=== PATIENT | female | born 1960 | race Caucasian/White ===

== ENCOUNTER 2016-06-13 16:50 | Emergency (ER) | payer OTHER ==
[~2016-06-13] VITALS: Ht 157.5 cm; Wt 94.3 kg
[~2016-06-13 16:50] MED LIST: DULO60CA44 PO; GABA-113 PO; LEVO100T PO; LOSA50TA6 PO; POTA20TA13 PO; ZNTT/150 PO
[2016-06-13 17:04] VITALS: TEMP 37; Ht 157.5 cm; Wt 94.3 kg
[2016-06-13] MEDS ORDERED: MoRPHine SULFATE 10 MG/ML CARP/VIAL IM STA (17:40)
[2016-06-13] MEDS ORDERED: KETOROLAC TROMETHAMINE 60 MG/2 ML VIAL IM STA (17:40)
[2016-06-13] MEDS ORDERED: CYM60 PO (18:15)
[2016-06-13] MEDS ORDERED: LEVO100T7 PO (18:15)
[2016-06-13] MEDS ORDERED: NRN600 PO (18:15)
[2016-06-13] MEDS ORDERED: RANI150T2 PO (18:15)
[2016-06-13] MEDS ORDERED: CZR50 PO (18:15)
--- NOTE | 2016-06-13 18:15 | DIAGNOSTIC IMAGING REPORT ---
THORACIC SPINE 3 VIEWS HISTORY: Trauma. Pain. mid back pain COMPARISON: None. FINDINGS: There is no fracture. No subluxation. Moderate degenerative disc changes throughout. Laminectomy and fusion of the low lumbar and upper lumbar spine. IMPRESSION: Degenerative and postoperative change. No acute process. Electronically signed by: Junior Montoya M.D. 06/13/2016 6:13 PM Dictated Date/Time: 06/13/2016 6:13 PM
--- NOTE | 2016-06-13 18:16 | DIAGNOSTIC IMAGING REPORT ---
CHEST 2 VIEWS ROUTINE CLINICAL HISTORY: cp pain pain COMPARISON STUDY: 04/21/2016 FINDINGS: No acute process of the chest. Operative fusion of thoracolumbar spine pre-existing. No acute infiltrate. IMPRESSION: Negative chest. Electronically signed by: Junior Montoya M.D. 06/13/2016 6:14 PM Dictated Date/Time: 06/13/2016 6:14 PM
[2016-06-13 18:45] VITALS: PULSE 99; O2SAT 96
[2016-06-13] MEDS ORDERED: HYDROmorphone INJ 1 MG/ML SYR IM ONE (19:15)
[2016-06-13 20:23] VITALS: BP 142/89
[2016-06-13] MEDS ORDERED: PRT/40 PO (20:33)
[2016-06-13] MEDS ORDERED: LSX40 PO (20:33)
[2016-06-13] MEDS ORDERED: CYM30 PO (21:20)
[2016-06-13] MEDS ORDERED: NALO1TAB2 PO (21:20)
[2016-06-13] MEDS ORDERED: TRAZ1TAB5 PO (21:20)
[2016-06-13] MEDS ORDERED: DSY/150 PO (21:20)
--- NOTE | 2016-06-13 22:35 | EMERGENCY ROOM VISIT NOTE ---
History Report prepared by Elisha: Meghana Lee Under the Supervision of: Halley WoodO. First contact with patient: 17:32 Chief Complaint: FALL Stated Complaint: SEVERE BACK PAIN, RIB PAIN,FELL DOWN History of Present Illness The patient is a 56 year old female who presents to the Emergency Room with complaints of severe and persistent upper back pain secondary to fall starting 2 days ago. The pain intermittently becomes sharp. She has worsening pain with lifting her arms and sitting down. She also complains of bilateral lower extremity pain and some tingling at the base her feet bilaterally. The patient has a history of back surgery and scoliosis. Prior to the fall, she did not have any of her current symptoms since her last back surgery. 2 days ago, she slipped on mud and fell on her buttocks. She denies falling on her back or hitting her head. She currently denies any low back pain or upper neck pain. She denies chest pain, shortness of breath, urinary symptoms, or any other complaints. Source of History: patient Onset: 2 days ago Position: back (upper) Symptom Intensity: severe Quality: sharp (intermittently) Timing: other (persistent) Modifying Factors (Worsening): other (lifting her arms and sitting down) Associated Symptoms: + numbness, No SOB, No chest pain, No urinary symptoms Review of Systems See HPI for pertinent positives & negatives. A total of 10 systems reviewed and were otherwise negative. 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 (13) Dyslipidemia (14) GERD (gastroesophageal reflux disease) (15) Hypertension (16) Hypothyroidism (17) Left breast abscess (18) Lyme disease (19) Opioid dependence (20) Scoliosis (21) Sleep apnea (22) Tobacco abuse Surgical Problems: (1) Arthroscopy of knee joint (2) Recurrent subluxation of the patella (3) S/P cholecystectomy (4) Status post delivery (5) Status post lumbar surgery (6) Status post surgery for sleep apnea (7) Status post thyroidectomy Family History Cancer Diabetes mellitus FH: heart disease FHx: gallbladder disease Hypertension Kidney disease Social History Smoking Status: Current Every Day Smoker Alcohol Use: none Drug Use: none Marital Status: Housing Status: lives with family Occupation Status: employed Current/Historical Medications Scheduled Duloxetine HCl (Duloxetine HCl), 30 MG PO DAILY Duloxetine HCl (Duloxetine HCl), 60 MG PO DAILY Furosemide (Furosemide), 40 MG PO DAILY Gabapentin (Gabapentin), 600 MG PO BID Levothyroxine Sodium (Levothyroxine Sodium), 100 MCG PO DAILY Losartan Potassium (Losartan Potassium), 50 MG PO DAILY Naloxegol Oxalate (Movantik), 25 MG PO DAILY Pantoprazole (Pantoprazole Sodium), 40 MG PO DAILY Potassium Chloride Microencaps (Potassium Chloride Er), 20 MEQ PO DAILY Ranitidine HCl (Ranitidine HCl), 150 MG PO BID Trazodone HCl (Trazodone HCl), 300 MG PO HS Trazodone Hcl (Desyrel), 50 MG PO HS Allergies Coded Allergies: Ketorolac Tromethamine (Verified Allergy, Severe, SOB,TACHYCARDIA, 05/19/15 ) Carbamazepine (Verified Allergy, Unknown, Heart Arrhythmia, 05/19/15) Source-Reported by PT. Codeine (Verified Allergy, Unknown, 05/19/15) Erythromycin (Verified Allergy, Unknown, UNKNOWN, 05/19/15) Macrolides (Verified Allergy, Unknown, 05/19/15) Adhesives (Verified Adverse Reaction, Intermediate, SKIN TEARS, 05/19/15) Temazepam (Verified Adverse Reaction, Intermediate, GI SYMPTOMS, 05/19/15) STATES TEMAZAPAM DOES NOT GIVE HER ILL EFFECTS Physical Exam Vital Signs Date Time Temp Pulse Resp B/P Pulse Ox O2 Delivery O2 Flow Rate FiO2 06/13/16 20:23 142/89 06/13/16 18:45 99 20 128/96 96 06/13/16 17:04 37.0 108 18 151/91 97 Room Air Physical Exam GENERAL: Sitting up in bed, uncomfortable, mild distress, nontoxic. HEAD: normal cephalic, atraumatic EYE EXAM: normal conjunctiva, PERRL and EOM's grossly intact OROPHARYNX: no exudate, no erythema, lips, buccal mucosa, and tongue normal and mucous membranes are moist EARS: TMs clear b/l NECK: supple, no nuchal rigidity, no adenopathy, non-tender CHEST: stable to compression anteriorly and posteriorly LUNGS: clear to auscultation. Normal chest wall mechanics HEART: Tachycardic rate. No murmurs, S1 normal and S2 normal ABDOMEN: abdomen soft, non-tender, normo-active bowel sounds, no masses, no rebound or guarding. PELVIS: stable to compression anteriorly and posteriorly BACK: Acute reproducible tenderness from the mid lower thoracic spine up to T2 region, absolutely no cervical tenderness. UPPER EXTREMITIES: full active and passive range of motion of all joints without tenderness to palpation LOWER EXTREMITIES: full active and passive range of motion of all joints without tenderness to palpation. Old incision over right knee. NEURO EXAM: Normal sensorium, cranial nerves II-XII grossly intact, normal speech, no gross weakness of arms, no gross weakness of legs. GCS: 15. Able to walk on heels and toes. Flexion extension hip, knee, ankle are 5/5 bilaterally. Achilles reflexes are 1/4 bilaterally. Medical Decision & Procedures ER Provider Diagnostic Interpretation: Xray results per the radiologist and my interpretation. CHEST 2 VIEWS ROUTINE CLINICAL HISTORY: cp pain pain COMPARISON STUDY: 04/21/2016 FINDINGS: No acute process of the chest. Operative fusion of thoracolumbar spine pre-existing. No acute infiltrate. IMPRESSION: Negative chest. Electronically signed by: Junior Montoya M.D. 06/13/2016 6:14 PM Dictated Date/Time: 06/13/2016 6:14 PM THORACIC SPINE 3 VIEWS HISTORY: Trauma. Pain. mid back pain COMPARISON: None. FINDINGS: There is no fracture. No subluxation. Moderate degenerative disc changes throughout. Laminectomy and fusion of the low lumbar and upper lumbar spine. IMPRESSION: Degenerative and postoperative change. No acute process. Electronically signed by: Junior Montoya M.D. 06/13/2016 6:13 PM Dictated Date/Time: 06/13/2016 6:13 PM Medications Administered Medications (Trade) Dose Ordered Sig/[facility] Route Start Time Stop Time Status Last Admin Dose Admin Morphine Sulfate (MoRPHine SULFATE INJ) 8 mg NOW STAT IM 06/13/16 17:40 06/13/16 17:43 DC 06/13/16 18:09 8 MG Hydromorphone HCl (Dilaudid Inj) 1 mg NOW ONCE IM 06/13/16 19:15 06/13/16 19:16 DC 06/13/16 19:21 1 MG ED Course ED COURSE: Vital signs were reviewed and showed tachycardic. The patients medical record was reviewed The above diagnostic studies were performed and reviewed. ED treatments and interventions as stated above. 173: The patient was evaluated in room A09A. A complete history and physical examination was performed. 1740: Toradol Inj 8 mg IV 1901: The patient continues to complain of the pain. 191: Dilaudid Inj 1 mg IV 1924: Upon reevaluation, the patient is resting comfortably.I discussed my findings with the patient and she understands and agrees with the treatment plan. Based on the patients age, coexisting illnesses, exam and lab findings the decision to treat as an outpatient was made. The patient remained stable while under my care. The patient appeared well at the time of discharge. Medical Decision Differential diagnoses include major intracranial, cervical, spinal, thoracic, abdominal, pelvic and neurologic injury. Fracture, contusion, sprain, strain, laceration, abrasions included as well. Patient is a 56-year-old female with multiple back surgeries of presents the ER following falling 2 days ago onto her gluteus complaining of midthoracic pain. X-ray show no acute fractures. Patient is completely neurologically intact. Able to walk on heels and toes. IM morphine and Dilaudid was given with improvement of her symptoms. Patient had no pain in her hips or lower extremities. Patient was discharged follow-up with her spine surgeon from [place]. No signs or symptoms to suggest cauda equina. No fevers. She was not discharged with narcotics following review of her PDMP. Discussed with Pt concerning signs and symptoms to watch out for. Pt was instructed to follow up with their PCP and discussed with the patient their option to return to the ED at anytime for persistent or worsening symptoms. The appropriate anticipatory guidance and out-patient management, including indications for return to the emergency department, were explained at length to the patient and understood. [place] Drug Monitoring Program Search Results: patient reviewed within database Drug Monitoring Findings: There are multiple scribers. Impression Primary Impression: Back pain Scribe Attestation The scribe's documentation has been prepared under my direction and personally reviewed by me in its entirety. I confirm that the note above accurately reflects all work, treatment, procedures, and medical decision making performed by me. Departure Information Dispostion Home / Self-Care Referrals No Doctor, Assigned (PCP) Forms HOME CARE DOCUMENTATION FORM, IMPORTANT VISIT INFORMATION Patient Instructions Back Pain - [facility], My [facility] Additional Instructions Please follow up with your primary care doctor with in the next 24 hours. Any worsening of your symptoms, please return to the ED immediately. This includes any fevers greater than 100.4, weakness or numbness in her legs, numbness in her groin, unable to pull for PE, or any other concerning signs or symptoms from her standpoint. Please take Motrin or Tylenol as needed for pain. Problem Qualifiers Primary Impression: Back pain Back pain location: thoracic back pain Chronicity: acute Back pain laterality: midline Qualified Codes: M54.6 - Pain in thoracic spine
== END 2016-06-13 20:24 | disposition home or self-care (01) ==
LOC: C.EDB 16:51 → C.EDA 20:24
DX: M54.6 Pain in thoracic spine (principal); J45.909 Unspecified asthma, uncomplicated; E78.5 Hyperlipidemia, unspecified; I10 Essential (primary) hypertension; E03.9 Hypothyroidism, unspecified; Z83.3 Family history of diabetes mellitus; Z82.49 Family history of ischemic heart disease and other diseases of the circulatory system; F17.200 Nicotine dependence, unspecified, uncomplicated

== ENCOUNTER 2016-07-28 18:52 | Emergency (ER) | payer OTHER ==
[~2016-07-28] VITALS: Ht 160 cm; Wt 98.2 kg
[~2016-07-28 18:52] MED LIST changes: +CYM30 PO; +CYM60 PO; +CZR50 PO; +DSY/150 PO; -DULO60CA44 PO; -GABA-113 PO; -LEVO100T PO; +LEVO100T7 PO; -LOSA50TA6 PO; +LSX40 PO; +NALO1TAB2 PO; +NRN600 PO; +PANT40TA2 PO; +RANI150T2 PO; +TRAZ-120 PO; -ZNTT/150 PO
[2016-07-28 18:54] VITALS: TEMP 36.6; Ht 160 cm; Wt 98.2 kg
[2016-07-28] MEDS ORDERED: ALBUT/IPRATROP 3MG/0.5MG NEB 3 ML VIAL INH STA (19:07)
[2016-07-28] MEDS ORDERED: SODIUM CHLORIDE 0.9% 1000ML 1,000 ML IV STA (19:07)
[2016-07-28] MEDS ORDERED: BENZONATATE 100MG CAP PO ONE (19:15)
--- NOTE | 2016-07-28 19:25 | DIAGNOSTIC IMAGING REPORT ---
CHEST ONE VIEW PORTABLE CLINICAL HISTORY: cough COMPARISON STUDY: 06/13/2016 FINDINGS: The cardiac and mediastinal contours are normal. There is no evidence of focal pulmonary consolidation. There is no evidence of failure. No pleural effusions are visualized.[ There is mild basilar interstitial prominence, unchanged the prior study. There are postsurgical changes of a thoracoabdominal spinal fusion. IMPRESSION: No active disease in the chest. Electronically signed by: Fco Anguiano M.D. 07/28/2016 7:23 PM Dictated Date/Time: 07/28/2016 7:22 PM
[2016-07-28 19:37] LABS: BASO % 0.4 %; BASO ABS # 0.04 K/uL (0-0.2); COMPLETE YES; EOS % 1.6 %; HEMATOCRIT 38.4 % (37-47); IG% 0.5 %; LYMPH % 32.1 %; LYMPH ABS # 3.62 K/uL (1.2-3.4); MEAN CELL VOLUME 85.3 fL (80-100); MEAN CORPUSCULAR HGB CONC 35.2 g/dl (32-36); MEAN PLATELET VOLUME 9.4 fL (7.4-10.4); MONO % 9.6 %; NEUT % 55.8 %; PLATELET COUNT 301 K/uL (130-400); WHITE BLOOD COUNT 11.27 K/uL (4.8-10.8)
[2016-07-28] MEDS ORDERED: VNTHFA/IN PO (19:37)
[2016-07-28] MEDS ORDERED: ALBINS/ PO (19:37)
[2016-07-28] MEDS ORDERED: DFL150 PO (19:37)
[2016-07-28] MEDS ORDERED: PRED10TA PO (19:37)
[2016-07-28] MEDS ORDERED: AMOX500C3 PO (19:37)
[2016-07-28] MEDS ORDERED: METHYLPREDNISOLONE 125 MG VIAL IV STA (19:38)
[2016-07-28 19:56] LABS: BUN/CREATININE RATIO 14.1 (10-20); CALCIUM 8.6 mg/dl (8.5-10.1); CREATININE 0.96 mg/dl (0.60-1.20); POTASSIUM 3.9 mmol/L (3.5-5.1)
[2016-07-28] MEDS ORDERED: HYDROCODONE/HOMATROPINE SYRUP 5MG/1.5MG 5ML UDP PO STA (20:32)
[2016-07-28] MEDS ORDERED: ALBUTEROL 0.083% NEBU SOLN 3 ML VIAL INH STA (20:32)
[2016-07-28] MEDS ORDERED: OPTIRAY 320 IV PRN (21:00)
--- NOTE | 2016-07-28 21:46 | DIAGNOSTIC IMAGING REPORT ---
CT ANGIOGRAM OF THE CHEST CLINICAL HISTORY: Cough, shortness of breath, positive d-dimer. COMPARISON STUDY: April 2014 TECHNIQUE: Following the IV administration of 97 mL of Optiray-320, CT angiogram of the thorax was performed from the thoracic inlet to the lung bases utilizing the pulmonary embolus protocol. Images are reviewed in the axial, sagittal, and coronal planes. IV contrast was administered without complication. MIP imaging was performed. CT DOSE: 441.66 mGy.cm FINDINGS: There is a multinodular thyroid goiter with a right lobe nodule measuring approximately 3 cm. Hilar lymph nodes are the upper limits of normal in size. There is no pathologic mediastinal or axillary lymphadenopathy. There was no evidence of thoracic aortic dilatation. There is an age-indeterminate right lower lobe pulmonary artery filling defect, consistent with an embolus. Correlation with venous Doppler evaluation the lower extremities is recommended. No pleural effusions are visualized. Dependent airspace opacities are felt to be atelectatic. There is a calcified right lower lobe granuloma. There is no lobar consolidation IMPRESSION: 1. Right lower lobe pulmonary artery filling defect, indicative of pulmonary embolism. This is age-indeterminate as it appears nonocclusive and mural. Correlation with lower leg venous Doppler ultrasonography should be considered 2. Multinodular thyroid goiter 3. Mild dependent atelectasis Electronically signed by: Fco Anguiano M.D. 07/28/2016 9:44 PM Dictated Date/Time: 07/28/2016 9:38 PM
--- NOTE | 2016-07-28 22:33 | DIAGNOSTIC IMAGING REPORT ---
ULTRASOUND VENOUS DOPPLER LWR EXT BILA CLINICAL HISTORY: Age-indeterminate pulmonary embolism COMPARISON STUDY: No previous studies for comparison. FINDINGS: Real-time and color flow Doppler imaging were performed. Flow was seen within the femoral, popliteal and calf veins with no intraluminal thrombus demonstrated. The saphenous vein is patent. IMPRESSION: No evidence of lower extremity DVT. Electronically signed by: Fco Anguiano M.D. 07/28/2016 10:31 PM Dictated Date/Time: 07/28/2016 10:30 PM
[2016-07-28 22:45] VITALS: PULSE 101
[2016-07-28] MEDS ORDERED: RIVAROXABAN TAB 15 MG TAB PO STA (23:25)
[2016-07-28] MEDS ORDERED: RIVA1.5T PO (23:36)
[2016-07-28] MEDS ORDERED: PRED50TA PO (23:36)
[2016-07-29 00:04] VITALS: BP 132/78; O2SAT 96
--- NOTE | 2016-07-29 00:57 | EMERGENCY ROOM VISIT NOTE ---
History Report prepared by Elisha: Iram Ruiz Under the Supervision of: Dr. Shaw Gomez D.O. First contact with patient: 18:59 Chief Complaint: CONGESTION Stated Complaint: CHEST CONGESTION, HARD/HURTS TO BREATH History of Present Illness The patient is a 56 year old female who presents to the Emergency Room with complaints of constant congestion beginning 1 week ago. The patient complains of right and left ear pain, trouble hearing out of the left ear, dry cough, head congestion, shortness of breath, left sided pain with coughing, and tiredness. She reports that she saw her doctor 1 week ago and has been taking 500mg of Amoxicillin 3 times a day and has been on 5 days of steroids that end tonight. She notes that she has asthma. The patient denies any runny nose, sore throat, and fever. 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 She stopped her anticoagulation which was xlerto back in 2014. Chest pain is only present with coughing. Source of History: patient Onset: 1 week ago Position: other (global) Quality: other (congestion) Timing: constant Associated Symptoms: + SOB, + cough, No fevers, No sorethroat Note: The patient complains of right and left ear pain, trouble hearing out of the left ear, head congestion, left sided pain with coughing, and tiredness. Pt denies runny nose. Review of Systems See HPI for pertinent positives & negatives. A total of 10 systems reviewed and were otherwise negative. 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 (13) Dyslipidemia (14) GERD (gastroesophageal reflux disease) (15) Hypertension (16) Hypothyroidism (17) Left breast abscess (18) Lyme disease (19) Opioid dependence (20) Scoliosis (21) Sleep apnea (22) Tobacco abuse Surgical Problems: (1) Arthroscopy of knee joint (2) Recurrent subluxation of the patella (3) S/P cholecystectomy (4) Status post delivery (5) Status post lumbar surgery (6) Status post surgery for sleep apnea (7) Status post thyroidectomy Family History Cancer Diabetes mellitus FH: heart disease FHx: gallbladder disease Hypertension Kidney disease Social History Smoking Status: Current Every Day Smoker Alcohol Use: none Drug Use: none Marital Status: Housing Status: lives with family Occupation Status: employed Current/Historical Medications Scheduled Albuterol Hfa (Ventolin Hfa), 2 PUFFS PO Q4 Amoxicillin (Amoxil), 500 MG PO TID Duloxetine HCl (Duloxetine HCl), 30 MG PO DAILY Duloxetine HCl (Duloxetine HCl), 60 MG PO DAILY Fluconazole (Fluconazole), 150 MG PO DIRECTED Furosemide (Furosemide), 40 MG PO DAILY Gabapentin (Gabapentin), 600 MG PO BID Levothyroxine Sodium (Levothyroxine Sodium), 100 MCG PO DAILY Losartan Potassium (Losartan Potassium), 50 MG PO DAILY Naloxegol Oxalate (Movantik), 25 MG PO DAILY Pantoprazole (Pantoprazole Sodium), 40 MG PO DAILY Potassium Chloride Microencaps (Potassium Chloride Er), 20 MEQ PO DAILY Prednisone (Prednisone), 10 MG PO TAPER Prednisone (Prednisone), 50 MG PO DAILY Ranitidine HCl (Ranitidine HCl), 150 MG PO QAM Rivaroxaban (Xarelto), 15 MG PO BID Trazodone HCl (Trazodone HCl), 300 MG PO HS Trazodone Hcl (Desyrel), 50 MG PO HS Scheduled PRN Albuterol Sulf (Proventil 0.083% 2.5MG/3ML), 1 VIAL PO Q4H PRN for Shortness of Breath Allergies Coded Allergies: Ketorolac Tromethamine (Verified Allergy, Severe, SOB,TACHYCARDIA, 07/28/16) Carbamazepine (Verified Allergy, Unknown, Heart Arrhythmia, 07/28/16) Source-Reported by PT. Erythromycin (Verified Allergy, Unknown, UNKNOWN, 07/28/16) Macrolides (Verified Allergy, Unknown, 07/28/16) Adhesives (Verified Adverse Reaction, Intermediate, SKIN TEARS, 07/28/16) Temazepam (Verified Adverse Reaction, Intermediate, GI SYMPTOMS, 07/28/16) STATES TEMAZAPAM DOES NOT GIVE HER ILL EFFECTS Physical Exam Vital Signs Date Time Temp Pulse Resp B/P Pulse Ox O2 Delivery O2 Flow Rate FiO2 07/29/16 00:04 16 132/78 96 07/28/16 22:45 101 20 154/103 98 Room Air 07/28/16 20:44 91 20 136/101 96 Room Air 07/28/16 19:43 94 Room Air 07/28/16 18:54 36.6 103 20 177/94 96 Room Air Physical Exam GENERAL: chronically ill appearing, sitting up in bed, disheveled, no distress, nonproductive cough EYE EXAM: normal conjunctiva, PERRL and EOM's grossly intact EAR: Left TM with erythema OROPHARYNX: no exudate, no erythema, lips, buccal mucosa, and tongue normal and mucous membranes are moist NECK: supple, no nuchal rigidity, no adenopathy, non-tender LUNGS: Mild wheezing bilaterally. Normal chest wall mechanics HEART: no murmurs, S1 normal and S2 normal ABDOMEN: abdomen soft, non-tender, normo-active bowel sounds, no masses, no rebound or guarding. BACK: Back is symmetrical on inspection and there is no deformity, no midline tenderness, no CVA tenderness. SKIN: no rashes and no bruising UPPER EXTREMITIES: upper extremities are grossly normal. LOWER EXTREMITIES: No pitting edema. Calves are equal bilaterally. NEURO EXAM: Normal sensorium, cranial nerves II-XII grossly intact, normal speech, no gross weakness of arms, no gross weakness of legs. Medical Decision & Procedures ER Provider Diagnostic Interpretation: Radiology results as stated below per my review and the radiologist's interpretation: CHEST ONE VIEW PORTABLE FINDINGS: The cardiac and mediastinal contours are normal. There is no evidence of focal pulmonary consolidation. There is no evidence of failure. No pleural effusions are visualized.[ There is mild basilar interstitial prominence, unchanged the prior study. There are postsurgical changes of a thoracoabdominal spinal fusion. IMPRESSION: No active disease in the chest. Electronically signed by: Fco Anguiano M.D. 07/28/2016 7:23 PM Dictated Date/Time: 07/28/2016 7:[address] ANGIOGRAM OF THE CHEST TECHNIQUE: Following the IV administration of 97 mL of Optiray-320, CT angiogram of the thorax was performed from the thoracic inlet to the lung bases utilizing the pulmonary embolus protocol. Images are reviewed in the axial, sagittal, and coronal planes. IV contrast was administered without complication. MIP imaging was performed. CT DOSE: 441.66 mGy.cm FINDINGS: There is a multinodular thyroid goiter with a right lobe nodule measuring approximately 3 cm. Hilar lymph nodes are the upper limits of normal in size. There is no pathologic mediastinal or axillary lymphadenopathy. There was no evidence of thoracic aortic dilatation. There is an age-indeterminate right lower lobe pulmonary artery filling defect, consistent with an embolus. Correlation with venous Doppler evaluation the lower extremities is recommended. No pleural effusions are visualized. Dependent airspace opacities are felt to be atelectatic. There is a calcified right lower lobe granuloma. There is no lobar consolidation IMPRESSION: 1. Right lower lobe pulmonary artery filling defect, indicative of pulmonary embolism. This is age-indeterminate as it appears nonocclusive and mural. Correlation with lower leg venous Doppler ultrasonography should be considered 2. Multinodular thyroid goiter 3. Mild dependent atelectasis Electronically signed by: Fco Anguiano M.D. 07/28/2016 9:44 PM Dictated Date/Time: 07/28/2016 9:38 PM ULTRASOUND VENOUS DOPPLER LWR EXT BILA FINDINGS: Real-time and color flow Doppler imaging were performed. Flow was seen within the femoral, popliteal and calf veins with no intraluminal thrombus demonstrated. The saphenous vein is patent. IMPRESSION: No evidence of lower extremity DVT. Electronically signed by: Fco Anguiano M.D. 07/28/2016 10:31 PM Dictated Date/Time: 07/28/2016 10:30 PM Laboratory Results 07/28/16 19:25 Red Blood Count 4.50, Mean Corpuscular Volume 85.3, Mean Corpuscular Hemoglobin 30.0, Mean Corpuscular Hemoglobin Concent 35.2, Mean Platelet Volume 9.4, Neutrophils (%) (Auto) 55.8, Lymphocytes (%) (Auto) 32.1, Monocytes (%) (Auto) 9.6, Eosinophils (%) (Auto) 1.6, Basophils (%) (Auto) 0.4, Neutrophils # (Auto) 6.29, Lymphocytes # (Auto) 3.62, Monocytes # (Auto) 1.08, Eosinophils # (Auto) 0.18, Basophils # (Auto) 0.04 07/28/16 19:25 Test 07/28/16 19:25 07/28/16 19:30 07/28/16 20:18 White Blood Count 11.27 K/uL (4.8-10.8) Red Blood Count 4.50 M/uL (4.2-5.4) Hemoglobin 13.5 g/dL (12.0-16.0) Hematocrit 38.4 % (37-47) Mean Corpuscular Volume 85.3 fL (80-100) Mean Corpuscular Hemoglobin 30.0 pg (25-34) Mean Corpuscular Hemoglobin Concent 35.2 g/dl (32-36) Platelet Count 301 K/uL (130-400) Mean Platelet Volume 9.4 fL (7.4-10.4) Neutrophils (%) (Auto) 55.8 % Lymphocytes (%) (Auto) 32.1 % Monocytes (%) (Auto) 9.6 % Eosinophils (%) (Auto) 1.6 % Basophils (%) (Auto) 0.4 % Neutrophils # (Auto) 6.29 K/uL (1.4-6.5) Lymphocytes # (Auto) 3.62 K/uL (1.2-3.4) Monocytes # (Auto) 1.08 K/uL (0.11-0.59) Eosinophils # (Auto) 0.18 K/uL (0-0.5) Basophils # (Auto) 0.04 K/uL (0-0.2) RDW Standard Deviation 48.6 fL (36.4-46.3) RDW Coefficient of Variation 15.4 % (11.5-14.5) Immature Granulocyte % (Auto) 0.5 % Immature Granulocyte # (Auto) 0.06 K/uL (0.00-0.02) Anion Gap 8.0 mmol/L (3-11) Est Creatinine Clear Calc Drug Dose 73.9 ml/min Estimated GFR () 77.2 Estimated GFR (Non- 66.6 BUN/Creatinine Ratio 14.1 (10-20) Calcium Level 8.6 mg/dl (8.5-10.1) Influenza Type A Antigen Neg for Influ A (NEG) Influenza Type B Antigen Neg for Influ B (NEG) D-Dimer 800 ug/L FEU (0-500) Laboratory results per my review. Medications Administered Medications (Trade) Dose Ordered Sig/Juno Route Start Time Stop Time Status Last Admin Dose Admin Sodium Chloride (Nss 1000ml) 1,000 ml @ 999 mls/hr Q1H1M STAT IV 07/28/16 19:07 07/28/16 20:07 DC 07/28/16 19:35 999 MLS/HR Benzonatate (Tessalon Perles Cap) 100 mg NOW ONCE PO 07/28/16 19:15 07/28/16 19:16 DC 07/28/16 19:35 100 MG Albuterol/ Ipratropium (Duoneb) 3 ml NOW STAT INH 07/28/16 19:07 07/28/16 19:09 DC 07/28/16 19:35 3 ML Methylprednisolone Sodium Succinate (Solu-Medrol IV) 125 mg NOW STAT IV 07/28/16 19:38 07/28/16 19:39 DC 07/28/16 19:51 125 MG Albuterol Sulfate (Ventolin 0.083% 2.5MG/3ML Neb) 2.5 mg NOW STAT INH 07/28/16 20:32 07/28/16 20:33 DC 07/28/16 20:41 2.5 MG Hydrocodone Bit/ Homatropine Methylb (Hycodan Syrup) 5 ml NOW STAT PO 07/28/16 20:32 07/28/16 20:33 DC 07/28/16 20:41 5 ML Rivaroxaban (Xarelto Tab) 15 mg DAILY STAT PO 07/28/16 23:25 07/28/16 23:29 DC 07/28/16 23:25 15 MG ECG Indication: SOB/dyspnea Rate (beats per minute): 91 Rhythm: sinus rhythm Findings: no ectopy, other (normal axis) Comparison ECG Date: 04/21/16 Change: no significant change ED Course ED COURSE: Vital signs were reviewed and showed tachycardia The patients medical record was reviewed The above diagnostic studies were performed and reviewed. ED treatments and interventions as stated above. 1858: The patient was evaluated in room B11. A complete history and physical examination was performed. 7: Duoneb 3ml INH, Sodium Chloride 1000 ml @ 999 mls/hr IV. 1914: Benzonatate 100mg PO. 1937: Solu-Medrol IV 125mg IV. 2030: I reevaluated the patient. She still has a cough and congestion. 2031: Hycodan Syrup 5ml PO, Albuterol Sulfate 2.5mg INH. 2324: Xarelto Tab 15mg PO. 2340: I reevaluated the patient. She denies any recent trauma, surgery, previous head bleeds, trouble with rivaroxaban. 2349: Upon reevaluation, the patient is hemodynamically stable.I discussed my findings with the patient and she understands and agrees with the treatment plan. Based on the patients age, coexisting illnesses, exam and lab findings the decision to treat as an outpatient was made. The patient remained stable while under my care. The patient appeared well at the time of discharge. Medical Decision Differential diagnoses includes but is not limited to pneumonia, bronchitis, COPD/Asthma exacerbation, pneumothorax, pulmonary embolism, congestive heart failure, acute coronary syndrome Patient is a 56-year-old female who presents the ER for URI symptoms. They started on Monday with left ear pain cough and congestion. She notes low- grade fevers. She has seen her primary care doctor and was placed on steroids and amoxicillin for an otitis media and her asthma. She is just finishing of steroids today. She has been using her nebulizer treatments and inhalers for her asthma. Labs show no significant leukocytosis or anemia. BMP was unremarkable. D-dimer was elevated at 800. Influenza A and B were negative. Chest x-ray was unremarkable. CT PE shows a small right lower lobe PE which was difficult to ascertain if it is acute. Ultrasound/duplex of the lower extremities show no DVTs. I do believe her symptoms are mainly secondary to a viral bronchitis and accommodation or asthma. I do believe a PE is an incidental finding. With her history of previous DVTs and this PE I did fill it was reasonable to start her on Xa inhibitor which she has taken before in the past. She felt comfortable with xlerto. She has had no intracranial bleeds , coughing up blood, pain blood, blood in her stool, recent trauma or recent surgeries. Patient was discharged with normal vital signs to follow-up with her PCP which she is supposed to be seen outside [facility]. I gave her 7 days worth of xlerto and steroids for her bronchitis. She will continue her amoxicillin. If she is unable to get into see her primary care doctor she will call care management we will get her in with the [facility]. She can not go there initially and will need insurance approval as she has [facility] and needs approval prior to going to see a physician. Discussed with Pt concerning signs and symptoms to watch out for. Pt was instructed to follow up with their PCP and discussed with the patient their option to return to the ED at anytime for persistent or worsening symptoms. The appropriate anticipatory guidance and out-patient management, including indications for return to the emergency department, were explained at length to the patient and understood. Impression Primary Impression: Bronchitis Additional Impressions: PE (pulmonary thromboembolism) Asthma exacerbation Otitis media Scribe Attestation The scribe's documentation has been prepared under my direction and personally reviewed by me in its entirety. I confirm that the note above accurately reflects all work, treatment, procedures, and medical decision making performed by me. Departure Information Dispostion Home / Self-Care Prescriptions Rivaroxaban (XARELTO) 15 Mg Tab 15 MG PO BID for 7 Days Prov: Shaw Gomez, DO 07/28/16 Prednisone (PREDNISONE) 50 Mg Tab 50 MG PO DAILY for 4 Days, TAB Prov: Shaw Gomez, DO 07/28/16 Referrals No Doctor, Assigned (PCP) Forms HOME CARE DOCUMENTATION FORM, IMPORTANT VISIT INFORMATION Patient Instructions Asthma - [facility], Bronchitis Acute, Embolism Pulmonary Dc, My [facility] [address] , Rivaroxaban Oral tablet Rivaroxaban Oral tablet Additional Instructions Please follow up with your primary care doctor with in the next 24 hours. Any worsening of your symptoms, please return to the ED immediately. This includes chest pain, worsening shortness of breath, passing out, hitting your head, bleeding, having dark tarry stools, blood in your stools, falls or any other concerning signs or symptoms from your standpoint. Please take xlerto as prescribed. This needs to be taken for the next several months. You're given a short prescription for 7 days which will allow you to get in to see your primary care doctor. If you're unable to get in any to return immediately to an ER to get an additional prescription. If you're unable to get an appointment within 7 days please call back to the ER and discussed with our care managers and they will assist you their number is [phone]. Problem Qualifiers Additional Impressions: Otitis media Otitis media type: serous Laterality: left Chronicity: acute Recurrence: not specified as recurrent Qualified Codes: H65.02 - Acute serous otitis media, left ear
== END 2016-07-29 00:05 | disposition home or self-care (01) ==
LOC: C.EDB 18:53
DX: J45.901 Unspecified asthma with (acute) exacerbation (principal); I26.99 Other pulmonary embolism without acute cor pulmonale; H65.02 Acute serous otitis media, left ear; Z86.718 Personal history of other venous thrombosis and embolism; M45.9 Ankylosing spondylitis of unspecified sites in spine; F41.9 Anxiety disorder, unspecified; F31.9 Bipolar disorder, unspecified; K52.9 Noninfective gastroenteritis and colitis, unspecified; F32.9 Major depressive disorder, single episode, unspecified; K21.9 Gastro-esophageal reflux disease without esophagitis; E78.5 Hyperlipidemia, unspecified; I10 Essential (primary) hypertension; E03.9 Hypothyroidism, unspecified; Z86.19 Personal history of other infectious and parasitic diseases; F11.21 Opioid dependence, in remission; G47.30 Sleep apnea, unspecified; F17.210 Nicotine dependence, cigarettes, uncomplicated; Z80.9 Family history of malignant neoplasm, unspecified; Z83.3 Family history of diabetes mellitus; Z83.79 Family history of other diseases of the digestive system; Z82.49 Family history of ischemic heart disease and other diseases of the circulatory system; Z84.1 Family history of disorders of kidney and ureter; Z79.52 Long term (current) use of systemic steroids; Z79.899 Other long term (current) drug therapy

== ENCOUNTER 2017-07-08 16:25 | Emergency (ER) | payer OTHER ==
[~2017-07-08] VITALS: Ht 160 cm; Wt 100.0 kg
[~2017-07-08 16:25] MED LIST changes: +AMOX500C3 PO; -CYM60 PO; +DFL150 PO; -DSY/150 PO; -NRN600 PO; -PANT40TA2 PO; +PRED10TA PO; -RANI150T2 PO; +RIVA1.5T PO; -TRAZ-120 PO; +VNTHFA/IN PO
[2017-07-08 16:35] VITALS: TEMP 37; Ht 160 cm; Wt 100.0 kg
[2017-07-08] MEDS ORDERED: HYDROmorphone INJ 0.5 MG/0.5 ML SYR IV STA (17:05)
[2017-07-08] MEDS ORDERED: ONDANSETRON INJ 2 MG/ML 2 ML VIAL IV STA (17:05)
[2017-07-08] MEDS ORDERED: SODIUM CHLORIDE 0.9% 1000ML 1,000 ML IV STA (17:08)
[2017-07-08 17:14] LABS: BASO % 0.3 %; BASO ABS # 0.02 K/uL (0-0.2); EOS % 0.8 %; EOS ABS # 0.05 K/uL (0-0.5); HEMATOCRIT 42.7 % (37-47); HEMOGLOBIN 15.1 g/dL (12.0-16.0); IG# 0.02 K/uL (0.00-0.02); LYMPH % 24.8 %; MEAN CELL VOLUME 89.5 fL (80-100); MEAN CORPUSCULAR HEMOGLOBIN 31.7 pg (25-34); MEAN CORPUSCULAR HGB CONC 35.4 g/dl (32-36); MEAN PLATELET VOLUME 9.5 fL (7.4-10.4); MONO % 12.9 %; MONO ABS # 0.83 K/uL (0.11-0.59); NEUT % 60.9 %; NEUT ABS # 3.92 K/uL (1.4-6.5); PLATELET COUNT 263 K/uL (130-400); RED CELL DISTRIBUTION WIDTH CV 14.5 % (11.5-14.5); RED CELL DISTRIBUTION WIDTH SD 47.7 fL (36.4-46.3); WHITE BLOOD COUNT 6.44 K/uL (4.8-10.8)
[2017-07-08] MEDS ORDERED: XRL20 PO (17:24)
[2017-07-08] MEDS ORDERED: SYN137 PO (17:24)
[2017-07-08] MEDS ORDERED: SPR25 PO (17:24)
[2017-07-08] MEDS ORDERED: NALO1TAB2 PO (17:25)
[2017-07-08 17:36] LABS: ALBUMIN 3.5 gm/dl (3.4-5.0); CALCIUM 8.4 mg/dl (8.5-10.1); CREATININE 0.97 mg/dl (0.60-1.20); TOTAL PROTEIN 7.1 gm/dl (6.4-8.2)
[2017-07-08] MEDS ORDERED: NRN600 PO (18:15)
[2017-07-08] MEDS ORDERED: RANI150T2 PO (18:15)
[2017-07-08] MEDS ORDERED: CYM60 PO (18:15)
[2017-07-08] MEDS ORDERED: OPTIRAY 320 IV PRN (18:30)
[2017-07-08] MEDS ORDERED: HYDROmorphone INJ 1 MG/ML SYR IV STA (18:36)
[2017-07-08 18:39] LABS: AST/SGOT 24 U/L (15-37)
[2017-07-08] MEDS ORDERED: LSX20 PO (18:39)
--- NOTE | 2017-07-08 18:41 | DIAGNOSTIC IMAGING REPORT ---
ABD/PELVIS IV CONTRAST ONLY CT DOSE: 1279.00 mGy.cm HISTORY: Pain upper and left sided abdominal pain. TECHNIQUE: Multiaxial CT images of the abdomen and pelvis were performed following the use of intravenous contrast. A dose lowering technique was utilized adhering to the principles of ALARA. COMPARISON STUDY: 05/19/2015 FINDINGS: The lung bases are clear. The liver, spleen, pancreas, kidneys, and adrenal glands are within normal limits. Prior cholecystectomy. No bowel wall thickening or obstruction. Pelvis is unremarkable for a prior partial hysterectomy. Left ovary is enlarged compared to the prior study of the maximum dimension of 5.5 x 3.0 cm. Bladder is midline. No significant adenopathy within the abdomen or pelvic regions. IMPRESSION: 1. Enlarged left ovary at 5.5 x 3.0 cm. 2. Pelvic ultrasonography is suggested as follow-up. 3. Stable postoperative changes of the lumbar spine. Prior cholecystectomy. 4. Nonobstructive bowel pattern. The above report was generated using voice recognition software. It may contain grammatical, syntax or spelling errors. Electronically signed by: Junior Montoya M.D. 07/08/2017 6:40 PM Dictated Date/Time: 07/08/2017 6:36 PM
[2017-07-08] MEDS ORDERED: ALBINS/ PO (19:37)
[2017-07-08 20:19] VITALS: BP 101/59; PULSE 81; O2SAT 95
[2017-07-08] MEDS ORDERED: PANT40TA2 PO (20:33)
[2017-07-08] MEDS ORDERED: DSY/150 PO (21:20)
[2017-07-08] MEDS ORDERED: TRAZ-120 PO (21:20)
--- NOTE | 2017-07-08 22:38 | EMERGENCY ROOM VISIT NOTE ---
History Report prepared by Elisha: Carol Correa Under the Supervision of: Dr. Fredi John M.D. First contact with patient: 16:48 Chief Complaint: GI ASSESSMENT Stated Complaint: BLOATED STOMACH,NAUSEA,PAIN,MUCOUS DIARREAH Nursing Triage Summary: abdominal pain and bloating. diarrhea syptoms started yesterday History of Present Illness The patient is a 57 year old female who presents to the Emergency Room with complaints of constant abdominal pain since yesterday morning. She notes the pain is in the upper and left side of her abdomen. She currently rates her pain a 9/10 in severity. She notes eating worsens the pain. She has not taken any medication for the pain. She notes nausea with burping. She reports sweating. She reports a heavy feeling radiating towards her chest but denies chest pain. She denies any bloody stools, though reports diarrhea with foam and mucus. She notes seven episodes of diarrhea yesterday and one episode today. She states that she has not eaten anything at all today. She has a history of diverticulitis. She was taking Amoxicillin 875 mg BID three weeks ago, but has completed the treatment. She reports a fall that occurred one week ago and she was seen at [place]. She reports injuring her back at that time and a concussion. She was found to have mild bleeder in the brain, though was told it was mild. She states they also found an umbilical hernia and a mass on left ovary. She notes her diverticulitis looked suspicious at that time. She has a history of PE and two DVTs. She denies taking any aspirin for four days. She has a history of asthma. She has a history of a pressure fracture in her back due to a fall in the past that was resolved with back surgery. She has a history of CHF. She denies any new back pain. Pt denies LOC, headache, fevers, chills, visual changes, neck pain, chest pain, breathing difficulties, nausea, vomiting, melena, hematochezia, urinary symptoms, numbness, weakness, lymphadenopathy, rash, or other complaints. Source of History: patient Onset: since yesterday morning Position: abdomen Symptom Intensity: 9/10 Timing: constant Modifying Factors (Worsening): eating Associated Symptoms: + back pain, + diarrhea Note: She notes sweating. She denies any bloody stools. Review of Systems See HPI for pertinent positives and negatives. A total of ten systems were reviewed and were otherwise negative. Past Medical & Surgical Medical Problems: (1) Abdominal pain (2) Acute bronchitis (3) Ambulatory dysfunction (4) Ankylosing spondylitis (5) Anxiety (6) Asthma (7) Asthma exacerbation (8) Back pain (9) Bipolar disorder (10) Bronchitis (11) Chronic low back pain (12) Chronic low back pain (13) Chronic radicular low back pain (14) Colitis (15) Constipation (16) Contusion of hip, left (17) COPD exacerbation (18) Degenerative disc disease (19) Dehydration (20) Depression (21) Diarrhea (22) Diarrhea (23) Diverticular disease of colon (24) Dyslipidemia (25) Fall (26) GERD (gastroesophageal reflux disease) (27) Hypertension (28) Hypothyroidism (29) Intractable low back pain (30) Left breast abscess (31) Low back pain with sciatica (32) Low back pain with sciatica (33) Low back pain with sciatica (34) Lumbar compression fracture (35) Lumbar radiculopathy (36) Lyme disease (37) Opioid dependence (38) Otitis media (39) PE (pulmonary thromboembolism) (40) Pneumonia (41) Scoliosis (42) Severe back pain (43) Sleep apnea (44) SOB (shortness of breath) (45) Spasm of back muscles (46) Tobacco abuse (47) Upper abdominal pain Surgical Problems: (1) Arthroscopy of knee joint (2) Recurrent subluxation of the patella (3) S/P cholecystectomy (4) Status post delivery (5) Status post lumbar surgery (6) Status post surgery for sleep apnea (7) Status post thyroidectomy Family History Cancer Diabetes mellitus FH: heart disease FHx: gallbladder disease Hypertension Kidney disease Social History Smoking Status: Current Every Day Smoker Alcohol Use: none Drug Use: none Marital Status: Housing Status: lives with family Occupation Status: employed Current/Historical Medications Scheduled Duloxetine HCl (Duloxetine HCl), 120 MG PO QAM Furosemide (Furosemide), 10 MG PO DAILY Gabapentin (Gabapentin), 600 MG PO BID Levothyroxine Sodium (Levothyroxine Sodium), 137 MCG PO DAILY Losartan Potassium (Losartan Potassium), 50 MG PO DAILY Naloxegol Oxalate (Movantik), 25 MG PO DAILY Pantoprazole (Pantoprazole Sodium), 40 MG PO BID Ranitidine HCl (Ranitidine HCl), 150 MG PO BID Rivaroxaban (Xarelto), 20 MG PO DAILY Spironolactone (Spironolactone), 25 MG PO DAILY Trazodone HCl (Trazodone HCl), 300 MG PO HS Trazodone Hcl (Desyrel), 50 MG PO HS Scheduled PRN Albuterol Hfa (Ventolin Hfa), 2 PUFFS PO Q4 PRN for SOB/Wheezing Albuterol Sulf (Proventil 0.083% 2.5MG/3ML), 1 VIAL PO Q4H PRN for Shortness of Breath Allergies Coded Allergies: Ketorolac Tromethamine (Verified Allergy, Severe, SOB,TACHYCARDIA, 07/28/16) Carbamazepine (Verified Allergy, Unknown, Heart Arrhythmia, 07/28/16) Source-Reported by PT. Erythromycin (Verified Allergy, Unknown, UNKNOWN, 07/28/16) Macrolides (Verified Allergy, Unknown, 07/28/16) Adhesives (Verified Adverse Reaction, Intermediate, SKIN TEARS, 07/28/16) Temazepam (Verified Adverse Reaction, Intermediate, GI SYMPTOMS, 07/28/16) STATES TEMAZAPAM DOES NOT GIVE HER ILL EFFECTS Physical Exam Vital Signs Date Time Temp Pulse Resp B/P (MAP) Pulse Ox O2 Delivery O2 Flow Rate FiO2 07/08/17 20:19 81 20 101/59 95 07/08/17 19:14 82 20 114/62 97 Room Air 07/08/17 17:35 96 20 118/88 97 07/08/17 17:02 99 22 115/70 97 Room Air 07/08/17 16:35 37.0 101 18 125/84 97 Room Air Physical Exam GENERAL: Awake, alert, uncomfortable-appearing, in no distress HENT: Normocephalic, atraumatic. Oropharynx unremarkable. EYES: Normal conjunctiva. Sclera non-icteric. NECK: Supple. No nuchal rigidity. FROM. No masses. RESPIRATORY: Clear to auscultation. No wheezes. No rales. Normal respiratory effort. CARDIAC: Borderline tachycardic rate. Normal rhythm. No murmurs. No rubs. Extremities warm and well perfused. Pulses equal. No JVD. GI: Soft, non-distended. Tenderness to palpation in epigastric, left upper, and left lower abdomen.. No rebound or guarding. No masses. RECTAL: Deferred. MUSCULOSKELETAL: Atraumatic. Chest examination reveals no tenderness. The back is symmetrical on inspection without obvious abnormality. There is no CVA tenderness to palpation. No joint edema. LOWER EXTREMITIES: Calves are equal size bilaterally and non-tender. No edema. No discoloration. NEURO: Normal sensorium. No sensory or motor deficits noted. SKIN: No rash or jaundice noted. Medical Decision & Procedures ER Provider Diagnostic Interpretation: Radiology results as stated below per my review and radiologist interpretation: ABD/PELVIS IV CONTRAST ONLY CT DOSE: 1279.00 mGy.cm HISTORY: Pain upper and left sided abdominal pain. TECHNIQUE: Multiaxial CT images of the abdomen and pelvis were performed following the use of intravenous contrast. A dose lowering technique was utilized adhering to the principles of ALARA. COMPARISON STUDY: 05/19/2015 FINDINGS: The lung bases are clear. The liver, spleen, pancreas, kidneys, and adrenal glands are within normal limits. Prior cholecystectomy. No bowel wall thickening or obstruction. Pelvis is unremarkable for a prior partial hysterectomy. Left ovary is enlarged compared to the prior study of the maximum dimension of 5.5 x 3.0 cm. Bladder is midline. No significant adenopathy within the abdomen or pelvic regions. IMPRESSION: 1. Enlarged left ovary at 5.5 x 3.0 cm. 2. Pelvic ultrasonography is suggested as follow-up. 3. Stable postoperative changes of the lumbar spine. Prior cholecystectomy. 4. Nonobstructive bowel pattern. The above report was generated using voice recognition software. It may contain grammatical, syntax or spelling errors. Electronically signed by: Junior Montoya M.D. 07/08/2017 6:40 PM Dictated Date/Time: 07/08/2017 6:36 PM Laboratory Results 07/08/17 16:58 Red Blood Count 4.77, Mean Corpuscular Volume 89.5, Mean Corpuscular Hemoglobin 31.7, Mean Corpuscular Hemoglobin Concent 35.4, Mean Platelet Volume 9.5, Neutrophils (%) (Auto) 60.9, Lymphocytes (%) (Auto) 24.8, Monocytes (%) (Auto) 12.9, Eosinophils (%) (Auto) 0.8, Basophils (%) (Auto) 0.3, Neutrophils # (Auto ) 3.92, Lymphocytes # (Auto) 1.60, Monocytes # (Auto) 0.83, Eosinophils # (Auto ) 0.05, Basophils # (Auto) 0.02 07/08/17 16:58 07/08/17 18:01 Test 07/08/17 16:58 07/08/17 18:01 07/08/17 20:00 White Blood Count 6.44 K/uL (4.8-10.8) Red Blood Count 4.77 M/uL (4.2-5.4) Hemoglobin 15.1 g/dL (12.0-16.0) Hematocrit 42.7 % (37-47) Mean Corpuscular Volume 89.5 fL (80-100) Mean Corpuscular Hemoglobin 31.7 pg (25-34) Mean Corpuscular Hemoglobin Concent 35.4 g/dl (32-36) Platelet Count 263 K/uL (130-400) Mean Platelet Volume 9.5 fL (7.4-10.4) Neutrophils (%) (Auto) 60.9 % Lymphocytes (%) (Auto) 24.8 % Monocytes (%) (Auto) 12.9 % Eosinophils (%) (Auto) 0.8 % Basophils (%) (Auto) 0.3 % Neutrophils # (Auto) 3.92 K/uL (1.4-6.5) Lymphocytes # (Auto) 1.60 K/uL (1.2-3.4) Monocytes # (Auto) 0.83 K/uL (0.11-0.59) Eosinophils # (Auto) 0.05 K/uL (0-0.5) Basophils # (Auto) 0.02 K/uL (0-0.2) RDW Standard Deviation 47.7 fL (36.4-46.3) RDW Coefficient of Variation 14.5 % (11.5-14.5) Immature Granulocyte % (Auto) 0.3 % Immature Granulocyte # (Auto) 0.02 K/uL (0.00-0.02) Anion Gap 6.0 mmol/L (3-11) Est Creatinine Clear Calc Drug Dose 73.0 ml/min Estimated GFR () 75.7 Estimated GFR (Non- 65.3 BUN/Creatinine Ratio 13.0 (10-20) Calcium Level 8.4 mg/dl (8.5-10.1) Total Bilirubin 0.3 mg/dl (0.2-1) Alanine Aminotransferase (ALT/SGPT) 32 U/L (12-78) Alkaline Phosphatase 84 U/L (45-117) Total Protein 7.1 gm/dl (6.4-8.2) Albumin 3.5 gm/dl (3.4-5.0) Lipase 147 U/L (73-393) Direct Bilirubin < 0.1 mg/dl (0-0.2) Aspartate Amino Transf (AST/SGOT) 24 U/L (15-37) Urine Color DK YELLOW Urine Appearance CLEAR (CLEAR) Urine pH 5.0 (4.5-7.5) Urine Specific [place] > 1.045 (1.000-1.030) Urine Protein NEG (NEG) Urine Glucose (UA) NEG (NEG) Urine Ketones NEG (NEG) Urine Occult Blood 1+ (NEG) Urine Nitrite NEG (NEG) Urine Bilirubin NEG (NEG) Urine Urobilinogen NEG (NEG) Urine Leukocyte Esterase NEG (NEG) Urine WBC (Auto) 1-5 /hpf (0-5) Urine RBC (Auto) 10-30 /hpf (0-4) Urine Hyaline Casts (Auto) 0 /lpf (0-5) Urine Epithelial Cells (Auto) >30 /lpf (0-5) Urine Bacteria (Auto) 1+ (NEG) Urine Mucus PRESENT (NONE PRSENT) Laboratory results reviewed by me Medications Administered Medications (Trade) Dose Ordered Sig/Juno Route Start Time Stop Time Status Last Admin Dose Admin Ondansetron HCl (Zofran Inj) 4 mg NOW STAT IV 07/08/17 17:05 07/08/17 17:08 DC 07/08/17 17:20 4 MG Hydromorphone HCl (Dilaudid Inj) 0.5 mg NOW STAT IV 07/08/17 17:05 07/08/17 17:08 DC 07/08/17 17:21 0.5 MG Sodium Chloride 1,000 ml @ 200 mls/hr Q5H STAT IV 07/08/17 17:08 07/08/17 20:33 DC 07/08/17 17:20 200 MLS/HR Hydromorphone HCl (Dilaudid Inj) 1 mg NOW STAT IV 07/08/17 18:36 07/08/17 18:37 DC 07/08/17 19:14 1 MG ED Course 1705: The patient was evaluated in room C11B. A complete history and physical exam was performed. 1705: Ordered Dilaudid 0.5 mg IV and Zofran 4 mg IV 1708: Ordered Sodium Chloride 1,000 ml @ 200 mls/hr IV 1836: Ordered Dilaudid 1 mg IV 1950: I reassessed the patient at this time. I offered to US her pelvis, though she declined because she has an appointment with a orange peel operator this week. I informed her that the cyst is smaller than she was originally told. I discussed the results and treatment plan with the patient. I answered all pertaining questions that she had. She expressed understanding and verbalized agreement. The patient will be discharged home. Medical Decision Triage Nursing notes reviewed. The patient's presentation and history were concerning for diarrhea and abdominal pain Etiologies such as gastroenteritis, food borne illness, infections, obstruction , pancreatitis, appendicitis, diverticulitis, inflammatory bowel disease, GI bleed, biliary pathology, toxicologic as well as others were entertained. The patient was evaluated. She had some left-sided abdominal pain. She notes having diverticulitis in the past. She has had moderate diarrhea yesterday. She has had one episode today. Stool studies, diagnostic testing and medications were ordered. The patient was unable to provide a stool sample during her several hours in the emergency department. She was treated with IV Zofran and 2 doses of IV Dilaudid. She was feeling better with this. The patient had unremarkable laboratory findings. Her urinalysis showed mostly epithelial cells with some blood. Culture was sent. Patient is not having any urinary symptoms. Her CT imaging did not reveal any evidence of diverticulitis or other emergent intra-abdominal pathology. The patient does have a left ovarian cyst. She is aware of this and has a follow-up ultrasound and TRANSPORT ASSISTANT appointment scheduled. I did offer to do an ultrasound here but the patient declined. She is currently doing well and feels comfortable with conservative management. If she worsens in any way she will be back. She will need close outpatient follow-up and I did encourage her to return or seek care at her primary office if the diarrhea returns or persists. She did have an Augmentin prescription number weeks ago. She has no colitis on CT imaging and again was unable to provide a stool specimen here. She has only had one loose stool today. Jung. difficile would be unlikely in this situation but the patient was advised. I gave my usual and customary discussion regarding this issue. By the evaluation outlined above other emergent etiologies such as those listed in the differential, as well as others, were deemed relatively unlikely. The patient was educated about the findings as listed above. All questions were answered and the patient was pleased with the treatment. Return instructions were outlined and the patient was discharged in stable condition. The patient was referred to her PCP for follow-up for a recheck of the current condition. Medication Reconcilliation Current Medication List: was personally reviewed by me Blood Pressure Screening Patient's blood pressure: Normal blood pressure Impression Primary Impression: Left sided abdominal pain Additional Impressions: Diarrhea Left ovarian cyst Scribe Attestation The scribe's documentation has been prepared under my direction and personally reviewed by me in its entirety. I confirm that the note above accurately reflects all work, treatment, procedures, and medical decision making performed by me. Departure Information Dispostion Home / Self-Care Referrals Alex Gonzales D.O. (PCP) Forms HOME CARE DOCUMENTATION FORM, IMPORTANT VISIT INFORMATION Patient Instructions [facility] Additional Instructions ABDOMINAL PAIN INSTRUCTIONS: DO NOT drive, drink alcohol, operate machinery, or perform dangerous activities today. You were given medications in the ER that can affect your ability to safely function or operate a vehicle. Acetaminophen(Tylenol) may be used for fever or pain. Use 1000mg every six hours as needed. Avoid using more than 4000mg in a 24 hour period. Rest and drink plenty of fluids as tolerated. Slow sips of water or sports drinks are recommended instead of large amounts all at once. Continue current medications. Once your stomach is settled start with a clear liquid diet (jello, soup broth, etc.) and then advance as tolerated. You should avoid full, heavy meals for about 24 hrs from the time your symptoms resolved. Return to the ER immediately for worsening or persistent abdominal pain, vomiting, fevers, chest pains, difficulty breathing, black or bloody stools, worsening of your condition, or as needed. Follow up with your primary physician in 2-3 days for a recheck of your current condition. Stool studies will be necessary if the diarrhea persists. Follow up with your orange peel operator as scheduled for the ovarian cyst. Problem Qualifiers
== END 2017-07-08 20:21 | disposition home or self-care (01) ==
LOC: C.EDB 16:27 → C.EDC 20:21
DX: R10.30 Lower abdominal pain, unspecified (principal); R19.7 Diarrhea, unspecified; N83.202 Unspecified ovarian cyst, left side; F41.9 Anxiety disorder, unspecified; J45.909 Unspecified asthma, uncomplicated; F31.9 Bipolar disorder, unspecified; J44.9 Chronic obstructive pulmonary disease, unspecified; F32.9 Major depressive disorder, single episode, unspecified; E78.5 Hyperlipidemia, unspecified; K21.9 Gastro-esophageal reflux disease without esophagitis; E03.9 Hypothyroidism, unspecified; I10 Essential (primary) hypertension; M54.16 Radiculopathy, lumbar region; G47.30 Sleep apnea, unspecified; Z83.3 Family history of diabetes mellitus; Z82.49 Family history of ischemic heart disease and other diseases of the circulatory system; F17.200 Nicotine dependence, unspecified, uncomplicated; Z88.8 Allergy status to other drugs, medicaments and biological substances

== ENCOUNTER 2017-12-11 18:11 | Inpatient (IN) | payer OTHER ==
[~2017-12-11] VITALS: Ht 160 cm; Wt 101.4 kg
[~2017-12-11 18:11] MED LIST changes: +ALBINS/ PO; -AMOX500C3 PO; -CYM30 PO; +CYM60 PO; -DFL150 PO; +DSY/150 PO; -LEVO100T7 PO; +LSX20 PO; -LSX40 PO; +PANT40TA2 PO; -POTA20TA13 PO; -PRED10TA PO; +RANI150T2 PO; -RIVA1.5T PO; +SPIR25TA6 PO; +SYN137 PO; +TRAZ1TAB48 PO; +XRL20 PO
[2017-12-11] MEDS ORDERED: NRN600 PO (18:15)
--- NOTE | 2017-12-11 19:34 | EMERGENCY ROOM VISIT NOTE ---
History Report prepared by Elisha: Mercedes Edgar Under the Supervision of: Dr. Obed Ratliff M.D. First contact with patient: 18:32 Chief Complaint: MENTAL HEALTH EVALUATION Stated Complaint: WANTS TO BE CLEARED TO GO TO THE [facility] History of Present Illness The patient is a 57 year old female who presents to the Emergency Room for a mental health evaluation. The patient states that she has a history of Bipolar Disorder and is on medications for it. She states that she has been taking all her medications and hasn't had any changes to her medications. She reports that usually she is in a maniac state, but has been in a depressed state. She reports that she has no will to live anymore. She states that she just "wishes she went away.' She states that she has not been able to eat or sleep well for the past 3 days. She states that she has been crying a lot. She states that her family relies on her for everything and she has a lot of stress from that. The patient states that she feels like she needs help and would like to go inpatient at the [facility]. She notes that she has been inpatient there before. The patient complains of a headache. She notes that she has a history of a brain bleed from slipping on ice. She notes that she takes an Aspirin a day and is on Xarelto for a history of PE/DVT. The patient denies suicidal ideations, homicidal ideations, weight loss, weight gain, fevers, us of alcohol, use of drugs, leg swelling, chest pain, shortness of breath, back pain, taking extra medications, and recent falls. Source of History: patient Onset: 3 days Position: head Quality: other (mental health) Timing: worsening Associated Symptoms: + headache, No fevers, No chest pain, No SOB, No back pain Note: The patient complains of depression, loss of appetite, and not being able to sleep. The patient denies suicidal ideations, homicidal ideations, weight loss, weight gain, leg swelling, use of alcohol, use of drugs, taking extra medications, and recent falls. Review of Systems See HPI for pertinent positives & negatives. A total of 10 systems reviewed and were otherwise negative. Past Medical & Surgical Medical Problems: (1) Abdominal pain (2) Acute bronchitis (3) Ambulatory dysfunction (4) Ankylosing spondylitis (5) Anxiety (6) Asthma (7) Asthma exacerbation (8) Back pain (9) Bipolar disorder (10) Bronchitis (11) Chronic low back pain (12) Chronic low back pain (13) Chronic radicular low back pain (14) Colitis (15) Constipation (16) Contusion of hip, left (17) COPD exacerbation (18) Degenerative disc disease (19) Dehydration (20) Depression (21) Diarrhea (22) Diarrhea (23) Diverticular disease of colon (24) Dyslipidemia (25) Fall (26) GERD (gastroesophageal reflux disease) (27) Hx of congestive heart failure (28) Hx of deep venous thrombosis (29) Hypertension (30) Hypothyroidism (31) Intractable low back pain (32) Left breast abscess (33) Low back pain with sciatica (34) Low back pain with sciatica (35) Low back pain with sciatica (36) Lumbar compression fracture (37) Lumbar radiculopathy (38) Lyme disease (39) Opioid dependence (40) Otitis media (41) PE (pulmonary thromboembolism) (42) Pneumonia (43) Scoliosis (44) Severe back pain (45) Sleep apnea (46) SOB (shortness of breath) (47) Spasm of back muscles (48) Tobacco abuse (49) Upper abdominal pain Surgical Problems: (1) Arthroscopy of knee joint (2) Hx of total knee replacement (3) Recurrent subluxation of the patella (4) S/P cholecystectomy (5) Status post delivery (6) Status post lumbar surgery (7) Status post surgery for sleep apnea (8) Status post thyroidectomy Old medical records were reviewed. Nurse's notes were reviewed and I agree with. Family History Cancer Diabetes mellitus FH: heart disease FHx: gallbladder disease Hypertension Kidney disease Social History Smoking Status: Current Every Day Smoker Alcohol Use: none Drug Use: none Marital Status: Housing Status: lives with family Occupation Status: disabled Current/Historical Medications Scheduled Duloxetine HCl (Duloxetine HCl), 120 MG PO QAM Furosemide (Furosemide), 20 PO DAILY Gabapentin (Gabapentin), 600 MG PO TID Levothyroxine Sodium (Levothyroxine Sodium), 137 MCG PO DAILY Losartan Potassium (Losartan Potassium), 50 MG PO DAILY Oyster Shell (Oyster Shell), 500 MG PO DAILY Pantoprazole (Pantoprazole Sodium), 40 MG PO BID Ranitidine HCl (Ranitidine HCl), 150 MG PO BID Rivaroxaban (Xarelto), 20 MG PO DAILY Spironolactone (Spironolactone), 25 MG PO DAILY Trazodone HCl (Trazodone HCl), 300 MG PO HS Trazodone Hcl (Desyrel), 50 MG PO HS Scheduled PRN Albuterol Hfa (Ventolin Hfa), 2 PUFFS PO Q4 PRN for SOB/Wheezing Albuterol Sulf (Proventil 0.083% 2.5MG/3ML), 1 VIAL PO Q4H PRN for Shortness of Breath Allergies Coded Allergies: Ketorolac Tromethamine (Verified Allergy, Severe, SOB,TACHYCARDIA, 07/28/16) Carbamazepine (Verified Allergy, Unknown, Heart Arrhythmia, 07/28/16) Source-Reported by PT. Erythromycin (Verified Allergy, Unknown, UNKNOWN, 07/28/16) Macrolides (Verified Allergy, Unknown, 07/28/16) Adhesives (Verified Adverse Reaction, Intermediate, SKIN TEARS, 07/28/16) Temazepam (Verified Adverse Reaction, Intermediate, GI SYMPTOMS, 07/28/16) STATES TEMAZAPAM DOES NOT GIVE HER ILL EFFECTS Physical Exam Vital Signs Date Time Temp Pulse Resp B/P (MAP) Pulse Ox O2 Delivery O2 Flow Rate FiO2 12/11/17 23:08 80 20 110/62 97 Room Air 12/11/17 20:28 87 22 118/50 96 Room Air 12/11/17 18:17 36.9 103 18 165/82 100 Room Air Physical Exam General: Teary eyed middle aged female complaining of feeling depressed otherwise in no acute distress. HEENT: Normal cephalic atraumatic. Pupils are equal round and reactive to light. Extraocular movements are intact. Oropharynx is pink with moist mucous membranes. No swelling of the mouth lips or tongue. Neck: Supple with a midline trachea. No meningeal signs or stiffness, no JVD or bruits. No Stridor. Chest: Clear to auscultation bilaterally. No wheezes or rhonchi. No increased work of breathing. Heart: regular rate and rhythm. Abdomen: Soft nontender, nondistended without rebound guarding or rigidity. Extremities: No cyanosis clubbing or edema. No calf tenderness or assymetry Spine/Back. Non tender to palpation. No CVA tenderness Skin: Good turgor without rashes. Neurologic exam: Cranial nerves two through 12 are intact. Motor and sensation are intact and symmetrical throughout. Psych: Depressed. Denies overdose or active suicidal ideations. Medical Decision & Procedures ER Provider Diagnostic Interpretation: Radiology results as stated below per my review and radiologist interpretation: CT OF THE HEAD WITHOUT CONTRAST CLINICAL HISTORY: Headache. COMPARISON STUDY: Head CT February 25, 2014. CT DOSE: 614.27 mGy.cm TECHNIQUE: Helical axial images of the head were obtained without IV contrast. Automated exposure control was utilized for the study. A dose lowering technique was utilized adhering to the principles of ALARA. FINDINGS: No acute intracranial hemorrhage, midline shift or mass effect is present. Ventricular system is normal. Basilar cisterns are patent. There are no extra-axial collections. There is a probable prominent perivascular space within the right basal ganglia. There are no findings to suggest acute dural sinus thrombosis or acute territorial infarct. There are postoperative finding within the sinuses. Minimal secretions within the left maxillary sinus are noted. There are no significant calvarial abnormalities. IMPRESSION: 1. No acute intracranial findings. 2. Postoperative findings within the sinuses. Minimal secretions within the left maxillary sinus. Electronically signed by: Jerry Francis M.D. 12/11/2017 7:57 PM Dictated Date/Time: 12/11/2017 7:54 PM Laboratory Results 12/11/17 20:14 Red Blood Count 4.41, Mean Corpuscular Volume 79.8, Mean Corpuscular Hemoglobin 25.4, Mean Corpuscular Hemoglobin Concent 31.8, Mean Platelet Volume 9.3, Neutrophils (%) (Auto) 58.4, Lymphocytes (%) (Auto) 31.2, Monocytes (%) (Auto) 8.8, Eosinophils (%) (Auto) 0.9, Basophils (%) (Auto) 0.5, Neutrophils # (Auto) 6.21, Lymphocytes # (Auto) 3.31, Monocytes # (Auto) 0.93, Eosinophils # (Auto) 0.10, Basophils # (Auto) 0.05 12/11/17 20:14 Test 12/11/17 18:30 12/11/17 20:14 12/11/17 21:55 Urine Opiates Screen NEG (NEG) Urine Methadone, Qualitative NEG (NEG) Urine Barbiturates NEG (NEG) Urine Phencyclidine (PCP) Level NEG (NEG) Ur Amphetamine/Methamphetamine NEG (NEG) MDMA (Ecstasy) Screen POS (NEG) Urine Benzodiazepines Screen NEG (NEG) Urine Cocaine Metabolite NEG (NEG) Urine Marijuana (THC) NEG (NEG) White Blood Count 10.62 K/uL (4.8-10.8) Red Blood Count 4.41 M/uL (4.2-5.4) Hemoglobin 11.2 g/dL (12.0-16.0) Hematocrit 35.2 % (37-47) Mean Corpuscular Volume 79.8 fL (80-100) Mean Corpuscular Hemoglobin 25.4 pg (25-34) Mean Corpuscular Hemoglobin Concent 31.8 g/dl (32-36) Platelet Count 363 K/uL (130-400) Mean Platelet Volume 9.3 fL (7.4-10.4) Neutrophils (%) (Auto) 58.4 % Lymphocytes (%) (Auto) 31.2 % Monocytes (%) (Auto) 8.8 % Eosinophils (%) (Auto) 0.9 % Basophils (%) (Auto) 0.5 % Neutrophils # (Auto) 6.21 K/uL (1.4-6.5) Lymphocytes # (Auto) 3.31 K/uL (1.2-3.4) Monocytes # (Auto) 0.93 K/uL (0.11-0.59) Eosinophils # (Auto) 0.10 K/uL (0-0.5) Basophils # (Auto) 0.05 K/uL (0-0.2) RDW Standard Deviation 45.1 fL (36.4-46.3) RDW Coefficient of Variation 15.6 % (11.5-14.5) Immature Granulocyte % (Auto) 0.2 % Immature Granulocyte # (Auto) 0.02 K/uL (0.00-0.02) Prothrombin Time 11.9 SECONDS (9.0-12.0) Prothromb Time International Ratio 1.1 (0.9-1.1) Activated Partial Thromboplast Time 32.9 SECONDS (21.0-31.0) Partial Thromboplastin Ratio 1.3 Anion Gap 9.0 mmol/L (3-11) Est Creatinine Clear Calc Drug Dose 76.0 ml/min Estimated GFR () 77.6 Estimated GFR (Non- 67.0 BUN/Creatinine Ratio 12.3 (10-20) Calcium Level 8.8 mg/dl (8.5-10.1) Total Bilirubin 0.5 mg/dl (0.2-1) Direct Bilirubin < 0.1 mg/dl (0-0.2) Aspartate Amino Transf (AST/SGOT) 16 U/L (15-37) Alanine Aminotransferase (ALT/SGPT) 21 U/L (12-78) Alkaline Phosphatase 77 U/L (45-117) Total Protein 7.1 gm/dl (6.4-8.2) Albumin 3.5 gm/dl (3.4-5.0) Lipase 138 U/L (73-393) Thyroid Stimulating Hormone (TSH) 0.669 uIu/ml (0.300-4.500) Ethyl Alcohol mg/dL < 3.0 mg/dl (0-3) Urine Color YELLOW Urine Appearance CLEAR (CLEAR) Urine pH 6.5 (4.5-7.5) Urine Specific Line [place] 1.004 (1.000-1.030) Urine Protein NEG (NEG) Urine Glucose (UA) NEG (NEG) Urine Ketones NEG (NEG) Urine Occult Blood NEG (NEG) Urine Nitrite NEG (NEG) Urine Bilirubin NEG (NEG) Urine Urobilinogen NEG (NEG) Urine Leukocyte Esterase NEG (NEG) Laboratory studies as stated above per my review. Medications Administered Medications (Trade) Dose Ordered Sig/Juno Route Start Time Stop Time Status Last Admin Dose Admin Lorazepam (Ativan Tab) 0.5 mg NOW STAT SL 12/11/17 21:09 12/11/17 21:10 DC 12/11/17 21:21 0.5 MG Nicotine (Nicoderm Cq 14MG Patch) 1 patch QAM TD 12/12/17 09:00 01/11/18 08:59 12/11/17 23:07 1 PATCH Nicotine Polacrilex (Nicorette 2MG Gum) 1 piece PRN PRN MT 12/11/17 23:00 01/10/18 22:59 12/11/17 23:07 1 PIECE ED Course 1834: Past medical records reviewed. The patient was evaluated in room A6, and a complete history and physical examination were performed. 2104: I reevaluated the patient and she wants Ativan since she feels anxious. 2108: Ordered Ativan Tab 0.5 mg SL. 2215: I reevaluated the patient and she is resting comfortably. 2299: Ordered Nicotine Polacrilex 1 piece PRN MT Patient Admitted. 0017: The patient was accepted to [address] [place] [address] at this time. I signed the 201 at this time. 0900: Ordered Nicotine 1 patch TD. Medical Decision Differential diagnoses include depression, anxiety, intracranial process, electrolyte or metabolic abnormality, tox. This patient comes in as described above. She was placed in room A6. She is here for treatment and evaluation depression and anxiety. She feels she needs to come in the hospital. She has not tried to hurt her self. Multiple blood testing was obtained as well as urinalysis from clearance. She has nothing to suggest toxicologic, electrolyte, or metabolic abnormality explaining her symptoms. There is nothing to suggest endocrinologic or infectious process. She did receive Ativan p.o. here and is resting comfortably. She was evaluated by mental health team and will be admitted to [facility] for further inpatient treatment and evaluation. Medication Reconcilliation Current Medication List: was personally reviewed by me Blood Pressure Screening Patient's blood pressure: Elevated blood pressure Blood pressure disposition: Elevated BP felt to be situational Impression Primary Impression: Depression Scribe Attestation The scribe's documentation has been prepared under my direction and personally reviewed by me in its entirety. I confirm that the note above accurately reflects all work, treatment, procedures, and medical decision making performed by me. Departure Information Dispostion Mental Health Acute Care Referrals Alex Gonzales D.O. (PCP) Patient Instructions My [facility]
--- NOTE | 2017-12-11 19:58 | DIAGNOSTIC IMAGING REPORT ---
CT OF THE HEAD WITHOUT CONTRAST CLINICAL HISTORY: Headache. COMPARISON STUDY: Head CT February 25, 2014. CT DOSE: 614.27 mGy.cm TECHNIQUE: Helical axial images of the head were obtained without IV contrast. Automated exposure control was utilized for the study. A dose lowering technique was utilized adhering to the principles of ALARA. FINDINGS: No acute intracranial hemorrhage, midline shift or mass effect is present. Ventricular system is normal. Basilar cisterns are patent. There are no extra-axial collections. There is a probable prominent perivascular space within the right basal ganglia. There are no findings to suggest acute dural sinus thrombosis or acute territorial infarct. There are postoperative finding within the sinuses. Minimal secretions within the left maxillary sinus are noted. There are no significant calvarial abnormalities. IMPRESSION: 1. No acute intracranial findings. 2. Postoperative findings within the sinuses. Minimal secretions within the left maxillary sinus. Electronically signed by: Jerry Francis M.D. 12/11/2017 7:57 PM Dictated Date/Time: 12/11/2017 7:54 PM
[2017-12-11 20:37] LABS: BASO % 0.5 %; BASO ABS # 0.05 K/uL (0-0.2); EOS % 0.9 %; HEMATOCRIT 35.2 % (37-47); HEMOGLOBIN 11.2 g/dL (12.0-16.0); IG# 0.02 K/uL (0.00-0.02); LYMPH % 31.2 %; LYMPH ABS # 3.31 K/uL (1.2-3.4); MEAN CELL VOLUME 79.8 fL (80-100); MEAN CORPUSCULAR HEMOGLOBIN 25.4 pg (25-34); MEAN CORPUSCULAR HGB CONC 31.8 g/dl (32-36); MEAN PLATELET VOLUME 9.3 fL (7.4-10.4); MONO % 8.8 %; MONO ABS # 0.93 K/uL (0.11-0.59); NEUT % 58.4 %; NEUT ABS # 6.21 K/uL (1.4-6.5); PLATELET COUNT 363 K/uL (130-400); RED CELL DISTRIBUTION WIDTH CV 15.6 % (11.5-14.5); RED CELL DISTRIBUTION WIDTH SD 45.1 fL (36.4-46.3); WHITE BLOOD COUNT 10.62 K/uL (4.8-10.8)
[2017-12-11 20:57] LABS: INR 1.1 (0.9-1.1); PTT PATIENT 32.9 SECONDS (21.0-31.0)
[2017-12-11] MEDS ORDERED: LORAZEPAM 0.5 MG TAB SL STA (21:09)
[2017-12-11 21:16] LABS: ALBUMIN 3.5 gm/dl (3.4-5.0); ALKALINE PHOSPHATASE 77 U/L (45-117); ALT/SGPT 21 U/L (12-78); AST/SGOT 16 U/L (15-37); BLOOD UREA NITROGEN 12 mg/dl (7-18); CALCIUM 8.8 mg/dl (8.5-10.1); CARBON DIOXIDE 24 mmol/L (21-32); CREATININE 0.95 mg/dl (0.60-1.20); GLUCOSE 87 mg/dl (70-99); LIPASE 138 U/L (73-393); POTASSIUM 3.7 mmol/L (3.5-5.1); SODIUM 136 mmol/L (136-145); TOTAL PROTEIN 7.1 gm/dl (6.4-8.2)
[2017-12-11] MEDS ORDERED: OYST500T12 PO (21:46)
[2017-12-11] MEDS ORDERED: NICOTINE POLACRILEX 2 MG GUM MT PRN (23:00)
[2017-12-11] MEDS ORDERED: NICOTINE 14 MG/24 HR TDSY ONE (23:01)
[2017-12-12] MEDS ORDERED: NURSING VERBAL MED ORDER ONE ×2 (00:30→22:30)
[2017-12-12 01:04] VITALS: BP 109/63; PULSE 87; TEMP 37; Ht 160 cm; Wt 101.4 kg
[2017-12-12] MEDS ORDERED: TRAZODONE HCL 50 MG TAB PO ONE (01:15)
[2017-12-12] MEDS ORDERED: SODIUM CHLORIDE 0.65% NA SOLN 45 ML (OCEAN) PRN (03:30)
[2017-12-12] MEDS ORDERED: ALUMINUM/MAGNESIUM SUSP 30 ML UDC PO PRN (03:30)
[2017-12-12] MEDS ORDERED: MAGNESIUM HYDROXIDE SUSP 30 ML UDC PO PRN (03:30)
[2017-12-12 06:58] VITALS: BP_SYST 100; BP_SYST 106; BP_DIAS 67; BP_DIAS 74; PULSE 106; PULSE 94; TEMP 36.4
[2017-12-12] MEDS ORDERED: NICOTINE 14 MG/24 HR TDSY TD SCH (09:00)
[2017-12-12] MEDS ORDERED: ASPECOTC PO (11:45)
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
[2017-12-12] MEDS ORDERED: LOSARTAN POTASSIUM 50 MG TAB PO ONE (12:11)
[2017-12-12] MEDS ORDERED: ASPIRIN 325 MG ECTAB PO ONE (12:11)
[2017-12-12] MEDS ORDERED: RIVAROXABAN 20 MG TAB PO ONE (12:11)
[2017-12-12] MEDS ORDERED: SPIRONOLACTONE 25 MG TAB PO ONE (12:11)
[2017-12-12] MEDS ORDERED: CALCIUM CARBONATE 1250MG TAB PO ONE (12:11)
[2017-12-12] MEDS ORDERED: DULOXETINE HCL 60 MG CAP PO ONE (12:11)
[2017-12-12] MEDS ORDERED: ALBUTEROL HFA 8 GM INHALER INH PRN (12:15)
[2017-12-12] MEDS ORDERED: FUROSEMIDE 20 MG TAB PO PRN (12:15)
[2017-12-12] MEDS ORDERED: ALBUTEROL 0.083% NEBU SOLN 3 ML VIAL INH PRN (12:15)
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
[2017-12-12] MEDS: NICOTINE 14 MG/24 HR TDSY TD SCH (12:48)
[2017-12-12] MEDS: GABAPENTIN 600 MG TAB PO SCH ×2 (14:20→22:08)
[2017-12-12] MEDS: TRAZODONE HCL 100 MG TAB PO SCH (22:07)
[2017-12-12] MEDS: PANTOprazole SOD 40 MG TAB PO SCH (22:08)
[2017-12-12] MEDS: TRAZODONE HCL 50 MG TAB PO SCH (22:08)
[2017-12-12] MEDS: RANITIDINE HCL 150 MG TAB PO SCH (22:08)
[2017-12-12] MEDS ORDERED: BISMUTH SUBSALICYLATE PER ML OMNICELL CHARGE PO PRN (22:30)
[2017-12-13 06:52] VITALS: BP_SYST 111; BP_SYST 115; BP_DIAS 77; BP_DIAS 78; PULSE 89; PULSE 99; TEMP 36.5
[2017-12-13] MEDS: LEVOTHYROXINE 137 MCG TAB PO SCH (07:32)
[2017-12-13] MEDS: SPIRONOLACTONE 25 MG TAB PO SCH (08:27)
[2017-12-13] MEDS: LOSARTAN POTASSIUM 50 MG TAB PO SCH (08:27)
[2017-12-13] MEDS: DULOXETINE HCL 60 MG CAP PO SCH (08:27)
[2017-12-13] MEDS: GABAPENTIN 600 MG TAB PO SCH ×3 (08:28→22:13)
[2017-12-13] MEDS: PANTOprazole SOD 40 MG TAB PO SCH ×2 (08:28→22:13)
[2017-12-13] MEDS: CALCIUM CARBONATE 1250MG TAB PO SCH (08:28)
[2017-12-13] MEDS: RANITIDINE HCL 150 MG TAB PO SCH ×2 (08:28→22:13)
[2017-12-13] MEDS: ASPIRIN 325 MG ECTAB PO SCH (08:28)
[2017-12-13] MEDS: RIVAROXABAN 20 MG TAB PO SCH (08:29)
[2017-12-13] MEDS: NICOTINE 14 MG/24 HR TDSY TD SCH (08:30)
--- NOTE | 2017-12-13 12:08 | Psychiatric Progress Notes ---
Progress Note Date of Service Dec 13, 2017. Interval History 57 yo woman admitted voluntarily with severe depression and suicidality in the setting of multiple stressors including chronic pain, caring for aging mother and hx of trauma. Chief Complaint "I'm maybe up to a 3 from a 2, but I don't want to get my hopes up.". Subjective Patient was seen & assessed interval progress reviewed with Treatment Team. The patient is adjusting to the unit, although had some anxiety yesterday as she learned the routines. She describes herself as fidgety and nervous. Her sleep remains disturbed, waking frequently to reposition due to pain. She says that she believes that her depression is "75%" about her pain, as she can no longer do the things she once enjoyed, describing days where she doesn't feel able to drive or even go fishing (a favorite pastime). She is hopeful that the pain management clinic will be able to provide some relief but is aware that there are limits to what they can do ie can't inject around the hardware in her back. She has been in PT 2X per week for her knee and says that she knows the exercises that she needs to do. She describes a diurnal variation to her mood , feeling slightly better in the AM and deteriorating throughout the day, with nights being the worst. She denies SI, but says she still sometimes thinks that "I don't want to live with all this pain". Review of Systems Constitutional: + fatigue ENT: No hearing loss, No unusual epistaxis, No nasal symptoms, No sore throat, No tinnitus, No dental problems, No trouble swallowing, No problem reported Respiratory: + problem reported (chest tightness) Cardiovascular: No chest pain, No orthopnea, No PND, No edema, No claudication , No palpitations, No problem reported Abdomen: No pain, No nausea, No vomiting, No diarrhea, No constipation, No GI bleeding, No problem reported Musculoskeletal: + problem reported (lt knee and back pain rated 7/10 today) Neurologic: + numbness/tingling (in hands and feet) Psychiatric: + depression symptoms, + insomnia Sleep Information Total Hours of Sleep: 6.00 Meal Information Percent of Breakfast Consumed: 90 Percent of Lunch Consumed: 10 Percent of Dinner Consumed: 40 Mental Status Exam During interview pt is: alert and oriented, cooperative Appearance: appropriately dressed, appropriately groomed, other (obese) Eye contact is: good Motor behavior is: other (walks with a cane) Speech: normal in rate, rhythm & volume Affect: mood congruent, depressed, flat Mood is: depressed Thought process: goal directed Thought content: reality based without delusions Suicidal thought are: denied (but has thoughts that she doesn't want to live with the pain) Homicidal thoughts are: denied Hallucinations: denies auditory, denies visual Cognition: memory grossly intact, attention grossly intact, language grossly intact Intelligence estimated to be: average Insight: impaired Judgement: impaired Impression Adjusting to the structure and support of the milieu, tolerating initial doses of Lamictal without rash or other side effect. Will arrange a family meeting with her and discuss possible in home assistance in caring for her mother. Also discussed her interest in seeing a weight loss physician, as weight loss would help her back and knee pains as well as her chronic medical conditions. She says she will think about it. Mood remains depressed, but SI more conditional today, related to pain. Will try to have PT see her to reinforce exercises and movement. Continue current meds and plan. Plan (1) Bipolar disorder with depression 12/12/17 - Continue Cymbalta for now due to chronic pain - Start Lamictal 25 mg. daily for mood stabilization - Obtain OP records from Dr. Gee - Family meeting with . Explore ideas to get additional help in caring for mother - Recommend therapist post discharge. - Q 15 min checks for safety - Encourage participation in group and individual counseling - Explore healthy coping strategies and mindfulness 12/13 - Continue current meds - Schedule family meeting with (2) Hypertension 12/12 - Continue home meds - Monitor BP (3) Hypothyroidism 12/12 - TSH 0.669 WNL - Continue home dose of levothyroxine (4) Chronic low back pain 12/12 - Patient is enrolled with [facility] for pain management. Will need to reschedule appts - Encourage walking rather than sitting for back pain - May use cane for ambulation - Can't take nonsteroidals due to Xeralto and ASA. Will focus on non med interventions and defer pain management to OP providers - 12/13 - Consult PT to reinforce exercises and movement (5) Hx of deep venous thrombosis 12/12 - Continue home dose of xeralto - Encourage activity, walking (6) Asthma 12/12 - Encourage walking - Continue home meds Discharge / Aftercare Planning Primary Care Physician: Name: [facility] Date of Appointment: Jan 01, 2018 Time of Appointment: 10:15am Appointment Notes: [place] [address] Psychiatrist: Name: Sonia Gee through telepsych Date of Appointment: Jan 01, 2018 Time of Appointment: 11:40am Appointment Notes: [address] [facility] [place] [address] Therapist: Name: None currently Pain Clinic: Name: [facility] Date of Appointment: Dec 26, 2017 Time of Appointment: 11:00am Appointment Notes: [address] [facility] [place] [address] Specialist: Name: [facility] Appointment Notes: [address] [place] [address] Visit Code E&M Code: 64399 Inventory Assets Strengths: Love of family, willingness to engage in treatment Needs: to be on a mood stabilizer Risk Factors Assessment : Yes /single/: No Higher / Fall in social status: No Health problems: Yes Mental Health Diagnoses: Yes Substance use disorders: No Previous attempt: No Previous psychiatric stay: Yes Hopelessness: No Smoker: Yes Protective Factors Assessment : Yes Responsible for young children: No Employed: No Stable relationships: Yes Supportive family: Yes Good rapport with provider: Yes Data Vital Signs Last 24 Hrs: Date Time Temp Pulse Resp B/P (MAP) Pulse Ox O2 Delivery O2 Flow Rate FiO2 12/13/17 06:52 36.5 89 16 115/78 99 111/77 Meds Administered Last 24 Hrs: Meds Administered (Past 24Hrs) Medications (Trade) Dose Ordered Sig/Juno Route Start Time Stop Time Status Last Admin Dose Admin Lorazepam (Ativan Tab) 0.5 mg NOW STAT SL 12/11/17 21:09 12/11/17 21:10 DC 12/11/17 21:21 0.5 MG Nicotine (Nicoderm Cq 14MG Patch) 1 patch QAM TD 12/12/17 09:00 12/12/17 09:00 DC 12/11/17 23:07 1 PATCH Nicotine Polacrilex (Nicorette 2MG Gum) 1 piece PRN PRN MT 12/11/17 23:00 12/12/17 03:22 DC 12/11/17 23:07 1 PIECE Trazodone HCl (Desyrel Tab) 350 mg NOW ONCE PO 12/12/17 01:15 12/12/17 01:16 DC 12/12/17 02:32 350 MG Nicotine (Nicoderm Cq 14MG Patch) 1 patch QAM TD 12/12/17 09:00 01/11/18 08:59 12/13/17 08:30 1 PATCH Miscellaneous (Remove Nicoderm Patch) 1 ea QPM N/A 12/12/17 08:59 01/11/18 08:58 12/12/17 08:59 1 EA Aspirin (Ecotrin Tab) 325 mg DAILY PO 12/13/17 09:00 01/12/18 08:59 12/13/17 08:28 325 MG Duloxetine HCl (Cymbalta Cap) 120 mg QAM PO 12/13/17 09:00 01/12/18 08:59 12/13/17 08:27 120 MG Gabapentin (Neurontin Tab) 600 mg TID PO 12/12/17 14:00 01/11/18 13:59 12/13/17 08:28 600 MG Levothyroxine Sodium (Synthroid Tab) 137 mcg DAILYBB PO 12/13/17 08:00 01/12/18 07:59 12/13/17 07:32 137 MCG Losartan Potassium (coZAAR TAB) 50 mg DAILY PO 12/13/17 09:00 01/12/18 08:59 12/13/17 08:27 50 MG Calcium Carbonate (oS-Aniceto 500 TAB) 1,250 mg DAILY PO 12/13/17 09:00 01/12/18 08:59 12/13/17 08:28 1,250 MG Pantoprazole Sodium (Protonix Tab) 40 mg BID PO 12/12/17 22:00 01/11/18 21:59 12/13/17 08:28 40 MG Ranitidine HCl (zANTac TAB) 150 mg BID PO 12/12/17 22:00 01/11/18 21:59 12/13/17 08:28 150 MG Rivaroxaban (Xarelto Tab) 20 mg DAILY PO 12/13/17 09:00 01/12/18 08:59 12/13/17 08:29 20 MG Spironolactone (Aldactone Tab) 25 mg DAILY PO 12/13/17 09:00 01/12/18 08:59 12/13/17 08:27 25 MG Trazodone HCl (Desyrel Tab) 50 mg HS PO 12/12/17 22:00 01/11/18 21:59 12/12/17 22:08 50 MG Trazodone HCl (Desyrel Tab) 300 mg HS PO 12/12/17 22:00 01/11/18 21:59 12/12/17 22:07 300 MG Aspirin (Ecotrin Tab) 325 mg 1211 ONCE PO 12/12/17 12:11 12/12/17 12:44 DC 12/12/17 13:16 325 MG Duloxetine HCl (Cymbalta Cap) 120 mg 1211 ONCE PO 12/12/17 12:11 12/12/17 12:44 DC 12/12/17 13:16 120 MG Losartan Potassium (coZAAR TAB) 50 mg 1211 ONCE PO 12/12/17 12:11 12/12/17 12:44 DC 12/12/17 13:16 50 MG Calcium Carbonate (oS-Aniceto 500 TAB) 1,250 mg 1211 ONCE PO 12/12/17 12:11 12/12/17 12:46 DC 12/12/17 13:17 1,250 MG Rivaroxaban (Xarelto Tab) 20 mg 1211 ONCE PO 12/12/17 12:11 12/12/17 12:44 DC 12/12/17 13:17 20 MG Spironolactone (Aldactone Tab) 25 mg 1211 ONCE PO 12/12/17 12:11 12/12/17 12:44 DC 12/12/17 13:15 25 MG Lamotrigine (Lamictal Tab) 25 mg QAM PO 12/13/17 09:00 01/12/18 08:59 12/13/17 08:28 25 MG Lamotrigine (Lamictal Tab) 25 mg 1211 ONCE PO 12/12/17 12:11 12/12/17 12:44 DC 12/12/17 13:16 25 MG Lab Results Last 24 Hrs: 12/11/17 20:14 Red Blood Count 4.41, Mean Corpuscular Volume 79.8, Mean Corpuscular Hemoglobin 25.4, Mean Corpuscular Hemoglobin Concent 31.8, Mean Platelet Volume 9.3, Neutrophils (%) (Auto) 58.4, Lymphocytes (%) (Auto) 31.2, Monocytes (%) (Auto) 8.8, Eosinophils (%) (Auto) 0.9, Basophils (%) (Auto) 0.5, Neutrophils # (Auto) 6.21, Lymphocytes # (Auto) 3.31, Monocytes # (Auto) 0.93, Eosinophils # (Auto) 0.10, Basophils # (Auto) 0.05 12/11/17 20:14 Test 12/11/17 18:30 12/11/17 20:14 12/11/17 21:55 Urine Opiates Screen NEG (NEG) Urine Methadone, Qualitative NEG (NEG) Urine Barbiturates NEG (NEG) Urine Phencyclidine (PCP) Level NEG (NEG) Ur Amphetamine/Methamphetamine NEG (NEG) MDMA (Ecstasy) Screen POS (NEG) Urine Benzodiazepines Screen NEG (NEG) Urine Cocaine Metabolite NEG (NEG) Urine Marijuana (THC) NEG (NEG) White Blood Count 10.62 K/uL (4.8-10.8) Red Blood Count 4.41 M/uL (4.2-5.4) Hemoglobin 11.2 g/dL (12.0-16.0) Hematocrit 35.2 % (37-47) Mean Corpuscular Volume 79.8 fL (80-100) Mean Corpuscular Hemoglobin 25.4 pg (25-34) Mean Corpuscular Hemoglobin Concent 31.8 g/dl (32-36) Platelet Count 363 K/uL (130-400) Mean Platelet Volume 9.3 fL (7.4-10.4) Neutrophils (%) (Auto) 58.4 % Lymphocytes (%) (Auto) 31.2 % Monocytes (%) (Auto) 8.8 % Eosinophils (%) (Auto) 0.9 % Basophils (%) (Auto) 0.5 % Neutrophils # (Auto) 6.21 K/uL (1.4-6.5) Lymphocytes # (Auto) 3.31 K/uL (1.2-3.4) Monocytes # (Auto) 0.93 K/uL (0.11-0.59) Eosinophils # (Auto) 0.10 K/uL (0-0.5) Basophils # (Auto) 0.05 K/uL (0-0.2) RDW Standard Deviation 45.1 fL (36.4-46.3) RDW Coefficient of Variation 15.6 % (11.5-14.5) Immature Granulocyte % (Auto) 0.2 % Immature Granulocyte # (Auto) 0.02 K/uL (0.00-0.02) Prothrombin Time 11.9 SECONDS (9.0-12.0) Prothromb Time International Ratio 1.1 (0.9-1.1) Activated Partial Thromboplast Time 32.9 SECONDS (21.0-31.0) Partial Thromboplastin Ratio 1.3 Anion Gap 9.0 mmol/L (3-11) Est Creatinine Clear Calc Drug Dose 76.0 ml/min Estimated GFR () 77.6 Estimated GFR (Non- 67.0 BUN/Creatinine Ratio 12.3 (10-20) Calcium Level 8.8 mg/dl (8.5-10.1) Total Bilirubin 0.5 mg/dl (0.2-1) Direct Bilirubin < 0.1 mg/dl (0-0.2) Aspartate Amino Transf (AST/SGOT) 16 U/L (15-37) Alanine Aminotransferase (ALT/SGPT) 21 U/L (12-78) Alkaline Phosphatase 77 U/L (45-117) Total Protein 7.1 gm/dl (6.4-8.2) Albumin 3.5 gm/dl (3.4-5.0) Lipase 138 U/L (73-393) Thyroid Stimulating Hormone (TSH) 0.669 uIu/ml (0.300-4.500) Ethyl Alcohol mg/dL < 3.0 mg/dl (0-3) Urine Color YELLOW Urine Appearance CLEAR (CLEAR) Urine pH 6.5 (4.5-7.5) Urine Specific [place] 1.004 (1.000-1.030) Urine Protein NEG (NEG) Urine Glucose (UA) NEG (NEG) Urine Ketones NEG (NEG) Urine Occult Blood NEG (NEG) Urine Nitrite NEG (NEG) Urine Bilirubin NEG (NEG) Urine Urobilinogen NEG (NEG) Urine Leukocyte Esterase NEG (NEG)
[2017-12-13] MEDS: ACETAMINOPHEN 325 MG TAB PO PRN ×2 (16:08→22:14)
[2017-12-13] MEDS: TRAZODONE HCL 100 MG TAB PO SCH (22:13)
[2017-12-13] MEDS: TRAZODONE HCL 50 MG TAB PO SCH (22:13)
[2017-12-14 06:53] VITALS: BP_SYST 112; BP_SYST 121; BP_DIAS 75; BP_DIAS 83; PULSE 85; PULSE 87; TEMP 36.4
[2017-12-14] MEDS: LEVOTHYROXINE 137 MCG TAB PO SCH (07:50)
[2017-12-14] MEDS: SPIRONOLACTONE 25 MG TAB PO SCH (08:40)
[2017-12-14] MEDS: RIVAROXABAN 20 MG TAB PO SCH (08:41)
[2017-12-14] MEDS: PANTOprazole SOD 40 MG TAB PO SCH ×2 (08:41→22:27)
[2017-12-14] MEDS: LOSARTAN POTASSIUM 50 MG TAB PO SCH (08:41)
[2017-12-14] MEDS: DULOXETINE HCL 60 MG CAP PO SCH (08:41)
[2017-12-14] MEDS: ASPIRIN 325 MG ECTAB PO SCH (08:41)
[2017-12-14] MEDS: GABAPENTIN 600 MG TAB PO SCH ×3 (08:41→22:27)
[2017-12-14] MEDS: CALCIUM CARBONATE 1250MG TAB PO SCH (08:41)
[2017-12-14] MEDS: RANITIDINE HCL 150 MG TAB PO SCH ×2 (08:41→22:27)
[2017-12-14] MEDS: NICOTINE 14 MG/24 HR TDSY TD SCH (08:42)
[2017-12-14] MEDS: ACETAMINOPHEN 325 MG TAB PO PRN (09:31)
--- NOTE | 2017-12-14 11:19 | Psychiatric Progress Notes ---
Progress Note Date of Service Dec 14, 2017. Interval History 57 yo woman admitted voluntarily with severe depression and suicidality in the setting of multiple stressors including chronic pain, caring for aging mother and hx of trauma. Chief Complaint "nuclear war is going on out in the world ". Subjective Patient was seen & assessed interval progress reviewed with nursing. Pt seen while laying in her hospital bed. She endorsed having a microchip implanted in her causing her to feel that she is stumbling and dropping down at times. 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 She endorsed Ah and that have command AH to go to the dayroom. She appeared to be hesitant and thought blocking some when deporting this and when law writer inquired about any further command , she indicated that canot talk about it She shared about nuclear war occurring in the world but that the hospital was still safe. She reported that she enjoyed cream of wheat for breakfast without occurs. She went to groups yesterday. She reported feeling fearful to staff. She is taking her po meds regularly. staff attempted to have her change rooms but she refused this yesterday. Review of Systems Constitutional: + problem reported (as per subejctive, staff did not note any stumbiling in her presentation ) Abdomen: No pain, No nausea, No vomiting, No diarrhea, No constipation, No GI bleeding, No problem reported Psychiatric: + problem reported (as per hpi ) Sleep Information Total Hours of Sleep: 6.50 Meal Information Percent of Breakfast Consumed: 90 Percent of Lunch Consumed: 100 Percent of Dinner Consumed: 100 Mental Status Exam During interview pt is: alert and oriented, cooperative Appearance: appropriately dressed, appropriately groomed, other (obese) Eye contact is: good Motor behavior is: other (walks with a cane) Speech: normal in rate, rhythm & volume Affect: mood congruent, depressed, flat Mood is: depressed Thought process: goal directed Thought content: delusions Suicidal thought are: denied Homicidal thoughts are: denied Hallucinations: denies auditory, denies visual Cognition: memory grossly intact, attention grossly intact, language grossly intact Intelligence estimated to be: average Insight: impaired Judgement: impaired Impression Adjusting to the structure and support of the milieu, tolerating initial doses of Lamictal without rash or other side effect. Will arrange a family meeting with her and discuss possible in home assistance in caring for her mother. Also discussed her interest in seeing a weight loss physician, as weight loss would help her back and knee pains as well as her chronic medical conditions. She says she will think about it. Mood remains depressed, but SI more conditional today, related to pain. Will try to have PT see her to reinforce exercises and movement. Continue current meds and plan. Plan (1) Bipolar disorder with depression 12/12/17 - Continue Cymbalta for now due to chronic pain - Start Lamictal 25 mg. daily for mood stabilization - Obtain OP records from Dr. Gee - Family meeting with . Explore ideas to get additional help in caring for mother - Recommend therapist post discharge. - Q 15 min checks for safety - Encourage participation in group and individual counseling - Explore healthy coping strategies and mindfulness 12/13 - Continue current meds - Schedule family meeting with 12/14 -continue current meds (2) Hypertension 12/12 - Continue home meds - Monitor BP (3) Hypothyroidism 12/12 - TSH 0.669 WNL - Continue home dose of levothyroxine (4) Chronic low back pain 12/12 - Patient is enrolled with [facility] for pain management. Will need to reschedule appts - Encourage walking rather than sitting for back pain - May use cane for ambulation - Can't take nonsteroidals due to Xeralto and ASA. Will focus on non med interventions and defer pain management to OP providers - 12/13 - Consult PT to reinforce exercises and movement (5) Hx of deep venous thrombosis 12/12 - Continue home dose of xeralto - Encourage activity, walking (6) Asthma 12/12 - Encourage walking - Continue home meds Discharge / Aftercare Planning Primary Care Physician: Name: [facility] Date of Appointment: Jan 01, 2018 Time of Appointment: 10:15am Appointment Notes: [place] [address] Psychiatrist: Name: Sonia Gee through telepsych Date of Appointment: Jan 01, 2018 Time of Appointment: 11:40am Appointment Notes: [address] [place] [address] Therapist: Name: Sonia Elmore: Intake appointment with Carley Shahluisa Date of Appointment: Dec 22, 2017 Time of Appointment: 12:30pm Appointment Notes: [address] [facility] [place] [address] Pain Clinic: Name: [facility] Date of Appointment: Dec 26, 2017 Time of Appointment: 11:00am [facility]ointment Notes: [address] [facility] [place] [address] Specialist: Name: [facility] [address] [facility] [place] [address] Visit Code E&M Code: 42119 Inventory Assets Strengths: Love of family, willingness to engage in treatment Needs: to be on a mood stabilizer Risk Factors Assessment : Yes /single/: No Higher / Fall in social status: No Health problems: Yes Mental Health Diagnoses: Yes Substance use disorders: No Previous attempt: No Previous psychiatric stay: Yes Hopelessness: No Smoker: Yes Protective Factors Assessment : Yes Responsible for young children: No Employed: No Stable relationships: Yes Supportive family: Yes Good rapport with provider: Yes Data Vital Signs Last 24 Hrs: Date Time Temp Pulse Resp B/P (MAP) Pulse Ox O2 Delivery O2 Flow Rate FiO2 12/14/17 06:53 36.4 85 16 112/75 87 121/83 Meds Administered Last 24 Hrs: Meds Administered (Past 24Hrs) Medications (Trade) Dose Ordered Sig/Juno Route Start Time Stop Time Status Last Admin Dose Admin Albuterol (Ventolin Hfa Inhaler) 2 puffs Q4 PRN INH 12/12/17 12:15 01/11/18 12:14 12/13/17 12:16 2 PUFFS Aspirin (Ecotrin Tab) 325 mg DAILY PO 12/13/17 09:00 01/12/18 08:59 12/14/17 08:41 325 MG Duloxetine HCl (Cymbalta Cap) 120 mg QAM PO 12/13/17 09:00 01/12/18 08:59 12/14/17 08:41 120 MG Gabapentin (Neurontin Tab) 600 mg TID PO 12/12/17 14:00 01/11/18 13:59 12/14/17 08:41 600 MG Levothyroxine Sodium (Synthroid Tab) 137 mcg DAILYBB PO 12/13/17 08:00 01/12/18 07:59 12/14/17 07:50 137 MCG Losartan Potassium (coZAAR TAB) 50 mg DAILY PO 12/13/17 09:00 01/12/18 08:59 12/14/17 08:41 50 MG Calcium Carbonate (oS-Aniceto 500 TAB) 1,250 mg DAILY PO 12/13/17 09:00 01/12/18 08:59 12/14/17 08:41 1,250 MG Pantoprazole Sodium (Protonix Tab) 40 mg BID PO 12/12/17 22:00 01/11/18 21:59 12/14/17 08:41 40 MG Ranitidine HCl (zANTac TAB) 150 mg BID PO 12/12/17 22:00 01/11/18 21:59 12/14/17 08:41 150 MG Rivaroxaban (Xarelto Tab) 20 mg DAILY PO 12/13/17 09:00 01/12/18 08:59 12/14/17 08:41 20 MG Spironolactone (Aldactone Tab) 25 mg DAILY PO 12/13/17 09:00 01/12/18 08:59 12/14/17 08:40 25 MG Trazodone HCl (Desyrel Tab) 50 mg HS PO 12/12/17 22:00 01/11/18 21:59 12/13/17 22:13 50 MG Trazodone HCl (Desyrel Tab) 300 mg HS PO 12/12/17 22:00 01/11/18 21:59 12/13/17 22:13 300 MG Aspirin (Ecotrin Tab) 325 mg 1211 ONCE PO 12/12/17 12:11 12/12/17 12:44 DC 12/12/17 13:16 325 MG Duloxetine HCl (Cymbalta Cap) 120 mg 1211 ONCE PO 12/12/17 12:11 12/12/17 12:44 DC 12/12/17 13:16 120 MG Losartan Potassium (coZAAR TAB) 50 mg 1211 ONCE PO 12/12/17 12:11 12/12/17 12:44 DC 12/12/17 13:16 50 MG Calcium Carbonate (oS-Aniceto 500 TAB) 1,250 mg 1211 ONCE PO 12/12/17 12:11 12/12/17 12:46 DC 12/12/17 13:17 1,250 MG Rivaroxaban (Xarelto Tab) 20 mg 1211 ONCE PO 12/12/17 12:11 12/12/17 12:44 DC 12/12/17 13:17 20 MG Spironolactone (Aldactone Tab) 25 mg 1211 ONCE PO 12/12/17 12:11 12/12/17 12:44 DC 12/12/17 13:15 25 MG Lamotrigine (Lamictal Tab) 25 mg QAM PO 12/13/17 09:00 01/12/18 08:59 12/14/17 08:41 25 MG Lamotrigine (Lamictal Tab) 25 mg 1211 ONCE PO 12/12/17 12:11 12/12/17 12:44 DC 12/12/17 13:16 25 MG
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
[2017-12-14] MEDS: hydrOXYzine HCL 25 MG TAB PO PRN (16:55)
[2017-12-14] MEDS: TRAZODONE HCL 50 MG TAB PO SCH (22:27)
[2017-12-14] MEDS: TRAZODONE HCL 100 MG TAB PO SCH (22:27)
[2017-12-15 06:33] VITALS: BP_SYST 116; BP_SYST 155; BP_DIAS 105; BP_DIAS 74; PULSE 88; PULSE 89; TEMP 36.4
[2017-12-15 06:34] VITALS: O2SAT 98
[2017-12-15] MEDS: LEVOTHYROXINE 137 MCG TAB PO SCH (07:23)
[2017-12-15] MEDS: DULOXETINE HCL 60 MG CAP PO SCH (08:57)
[2017-12-15] MEDS: SPIRONOLACTONE 25 MG TAB PO SCH (08:57)
[2017-12-15] MEDS: LOSARTAN POTASSIUM 50 MG TAB PO SCH (08:57)
[2017-12-15] MEDS: ASPIRIN 325 MG ECTAB PO SCH (08:57)
[2017-12-15] MEDS: GABAPENTIN 600 MG TAB PO SCH ×3 (08:58→21:26)
[2017-12-15] MEDS: PANTOprazole SOD 40 MG TAB PO SCH ×2 (08:58→21:26)
[2017-12-15] MEDS: RIVAROXABAN 20 MG TAB PO SCH (08:58)
[2017-12-15] MEDS: CALCIUM CARBONATE 1250MG TAB PO SCH (08:58)
[2017-12-15] MEDS: RANITIDINE HCL 150 MG TAB PO SCH ×2 (08:58→21:27)
[2017-12-15] MEDS: NICOTINE 14 MG/24 HR TDSY TD SCH (09:03)
[2017-12-15] MEDS: hydrOXYzine HCL 25 MG TAB PO PRN ×3 (09:05→21:37)
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
[2017-12-15] MEDS: ACETAMINOPHEN 325 MG TAB PO PRN ×2 (12:26→21:36)
[2017-12-15] MEDS: TRAZODONE HCL 100 MG TAB PO SCH (21:26)
[2017-12-15] MEDS: TRAZODONE HCL 50 MG TAB PO SCH (21:26)
[2017-12-16 07:06] VITALS: BP_SYST 137; BP_SYST 149; BP_DIAS 104; BP_DIAS 93; PULSE 88; TEMP 36.5
[2017-12-16] MEDS: LEVOTHYROXINE 137 MCG TAB PO SCH (07:51)
[2017-12-16] MEDS: RIVAROXABAN 20 MG TAB PO SCH (09:03)
[2017-12-16] MEDS: ASPIRIN 325 MG ECTAB PO SCH (09:03)
[2017-12-16] MEDS: GABAPENTIN 600 MG TAB PO SCH ×3 (09:03→23:03)
[2017-12-16] MEDS: CALCIUM CARBONATE 1250MG TAB PO SCH (09:03)
[2017-12-16] MEDS: PANTOprazole SOD 40 MG TAB PO SCH ×2 (09:03→23:03)
[2017-12-16] MEDS: SPIRONOLACTONE 25 MG TAB PO SCH (09:03)
[2017-12-16] MEDS: RANITIDINE HCL 150 MG TAB PO SCH ×2 (09:03→23:03)
[2017-12-16] MEDS: DULOXETINE HCL 60 MG CAP PO SCH (09:03)
[2017-12-16] MEDS: LOSARTAN POTASSIUM 50 MG TAB PO SCH (09:03)
[2017-12-16] MEDS: NICOTINE 14 MG/24 HR TDSY TD SCH (09:24)
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
[2017-12-16] MEDS ORDERED: COUGH DROP (SUGAR FREE) LOZ 24 LOZ/1 BOX LOZ PRN (11:30)
[2017-12-16] MEDS: hydrOXYzine HCL 25 MG TAB PO PRN ×2 (13:21→23:06)
[2017-12-16] MEDS: TRAZODONE HCL 50 MG TAB PO SCH (23:02)
[2017-12-16] MEDS: TRAZODONE HCL 100 MG TAB PO SCH (23:02)
[2017-12-17] MEDS: LEVOTHYROXINE 137 MCG TAB PO SCH (06:24)
[2017-12-17 06:29] VITALS: BP_SYST 118; BP_SYST 132; BP_DIAS 81; BP_DIAS 84; PULSE 108; PULSE 94; TEMP 36.6
[2017-12-17] MEDS: LOSARTAN POTASSIUM 50 MG TAB PO SCH (09:04)
[2017-12-17] MEDS: DULOXETINE HCL 60 MG CAP PO SCH (09:04)
[2017-12-17] MEDS: SPIRONOLACTONE 25 MG TAB PO SCH (09:04)
[2017-12-17] MEDS: CALCIUM CARBONATE 1250MG TAB PO SCH (09:05)
[2017-12-17] MEDS: PANTOprazole SOD 40 MG TAB PO SCH ×2 (09:05→21:50)
[2017-12-17] MEDS: RIVAROXABAN 20 MG TAB PO SCH (09:05)
[2017-12-17] MEDS: ASPIRIN 325 MG ECTAB PO SCH (09:05)
[2017-12-17] MEDS: RANITIDINE HCL 150 MG TAB PO SCH ×2 (09:05→21:50)
[2017-12-17] MEDS: GABAPENTIN 600 MG TAB PO SCH ×3 (09:05→21:50)
[2017-12-17] MEDS: NICOTINE 14 MG/24 HR TDSY TD SCH (09:15)
--- NOTE | 2017-12-17 10:45 | Psychiatric Progress Notes ---
Progress Note Date of Service Dec 17, 2017. Interval History 57 yo woman admitted voluntarily with severe depression and suicidality in the setting of multiple stressors including chronic pain, caring for aging mother and hx of trauma. Chief Complaint "I'm sleeping better". Subjective Patient was seen & assessed interval progress reviewed with Nursing. Worked on safety plan. Paperwork for psych rehab referral completed. Vistaril prn remains helpful. Brighter and working on puzzles and playing wii. Review of Systems Psych: denies symptoms other than stated above Constitutional: denied Cardiovascular: denied GI: denied Neurologic: denied Remainder of 10 body systems also reviewed and denied other than noted above. Sleep Information Total Hours of Sleep: 6.50 Meal Information Percent of Breakfast Consumed: 100 Percent of Lunch Consumed: 80 Percent of Dinner Consumed: 100 Mental Status Exam During interview pt is: alert and oriented, cooperative Appearance: appropriately dressed, appropriately groomed, other (obese) Eye contact is: good Motor behavior is: no abnormal motor movements, other (walks with a cane) Speech: normal in rate, rhythm & volume Affect: euthymic Mood is: anxious Thought process: goal directed Thought content: reality based without delusions Suicidal thought are: denied Homicidal thoughts are: denied Hallucinations: denies auditory, denies visual Cognition: memory grossly intact, attention grossly intact, language grossly intact Intelligence estimated to be: average Insight: fair Judgement: fair Impression 57 yo female with slow improvement in depression, tolerating lamictal without rash, requiring prn Vistaril. Plan (1) Bipolar disorder with depression 12/12/17 - Continue Cymbalta for now due to chronic pain - Start Lamictal 25 mg. daily for mood stabilization - Obtain OP records from Dr. Gee - Family meeting with . Explore ideas to get additional help in caring for mother - Recommend therapist post discharge. - Q 15 min checks for safety - Encourage participation in group and individual counseling - Explore healthy coping strategies and mindfulness 12/13 - Continue current meds - Schedule family meeting with 12/14 - Continue current meds - Focus less on processing her trauma's and more on grounding exercises 12/15 - Continue current medication regimen - Encouraged to explore distraction and grounding techniques with staff 12/16 --risks/benefits/alternatives re-reviewed re: lamictal, discussion included but was not limited to need for slow titration due to risk of Turner's Jules rash. 8/26 -patient confirms that she disposed of any extra medications prior to admission, she was unsure about 1 bottle of neurontin and had check her drawers. He did not find any extra medications. Feeling more hopeful. (2) Hypertension 12/12 - Continue home meds - Monitor BP (3) Hypothyroidism 12/12 - TSH 0.669 WNL - Continue home dose of levothyroxine (4) Chronic low back pain 12/12 - Patient is enrolled with [facility] for pain management. Will need to reschedule appts - Encourage walking rather than sitting for back pain - May use cane for ambulation - Can't take nonsteroidals due to Xeralto and ASA. Will focus on non med interventions and defer pain management to OP providers - 12/13 - Consult PT to reinforce exercises and movement (5) Hx of deep venous thrombosis 12/12 - Continue home dose of xeralto - Encourage activity, walking (6) Asthma 12/12 - Encourage walking - Continue home meds Discharge / Aftercare Planning Primary Care Physician: Name: Dr. Gonzales, [facility] Date of Appointment: Jan 02, 2018 Time of Appointment: 1:30 p.m. Appointment Notes: [place] [address] Psychiatrist: Name: Sonia Gee through telepsych Date of Appointment: Jan 01, 2018 Time of Appointment: 11:40 am Appointment Notes: [address] [place] [address] Therapist: Name: Sonia Elmore: Intake appointment with Carley Calle MS Date of Appointment: Dec 22, 2017 Time of Appointment: 12:30 pm Appointment Notes: [address] [place] [address] Pain Clinic: Name: [facility] Date of Appointment: Dec 26, 2017 Time of Appointment: 11:00am Appointment Notes: [address] [place] [address] Specialist: Name: [facility] Date of Appointment: Dec 20, 2017 Time of Appointment: 1:00 p.m. Appointment Notes: [address] [place] [address] Visit Code E&M Code: 74964 Inventory Assets Strengths: Love of family, willingness to engage in treatment Needs: to be on a mood stabilizer Risk Factors Assessment : Yes /single/: No Higher / Fall in social status: No Health problems: Yes Mental Health Diagnoses: Yes Substance use disorders: No Previous attempt: No Previous psychiatric stay: Yes Hopelessness: No Smoker: Yes Protective Factors Assessment : Yes Responsible for young children: No Employed: No Stable relationships: Yes Supportive family: Yes Good rapport with provider: Yes Data Vital Signs Last 24 Hrs: Date Time Temp Pulse Resp B/P (MAP) Pulse Ox O2 Delivery O2 Flow Rate FiO2 12/17/17 06:29 36.6 94 20 118/81 108 132/84
[2017-12-17] MEDS: hydrOXYzine HCL 25 MG TAB PO PRN ×2 (11:34→21:51)
[2017-12-17] MEDS: TRAZODONE HCL 100 MG TAB PO SCH (21:51)
[2017-12-17] MEDS: TRAZODONE HCL 50 MG TAB PO SCH (21:51)
[2017-12-18 06:47] VITALS: BP_SYST 124; BP_SYST 132; BP_DIAS 83; PULSE 106; PULSE 85; TEMP 36.4
[2017-12-18] MEDS: LEVOTHYROXINE 137 MCG TAB PO SCH (07:18)
[2017-12-18] MEDS: LOSARTAN POTASSIUM 50 MG TAB PO SCH (08:59)
[2017-12-18] MEDS: SPIRONOLACTONE 25 MG TAB PO SCH (08:59)
[2017-12-18] MEDS: ASPIRIN 325 MG ECTAB PO SCH (09:00)
[2017-12-18] MEDS: DULOXETINE HCL 60 MG CAP PO SCH (09:00)
[2017-12-18] MEDS: GABAPENTIN 600 MG TAB PO SCH ×2 (09:01→13:08)
[2017-12-18] MEDS: RANITIDINE HCL 150 MG TAB PO SCH (09:01)
[2017-12-18] MEDS: CALCIUM CARBONATE 1250MG TAB PO SCH (09:01)
[2017-12-18] MEDS: PANTOprazole SOD 40 MG TAB PO SCH (09:01)
[2017-12-18] MEDS: RIVAROXABAN 20 MG TAB PO SCH (09:01)
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
[2017-12-18] MEDS: NICOTINE 14 MG/24 HR TDSY TD SCH (09:08)
[2017-12-18] MEDS: hydrOXYzine HCL 25 MG TAB PO PRN ×2 (09:11→13:08)
[2017-12-18] MEDS ORDERED: ATR25 PO (10:07)
[2017-12-18] MEDS ORDERED: LMC25 PO (10:07)
== END 2017-12-18 13:52 | disposition home or self-care (01) | DRG 885 ==
LOC: C.EDB 18:12 → C.MHU 12-12 00:29
PROVIDERS: ADMIT Psychiatry & Neurology Psychiatry; ATTEND Psychiatry & Neurology Psychiatry
DX: F31.9 Bipolar disorder, unspecified (principal); R45.851 Suicidal ideations; F41.9 Anxiety disorder, unspecified; I11.0 Hypertensive heart disease with heart failure; I50.9 Heart failure, unspecified; J44.9 Chronic obstructive pulmonary disease, unspecified; K21.9 Gastro-esophageal reflux disease without esophagitis; E03.9 Hypothyroidism, unspecified; G89.29 Other chronic pain; M54.5 Low back pain; E66.9 Obesity, unspecified; F17.200 Nicotine dependence, unspecified, uncomplicated; Z79.899 Other long term (current) drug therapy; Z79.01 Long term (current) use of anticoagulants; Z79.82 Long term (current) use of aspirin; Z91.410 Personal history of adult physical and sexual abuse; Z86.718 Personal history of other venous thrombosis and embolism; Z68.39 Body mass index [BMI] 39.0-39.9, adult; Z88.8 Allergy status to other drugs, medicaments and biological substances; Z88.1 Allergy status to other antibiotic agents; Z91.048 Other nonmedicinal substance allergy status; Z82.49 Family history of ischemic heart disease and other diseases of the circulatory system; Z83.3 Family history of diabetes mellitus; Z81.8 Family history of other mental and behavioral disorders

== ENCOUNTER 2019-04-08 14:09 | Observation (INO) ==
[2019-04-08] MEDS: NITROGLYCERIN SL 0.4 MG/TAB TAB SL PRN ×2 (14:34→15:09)
--- NOTE | 2019-04-08 14:40 | XRay Report ---
XR chest 1V portable CLINICAL HISTORY: Chest Pain COMPARISON STUDY: Chest CT July 28, 2016. Chest radiograph April 28, 2018. FINDINGS: Lung volumes are normal. Lungs are clear. There is no pneumothorax or pleural effusion. Car diac size is normal. Mediastinal contours are normal. There is no evidence for pulmonary edema. Thora columbar spine fusion hardware is partially imaged. IMPRESSION: No acute cardiopulmonary findings. Electronically signed by: Jerry Francis M.D. 04/08/2019 2:39 PM
[2019-04-08 14:42] LABS: Basophils # (auto) 0.02 K/uL (0-0.2); Basophils % (auto) 0.2 %; Eosinophils # (auto) 0.19 K/uL (0-0.5); Eosinophils % (auto) 1.5 %; Hematocrit (blood only) 44.9 % (37-47); Hemoglobin 15.1 g/dL (12.0-16.0); Immature Granulocytes # (auto) 0.03 K/uL (0.00-0.02); Immature Granulocytes % (auto) 0.2 %; Lymphocytes # (auto) 3.14 K/uL (1.2-3.4); Lymphocytes % (auto) 25.5 %; Mean Corpuscular Hemoglobin 29.4 pg (25-34); Mean Corpuscular Hgb Conc 33.6 g/dL (32-36); Mean Corpuscular Volume 87.5 fL (80-100); Monocytes # (auto) 1.29 K/uL (0.11-0.59); Monocytes % (auto) 10.5 %; Neutrophils # (auto) 7.63 K/uL (1.4-6.5); Neutrophils % (auto) 62.1 %; Platelet Count 346 K/uL (130-400); RDW Coefficient of Variation 16.3 % (11.5-14.5); RDW Standard Deviation 52.9 fL (36.4-46.3); Red Blood Count 5.13 M/uL (4.2-5.4)
[2019-04-08 14:58] LABS: Alanine Aminotransferase 24 U/L (12-78); Albumin Level 4.4 gm/dl (3.4-5.0); Aspartate Aminotransferase 19 U/L (15-37); BUN Creatinine Ratio 12.5 (10-20); Blood Urea Nitrogen 14 mg/dl (7-18); Calcium 10.2 mg/dl (8.5-10.1); Carbon Dioxide 28 mmol/L (21-32); Chloride 103 mmol/L (98-107); Creatinine Clr Calc Pharmacy 68.8 ml/min; Est GFR (African American) 65.5; Est GFR (Non-African American) 56.5; Glucose 86 mg/dl (70-99); Potassium 4.1 mmol/L (3.5-5.1); Sodium 138 mmol/L (136-145)
[2019-04-08 15:00] LABS: Albumin Globulin Ratio 1.1 (0.9-2); Alkaline Phosphatase 89 U/L (45-117); Bilirubin,Total 0.3 mg/dl (0.2-1); Globulin 3.9 gm/dl (2.5-4.0); Total Protein 8.3 gm/dl (6.4-8.2)
[2019-04-08] MEDS ORDERED: ONDANSETRON INJ 2 MG/ML 2 ML VIAL IV STA (15:13)
[2019-04-08] MEDS ORDERED: fentaNYL citrate 100 MCG/2 ML VIAL IV ONE ×2 (15:13→16:04)
[2019-04-08 16:12] LABS: Troponin I < 0.015 ng/ml (0-0.045)
[2019-04-08] MEDS ORDERED: DiphenhydrAMINE HCL 50 MG/ML VIAL IV STA (17:23)
[2019-04-08] MEDS ORDERED: methylPREDNISolone 125 MG/2 ML VIAL IV STA (17:23)
--- NOTE | 2019-04-08 18:10 | CT Scan Report ---
CT head/brain wo con CLINICAL HISTORY: 59 years-old Female presenting with Severe headache on Xarelto. TECHNIQUE: Multidetector CT imaging of the head was performed without the use of intravenous contrast . IV contrast: None. One or more dose lowering techniques were used consistent with the principles of ALARA (as low as reasonably achievable), including automatic exposure control, mA or kV adjustment t o individual patient size, and/or use of iterative reconstruction. COMPARISON: 12/11/2017. CT DOSE (mGy.cm): The estimated cumulative dose is 537.48 mGy.cm. FINDINGS: Stator Connector topogram: Unremarkable. Ventricles and sulci normal in size. No hemorrhage. Brain parenchyma normal in appearance with preser galina desai-white differentiation. No acute territorial infarct. No mass effect or midline shift. No ext ra-axial fluid collection. Paranasal sinuses and mastoid air cells clear. Calvarium intact. IMPRESSION: 1. No acute intracranial abnormality. Electronically signed by: Noe Charlton M.D. 04/08/2019 6:08 PM
[2019-04-08] MEDS ORDERED: GLUCOSE 10 TABS/TUBE PO PRN (18:17)
[2019-04-08] MEDS ORDERED: CARBOHYDRATES FOR HYPOGLYCEMIA PO PRN (18:17)
[2019-04-08] MEDS ORDERED: DEXTROSE 50% 50 ML SYRINGE IV PRN (18:17)
[2019-04-08] MEDS ORDERED: GLUCAGON FOR INJ 1 MG VIAL SQ PRN (18:17)
[2019-04-08] MEDS ORDERED: GLUCOSE 40% GEL 15 GM TUBE PO PRN (18:17)
[2019-04-08] MEDS: TRAMADOL HCL 50 MG TABLET PO PRN (18:30)
[2019-04-08] MEDS ORDERED: ALBUTEROL 0.083% NEBU SOLN 3 ML VIAL NEB PRN (19:00)
[2019-04-08] MEDS: ONDANSETRON INJ 2 MG/ML 2 ML VIAL IV PRN (21:10)
[2019-04-08] MEDS: HYDROmorphone INJ 0.5 MG/0.5 ML SYR IV PRN (21:11)
--- NOTE | 2019-04-08 21:12 | Emergency Department Note ---
Entered by Priyank Summers acting as a scribe for History of Present Illness General Chief complaint: Chest Pain Time Seen by Provider: 04/08/19 14:10 Source: patient History of Present Illness Provider complaint: Chest pain Onset (ago): week(s) 1 Location: chest and left Pain Consistency: + intermittent Current Pain Intensity: 6 Relieved By: + none Exacerbated By: + none Associated symptoms: + headaches, + nausea/vomiting (No vomiting), + shortness of breath and + other (Lightheadedness) The patient is a 59 year old female who presents to the Emergency Room with complaints of intermittent left sided chest pain that started last week. The patient reports she had 2 episodes last week and another today about an hour ago while she was at her PCP's office, which prompted her visit to the ED. The patient rates the pain as a 6/10 and notes nothing makes it better or worse. The patient describes the pain as feeling as though someone is stepping on her chest. The patient adds that when today's episode started she became lightheaded and short of breath. She adds that she became nauseous too but denies any vomiting. The patient also endorses a constant headache that developed shortly after today's episode of chest pain started. Per the nurse, the patient received Aspirin and Zofran en route. The patient has a cardiac history of tachycardia and palpitations and has a family cardiac history on her fathers side. She states her father's issues started when he was 30 years old. The patient admits to smoking 1/2 pack of cigarettes per day. Home Medications Home Medications Medication Instructions Recorded Confirmed Type furosemide 20 mg tablet 20 mg PO DIRECTED PRN #30 tab 11/23/18 04/08/19 Rx diclofenac sodium 1 % topical gel See Rx Instructions TOPICAL 01/16/19 04/08/19 Rx .COMPLEX #100 gm levothyroxine 125 mcg tablet 125 mcg PO QAM 01/16/19 04/08/19 History calcium carbonate 500 mg (1,250 1 tab PO QAM #30 tab 03/05/19 04/08/19 Rx mg)-vitamin D3 200 unit tablet gabapentin 600 mg tablet 600 mg PO BID #60 tab 03/05/19 04/08/19 Rx ranitidine HCl 150 mg tablet 150 mg PO BID #60 tab 03/05/19 04/08/19 Rx pantoprazole 40 mg tablet,delayed 40 mg PO BID #56 tab 04/01/19 04/08/19 Rx release albuterol sulfate 2.5 mg/3 mL 2.5 mg INHALATION QID PRN #3 ml 04/08/19 04/08/19 Rx (0.083 %) solution for nebulization albuterol sulfate 90 mcg/actuation 2 puff INHALATION Q4H PRN #18 gm 04/08/19 04/08/19 Rx aerosol inhaler canagliflozin 100 mg tablet 100 mg PO QAM #30 tab 04/08/19 04/08/19 Rx losartan 50 mg PO QAM 04/08/19 04/08/19 History nystatin 100,000 unit/gram topical 1 appln TOP TID PRN #30 gm 04/08/19 04/08/19 Rx powder rivaroxaban [Xarelto] 20 mg PO QAM 04/08/19 04/08/19 History spironolactone 25 mg PO QAM 04/08/19 04/08/19 History trazodone 50 mg PO HS 04/08/19 04/08/19 History trazodone 300 mg PO HS 04/08/19 04/08/19 History Allergies Allergy/AdvReac Type Severity Reaction Status Date / Time carbamazepine Allergy Unknown Heart Verified 04/08/19 15:03 Arrhythmia erythromycin base Allergy Unknown "ALL PINK Verified 04/08/19 15:03 AND SWELLED UP" ketorolac Allergy Unknown SOB,TACHYCA Verified 04/08/19 15:03 RDIA Macrolide Antibiotics Allergy Unknown VOMITTING Verified 04/08/19 15:03 acetaminophen [From Vicodin] AdvReac Unknown Nausea Verified 04/08/19 15:03 adhesive AdvReac Unknown SKIN TEARS Verified 04/08/19 15:03 butorphanol [From Stadol] AdvReac Unknown Agitated Verified 04/08/19 15:03 hydrocodone [From Vicodin] AdvReac Unknown Nausea Verified 04/08/19 15:03 oxycodone [From Percocet] AdvReac Unknown Nausea Verified 04/08/19 15:03 temazepam AdvReac Unknown GI SYMPTOMS Verified 04/08/19 15:03 Past Med/Surg History Medical History Ambulatory dysfunction Ankylosing spondylitis Asthma Atypical chest pain Bipolar disorder with depression Chronic radicular low back pain COPD (chronic obstructive pulmonary disease) Diverticular disease of colon Dyslipidemia Gastritis GERD (gastroesophageal reflux disease) Granulosa cell tumor of left ovary History of anemia (Resolved) 04/2018 S/P BLOOD TRANSFUSION (POLYPS IN STOMACH) History of pulmonary embolism Hx of deep venous thrombosis X2 R LEG Hypertension Hypothyroidism THYROID REMOVED PER PT Left ovarian cyst Morbid obesity Scoliosis Sleep apnea NO DEVICE Umbilical hernia Urinary incontinence Surgical History History of 2 sections History of appendectomy History of cardiac catheterization SEVERAL YEARS AGO= NO STENTS History of cholecystectomy History of colonoscopy History of endoscopy History of hysterectomy History of lumbar surgery WITH "SCREWS" History of thyroidectomy History of total left knee replacement History of total right knee replacement Family History Father Heart disease Diabetes Hypertension Myocardial infarction, Onset Age: 35 Sister Depression Hypertension Mother Diabetes Hypertension Kidney disease Social History Preferred Language: Czech Communication Ability: Effective Visual Impairment: No Limitations 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: Normal 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 Beliefs That Will Affect Care: None marital status: Current Living Situation: Spouse Current Living Situation Comment: LIVES WITH MOM Other Information That Helps Us Care for You: No Feels Safe at Home: Yes Safety Concerns: Feels Safe At This Time Smoking Status: Current every day smoker Tobacco Type: cigarettes ; Cigarettes Per Day: 10-15 ; Do You Dip or Chew Tobacco: No ; Second Hand Exposure: Yes ; Tobacco Cessation Education Requested by Patient: No Hx Alcohol Use: No Hx Substance Use: No Childhood Exposure to Second-Hand Smoke: Yes Other Diet Comment: regular during the past year weight has: increased > 10 lbs Dental Care, Regularly: No Physical Activity Frequency: Does not Exercise Seatbelt Use: always Sunscreen Use: Yes Review of Systems See HPI for pertinent positives & negatives. and A total of 10 systems reviewed and were otherwise negative Physical Exam Vital Signs Vital Signs - 24 hr 04/08/19 13:58 04/08/19 14:17 04/08/19 14:18 Temperature 36.7 C Temperature Source Oral Pulse Rate 85 Respiratory Rate 22 Respiratory Effort / Characteristics Non-Labored Respiratory Depth Normal Respiratory Pattern Regular Blood Pressure 171/106 H 171/106 H Blood Pressure Mean 127 115 Blood Pressure Position Lying Pulse Oximetry 97 Oxygen Delivery Method Room Air Room Air Sepsis Recent Fever Within 48 Hours No Sepsis Action Taken by Nursing No Action Required 04/08/19 14:33 04/08/19 14:47 04/08/19 15:00 Temperature Temperature Source Pulse Rate 87 89 90 Respiratory Rate 12 13 12 Respiratory Effort / Characteristics Respiratory Depth Respiratory Pattern Blood Pressure 130/81 107/86 Blood Pressure Mean 87 95 Blood Pressure Position Pulse Oximetry Oxygen Delivery Method Sepsis Recent Fever Within 48 Hours Sepsis Action Taken by Nursing 04/08/19 15:01 04/08/19 15:08 04/08/19 15:30 Temperature Temperature Source Pulse Rate 90 87 85 Respiratory Rate 19 14 14 Respiratory Effort / Characteristics Respiratory Depth Respiratory Pattern Blood Pressure 111/70 125/77 Blood Pressure Mean 83 91 Blood Pressure Position Pulse Oximetry Oxygen Delivery Method Sepsis Recent Fever Within 48 Hours Sepsis Action Taken by Nursing 04/08/19 15:31 04/08/19 16:00 04/08/19 16:01 Temperature Temperature Source Pulse Rate 86 84 85 Respiratory Rate 17 13 15 Respiratory Effort / Characteristics Respiratory Depth Respiratory Pattern Blood Pressure 114/78 Blood Pressure Mean 93 Blood Pressure Position Pulse Oximetry Oxygen Delivery Method Sepsis Recent Fever Within 48 Hours Sepsis Action Taken by Nursing 04/08/19 16:30 04/08/19 16:31 04/08/19 16:40 Temperature Temperature Source Pulse Rate 80 81 82 Respiratory Rate 15 20 21 Respiratory Effort / Characteristics Respiratory Depth Respiratory Pattern Blood Pressure 112/70 Blood Pressure Mean 80 Blood Pressure Position Pulse Oximetry Oxygen Delivery Method Sepsis Recent Fever Within 48 Hours Sepsis Action Taken by Nursing 04/08/19 16:50 04/08/19 17:00 04/08/19 17:01 Temperature Temperature Source Pulse Rate 80 80 80 Respiratory Rate 16 15 12 Respiratory Effort / Characteristics Respiratory Depth Respiratory Pattern Blood Pressure 103/75 Blood Pressure Mean 93 Blood Pressure Position Pulse Oximetry Oxygen Delivery Method Sepsis Recent Fever Within 48 Hours Sepsis Action Taken by Nursing 04/08/19 17:10 04/08/19 17:20 Temperature Temperature Source Pulse Rate 80 79 Respiratory Rate 18 12 Respiratory Effort / Characteristics Respiratory Depth Respiratory Pattern Blood Pressure Blood Pressure Mean Blood Pressure Position Pulse Oximetry Oxygen Delivery Method Sepsis Recent Fever Within 48 Hours Sepsis Action Taken by Nursing Constitutional: Vital signs reviewed. Eyes: Pupils are equal round reactive to light. Conjunctiva are noninjected. ENT: Pharynx is clear without erythema or exudate. Mucous membranes are moist. Neck supple without meningeal signs. Respiratory: Clear to auscultation bilaterally. Breath sounds are equal bilaterally. Cardiovascular: Regular rate and rhythm. No rubs or gallops. GI: Soft, nondistended and nontender. Bowel sounds are present. Musculoskeletal: No peripheral edema. No lower extremity tenderness. Integumentary: No cyanosis. Neurological: The patient is awake and alert. No focal deficits. Psychiatric: Anxious affect. Course Course 1413: Past medical records reviewed. The patient was evaluated in room C07, and a complete history and physical examination were performed. 1457: I reevaluated the patient and her pain is down to a 4/10 but she still has some tightness after one Nitro. 1510: I checked on the patient and she is still experiencing 4/10 discomfort but she had just received the second Nitro. She is also complaining of nausea at this time. We also discussed the test results. 1604: I reassessed the patient and she is feeling better but still has slight p ain. Her troponin is still pending due to the lab having problems with the analyzer. 1628: I spoke to Dr. Kourtney Patel [facility] Hospitalist about the patient's case. He agreed to accept the patient for further evaluations. Consultations Consultation #1: I spoke to Dr. Kourtney Patel [facility] Hospitalist about the patient's case. He agreed to accept the patient for further evaluations. Time: 16:28 Administered Medications Tramadol HCl (Ultram) 50 mg PO Q6H PRN PRN Reason: Mild Pain Stop: 05/08/19 17:22 Last Admin: 04/08/19 18:30 Dose: 50 mg Documented by: [id number] Discontinued Medications Diphenhydramine HCl (Benadryl) 50 mg IV NOW STA Stop: 04/08/19 17:24 Last Admin: 04/08/19 17:38 Dose: 50 mg Documented by: [id number] Fentanyl Citrate (Fentanyl Citrate) 50 mcg IV NOW ONE Stop: 04/08/19 15:14 Last Admin: 04/08/19 15:26 Dose: 50 mcg Documented by: [id number] Fentanyl Citrate (Fentanyl Citrate) 50 mcg IV NOW ONE Stop: 04/08/19 16:05 Last Admin: 04/08/19 16:16 Dose: 50 mcg Documented by: [id number] Methylprednisolone (Solumedrol) 125 mg IV NOW STA Stop: 04/08/19 17:24 Last Admin: 04/08/19 17:38 Dose: 125 mg Documented by: [id number] Nitroglycerin (Nitrostat) 0.4 mg SL UD PRN PRN Reason: Chest Pain Stop: 05/08/19 14:17 Last Admin: 04/08/19 15:09 Dose: 0.4 mg Documented by: [id number] Admin: 04/08/19 14:34 Dose: 0.4 mg Documented by: [id number] Ondansetron HCl (Zofran) 4 mg IV NOW STA Stop: 04/08/19 15:14 Last Admin: 04/08/19 15:26 Dose: 4 mg Documented by: [id number] Medical Decision Making Differential Diagnosis Differential Diagnosis includes: Unstable stable, SC, Anxiety, Pneumonia, and Pleurisy, amongst others. Medical Records Attestation: I reviewed the patient's medical records. I did perform a limited focused review of portions of the patient's old chart on the electronic medical record. The patient was seen by her PCP today for multiple issues including fatigue, anxiety, poorly controlled diabetes, urinary symptoms, and chest pain radiating into her neck. The patient requested to be sent to the ED. Home Medications Current Medication List: was personally reviewed by me Laboratory Data Attestation: I reviewed the patient's lab results. Result diagrams: 04/08/19 13:40 04/08/19 13:40 Lab Results 04/08/19 04/08/19 Range/Units 13:40 13:40 WBC 12.30 H (4.8-10.8) K/uL RBC 5.13 (4.2-5.4) M/uL Hgb 15.1 (12.0-16.0) g/dL Hct 44.9 (37-47) % MCV 87.5 (80-100) fL MCH 29.4 (25-34) pg MCHC 33.6 (32-36) g/dL RDW Std Deviation 52.9 H (36.4-46.3) fL RDW Coeff of Wilber 16.3 H (11.5-14.5) % Plt Count 346 (130-400) K/uL MPV 10.0 (7.4-10.4) fL Immature Gran % (Auto) 0.2 % Neut % (Auto) 62.1 % Lymph % (Auto) 25.5 % [place] % (Auto) 10.5 % Eos % (Auto) 1.5 % Baso % (Auto) 0.2 % Immature Gran # (Auto) 0.03 H (0.00-0.02) K/uL Neut # (Auto) 7.63 H (1.4-6.5) K/uL Lymph # (Auto) 3.14 (1.2-3.4) K/uL [place] # (Auto) 1.29 H (0.11-0.59) K/uL Eos # (Auto) 0.19 (0-0.5) K/uL Baso # (Auto) 0.02 (0-0.2) K/uL Sodium 138 (136-145) mmol/L Potassium 4.1 (3.5-5.1) mmol/L Chloride 103 (98-107) mmol/L Carbon Dioxide 28 (21-32) mmol/L Anion Gap 7.0 (3-11) BUN 14 (7-18) mg/dl Creatinine 1.08 (0.6-1.2) mg/dl Est Cr Clr Drug Dosing 68.8 ml/min Est GFR ( Amer) 65.5 Est GFR (Non-Af Amer) 56.5 BUN/Creatinine Ratio 12.5 (10-20) Glucose 86 (70-99) mg/dl Calcium 10.2 H (8.5-10.1) mg/dl Total Bilirubin 0.3 (0.2-1) mg/dl AST 19 (15-37) U/L ALT 24 (12-78) U/L Alkaline Phosphatase 89 (45-117) U/L Troponin I < 0.015 (0-0.045) ng/ml Total Protein 8.3 H (6.4-8.2) gm/dl Albumin 4.4 (3.4-5.0) gm/dl Globulin 3.9 (2.5-4.0) gm/dl Albumin/Globulin Ratio 1.1 (0.9-2) Imaging Data Radiologist's Impression: Radiology results as stated below per my review and the radiologist's interpretation: XR chest 1V portable CLINICAL HISTORY: Chest Pain COMPARISON STUDY: Chest CT July 28, 2016. Chest radiograph April 28, 2018. FINDINGS: Lung volumes are normal. Lungs are clear. There is no pneumothorax or pleural effusion. Cardiac size is normal. Mediastinal contours are normal. There is no evidence for pulmonary edema. Thoracolumbar spine fusion hardware is partially imaged. IMPRESSION: No acute cardiopulmonary findings. Electronically signed by: Jerry Francis M.D. 04/08/2019 2:39 PM ECG Data Attestation: I personally reviewed and interpreted this ECG as follows: Indication: + chest pain Rate (beats per minute): 86 Rhythm: + normal sinus ECG Intervals/blocks: + Normal QRS ECG ST segments: no ST elevation ECG Findings: no Q waves and no PVCs Blood Pressure Blood Pressure Findings: Elevated blood pressure Blood Pressure Disposition: Referred to patients primary care provider [facility] Narrative I did evaluate the patient as noted above. The patient is presenting with chest pain. He she has had it intermittently but it got worse today and radiates to her arm and neck. She does have multiple risk factors including hypertension, high cholesterol, cigarette smoking, diabetes and family history. Did receive aspirin in the ambulance. I did treat her with nitroglycerin sublingually. The patient was placed on a continuous surveillance monitor. Cardiac monitoring: Indication: Chest pain. Rate and rhythm: Normal sinus rhythm rate of 86. No dysrhythmia. I did order and personally review the patient's 12-lead EKG as described above. There are no acute ischemic changes. I did order and personally reviewed the images of the patient's chest x-ray as described above. Chest x-ray is unremarkable without infiltrates. I did order and review the patient's blood work as noted in the electronic medical record. She has a slight white blood cell count. She denies any fevers. She has a negative troponin. Electrolytes are unremarkable. She is not anemic. I did reassess the patient multiple times. Her chest pain is resolving with the nitroglycerin but still complains of 4-10 pain. I did treat her with fentanyl IV and Zofran IV. She did feel much better. I did discuss test results and recommended hospitalization. I did discuss case with the hospitalist and case management social worker. Impression & Plan Acute chest pain, Headache Discharge Plan Visit Data *Final* Discharge Date/Time: 04/08/19 17:47 Chief Complaint: Chest Pain ED Provider: Gabino Lopez Discharge Problem: Acute chest pain, Headache Patient Disposition: Admitted As Inpatient Discharge Instructions Interventions: ED Discharge Assessment Last Done: 04/08/19 17:47 Discharge Problem: Headache Qualifiers: Headache type: unspecified Headache chronicity pattern: unspecified pattern Intractability: not intractable Qualified Code(s): R51 - Headache The scribe's documentation has been prepared under my direction and personally reviewed by me in its entirety. I confirm that the note above accurately reflects all work, treatment, procedures, and medical decision making performed by me.
--- NOTE | 2019-04-08 21:40 | History & Physical Report ---
Date of Service April 08, 2019 Assessment & Plan (1) Atypical chest pain: Obs tele Trend trops Echo (2) Headache: With patient being on Xarelto and having severe headache, I ordered CT head. Results showed no bleed. I gave following for headache (note she has many allergies) Soulmedrol 125mg Benadryl 50mg Prn Dilaudid (3) History of pulmonary embolism: Continue Xarelto which covers DVT prophylaxis. (4) Hypothyroidism: Continue levothyroxine (5) Hypertension: Continue losartan (6) GERD (gastroesophageal reflux disease): Pepcid BID (7) Asthma: Albuterol nebs prn. (8) Diabetes type 2, uncontrolled: Patient reports being recently placed on Invokana I ordered sliding scale insulin coverage as the steroid dose is expected to increase sugars. History of Present Illness 59 y/o female presented to the ED with 1 week history of left chest pressure non-radiating. The pain worsens intermittently but not associated with exertion. In addition, she has had severe headache on the right frontal area. 10/01. She has had headaches in the past, but feels this is the strongest she can remember. Today as she was to have blood work, She became lightheaded, nauseated and SOB. No vomiting, No F/C, No Cough. She is a 1/2 PPD smoker. Father had DC in his 30s. Primary Care Provider: LUCY Francois Allergies Allergy/AdvReac Type Severity Reaction Status Date / Time carbamazepine Allergy Unknown Heart Verified 04/08/19 15:03 Arrhythmia erythromycin base Allergy Unknown "ALL PINK Verified 04/08/19 15:03 AND SWELLED UP" ketorolac Allergy Unknown SOB,TACHYCA Verified 04/08/19 15:03 RDIA Macrolide Antibiotics Allergy Unknown VOMITTING Verified 04/08/19 15:03 acetaminophen [From Vicodin] AdvReac Unknown Nausea Verified 04/08/19 15:03 adhesive AdvReac Unknown SKIN TEARS Verified 04/08/19 15:03 butorphanol [From Stadol] AdvReac Unknown Agitated Verified 04/08/19 15:03 hydrocodone [From Vicodin] AdvReac Unknown Nausea Verified 04/08/19 15:03 oxycodone [From Percocet] AdvReac Unknown Nausea Verified 04/08/19 15:03 temazepam AdvReac Unknown GI SYMPTOMS Verified 04/08/19 15:03 Home Medications Home Medications Medication Instructions Recorded Confirmed Type furosemide 20 mg tablet 20 mg PO DIRECTED PRN #30 tab 11/23/18 04/08/19 Rx diclofenac sodium 1 % topical gel See Rx Instructions TOPICAL 01/16/19 04/08/19 Rx .COMPLEX #100 gm levothyroxine 125 mcg tablet 125 mcg PO QAM 01/16/19 04/08/19 History calcium carbonate 500 mg (1,250 1 tab PO QAM #30 tab 03/05/19 04/08/19 Rx mg)-vitamin D3 200 unit tablet gabapentin 600 mg tablet 600 mg PO BID #60 tab 03/05/19 04/08/19 Rx ranitidine HCl 150 mg tablet 150 mg PO BID #60 tab 03/05/19 04/08/19 Rx pantoprazole 40 mg tablet,delayed 40 mg PO BID #56 tab 04/01/19 04/08/19 Rx release albuterol sulfate 2.5 mg/3 mL 2.5 mg INHALATION QID PRN #3 ml 04/08/19 04/08/19 Rx (0.083 %) solution for nebulization albuterol sulfate 90 mcg/actuation 2 puff INHALATION Q4H PRN #18 gm 04/08/19 04/08/19 Rx aerosol inhaler canagliflozin 100 mg tablet 100 mg PO QAM #30 tab 04/08/19 04/08/19 Rx losartan 50 mg PO QAM 04/08/19 04/08/19 History nystatin 100,000 unit/gram topical 1 appln TOP TID PRN #30 gm 04/08/19 04/08/19 Rx powder rivaroxaban [Xarelto] 20 mg PO QAM 04/08/19 04/08/19 History spironolactone 25 mg PO QAM 04/08/19 04/08/19 History trazodone 50 mg PO HS 04/08/19 04/08/19 History trazodone 300 mg PO HS 04/08/19 04/08/19 History Past Med/Surg History Medical History Ambulatory dysfunction Ankylosing spondylitis Asthma Atypical chest pain Bipolar disorder with depression Chronic radicular low back pain COPD (chronic obstructive pulmonary disease) Diverticular disease of colon Dyslipidemia Gastritis GERD (gastroesophageal reflux disease) Granulosa cell tumor of left ovary History of anemia (Resolved) 04/2018 S/P BLOOD TRANSFUSION (POLYPS IN STOMACH) History of pulmonary embolism Hx of deep venous thrombosis X2 R LEG Hypertension Hypothyroidism THYROID REMOVED PER PT Left ovarian cyst Morbid obesity Scoliosis Sleep apnea NO DEVICE Umbilical hernia Urinary incontinence Surgical History History of 2 sections History of appendectomy History of cardiac catheterization SEVERAL YEARS AGO= NO STENTS History of cholecystectomy History of colonoscopy History of endoscopy History of hysterectomy History of lumbar surgery WITH "SCREWS" History of thyroidectomy History of total left knee replacement History of total right knee replacement Family History Father Heart disease Diabetes Hypertension Myocardial infarction, Onset Age: 35 Sister Depression Hypertension Mother Diabetes Hypertension Kidney disease Social History Preferred Language: [place] Communication Ability: Effective Visual Impairment: No Limitations 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: Normal Intake Manager Required: No Beliefs That Will Affect Care: None marital status: Current Living Situation: Spouse Current Living Situation Comment: LIVES WITH MOM Other Information That Helps Us Care for You: No Feels Safe at Home: Yes Safety Concerns: Feels Safe At This Time Smoking Status: Current every day smoker Tobacco Type: cigarettes ; Cigarettes Per Day: 10-15 ; Do You Dip or Chew Tobacco: No ; Second Hand Exposure: Yes ; Tobacco Cessation Education Requested by Patient: No Hx Alcohol Use: No Hx Substance Use: No Childhood Exposure to Second-Hand Smoke: Yes Other Diet Comment: regular during the past year weight has: increased > 10 lbs Dental Care, Regularly: No Physical Activity Frequency: Does not Exercise Seatbelt Use: always Sunscreen Use: Yes Review of Systems Review of Systems: All systems reviewed & are unremarkable except as noted in HPI & below Physical Exam Physical Exam: General- adult female, NAD Head- atraumatic Eyes- PERRL, EOMI, anicteric ENT- oropharynx clear Neck- supple, no JVD, no adenopathy. Lungs- CTA b/l no R/R/W. Heart- regular rhythm; no murmur, no gallop, no rub appreciated Abdomen- normal bowel sounds, soft, nontender. Extremities- no pretibial edema, no calf tenderness; peripheral pulses intact Neuro- alert, oriented x 3; PERRL, EOMI; no facial palsy; no dysarthria; motor 5/5 bilaterally; pickle maker II-XII grossly intact. Skin- warm & dry Results & Data Vital Signs (Past 12 Hours) Vital Signs Temp Pulse Pulse Resp BP BP Pulse Ox 04/08/19 20:43 36.9 C 81 16 106/79 93 04/08/19 18:17 36.7 C 93 H 20 97/80 L 96 04/08/19 17:31 81 14 04/08/19 17:30 83 14 113/66 04/08/19 17:20 79 12 04/08/19 17:10 80 18 04/08/19 17:01 80 12 04/08/19 17:00 80 15 103/75 04/08/19 16:50 80 16 04/08/19 16:40 82 21 04/08/19 16:31 81 20 04/08/19 16:30 80 15 112/70 04/08/19 16:01 85 15 04/08/19 16:00 84 13 114/78 04/08/19 15:31 86 17 04/08/19 15:30 85 14 125/77 04/08/19 15:08 87 14 111/70 04/08/19 15:01 90 19 04/08/19 15:00 90 12 107/86 04/08/19 14:47 89 13 130/81 04/08/19 14:33 87 12 04/08/19 14:17 171/106 H 04/08/19 13:58 36.7 C 85 22 171/106 H 97 Pulse Ox 04/08/19 20:43 04/08/19 18:17 96 04/08/19 17:31 04/08/19 17:30 04/08/19 17:20 04/08/19 17:10 04/08/19 17:01 04/08/19 17:00 04/08/19 16:50 04/08/19 16:40 04/08/19 16:31 04/08/19 16:30 04/08/19 16:01 04/08/19 16:00 04/08/19 15:31 04/08/19 15:30 04/08/19 15:08 04/08/19 15:01 04/08/19 15:00 04/08/19 14:47 04/08/19 14:33 04/08/19 14:17 04/08/19 13:58 Code Status & VTE Plan VTE Prophylaxis Plan VTE Prophylaxis will be ordered: Yes PG Care Time/CCT Total # of Minutes Spent Total Time Spent: 55 Total Time Spent with Patient: Total time spent is greater than 50% in coordination of care (as documented) at patient's floor/unit and/or counseling patient: (1) Headache Headache chronicity pattern: unspecified pattern Headache type: unspecified Intractability: not intractable Qualified Code(s): R51 - Headache
[2019-04-08] MEDS: PANTOprazole 40 MG TAB PO SCH (21:51)
[2019-04-08] MEDS: TRAZODONE HCL 100 MG TAB PO SCH (21:51)
[2019-04-08] MEDS: GABAPENTIN 600 MG TAB PO SCH (21:51)
[2019-04-08] MEDS: FAMOTIDINE 20 MG TAB PO SCH (21:51)
[2019-04-08] MEDS: TRAZODONE HCL 50 MG TAB PO SCH (21:51)
[2019-04-08] MEDS: INSULIN ASPART 100 UNITS/ML 3 ML PEN SC SCH (21:52)
[2019-04-09] MEDS: HYDROmorphone INJ 0.5 MG/0.5 ML SYR IV PRN ×5 (00:30→19:47)
[2019-04-09] MEDS: TRAMADOL HCL 50 MG TABLET PO PRN (04:53)
[2019-04-09] MEDS: LEVOTHYROXINE SODIUM 125 MCG TABLET PO SCH (04:53)
[2019-04-09 06:25] LABS: Hemoglobin 13.3 g/dL (12.0-16.0); Mean Corpuscular Hemoglobin 28.9 pg (25-34); Mean Corpuscular Hgb Conc 33.3 g/dL (32-36); Mean Corpuscular Volume 86.8 fL (80-100); Mean Platelet Volume 9.9 fL (7.4-10.4); Platelet Count 297 K/uL (130-400); RDW Coefficient of Variation 16.5 % (11.5-14.5); RDW Standard Deviation 52.4 fL (36.4-46.3); Red Blood Count 4.61 M/uL (4.2-5.4); White Blood Count 10.38 K/uL (4.8-10.8)
[2019-04-09] MEDS ORDERED: PERFLUTREN LIPID MICROSPHERE (DEFINITY) IV ONE (06:50)
[2019-04-09 06:59] LABS: BUN Creatinine Ratio 14.5 (10-20); Calcium 9.1 mg/dl (8.5-10.1); Creatinine Clr Calc Pharmacy 64.8 ml/min; Est GFR (African American) 61.4; Potassium 4.4 mmol/L (3.5-5.1)
[2019-04-09] MEDS: INSULIN ASPART 100 UNITS/ML 3 ML PEN SC SCH ×4 (07:51→22:13)
[2019-04-09] MEDS: FAMOTIDINE 20 MG TAB PO SCH ×2 (07:54→19:49)
[2019-04-09] MEDS: RIVAROXABAN 20 MG TAB PO SCH (07:54)
[2019-04-09] MEDS: SPIRONOLACTONE 25 MG TAB PO SCH (07:54)
[2019-04-09] MEDS: PANTOprazole 40 MG TAB PO SCH ×2 (07:54→19:48)
[2019-04-09] MEDS: CALCIUM 600MG + VIT D 400 IU TAB PO SCH (07:54)
[2019-04-09] MEDS: GABAPENTIN 600 MG TAB PO SCH ×2 (07:55→19:49)
[2019-04-09] MEDS: ONDANSETRON INJ 2 MG/ML 2 ML VIAL IV PRN ×2 (07:59→15:27)
[2019-04-09] MEDS ORDERED: LOSARTAN POTASSIUM 50 MG TAB PO SCH (09:00)
[2019-04-09] MEDS ORDERED: DOBUTamine HCL 12.5 MG/ML 20 ML VIAL IV ONE (10:03)
[2019-04-09] MEDS ORDERED: METOPROLOL TARTRATE 1 MG/ML VIAL IV ONE (10:03)
[2019-04-09] MEDS ORDERED: ATROPINE SULFATE 0.1 MG/ML 10ML SYR IV ONE (10:03)
[2019-04-09 10:28] LABS: D Dimer 220 ug/L FEU (0-500)
[2019-04-09] MEDS ORDERED: ESMOLOL HCL INJ 10 MG/ML 10ML VIAL IV ONE (10:34)
--- NOTE | 2019-04-09 18:23 | Hospitalist Progress Note ---
Date of Service April 09, 2019 Assessment & Plan (1) Acute chest pain: Oralia is a 59-year-old female with a past medical history of asthma, GERD, sleep apnea, hypertension, hypothyroidism, diabetes, bipolar disorder not on pharmacotherapy, COPD, and a strong family history of early cardiac disease who presented to the hospital with chest pain and who continues to have left- sided chest tightness and mild shortness of breath. She has been admitted for cardiac evaluation. 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 every morning Hypothyroidism Continue levothyroxine 125 mcg p.o. daily History of pulmonary embolism Continue rivaroxaban 20 mg p.o. every morning Type 2 diabetes mellitus Hold ATOMIZER ASSEMBLER canagliflozin Glucose checks AC/at bedtime Insulin aspart SSI DVT prophylaxis: Rivaroxaban as above Ulcer prophylaxis: Continue pantoprazole 40 mg p.o. twice daily FEN GI: Heart healthy diet Disposition: Ongoing, pending results of dobutamine stress echo (2) Headache: (3) Atypical chest pain: (4) Diabetes type 2, uncontrolled: (5) Insomnia: (6) Granulosa cell tumor of left ovary: (7) Asthma: (8) GERD (gastroesophageal reflux disease): (9) Sleep apnea: (10) Morbid obesity: (11) History of pulmonary embolism: (12) COPD (chronic obstructive pulmonary disease): (13) Bipolar disorder with depression: Supervising Physician Co-Signing Physician Notes Resident Physician Supervision Note: I independently interviewed and examined the patient and verified the rivera history and physical, reviewed labs and image studies, discussed the case with the resident Dr. Medina and agree with the findings and care plan. Subjective Oralia is seen at the bedside this morning. She reports she continues to have a mild left-sided chest ache and tightness which does not radiate into her jaw or shoulder, and some shortness of breath which is improved from prior. She continues to have a right sided jabbing/throbbing headache which is new for her, mildly improved from yesterday. She has had mild nausea this morning, but was able to tolerate breakfast okay and was able to eat a cream cheese bagel, muffin, and coffee without vomiting. She endorses intermittent palpitations. She reports that she is a year older than her parents when they of heart attack, which makes her feel very anxious. Review of Systems Review of Systems: Constitutional: Denies fever, chills, malaise, weight change Eyes: Denies double vision, vision change, eye pain ENT: Denies ear pain, sore throat, sinus pain Cardiovascular: Endorses chest tightness as noted in HPI, palpitations as noted in HPI. Denies extremity swelling. Respiratory: Endorses shortness of breath as noted in HPI, denies cough, sputum production, difficulty breathing Gastrointestinal: Denies abdominal pain, vomiting, constipation, diarrhea. Endorses nausea. Genitourinary: Denies dysuria Musculoskeletal: Denies weakness, muscle aches/pain, joint aches/pain Integumentary:Denies rash, lesions, bruising Neurological: Versus headache, denies numbness, tingling, focal weakness Physical Exam Physical Exam: General: A&Ox3. NAD. Cooperative. HEENT: Atraumatic, normocephalic. Pulm: CTAB A&P. -wheezes, -rales, -rhonchi. Symmetrical chest rise. No increased work of breathing. No respiratory distress. Cardiac: RRR, -mrg. Radial pulses intact and symmetrical. Abdominal: Nontender, nondistended, soft. BS present. MSK: Moves all extremities equally. PT pulses intact bilaterally. Chest wall nontender to palpation, chest pain is not reproducible with palpation. Results & Data Vital Signs (Past 12 Hours) Vital Signs Temp Pulse Pulse Resp BP Pulse Ox 04/09/19 15:41 73 04/09/19 15:32 36.6 C 71 20 97/85 L 96 04/09/19 11:23 36.6 C 90 19 108/68 94 04/09/19 07:25 73 04/09/19 07:12 36.4 C L 76 18 96/63 L 93 Resident Activity Tracking Resident Involvement: Resident Care Provided Care Provided: Adult Hospital Medicine (1) Headache Headache chronicity pattern: unspecified pattern Headache type: unspecified Intractability: not intractable Qualified Code(s): R51 - Headache (2) COPD (chronic obstructive pulmonary disease) COPD type: unspecified COPD Qualified Code(s): J44.9 - Chronic obstructive pulmonary disease, unspecified
[2019-04-09 19:33] LABS: Basophils # (auto) 0.01 K/uL (0-0.2); Basophils % (auto) 0.1 %; Eosinophils # (auto) 0.06 K/uL (0-0.5); Eosinophils % (auto) 0.3 %; Hematocrit (blood only) 38.4 % (37-47); Hemoglobin 12.7 g/dL (12.0-16.0); Immature Granulocytes # (auto) 0.07 K/uL (0.00-0.02); Immature Granulocytes % (auto) 0.4 %; Lymphocytes # (auto) 3.08 K/uL (1.2-3.4); Lymphocytes % (auto) 16.1 %; Mean Corpuscular Hemoglobin 28.5 pg (25-34); Mean Corpuscular Hgb Conc 33.1 g/dL (32-36); Mean Corpuscular Volume 86.1 fL (80-100); Mean Platelet Volume 9.8 fL (7.4-10.4); Monocytes # (auto) 1.71 K/uL (0.11-0.59); Monocytes % (auto) 8.9 %; Neutrophils # (auto) 14.23 K/uL (1.4-6.5); Neutrophils % (auto) 74.2 %; Platelet Count 305 K/uL (130-400); RDW Coefficient of Variation 16.4 % (11.5-14.5); RDW Standard Deviation 51.9 fL (36.4-46.3); Red Blood Count 4.46 M/uL (4.2-5.4); White Blood Count 19.16 K/uL (4.8-10.8)
[2019-04-09] MEDS: TRAZODONE HCL 50 MG TAB PO SCH (19:48)
[2019-04-09] MEDS: TRAZODONE HCL 100 MG TAB PO SCH (19:48)
[2019-04-10 06:23] LABS: BUN Creatinine Ratio 17.4 (10-20); Calcium 8.5 mg/dl (8.5-10.1); Creatinine Clr Calc Pharmacy 55.6 ml/min; Est GFR (African American) 50.9
[2019-04-10] MEDS: LEVOTHYROXINE SODIUM 125 MCG TABLET PO SCH (06:26)
[2019-04-10] MEDS: HYDROmorphone INJ 0.5 MG/0.5 ML SYR IV PRN (06:29)
[2019-04-10] MEDS ORDERED: ACETAMINOPHEN 325 MG TAB PO PRN (06:56)
[2019-04-10] MEDS: RIVAROXABAN 20 MG TAB PO SCH (08:10)
[2019-04-10] MEDS: GABAPENTIN 600 MG TAB PO SCH (08:10)
[2019-04-10] MEDS: PANTOprazole 40 MG TAB PO SCH (08:10)
[2019-04-10] MEDS: FAMOTIDINE 20 MG TAB PO SCH (08:11)
[2019-04-10] MEDS: SPIRONOLACTONE 25 MG TAB PO SCH (08:11)
[2019-04-10] MEDS: CALCIUM 600MG + VIT D 400 IU TAB PO SCH (08:11)
[2019-04-10] MEDS: INSULIN ASPART 100 UNITS/ML 3 ML PEN SC SCH ×2 (08:36→12:14)
--- NOTE | 2019-04-10 11:44 | Discharge Summary ---
Date of Service April 10, 2019 Admission HPI Per Admitting Provider 59 y/o female presented to the ED with 1 week history of left chest pressure non-radiating. The pain worsens intermittently but not associated with exertion. In addition, she has had severe headache on the right frontal area. 10/01. She has had headaches in the past, but feels this is the strongest she can remember. Today as she was to have blood work, She became lightheaded, nauseated and SOB. No vomiting, No F/C, No Cough. She is a 1/2 PPD smoker. Father had AK in his 30s. Primary Care Provider: LUCY Francois Admission Exam Per Admitting Provider General- adult female, NAD Head- atraumatic Eyes- PERRL, EOMI, anicteric ENT- oropharynx clear Neck- supple, no JVD, no adenopathy. Lungs- CTA b/l no R/R/W. Heart- regular rhythm; no murmur, no gallop, no rub appreciated Abdomen- normal bowel sounds, soft, nontender. Extremities- no pretibial edema, no calf tenderness; peripheral pulses intact Neuro- alert, oriented x 3; PERRL, EOMI; no facial palsy; no dysarthria; motor 5/5 bilaterally; leather stitcher II-XII grossly intact. Skin- warm & dry Principal Diagnosis Noncardiac Chest Pain Discharge Exam General: A&Ox3. NAD. Cooperative. HEENT: Atraumatic, normocephalic. Pulm: CTAB A&P. mild wheeze on forced expiration, no wheeze at normal inspiration, -rales, -rhonchi. Symmetrical chest rise. No increase work of breathing. No respiratory distress. Cardiac: RRR, -mrg. Radial pulses intact and symmetrical. Abdominal: Nontender, nondistended, soft. BS present. Discharge Data Allergies Allergy/AdvReac Type Severity Reaction Status Date / Time carbamazepine Allergy Unknown Heart Verified 04/08/19 15:03 Arrhythmia erythromycin base Allergy Unknown "ALL PINK Verified 04/08/19 15:03 AND SWELLED UP" ketorolac Allergy Unknown SOB,TACHYCA Verified 04/08/19 15:03 RDIA Macrolide Antibiotics Allergy Unknown VOMITTING Verified 04/08/19 15:03 acetaminophen [From Vicodin] AdvReac Unknown Nausea Verified 04/08/19 15:03 adhesive AdvReac Unknown SKIN TEARS Verified 04/08/19 15:03 butorphanol [From Stadol] AdvReac Unknown Agitated Verified 04/08/19 15:03 hydrocodone [From Vicodin] AdvReac Unknown Nausea Verified 04/08/19 15:03 oxycodone [From Percocet] AdvReac Unknown Nausea Verified 04/08/19 15:03 temazepam AdvReac Unknown GI SYMPTOMS Verified 04/08/19 15:03 Consultations 04/08/19 16:30 ED Decision to Admit Stat Ordered Studies 04/08/19 17:23 CT head/brain wo con Stat Hospital Course (1) Acute chest pain: Oralia is a 59-year-old female with a past medical history of asthma, GERD, sleep apnea, hypertension, hypothyroidism, diabetes, bipolar disorder not on pharmacotherapy, COPD, and a strong family history of early cardiac disease who presented to the hospital with chest pain and who continues to have left- sided chest tightness and mild shortness of breath. Chest pain, strong family history of early ACS Admitted for coronary syndrome evaluation. She is admitted with chest tightness and shortness of breath. She had no acute ST or T wave changes on her admitting EKG. Her troponins were negative x3. Echo showed mild concentric LVH but no valvular disease and normal systolic function with normal wall movement. Given her strong family history of early AK, smoking history, and diabetes a dobutamine stress test was performed which was normal and did not show any wall motion abnormalities, ST changes, or other concerning findings. Her pain was improved by time of discharge, and was felt to be noncardiac in origin. She was discharged to further follow-up with her primary care physician. Headache On admission Oralia had a new right-sided, tight occasionally pulsing headache. She does not normally get headaches. Given her anticoagulation, a CT head was obtained. CT head showed no acute intracranial pathology, and no signs of intracranial bleeding. She did not display any focal neurologic deficits or change in mental status. Her headache was improving at time of discharge. Had adequate blood pressure control during admission. Hypertension controlled with losartan and Spironolactone. These medications were continued during admission with adequate blood pressure control. Hypothyroidism CREDIT DIRECTOR levothyroxine 125 mcg daily was continued during admission, she was clinically euthyroid. History of pulmonary embolism She is on rivaroxaban 20 mg daily for anticoagulation, she reports good compliance and has not missed any doses of this medication. She is not tachycardic during admission, did not have an increased oxygen requirement, and did not show any signs of PE or DVT during admission. Type 2 diabetes mellitus intolerant of short acting metformin, and recently prescribed canagliflozin which she had not yet started. Her CREDIT DIRECTOR anti-glycemic's were held and she was put on sliding scale insulin with glucose checks AC/at bedtime. She was instructed to resume her CREDIT DIRECTOR anti-glycemic's on discharge, and encouraged to pursue long-acting formulation of metformin with her primary care provider if she had not trialed in the past. HARLAN Barton has a history of chronic GERD on chronic PPI therapy. She did not experience an exacerbation of the symptoms during her hospitalization, but given long-term ongoing need for acid blocking medication it was suggested that she may want to follow-up as an outpatient for an EGD to evaluate for ulcerative disease. (2) Headache: (3) Atypical chest pain: (4) Diabetes type 2, uncontrolled: (5) Insomnia: (6) Granulosa cell tumor of left ovary: (7) Asthma: (8) GERD (gastroesophageal reflux disease): (9) Sleep apnea: (10) Morbid obesity: (11) History of pulmonary embolism: (12) COPD (chronic obstructive pulmonary disease): (13) Bipolar disorder with depression: Total Time Total Time Spent Total Time Spent (In Minutes): See Attending Documentation Discharge Plan Discharge Items Patient Disposition: Home - Self-Care Reason For Visit: CHEST PAIN Discharge Diagnosis: Noncardiac chest pain Activity: Resume your previous activity Non-emergency contact: Primary Care Provider Call non-emergency contact if: you have any medication questions, your symptoms worsen, your pain is not controlled, your pain is worsening, your pain is unusual for you and your pain is concerning for you Follow-up/Referrals: Raleigh Chi CRNP [Primary Care Provider] - Diet: Regular Addtl Attending Provider Instructions: You were seen in the hospital for chest pain/tightness concerning for cardiac disease. Your EKG did not show any signs of heart attack or heart disease. You had a cardiac stress test and echo which did not show any signs of heart attack or heart disease. Your blood markers for heart damage were negative. Your chest pain was most likely noncardiac, you are being discharged to follow-up with your primary care physician. You have not been prescribed any new medic ations at this time. You have had intermittent, persistent epigastric pain with a persistent requirement for antiacid medications. Please discuss potential referral for a EGD evaluation as an outpatient with your primary care physician. A follow-up appointment is being made for you with your primary care practitioner. You should be seen within 1 week. You should receive a call within 48 hours to confirm your appointment, if you do not receive a call please call their office at [phone]. If you develop any new, recurrent, or concerning symptoms including fever, chills, chest pain, chest pressure, difficulty breathing, shortness of breath, passing out or nearly passing out, jaw pain, sudden weakness, vision change, or other new or concerning symptoms please contact your primary care provider, or call 911 to return to the emergency department for reevaluation. Pending Studies at Discharge: No Stand-Alone Forms: Call Back Authorization, [facility] [place], Smoking Cessation Medications and DC Order Prescriptions: Continued calcium carbonate-vitamin D3 500 mg(1,250mg) -200 unit tablet 1 tab PO QAM Qty: 30 RF: 5 gabapentin 600 mg tablet 600 mg PO BID Qty: 60 RF: 5 ranitidine HCl 150 mg tablet 150 mg PO BID Qty: 60 RF: 5 pantoprazole 40 mg tablet,delayed release (DR/EC) 40 mg PO BID Qty: 56 RF: 2 levothyroxine 125 mcg tablet 125 mcg PO QAM RF: 0 diclofenac sodium 1 % gel See Patient Comments topical .COMPLEX Qty: 100 RF: 3 albuterol sulfate 2.5 mg /3 mL (0.083 %) solution for nebulization 2.5 mg Inhalation QID PRN (Reason: Shortness Of Breath Or Wheezing) Qty: 3 RF: 0 albuterol sulfate 90 mcg/actuation HFA aerosol inhaler 2 puff Inhalation Q4H PRN (Reason: Shortness Of Breath Or Wheezing) Qty: 18 RF: 3 nystatin 100,000 unit/gram powder 1 appln TOP TID PRN (Reason: skin irritation) Qty: 30 RF: 1 canagliflozin 100 mg tablet 100 mg PO QAM Qty: 30 RF: 2 furosemide 20 mg tablet 20 mg PO DIRECTED PRN (Reason: Edema) Qty: 30 RF: 0 trazodone 50 mg tablet 50 mg PO HS RF: 0 spironolactone 25 mg tablet 25 mg PO QAM RF: 0 trazodone 150 mg tablet 300 mg PO HS RF: 0 losartan 100 mg tablet 50 mg PO QAM RF: 0 Xarelto 20 mg tablet 20 mg PO QAM RF: 0 Discharge Orders: Discharge Order (Routine); Ordered 04/10/19 Ordered By: Noe Medina Admission Data Admit Date/Time: 04/08/19 17:23 Attending Provider: Yesenia Dewitt Admit Provider: Gustavo Oconnell Primary Care Provider: Raleigh Chi Other Providers: Gustavo Oconnell Other Interventions: Discharge Summary Assessment (RN) Last Done: 04/10/19 12:25 DC Date/Time DO NOT enter until pt leaves facility: 04/10/19 13:05 Supervising Physician Co-Signing Physician Notes Resident Physician Supervision Note: I independently interviewed and examined the patient and verified the rivera history and physical, reviewed labs and image studies, discussed the case with the resident Dr. Medina and agree with the findings and care plan. Resident Activity Tracking Resident Involvement: Resident Care Provided Care Provided: Adult Hospital Medicine
[2019-04-10] MEDS: TRAMADOL HCL 50 MG TABLET PO PRN (12:18)
== END 2019-04-10 13:05 | disposition home or self-care (01) ==
LOC: ED 14:09 → 2E 14:09 → SUATTDRO 17:23 → 2E 17:47

== ENCOUNTER 2019-04-27 18:25 | Observation (INO) ==
[2019-04-27] MEDS ORDERED: ACETAMINOPHEN 1,000 MG/100 ML VIAL IV STA (18:53)
[2019-04-27] MEDS ORDERED: SODIUM CHLORIDE 0.9% 1000ML 1,000 ML IV ONE (18:53)
[2019-04-27] MEDS ORDERED: ONDANSETRON INJ 2 MG/ML 2 ML VIAL IV STA (18:53)
[2019-04-27 19:27] LABS: Basophils # (auto) 0.02 K/uL (0-0.2); Basophils % (auto) 0.2 %; Eosinophils # (auto) 0.04 K/uL (0-0.5); Eosinophils % (auto) 0.3 %; Hematocrit (blood only) 42.8 % (37-47); Hemoglobin 14.2 g/dL (12.0-16.0); Immature Granulocytes # (auto) 0.02 K/uL (0.00-0.02); Immature Granulocytes % (auto) 0.2 %; Lymphocytes # (auto) 1.81 K/uL (1.2-3.4); Lymphocytes % (auto) 14.4 %; Mean Corpuscular Hgb Conc 33.2 g/dL (32-36); Mean Corpuscular Volume 87.5 fL (80-100); Mean Platelet Volume 9.7 fL (7.4-10.4); Monocytes # (auto) 0.82 K/uL (0.11-0.59); Monocytes % (auto) 6.5 %; Neutrophils # (auto) 9.87 K/uL (1.4-6.5); Neutrophils % (auto) 78.4 %; Platelet Count 336 K/uL (130-400); RDW Coefficient of Variation 15.8 % (11.5-14.5); RDW Standard Deviation 50.9 fL (36.4-46.3); Red Blood Count 4.89 M/uL (4.2-5.4); White Blood Count 12.58 K/uL (4.8-10.8)
[2019-04-27 19:48] LABS: Alanine Aminotransferase 26 U/L (12-78); Albumin Level 4.1 gm/dl (3.4-5.0); Aspartate Aminotransferase 20 U/L (15-37); BUN Creatinine Ratio 12.6 (10-20); Blood Urea Nitrogen 14 mg/dl (7-18); Calcium 9.4 mg/dl (8.5-10.1); Carbon Dioxide 26 mmol/L (21-32); Chloride 103 mmol/L (98-107); Creatinine Clr Calc Pharmacy 66.8 ml/min; Est GFR (African American) 64.1; Est GFR (Non-African American) 55.3; Glucose 106 mg/dl (70-99); Lipase 109 U/L (73-393); Magnesium 1.8 mg/dl (1.8-2.4); Potassium 3.7 mmol/L (3.5-5.1); Sodium 135 mmol/L (136-145)
[2019-04-27] MEDS ORDERED: OPTIRAY 320 125ml IV PRN (19:51)
[2019-04-27 19:59] LABS: Albumin Globulin Ratio 1.1 (0.9-2); Alkaline Phosphatase 72 U/L (45-117); Bilirubin,Total 0.4 mg/dl (0.2-1); Globulin 3.7 gm/dl (2.5-4.0); NT Pro B Type Natriuretic Pept 42 pg/ml (0-900); Thyroid Stimulating Hormone 0.383 uIu/ml (0.300-4.500); Total Protein 7.8 gm/dl (6.4-8.2); Troponin I < 0.015 ng/ml (0-0.045)
--- NOTE | 2019-04-27 21:02 | CT Scan Report ---
HEAD CT NONCONTRAST CT DOSE: HISTORY: sudden thomas, dizziness TECHNIQUE: Multiaxial CT images of the head were performed without the use of intravenous contrast. A utomated exposure control was utilized for this study. A dose lowering technique was utilized adheri ng to the principles of ALARA. Comparison: Head CT 04/08/2019. Findings: The paranasal sinuses and mastoid air cells are clear. The calvarium and skull base are int act. The ventricles and sulci are within normal limits. There is no mass, hematoma, midline shift, or acute infarct. Impression: No acute intracranial abnormality. ACT 112: Negative or not required by law. Electronically signed by: Viktor Fink M.D. 04/27/2019 9:00 PM
--- NOTE | 2019-04-27 21:08 | CT Scan Report ---
HEAD & NECK CTA HISTORY: Headache. thomas, dizzy TECHNIQUE: Multiaxial CT images of the head were performed following the intravenous administration o f contrast to evaluate the major cerebral vessels. Multiaxial CT images of the neck were also perform ed following the intravenous administration of contrast to evaluate the major cervical vessels. Maxim um intensity projection images were also obtained. A dose lowering technique was utilized adhering to the principles of ALARA. COMPARISON: None. FINDINGS: There is no mass, hematoma, midline shift, or acute infarct. Visualized intracranial internal carotid arteries, distal vertebral arteries, and basilar artery are widely patent. There is no significant s tenosis, occlusion, or aneurysm seen within the bilateral ACAs, MCAs, or boss dyer. 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 Anterior nasal septal defect is noted. The aortic arch and proximal great vessels are widely patent. Moderate calcified plaque within the mid left common carotid artery and right carotid bifurcation. This results in mild stenosis of approx imately 50% within the proximal right internal carotid artery. There is approximately 40% focal steno sis within the mid left common carotid artery. The right common carotid artery and left internal tenorio tid artery are widely patent. No significant stenosis, occlusion, or dissection within the vertebral arteries. The bilateral internal jugular veins are patent. Multiple left thyroid nodules with the lar gest measuring 1 cm. Small amount of midline ectopic thyroid tissue inferior to the hyoid bone. IMPRESSION: 1. No significant stenosis, occlusion, or aneurysm within the [place]. 2. Approximately 50% stenosis within the proximal right internal carotid artery and 40% focal stenosi s within the mid left common carotid artery due to the atherosclerotic plaque. 3. No significant stenosis within the remaining carotid arteries or vertebral arteries. ACT 112: Negative or not required by law. Electronically signed by: Viktor Fink M.D. 04/27/2019 9:06 PM
--- NOTE | 2019-04-27 21:08 | CT Scan Report ---
HEAD & NECK CTA HISTORY: Headache. thomas, dizzy TECHNIQUE: Multiaxial CT images of the head were performed following the intravenous administration o f contrast to evaluate the major cerebral vessels. Multiaxial CT images of the neck were also perform ed following the intravenous administration of contrast to evaluate the major cervical vessels. Maxim um intensity projection images were also obtained. A dose lowering technique was utilized adhering to the principles of ALARA. COMPARISON: None. FINDINGS: There is no mass, hematoma, midline shift, or acute infarct. Visualized intracranial internal carotid arteries, distal vertebral arteries, and basilar artery are widely patent. There is no significant s tenosis, occlusion, or aneurysm seen within the bilateral ACAs, MCAs, or national van owner operator. 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 Anterior nasal septal defect is noted. The aortic arch and proximal great vessels are widely patent. Moderate calcified plaque within the mid left common carotid artery and right carotid bifurcation. This results in mild stenosis of approx imately 50% within the proximal right internal carotid artery. There is approximately 40% focal steno sis within the mid left common carotid artery. The right common carotid artery and left internal tenorio tid artery are widely patent. No significant stenosis, occlusion, or dissection within the vertebral arteries. The bilateral internal jugular veins are patent. Multiple left thyroid nodules with the lar gest measuring 1 cm. Small amount of midline ectopic thyroid tissue inferior to the hyoid bone. IMPRESSION: 1. No significant stenosis, occlusion, or aneurysm within the [place]. 2. Approximately 50% stenosis within the proximal right internal carotid artery and 40% focal stenosi s within the mid left common carotid artery due to the atherosclerotic plaque. 3. No significant stenosis within the remaining carotid arteries or vertebral arteries. ACT 112: Negative or not required by law. Electronically signed by: Viktor Fink M.D. 04/27/2019 9:06 PM
--- NOTE | 2019-04-27 21:16 | CT Scan Report ---
CHEST CTA for AORTIC DISSECTION CT DOSE: HISTORY: Atypical chest pain, paresthesias, dizzy TECHNIQUE: Multiaxial CT images of the chest were performed both before and after the intravenous adm inistration of contrast to evaluate the aorta. Maximal intensity projection images were also obtained . A dose lowering technique was utilized adhering to the principles of ALARA. COMPARISON STUDY: Chest CTA 07/28/2016. FINDINGS: Posterior fusion hardware seen within the lower thoracic spine with a prior T10 vertebropla sty. Postoperative changes within the right thyroid lobe. Noncontrast imaging through the chest shows no evidence for an intramural hematoma within the thoracic aorta. No evidence for an aortic dissecti on. The ascending thoracic aorta is borderline dilated measuring up to 3.9 cm in diameter. The centra l pulmonary arteries are patent. The heart is normal in size. No pleural or pericardial effusions. A few left thyroid nodules with the largest measuring 1 cm. No mediastinal or hilar lymphadenopathy. Li mited views of the upper abdomen demonstrate normal liver and spleen. Normal esophagus. No suspicious lytic are blastic osseous lesions. The central airways are patent. No pneumothorax. Stable 4 mm nodu le within the left upper lobe on image 170. Calcified granuloma within the right lower lobe, unchange d. No new focal lung consolidations to suggest pneumonia. IMPRESSION: 1. No evidence for an aortic dissection. 2. The central pulmonary arteries are patent. 3. Stable 4 mm nodule within the left upper lobe. This is likely benign given the long-term stability . 4. Borderline aneurysmal dilatation of the ascending thoracic aorta measuring up to 3.9 cm in diamete r. ACT 112: Negative or not required by law. Electronically signed by: Viktor Fink M.D. 04/27/2019 9:14 PM
[2019-04-27] MEDS ORDERED: MECLIZINE HCL 25 MG TAB PO STA (21:17)
[2019-04-27] MEDS ORDERED: FAMOTIDINE 20MG/5ML IV PUSH IV STA (21:17)
[2019-04-27] MEDS ORDERED: fentaNYL citrate 100 MCG/2 ML VIAL IV STA (21:17)
[2019-04-27] MEDS ORDERED: SODIUM CHLORIDE 0.9% 500 ML IV ONE (23:22)
[2019-04-27] MEDS ORDERED: DIAZEPAM 5 MG/ML INJ 10ML VIAL IV STA (23:22)
[2019-04-28] MEDS ORDERED: fentaNYL citrate 100 MCG/2 ML VIAL IV STA (00:37)
[2019-04-28] MEDS ORDERED: ALBUT/IPRATROP 3MG/0.5MG NEB 3 ML VIAL NEB STA (00:37)
[2019-04-28] MEDS ORDERED: TRAZODONE HCL 50 MG TAB PO SCH ×2 (01:40)
--- NOTE | 2019-04-28 01:43 | History & Physical Report ---
Date of Service April 28, 2019 Assessment & Plan (1) Chest pain: obs tele serial trops patient had dobutamine stress test in `04/11 that was negative for ischemia (2) Dizziness: Appears to be true vertigo as she noted the room spinning. Antivert and Valium given in the ED with some improvement I ordered prn lorazepam I told patient that with symptom constellation she may have viral labyrinthitis or atypical migraine as source of symptoms. For completeness I will order MRI brain. To which patient is agreeable. (3) Headache: Improving after Fentanyl in ED I ordered prn Dilaudid for inpatient She has multiple pain medication allergies. (4) Asthma: No exacerbation Continue prn albuterol nebs. (5) GERD (gastroesophageal reflux disease): Continue pantoprazole Pepcid ordered in lieu of Zantac which is on back order. (6) Hypothyroidism: Continue levothyroxine. (7) History of pulmonary embolism: No PE on CT chest Continue Xarelto. History of Present Illness 59 y/o female presented to the ED with sudden onset of vertigo, diaphoresis, N/V which was followed by right sided severe headache. She was cooking in kitchen when this occurred. Following this episode she developed non-radiating chest pain in center to left of chest. As I am seeing the patient, the vertigo is improved but not resolved. She is not having chest pain or SOB. Headache has improved to a 2/10. Primary Care Provider: LUCY Francois Allergies Allergy/AdvReac Type Severity Reaction Status Date / Time carbamazepine Allergy Unknown Heart Verified 04/27/19 19:46 Arrhythmia erythromycin base Allergy Unknown "ALL PINK Verified 04/27/19 19:46 AND SWELLED UP" ketorolac Allergy Unknown SOB,TACHYCA Verified 04/27/19 19:46 RDIA Macrolide Antibiotics Allergy Unknown VOMITTING Verified 04/27/19 19:46 acetaminophen [From Vicodin] AdvReac Unknown Nausea Verified 04/27/19 19:46 adhesive AdvReac Unknown SKIN TEARS Verified 04/27/19 19:46 butorphanol [From Stadol] AdvReac Unknown Agitated Verified 04/27/19 19:46 hydrocodone [From Vicodin] AdvReac Unknown Nausea Verified 04/27/19 19:46 oxycodone [From Percocet] AdvReac Unknown Nausea Verified 04/27/19 19:46 temazepam AdvReac Unknown GI SYMPTOMS Verified 04/27/19 19:46 Home Medications Home Medications Medication Instructions Recorded Confirmed Type furosemide 20 mg tablet 20 mg PO DIRECTED PRN #30 tab 11/23/18 04/27/19 Rx diclofenac sodium 1 % topical gel See Rx Instructions TOPICAL 01/16/19 04/27/19 Rx .COMPLEX #100 gm levothyroxine 125 mcg tablet 125 mcg PO QAM 01/16/19 04/27/19 History calcium carbonate 500 mg (1,250 1 tab PO QAM #30 tab 03/05/19 04/27/19 Rx mg)-vitamin D3 200 unit tablet gabapentin 600 mg tablet 600 mg PO BID #60 tab 03/05/19 04/27/19 Rx ranitidine HCl 150 mg tablet 150 mg PO BID #60 tab 03/05/19 04/27/19 Rx pantoprazole 40 mg tablet,delayed 40 mg PO BID #56 tab 04/01/19 04/27/19 Rx release Xarelto 20 mg PO QAM 04/08/19 04/27/19 History albuterol sulfate 2.5 mg/3 mL 2.5 mg INHALATION QID PRN #3 ml 04/08/19 04/27/19 Rx (0.083 %) solution for nebulization albuterol sulfate 90 mcg/actuation 2 puff INHALATION Q4H PRN #18 gm 04/08/19 04/27/19 Rx aerosol inhaler losartan 50 mg PO QAM 04/08/19 04/27/19 History nystatin 100,000 unit/gram topical 1 appln TOP TID PRN #30 gm 04/08/19 04/27/19 Rx powder trazodone 150 mg tablet 300 mg PO HS #30 tab 04/15/19 04/27/19 Rx trazodone 50 mg tablet 50 mg PO HS #30 tab 04/15/19 04/27/19 Rx spironolactone 25 mg tablet 25 mg PO QAM #90 tab 04/26/19 04/27/19 Rx Past Med/Surg History Medical History Acute intra-cranial hemorrhage Ambulatory dysfunction Ankylosing spondylitis Asthma Atypical chest pain Bipolar disorder with depression Chest pain Chronic radicular low back pain COPD (chronic obstructive pulmonary disease) Diverticular disease of colon Dyslipidemia Gastritis GERD (gastroesophageal reflux disease) Granulosa cell tumor of left ovary History of anemia (Resolved) 04/2018 S/P BLOOD TRANSFUSION (POLYPS IN STOMACH) History of pulmonary embolism Hx of deep venous thrombosis X2 R LEG Hyperglycemia Hypertension Hypothyroidism THYROID REMOVED PER PT Left ovarian cyst Morbid obesity Scoliosis Sleep apnea NO DEVICE Umbilical hernia Urinary incontinence Surgical History H/O thyroidectomy History of 2 sections History of appendectomy History of cardiac catheterization SEVERAL YEARS AGO= NO STENTS History of cholecystectomy History of colonoscopy History of endoscopy History of hysterectomy History of lumbar surgery WITH "SCREWS" History of thyroidectomy History of total left knee replacement History of total right knee replacement Family History Father Heart disease Diabetes Hypertension Myocardial infarction, Onset Age: 35 Sister Depression Hypertension Mother Diabetes Hypertension Kidney disease Social History Preferred Language: Vietnamese Communication Ability: Effective Visual Impairment: No Limitations 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: Normal Spacer Type Bar And Segment Required: No Beliefs That Will Affect Care: None marital status: Current Living Situation: Spouse Current Living Situation Comment: LIVES WITH MOM Feels Safe at Home: Yes Smoking Status: Current every day smoker Tobacco Type: cigarettes ; Cigarettes Per Day: 10-15 ; Second Hand Exposure: Yes ; Hx Alcohol Use: No Hx Substance Use: No Childhood Exposure to Second-Hand Smoke: Yes Other Diet Comment: regular during the past year weight has: increased > 10 lbs Dental Care, Regularly: No Physical Activity Frequency: Does not Exercise Seatbelt Use: always Sunscreen Use: Yes Review of Systems Review of Systems: Constitutional- no fever; no weight loss Eyes- no acute visual changes ENT- no sinus drainage; no pharyngitis Pulmonary- no cough, no wheezing, no shortness of breath Cardiac- As in HPI, no palpitations, no orthopnea, no dependent edema GI- As in HPI. Patient did not vomit just dry heaves. - no dysuria, no hematuria Musculoskeletal- no arthralgias, no myalgias Derm- no rashes, no new skin lesions, no changing skin lesions Hematologic- no unusual bruising, no unusual bleeding Lymphatics- no adenopathy Endocrine- no polyuria or polydipsia; no heat or cold intolerance Neuro- no focal neurologic symptoms Psych- no anxiety, no depression Physical Exam Physical Exam: General- adult female, NAD Head- atraumatic Eyes- PERRL, EOMI, anicteric, no nystagmus with lateral eye movements. ENT- oropharynx clear Neck- supple, no JVD, no adenopathy, no thyromegaly. Lungs- CTA b/l no R/R/W. Heart- regular rhythm; no murmur, no gallop, no rub appreciated Abdomen- normal bowel sounds, soft, nontender. Extremities- no pretibial edema, no calf tenderness; peripheral pulses intact Neuro- alert, oriented x 3; PERRL, EOMI; Non-focal, dining car hop II-XII grossly intact. Skin- warm & dry Results & Data Vital Signs (Past 12 Hours) Vital Signs Temp Pulse Pulse Resp BP BP Pulse Ox 04/28/19 01:16 73 18 116/86 98 04/28/19 00:57 69 21 97 04/28/19 00:29 68 18 133/81 97 04/27/19 23:38 66 16 124/65 98 04/27/19 21:29 69 13 131/96 96 04/27/19 20:21 80 17 139/80 97 04/27/19 19:30 74 17 98 04/27/19 19:14 76 16 97 04/27/19 19:13 77 19 133/101 H 97 04/27/19 18:30 36.8 C 89 20 111/68 98 Laboratory Results Laboratory Results WBC 12.58 K/uL (4.8-10.8) H 04/27/19 19:11 RBC 4.89 M/uL (4.2-5.4) 04/27/19 19:11 Hgb 14.2 g/dL (12.0-16.0) 04/27/19 19:11 Hct 42.8 % (37-47) 04/27/19 19:11 MCV 87.5 fL (80-100) 04/27/19 19:11 MCH 29.0 pg (25-34) 04/27/19 19:11 MCHC 33.2 g/dL (32-36) 04/27/19 19:11 RDW Std Deviation 50.9 fL (36.4-46.3) H 04/27/19 19:11 RDW Coeff of Wilber 15.8 % (11.5-14.5) H 04/27/19 19:11 Plt Count 336 K/uL (130-400) 04/27/19 19:11 MPV 9.7 fL (7.4-10.4) 04/27/19 19:11 Immature Gran % (Auto) 0.2 % 04/27/19 19:11 Neut % (Auto) 78.4 % 04/27/19 19:11 Lymph % (Auto) 14.4 % 04/27/19 19:11 Hanson % (Auto) 6.5 % 04/27/19 19:11 Eos % (Auto) 0.3 % 04/27/19 19:11 Baso % (Auto) 0.2 % 04/27/19 19:11 Immature Gran # (Auto) 0.02 K/uL (0.00-0.02) 04/27/19 19:11 Neut # (Auto) 9.87 K/uL (1.4-6.5) H 04/27/19 19:11 Lymph # (Auto) 1.81 K/uL (1.2-3.4) 04/27/19 19:11 Hanson # (Auto) 0.82 K/uL (0.11-0.59) H 04/27/19 19:11 Eos # (Auto) 0.04 K/uL (0-0.5) 04/27/19 19:11 Baso # (Auto) 0.02 K/uL (0-0.2) 04/27/19 19:11 Sodium 135 mmol/L (136-145) L 04/27/19 19:11 Potassium 3.7 mmol/L (3.5-5.1) 04/27/19 19:11 Chloride 103 mmol/L (98-107) 04/27/19 19:11 Carbon Dioxide 26 mmol/L (21-32) 04/27/19 19:11 Anion Gap 7.0 (3-11) 04/27/19 19:11 BUN 14 mg/dl (7-18) 04/27/19 19:11 Creatinine 1.10 mg/dl (0.6-1.2) 04/27/19 19:11 Est Cr Clr Drug Dosing 66.8 ml/min 04/27/19 19:11 Est GFR ( Amer) 64.1 04/27/19 19:11 Est GFR (Non-Af Amer) 55.3 04/27/19 19:11 BUN/Creatinine Ratio 12.6 (10-20) 04/27/19 19:11 Glucose 106 mg/dl (70-99) H 04/27/19 19:11 Calcium 9.4 mg/dl (8.5-10.1) 04/27/19 19:11 Magnesium 1.8 mg/dl (1.8-2.4) 04/27/19 19:11 Total Bilirubin 0.4 mg/dl (0.2-1) 04/27/19 19:11 AST 20 U/L (15-37) 04/27/19 19:11 ALT 26 U/L (12-78) 04/27/19 19:11 Alkaline Phosphatase 72 U/L (45-117) 04/27/19 19:11 Troponin I < 0.015 ng/ml (0-0.045) 04/27/19 19:11 NT-Pro-B Natriuret Pep 42 pg/ml (0-900) 04/27/19 19:11 Total Protein 7.8 gm/dl (6.4-8.2) 04/27/19 19:11 Albumin 4.1 gm/dl (3.4-5.0) 04/27/19 19:11 Globulin 3.7 gm/dl (2.5-4.0) 04/27/19 19:11 Albumin/Globulin Ratio 1.1 (0.9-2) 04/27/19 19:11 Lipase 109 U/L (73-393) 04/27/19 19:11 TSH 0.383 uIu/ml (0.300-4.500) 04/27/19 19:11 Diagnostic Findings [facility], [place] [phone] CT Scan Report Patient: MARIZA SWAIN Date: 04/27/19 MR#: [id number]: 102 1/ ANISH Acct ID:[id number]: Date: [address] [place] [address] Zip: [place] [address] Age: 59Location: ED Sex: F Room/Bed: Att Phy:Diagnosis: DIZZY, CHEST PAIN, DRY HEAVING, HEADACHE Erin Phy: [place] Chi CRNPService Date: 04/27/19 [facility] Phy:Interpreting Phy: Viktor Fink MD Admit Phy: Ordering Phy: Gina Henderson DO cc: ~ HEAD CT NONCONTRAST CT DOSE: HISTORY: sudden thomas, dizziness TECHNIQUE: Multiaxial CT images of the head were performed without the use of intravenous contrast. Automated exposure control was utilized for this study. A dose lowering technique was utilized adhering to the principles of ALARA. Comparison: Head CT 04/08/2019. Findings: The paranasal sinuses and mastoid air cells are clear. The calvarium and skull base are intact. The ventricles and sulci are within normal limits. There is no mass, hematoma, midline shift, or acute infarct. Impression: No acute intracranial abnormality. ACT 112: Negative or not required by law. Electronically signed by: Viktor Fink M.D. 04/27/2019 9:00 PM Dictated: 04/27/192057 Transcribed: 04/27/192057 [facility], [place] [phone] CT Scan Report Patient: MARIZA SWAIN Date: 04/27/19 MR#: [id number]: [birth year] 04/25 ANISH DON Acct ID:[id number]: Date: [address] [place] [address] Zip: [place] [address] Age: 59Location: ED Sex: F Room/Bed: Att Phy:Diagnosis: DIZZY, CHEST PAIN, DRY HEAVING, HEADACHE Erin Phy: [place] Chi CRNPService Date: 04/27/19 [place] Phy:Interpreting Phy: Viktor Fink MD Admit Phy: Ordering Phy: Gina Henderson DO cc: ~ CHEST CTA for AORTIC DISSECTION CT DOSE: HISTORY: Atypical chest pain, paresthesias, dizzy TECHNIQUE: Multiaxial CT images of the chest were performed both before and after the intravenous administration of contrast to evaluate the aorta. Maximal intensity projection images were also obtained. A dose lowering technique was utilized adhering to the principles of ALARA. COMPARISON STUDY: Chest CTA 07/28/2016. FINDINGS: Posterior fusion hardware seen within the lower thoracic spine with a prior T10 vertebroplasty. Postoperative changes within the right thyroid lobe. Noncontrast imaging through the chest shows no evidence for an intramural hematoma within the thoracic aorta. No evidence for an aortic dissection. The ascending thoracic aorta is borderline dilated measuring up to 3.9 cm in diameter. The central pulmonary arteries are patent. The heart is normal in size. No pleural or pericardial effusions. A few left thyroid nodules with the largest measuring 1 cm. No mediastinal or hilar lymphadenopathy. Limited views of the upper abdomen demonstrate normal liver and spleen. Normal esophagus. No suspicious lytic are blastic osseous lesions. The central airways are patent. No pneumothorax. Stable 4 mm nodule within the left upper lobe on image 170. Calcified granuloma within the right lower lobe, unchanged. No new focal lung consolidations to suggest pneumonia. IMPRESSION: 1. No evidence for an aortic dissection. 2. The central pulmonary arteries are patent. 3. Stable 4 mm nodule within the left upper lobe. This is likely benign given the long-term stability. 4. Borderline aneurysmal dilatation of the ascending thoracic aorta measuring up to 3.9 cm in diameter. ACT 112: Negative or not required by law. Electronically signed by: Viktor Fink M.D. 04/27/2019 9:14 PM Dictated: 04/27/192106 Transcribed: 04/27/192106 Code Status & VTE Plan VTE Prophylaxis Plan VTE Prophylaxis will be ordered: Yes PG Care Time/CCT Total # of Minutes Spent Total Time Spent: 45 Total Time Spent with Patient: Total time spent is greater than 50% in coordination of care (as documented) at patient's floor/unit and/or counseling patient: (1) Chest pain Chest pain type: unspecified Qualified Code(s): R07.9 - Chest pain, unspecified (2) Headache Headache chronicity pattern: unspecified pattern Headache type: unspecified Intractability: not intractable Qualified Code(s): R51 - Headache
[2019-04-28] MEDS ORDERED: LORazepam 0.5 MG/1 ML VIAL IV PRN (02:10)
[2019-04-28] MEDS ORDERED: HYDROmorphone INJ 1 MG/ML SYRINGE IV PRN (02:10)
[2019-04-28] MEDS ORDERED: ALBUTEROL 0.083% NEBU SOLN 3 ML VIAL NEB PRN (02:10)
[2019-04-28] MEDS ORDERED: HYDROmorphone INJ 0.5 MG/0.5 ML SYR IV PRN (02:10)
[2019-04-28] MEDS: ONDANSETRON INJ 2 MG/ML 2 ML VIAL IV PRN ×2 (03:15→09:16)
[2019-04-28 06:07] LABS: Hematocrit (blood only) 37.6 % (37-47); Hemoglobin 12.1 g/dL (12.0-16.0); Mean Corpuscular Hemoglobin 28.8 pg (25-34); Mean Corpuscular Hgb Conc 32.2 g/dL (32-36); Mean Corpuscular Volume 89.5 fL (80-100); Mean Platelet Volume 9.6 fL (7.4-10.4); Platelet Count 283 K/uL (130-400); RDW Coefficient of Variation 16.3 % (11.5-14.5); RDW Standard Deviation 53.1 fL (36.4-46.3); White Blood Count 8.06 K/uL (4.8-10.8)
[2019-04-28] MEDS ORDERED: LEVOTHYROXINE SODIUM 125 MCG TABLET PO SCH (06:30)
[2019-04-28 06:32] LABS: BUN Creatinine Ratio 11.4 (10-20); Blood Urea Nitrogen 12 mg/dl (7-18); Calcium 8.4 mg/dl (8.5-10.1); Carbon Dioxide 29 mmol/L (21-32); Chloride 107 mmol/L (98-107); Creatinine Clr Calc Pharmacy 72.7 ml/min; Est GFR (African American) 71.1; Est GFR (Non-African American) 61.3; Glucose 118 mg/dl (70-99); Potassium 3.4 mmol/L (3.5-5.1); Sodium 139 mmol/L (136-145)
[2019-04-28 06:37] LABS: Troponin I < 0.015 ng/ml (0-0.045)
[2019-04-28] MEDS ORDERED: POTASSIUM CHLORIDE 20 MEQ TABCR PO STA (08:24)
[2019-04-28] MEDS ORDERED: LOSARTAN POTASSIUM 50 MG TAB PO SCH (09:00)
[2019-04-28] MEDS ORDERED: GABAPENTIN 600 MG TAB PO SCH (09:00)
[2019-04-28] MEDS ORDERED: FAMOTIDINE 20 MG TAB PO SCH (09:00)
[2019-04-28] MEDS ORDERED: CALCIUM 600MG + VIT D 400 IU TAB PO SCH (09:00)
[2019-04-28] MEDS ORDERED: SPIRONOLACTONE 25 MG TAB PO SCH (09:00)
[2019-04-28] MEDS ORDERED: PANTOprazole 40 MG TAB PO SCH (09:00)
--- NOTE | 2019-04-28 09:58 | Magnetic Resonance Report ---
MRI OF THE BRAIN WITHOUT CONTRAST CLINICAL HISTORY: headache and vertigo. COMPARISON STUDY: Head CT and CTA of the head April 27, 2019. TECHNIQUE: Utilizing a 1.5 Rupali magnet and dedicated coil, multiplanar, multiecho imaging of the bra in was performed without IV contrast. FINDINGS: There are no foci of restricted diffusion to suggest acute infarct. No acute intracranial h emorrhage, midline shift or mass effect is present. Brain volume is normal. Ventricular system is nor mal. The basilar cisterns are patent. There are no extra-axial collections. Flow-voids for the major intracranial vessels are present. No intracranial masses are identified on this unenhanced exam. No c erebellopontine angle mass is noted. There is no mastoid effusion. Orbits are unremarkable. There are postoperative findings within the sinuses. IMPRESSION: No acute intracranial findings. Unremarkable unenhanced MRI of the brain. ACT 112: Negative or not required by law. Electronically signed by: Jerry Francis M.D. 04/28/2019 9:57 AM
[2019-04-28] MEDS ORDERED: ALUMINUM/MAGNESIUM/SIMETH (MAALOX MAX) 30 ML UDC PO PRN (10:30)
[2019-04-28 12:55] LABS: C Reactive Protein 0.55 mg/dl (0-0.29); Troponin I < 0.015 ng/ml (0-0.045)
--- NOTE | 2019-04-28 13:04 | Electrocardiogram Report ---
Test Reason : Blood Pressure : / mmHG Vent. Rate : 082 BPM Atrial Rate : 082 BPM P-R Int : 152 ms QRS Dur : 080 ms QT Int : 374 ms P-R-T Axes : 018 -22 027 degrees QTc Int : 436 ms Normal sinus rhythm Possible Anterior infarct , age undetermined Abnormal ECG When compared with ECG of 08-APR-2019 14:14, Borderline criteria for Anterior infarct are now Present Confirmed by Gerry Mendoza ([id number]) on 04/28/2019 1:04:19 PM Referred By: REFERRED SELF Confirmed By:Gerry Mendoza
--- NOTE | 2019-04-28 14:36 | Discharge Summary ---
Date of Service April 28, 2019 Admission HPI Per Admitting Provider 59 y/o female presented to the ED with sudden onset of vertigo, diaphoresis, N/V which was followed by right sided severe headache. She was cooking in kitchen when this occurred. Following this episode she developed non-radiating chest pain in center to left of chest. As I am seeing the patient, the vertigo is improved but not resolved. She is not having chest pain or SOB. Headache has improved to a 2/10. Principal Diagnosis dizziness/vertigo - improved; likely peripheral in origin Discharge Exam Constitutional well developed, well nourished and + morbidly obese; no acute distress Eyes no nystagmus ENMT external ear and nose normal, oropharynx normal Respiratory normal respiratory effort, lungs clear to auscultation Cardiovascular Rate/Rhythm: regular rate and regular rhythm Heart Sounds: normal S1 and normal S2; no murmur Vessels: posterior tibial pulses present and dorsalis pedis pulses present; no JVD Extremities: no edema Gastrointestinal (Abdomen) normal bowel sounds, soft, nontender, no hepatosplenomegaly Neurologic deep tendon reflexes 2+ bilaterally and moves all extremities; no focal motor deficits (strength 5/5 x 4 extremities) Psychiatric A+Ox3, euthymic affect Discharge Data Allergies Allergy/AdvReac Type Severity Reaction Status Date / Time carbamazepine Allergy Unknown Heart Verified 05/03/19 10:47 Arrhythmia erythromycin base Allergy Unknown "ALL PINK Verified 05/03/19 10:47 AND SWELLED UP" ketorolac Allergy Unknown SOB,TACHYCA Verified 05/03/19 10:47 RDIA Macrolide Antibiotics Allergy Unknown VOMITTING Verified 05/03/19 10:47 acetaminophen [From Vicodin] AdvReac Unknown Nausea Verified 05/03/19 10:47 adhesive AdvReac Unknown SKIN TEARS Verified 05/03/19 10:47 butorphanol [From Stadol] AdvReac Unknown Agitated Verified 05/03/19 10:47 hydrocodone [From Vicodin] AdvReac Unknown Nausea Verified 05/03/19 10:47 oxycodone [From Percocet] AdvReac Unknown Nausea Verified 05/03/19 10:47 temazepam AdvReac Unknown GI SYMPTOMS Verified 05/03/19 10:47 Ordered Studies * CT angio chest dissec wo/w con - 1. No evidence for an aortic dissection. 2. The central pulmonary arteries are patent. 3. Stable 4 mm nodule within the left upper lobe. This is likely benign given the long-term stability. 4. Borderline aneurysmal dilatation of the ascending thoracic aorta measuring up to 3.9 cm in diameter. * CT angio head/neck w con - IMPRESSION: 1. No significant stenosis, occlusion, or aneurysm within the [place]. 2. Approximately 50% stenosis within the proximal right internal carotid artery and 40% focal stenosis within the mid left common carotid artery due to the atherosclerotic plaque. 3. No significant stenosis within the remaining carotid arteries or vertebral arteries. * MR brain wo con - no acute findings Hospital Course (1) Dizziness: Appears to have been true vertigo as she noted the room spinning at time of admission. Antivert and Valium given in the ED led to improvement in symptoms. This may have been a viral labyrinthitis; atypical migraine also possible but much less likely. MRI brain negative for acute stroke. Orthostatic BPs were wnl. She was able to ambulate prior to discharge without any significant dizziness/vertigo. At discharge meclizine for PRN use was given. (2) Chest pain: The patient had fleeting chest discomfort in the midst of her dizziness/vertigo. Troponins were negative x 3 while hospitalized. Telemetry was normal. She had no chest pain after admission to the telemetry unit. Patient had dobutamine stress test in 04/11 that was negative for ischemia. Given the above additional work-up was not pursued. (3) Headache: Improved with various medications. MRI brain negative for acute findings. Headache was right sided in the trigeminal nerve distribution. ESR/crp were normal making temporal arteritis highly unlikely. I recommended that she monitor for any development of blistering rash as a sign of shingles (none seen, of course, while hospitalized). Also, if symptoms persisted over the right face I recommended she f/u with her PCP to diagnose possible trigeminal neuralgia. If the headache resolves without any recurrence then the headache may have been due to a viral process (same virus that potentially caused the acute vertigo). (4) Asthma: No exacerbation while here. Continue prn albuterol. (5) GERD (gastroesophageal reflux disease): Continue usual meds. (6) Hypothyroidism: Continue levothyroxine. No changes in dose while here. TSH 0.3. (7) History of pulmonary embolism: No PE on CT chest Continue Xarelto as previous. (8) Morbid obesity with BMI of 40.0-44.9, adult: BMI 43 Total Time Total Time Spent Total Time Spent (In Minutes): 45 Total Time Includes: Examination of the Patient, Discharge Planning and Medication Reconciliation Discharge Plan Discharge Items Patient Disposition: Home - Self-Care Reason For Visit: VERTIGO Discharge Diagnosis: 1. dizziness/vertigo - improved; possibly due to inner ear issues on right; NO EVIDENCE of stroke, tumor or aneurysm of the brain on all of your scans 2. chest pain - resolved; exact cause not certain; no evidence of heart attack however 3. headache - improving; exact cause also not certain but possibly due to #1; c annot rule out other causes such as trigeminal neuralgia, TMJ syndrome (pain from the jaw joint), the prodrome to shingles infection, etc. Activity: As commented below Activity Comment: no driving until dizziness is fully resolved Sexual Activity: Wait until after follow-up appointment Exercise/Sports: Wait until after follow-up appointment Driving/Machine Use: no driving until dizziness is fully resolved OFF of the medications to treat the dizziness Non-emergency contact: Primary Care Provider Call non-emergency contact if: you have any medication questions, your symptoms worsen, your pain is not controlled, your pain is worsening and you have a fever Follow-up/Referrals: Raleigh Chi CRNP [Primary Care Provider] - 04/29/19 Diet: Heart Healthy Add Attending Provider Instructions: See "discharge diagnoses" for information regarding the problems that brought you to the hospital. Recommendations - 1. meclizine 12.5mg to 25mg (1-2 tabs) every 6 hours as needed for dizziness/vertigo/spinning. 2. norco pain pill 5/325 - 1 tab every 8 hours as needed for headache or pain. Do not take extra [id number] tylenol if you elect to take the pain medication. The pain meds will cause constipation. Do not drive or drink alcohol while taking pain meds. 3. No driving until your dizziness is fully resolved OFF of any dizzy medicati on (meclizine). 4. Watch for any rash on the right side of the face (blistering, painful rash). If you get a rash that is concerning for shingles call your family doctor right away. 5. plenty of fluids today/tomorrow. 6. follow-up with your family doctor tomorrow as scheduled. Return to [facility] if - * you develop fevers over 100.5 degrees * you have headache that is worsening or not responding to your medications * you have dizziness/vertigo that is worsening or not responding to your medications * any other concerns Pending Studies at Discharge: No Stand-Alone Forms: My [facility], Smoking Cessation Medications and DC Order Prescriptions: New meclizine 12.5 mg tablet 12.5 - 25 mg PO QID PRN (Reason: dizziness) Qty: 20 RF: 0 hydrocodone-acetaminophen [Thayer] 5-325 mg tablet 1 tab PO Q8H PRN (Reason: pain or headache) Qty: 7 RF: 0 Continued calcium carbonate-vitamin D3 500 mg(1,250mg) -200 unit tablet 1 tab PO QAM Qty: 30 RF: 5 gabapentin 600 mg tablet 600 mg PO BID Qty: 60 RF: 5 ranitidine HCl 150 mg tablet 150 mg PO BID Qty: 60 RF: 5 pantoprazole 40 mg tablet,delayed release (DR/EC) 40 mg PO BID Qty: 56 RF: 2 trazodone 50 mg tablet 50 mg PO HS Qty: 30 RF: 0 diclofenac sodium 1 % gel See Patient Comments topical .COMPLEX Qty: 100 RF: 3 albuterol sulfate 2.5 mg /3 mL (0.083 %) solution for nebulization 2.5 mg Inhalation QID PRN (Reason: Shortness Of Breath Or Wheezing) Qty: 3 RF: 0 nystatin 100,000 unit/gram powder 1 appln TOP TID PRN (Reason: skin irritation) Qty: 30 RF: 1 furosemide 20 mg tablet 20 mg PO DIRECTED PRN (Reason: Edema) Qty: 30 RF: 0 losartan 100 mg tablet 50 mg PO QAM RF: 0 Xarelto 20 mg tablet 20 mg PO QAM RF: 0 No Action spironolactone 25 mg tablet 25 mg PO QAM Qty: 90 RF: 1 levothyroxine 125 mcg tablet 125 mcg PO QAM Qty: 30 RF: 5 albuterol sulfate 90 mcg/actuation HFA aerosol inhaler 2 puff Inhalation Q4H PRN (Reason: Shortness Of Breath Or Wheezing) Qty: 18 RF: 3 trazodone 150 mg tablet 300 mg PO HS Qty: 30 RF: 0 nystatin 100,000 unit/mL suspension 2 ml BUCCAL QID PRN (Reason: mouth irritation) Qty: 60 RF: 3 Discharge Orders: Discharge Order (Routine); Ordered 04/28/19 Ordered By: Mika Velasco Admission Data Admit Date/Time: 04/28/19 01:09 Attending Provider: Mika Velasco Admit Provider: Gustavo Oconnell Primary Care Provider: Raleigh Chi Other Providers: Gustavo Oconnell Other Interventions: Discharge Summary Assessment (RN) Last Done: 04/28/19 14:35 DC Date/Time DO NOT enter until pt leaves facility: 04/28/19 16:04
[2019-04-28] MEDS ORDERED: RIVAROXABAN 20 MG TAB PO SCH (16:30)
--- NOTE | 2019-04-28 20:38 | Emergency Department Note ---
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) Location: head (dizziness) Severity: similar to prior episodes Pain Consistency: + constant Maximum Pain Intensity: 6 Quality: + other ("room spinning" ) Associated symptoms: + denies other symptoms (vomiting, ear pain, changes in BM, urinary sx), + chest pain (right sided, "tightness"), + diaphoresis, + headaches ("pounding"), + shortness of breath ("elephant sitting on chest") and + other (shakiness, nausea, dry heaves, right sided jaw pain, near syncope, right eye blurred vision, right hand tingling) The patient is a 59 year old female on Xarelto with a history of chest pain, hyperglycemia, acute intracranial hemorrhage, DVT, PE, COPD, asthma, DM2, HTN, GERD, thyroidectomy, dyslipidemia, and morbid obesity who presents to the Emergency Room with complaints of dizziness. The patient states that she was standing in the kitchen cooking dinner today when she began to feel "shakiness" followed by diaphoresis, nausea/dry heaves, and right sided chest pain that radiated to the right side of her jaw. The patient explains that she felt near syncope at this time and became very dizzy "room spinning". She also reports that her right eye became blurred and that her right hand was tingling during the episode. She currently complains of a "pounding" headache and her chest pain "tightness", jaw pain, and nausea still persist. Additionally her dizziness still remains when standing up. The patient also reports feeling short of breath today and states that she felt as if "an elephant is sitting on her chest". Of note she had a recent hospital admission a few weeks ago for chest pain. She states that she was experiencing similar symptoms and was hyperglycemic at this time. She reports that her blood glucose was 96 today and that her BP was 90/60. Of note, the patient admits that she has been taking all her prescribed home medications regularly without any missed doses. She has not had any recent change in medications nor any recent sickness exposure. The patient also states that she does not have a prior history of vertigo. She denies ear pain, vomiting, changes in BM, and urinary symptoms. The patient offers no further concerns at this time. Home Medications Home Medications Medication Instructions Recorded Confirmed Type furosemide 20 mg tablet 20 mg PO DIRECTED PRN #30 tab 11/23/18 04/27/19 Rx diclofenac sodium 1 % topical gel See Rx Instructions TOPICAL 01/16/19 04/27/19 Rx .COMPLEX #100 gm levothyroxine 125 mcg tablet 125 mcg PO QAM 01/16/19 04/27/19 History calcium carbonate 500 mg (1,250 1 tab PO QAM #30 tab 03/05/19 04/27/19 Rx mg)-vitamin D3 200 unit tablet gabapentin 600 mg tablet 600 mg PO BID #60 tab 03/05/19 04/27/19 Rx ranitidine HCl 150 mg tablet 150 mg PO BID #60 tab 03/05/19 04/27/19 Rx pantoprazole 40 mg tablet,delayed 40 mg PO BID #56 tab 04/01/19 04/27/19 Rx release Xarelto 20 mg PO QAM 04/08/19 04/27/19 History albuterol sulfate 2.5 mg/3 mL 2.5 mg INHALATION QID PRN #3 ml 04/08/19 04/27/19 Rx (0.083 %) solution for nebulization albuterol sulfate 90 mcg/actuation 2 puff INHALATION Q4H PRN #18 gm 04/08/19 04/27/19 Rx aerosol inhaler losartan 50 mg PO QAM 04/08/19 04/27/19 History nystatin 100,000 unit/gram topical 1 appln TOP TID PRN #30 gm 04/08/19 04/27/19 Rx powder trazodone 150 mg tablet 300 mg PO HS #30 tab 04/15/19 04/27/19 Rx trazodone 50 mg tablet 50 mg PO HS #30 tab 04/15/19 04/27/19 Rx spironolactone 25 mg tablet 25 mg PO QAM #90 tab 04/26/19 04/27/19 Rx hydrocodone-acetaminophen [[place]] 1 tab PO Q8H PRN #7 tab 04/28/19 Rx meclizine 12.5 - 25 mg PO QID PRN #20 tab 04/28/19 Rx Allergies Allergy/AdvReac Type Severity Reaction Status Date / Time carbamazepine Allergy Unknown Heart Verified 04/27/19 19:46 Arrhythmia erythromycin base Allergy Unknown "ALL PINK Verified 04/27/19 19:46 AND SWELLED UP" ketorolac Allergy Unknown SOB,TACHYCA Verified 04/27/19 19:46 RDIA Macrolide Antibiotics Allergy Unknown VOMITTING Verified 04/27/19 19:46 acetaminophen [From Vicodin] AdvReac Unknown Nausea Verified 04/27/19 19:46 adhesive AdvReac Unknown SKIN TEARS Verified 04/27/19 19:46 butorphanol [From Stadol] AdvReac Unknown Agitated Verified 04/27/19 19:46 hydrocodone [From Vicodin] AdvReac Unknown Nausea Verified 04/27/19 19:46 oxycodone [From Percocet] AdvReac Unknown Nausea Verified 04/27/19 19:46 temazepam AdvReac Unknown GI SYMPTOMS Verified 04/27/19 19:46 Past Med/Surg History Medical History Acute intra-cranial hemorrhage Ambulatory dysfunction Ankylosing spondylitis Asthma Atypical chest pain Bipolar disorder with depression Chest pain Chronic radicular low back pain COPD (chronic obstructive pulmonary disease) Diverticular disease of colon Dyslipidemia Gastritis GERD (gastroesophageal reflux disease) Granulosa cell tumor of left ovary History of anemia (Resolved) 04/2018 S/P BLOOD TRANSFUSION (POLYPS IN STOMACH) History of pulmonary embolism Hx of deep venous thrombosis X2 R LEG Hyperglycemia Hypertension Hypothyroidism THYROID REMOVED PER PT Left ovarian cyst Morbid obesity Scoliosis Sleep apnea NO DEVICE Umbilical hernia Urinary incontinence Surgical History H/O thyroidectomy History of 2 sections History of appendectomy History of cardiac catheterization SEVERAL YEARS AGO= NO STENTS History of cholecystectomy History of colonoscopy History of endoscopy History of hysterectomy History of lumbar surgery WITH "SCREWS" History of thyroidectomy History of total left knee replacement History of total right knee replacement Family History Father Heart disease Diabetes Hypertension Myocardial infarction, Onset Age: 35 Sister Depression Hypertension Mother Diabetes Hypertension Kidney disease Social History (Reviewed 04/28/19 @ 01:32 by SEBASTIÁN Anna Preferred Language: Hungarian Communication Ability: Effective Visual Impairment: No Limitations 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: Normal 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 Required: No Beliefs That Will Affect Care: None marital status: Current Living Situation: Family Current Living Situation Comment: and mother Feels Safe at Home: Yes Smoking Status: Current every day smoker Tobacco Type: cigarettes ; Cigarettes Per Day: 10-15 ; Second Hand Exposure: Yes ; Hx Alcohol Use: No Hx Substance Use: No Childhood Exposure to Second-Hand Smoke: Yes Other Diet Comment: regular during the past year weight has: increased > 10 lbs Dental Care, Regularly: No Physical Activity Frequency: Does not Exercise Seatbelt Use: always Sunscreen Use: Yes Review of Systems See HPI for pertinent positives & negatives. and A total of 10 systems reviewed and were otherwise negative Physical Exam Vital Signs Vital Signs - 24 hr 04/27/19 21:29 04/27/19 23:38 04/28/19 00:29 Pulse Rate [Apical] 69 66 68 Respiratory Rate 13 16 18 Respiratory Effort / Characteristics Non-Labored Spontaneous Respiratory Depth Normal Blood Pressure [Right Arm] 131/96 124/65 133/81 Blood Pressure Mean [Right Arm] 107 84 98 Pulse Oximetry 96 98 97 Oxygen Delivery Method Room Air Room Air Room Air 04/28/19 00:57 Pulse Rate [Apical] 69 Respiratory Rate 21 Respiratory Effort / Characteristics Respiratory Depth Blood Pressure [Right Arm] Blood Pressure Mean [Right Arm] Pulse Oximetry 97 Oxygen Delivery Method Room Air GENERAL: alert, uncomfortable appearing, well nourished, mild distress, non- toxic EYE EXAM: normal conjunctiva, PERRL and EOM's grossly intact, no nystagmus OROPHARYNX: no exudate, no erythema, lips, buccal mucosa, and tongue normal and mucous membranes are dry NECK: supple, no nuchal rigidity, no adenopathy, non-tender LUNGS: Clear to auscultation. Normal chest wall mechanics, no w/r/r HEART: no murmurs, S1 normal and S2 normal ABDOMEN: abdomen soft, non-tender, normo-active bowel sounds, no masses, no rebound or guarding. BACK: Back is symmetrical on inspection and there is no deformity, no midline tenderness, no CVA tenderness. SKIN: no rashes and no bruising UPPER EXTREMITIES: upper extremities are grossly normal. FROM, nml pulses b/l. LOWER EXTREMITIES: No pitting edema. FROM, nml pulses b/l. NEURO EXAM: Normal sensorium, cranial nerves II-XII grossly intact, normal speech, no gross weakness of arms, no gross weakness of legs. No ataxia. No facial droop. Course Course 1838: Past medical records reviewed. The patient was evaluated in room B08. A complete history and physical exam was performed. 2115: I checked on the patient. She states that she is still experiencing a headache and chest pain. She also includes that her dizziness is improved but not gone. 4: I re-checked the patient. She states that her headache and dizziness are slightly improved but still present. Additionally, she is still having mild chest tightness. 0: [facility]. Administered Medications Discontinued Medications Al Hydrox/Mg Hydrox/Simethicone (Maalox Max) 30 ml PO Q6H PRN PRN Reason: Heartburn Stop: 05/28/19 10:29 Last Admin: 04/28/19 10:57 Dose: 30 ml Documented by: [id number] Albuterol (Duoneb) 3 ml NEB NOW STA Stop: 04/28/19 00:38 Last Admin: 04/28/19 00:56 Dose: 3 ml Documented by: [id number] Diazepam (Valium) 2 mg IV NOW STA Stop: 04/27/19 23:23 Last Admin: 04/27/19 23:36 Dose: 2 mg Documented by: [id number] Famotidine (Pepcid 20mg Iv Push) 20 mg IV ONE STA Stop: 04/27/19 21:18 Last Admin: 04/27/19 21:31 Dose: 20 mg Documented by: [id number] Famotidine (Pepcid) 20 mg PO BID MIGUEL Stop: 05/28/19 08:59 Last Admin: 04/28/19 08:08 Dose: 20 mg Documented by: [id number] Fentanyl Citrate (Fentanyl Citrate) 50 mcg IV NOW STA Stop: 04/27/19 21:18 Last Admin: 04/27/19 21:31 Dose: 50 mcg Documented by: [id number] Fentanyl Citrate (Fentanyl Citrate) 50 mcg IV NOW STA Stop: 04/28/19 00:38 Last Admin: 04/28/19 00:45 Dose: 50 mcg Documented by: [id number] Gabapentin (Neurontin) 600 mg PO BID MIGUEL Stop: 05/28/19 08:59 Last Admin: 04/28/19 08:08 Dose: 600 mg Documented by: [id number] Hydromorphone HCl (Dilaudid) 0.5 mg IV Q3H PRN PRN Reason: Moderate Pain Stop: 05/12/19 02:09 Last Admin: 04/28/19 08:15 Dose: 0.5 mg Documented by: [id number] Hydromorphone HCl (Dilaudid) 1 mg IV Q4H PRN PRN Reason: Severe Pain Stop: 05/12/19 02:09 Last Admin: 04/28/19 02:34 Dose: 1 mg Documented by: [id number] Sodium Chloride (Nss 1000ml) 1,000 mls @ 999 mls/hr IV .Q1H1M ONE Stop: 04/27/19 19:53 Last Infusion: 04/27/19 20:15 Dose: 0 mls/hr Documented by: [id number] Admin: 04/27/19 19:14 Dose: 999 mls/hr Documented by: [id number] Acetaminophen (Ofirmev) 1,000 mg in 100 mls @ 400 mls/hr IV NOW STA Stop: 04/27/19 19:07 Last Infusion: 04/27/19 19:29 Dose: 0 mls/hr Documented by: [id number] Admin: 04/27/19 19:14 Dose: 400 mls/hr Documented by: [id number] Sodium Chloride (Nss) 500 mls @ 999 mls/hr IV .Q31M ONE Stop: 04/27/19 23:52 Last Infusion: 04/28/19 00:07 Dose: 0 mls/hr Documented by: [id number] Admin: 04/27/19 23:36 Dose: 999 mls/hr Documented by: [id number] Ioversol (Optiray 320 125ml) 119 ml IV ONCE PRN PRN Reason: Interaction Checking Stop: 05/01/19 19:50 Last Admin: 04/27/19 19:55 Dose: 119 ml Documented by: [id number] Levothyroxine Sodium (Synthroid) 125 mcg PO DAILYBB MIGUEL Stop: 05/28/19 06:29 Last Admin: 04/28/19 06:14 Dose: 125 mcg Documented by: [id number] Losartan Potassium (Cozaar) [facility] [place] Stop: 05/28/19 08:59 Last Admin: 04/28/19 08:08 Dose: 50 mg Documented by: [id number] Meclizine HCl (Antivert) 25 mg PO NOW STA Stop: 04/27/19 21:18 Last Admin: 04/27/19 21:30 Dose: 25 mg Documented by: [id number] Multivitamins/Minerals (Caltrate Plus) 1 tab [facility] [place] Stop: 05/28/19 08:59 Last Admin: 04/28/19 08:08 Dose: 1 tab Documented by: [id number] Ondansetron HCl (Zofran) 4 mg IV NOW STA Stop: 04/27/19 18:54 Last Admin: 04/27/19 19:14 Dose: 4 mg Documented by: [id number] Ondansetron HCl (Zofran) 4 mg IV Q6H PRN PRN Reason: nausea or vomiting Stop: 05/28/19 02:09 Last Admin: 04/28/19 09:16 Dose: 4 mg Documented by: [id number] Admin: 04/28/19 03:15 Dose: 4 mg Documented by: [id number] Pantoprazole Sodium (Protonix) 40 mg PO BID [facility] Stop: 05/28/19 08:59 Last Admin: 04/28/19 08:08 Dose: 40 mg Documented by: [id number] Potassium Chloride (Klor-Con M20) 40 meq PO NOW STA Stop: 04/28/19 08:25 Last Admin: 04/28/19 09:15 Dose: 40 meq Documented by: [id number] Spironolactone (Aldactone) 25 mg PO [facility] Stop: 05/28/19 08:59 Last Admin: 04/28/19 08:08 Dose: 25 mg Documented by: [id number] Trazodone HCl (Desyrel) 50 mg PO [facility] Stop: 05/28/19 01:39 Last Admin: 04/28/19 01:36 Dose: 50 mg Documented by: [id number] Trazodone HCl (Desyrel) 300 mg PO [facility] Stop: 05/28/19 01:39 Last Admin: 04/28/19 01:37 Dose: 300 mg Documented by: [id number] Medical Decision Making Differential Diagnosis Differential diagnosis includes but is not limited to Differential diagnoses include Benign positional vertigo,Dehydration, Hypovolemia, Anemia, Tumor, Infection, Hypoglycemia, Electrolyte abnormalities, Cardiac sources, Intracerebral event, Toxicologic, Neurologic, as well as others were entertained. Medical Records Attestation: I reviewed the patient's medical records. Home Medications Current Medication List: was personally reviewed by me Laboratory Data Attestation: I reviewed the patient's lab results. Result diagrams: 04/28/19 05:37 04/28/19 05:37 Lab Results 04/27/19 04/27/19 Range/Units 19:11 19:11 WBC 12.58 H (4.8-10.8) K/uL RBC 4.89 (4.2-5.4) M/uL Hgb 14.2 (12.0-16.0) g/dL Hct 42.8 (37-47) % MCV 87.5 (80-100) fL MCH 29.0 (25-34) pg MCHC 33.2 (32-36) g/dL RDW Std Deviation 50.9 H (36.4-46.3) fL RDW Coeff of Wilber 15.8 H (11.5-14.5) % Plt Count 336 (130-400) K/uL MPV 9.7 (7.4-10.4) fL Immature Gran % (Auto) 0.2 % Neut % (Auto) 78.4 % Lymph % (Auto) 14.4 % Morton % (Auto) 6.5 % Eos % (Auto) 0.3 % Baso % (Auto) 0.2 % Immature Gran # (Auto) 0.02 (0.00-0.02) K/uL Neut # (Auto) 9.87 H (1.4-6.5) K/uL Lymph # (Auto) 1.81 (1.2-3.4) K/uL Morton # (Auto) 0.82 H (0.11-0.59) K/uL Eos # (Auto) 0.04 (0-0.5) K/uL Baso # (Auto) 0.02 (0-0.2) K/uL Sodium 135 L (136-145) mmol/L Potassium 3.7 (3.5-5.1) mmol/L Chloride 103 (98-107) mmol/L Carbon Dioxide 26 (21-32) mmol/L Anion Gap 7.0 (3-11) BUN 14 (7-18) mg/dl Creatinine 1.10 (0.6-1.2) mg/dl Est Cr Clr Drug Dosing 66.8 ml/min Est GFR ( Amer) 64.1 Est GFR (Non-Af Amer) 55.3 BUN/Creatinine Ratio 12.6 (10-20) Glucose 106 H (70-99) mg/dl Calcium 9.4 (8.5-10.1) mg/dl Magnesium 1.8 (1.8-2.4) mg/dl Total Bilirubin 0.4 (0.2-1) mg/dl AST 20 (15-37) U/L ALT 26 (12-78) U/L Alkaline Phosphatase 72 (45-117) U/L Troponin I < 0.015 (0-0.045) ng/ml NT-Pro-B Natriuret Pep 42 (0-900) pg/ml Total Protein 7.8 (6.4-8.2) gm/dl Albumin 4.1 (3.4-5.0) gm/dl Globulin 3.7 (2.5-4.0) gm/dl Albumin/Globulin Ratio 1.1 (0.9-2) Lipase 109 (73-393) U/L TSH 0.383 (0.300-4.500) uIu/ml Imaging Data Radiologist's Impression: Radiology results as stated below per my review and the radiologist's interpretation: CHEST CTA for AORTIC DISSECTION CT DOSE: HISTORY: Atypical chest pain, paresthesias, dizzy TECHNIQUE: Multiaxial CT images of the chest were performed both before and after the intravenous administration of contrast to evaluate the aorta. Maximal intensity projection images were also obtained. A dose lowering technique was utilized adhering to the principles of ALARA. COMPARISON STUDY: Chest CTA 07/28/2016. FINDINGS: Posterior fusion hardware seen within the lower thoracic spine with a prior T10 vertebroplasty. Postoperative changes within the right thyroid lobe. Noncontrast imaging through the chest shows no evidence for an intramural hematoma within the thoracic aorta. No evidence for an aortic dissection. The ascending thoracic aorta is borderline dilated measuring up to 3.9 cm in diameter. The central pulmonary arteries are patent. The heart is normal in size. No pleural or pericardial effusions. A few left thyroid nodules with the largest measuring 1 cm. No mediastinal or hilar lymphadenopathy. Limited views of the upper abdomen demonstrate normal liver and spleen. Normal esophagus. No suspicious lytic are blastic osseous lesions. The central airways are patent. No pneumothorax. Stable 4 mm nodule within the left upper lobe on image 170. Calcified granuloma within the right lower lobe, unchanged. No new focal lung consolidations to suggest pneumonia. IMPRESSION: 1. No evidence for an aortic dissection. 2. The central pulmonary arteries are patent. 3. Stable 4 mm nodule within the left upper lobe. This is likely benign given the long-term stability. 4. Borderline aneurysmal dilatation of the ascending thoracic aorta measuring up to 3.9 cm in diameter. ACT 112: Negative or not required by law. Electronically signed by: Viktor Fink M.D. 04/27/2019 9:[address] DOSE: HISTORY: sudden thomas, dizziness TECHNIQUE: Multiaxial CT images of the head were performed without the use of intravenous contrast. Automated exposure control was utilized for this study. A dose lowering technique was utilized adhering to the principles of ALARA. Comparison: Head CT 04/08/2019. Findings: The paranasal sinuses and mastoid air cells are clear. The calvarium and skull base are intact. The ventricles and sulci are within normal limits. There is no mass, hematoma, midline shift, or acute infarct. Impression: No acute intracranial abnormality. ACT 112: Negative or not required by law. Electronically signed by: Viktor Fink M.D. 04/27/2019 9:00 PM HEAD & NECK CTA HISTORY: Headache. thomas, dizzy TECHNIQUE: Multiaxial CT images of the head were performed following the intravenous administration of contrast to evaluate the major cerebral vessels. Multiaxial CT images of the neck were also performed following the intravenous administration of contrast to evaluate the major cervical vessels. Maximum intensity projection images were also obtained. A dose lowering technique was u tilized adhering to the principles of ALARA. COMPARISON: None. FINDINGS: There is no mass, hematoma, midline shift, or acute infarct. Visualized intracranial internal carotid arteries, distal vertebral arteries, and basilar artery are widely patent. 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 Anterior nasal septal defect is noted. The aortic arch and proximal great vessels are widely patent. Moderate calcified plaque within the mid left common carotid artery and right carotid bifurcation. This results in mild stenosis of approximately 50% within the proximal right internal carotid artery. There is approximately 40% focal stenosis within the mid left common carotid artery. The right common carotid artery and left internal carotid artery are widely patent. No significant stenosis, occlusion, or dissection within the vertebral arteries. The bilateral internal jugular veins are patent. Multiple left thyroid nodules with the largest measuring 1 cm. Small amount of midline ectopic thyroid tissue inferior to the hyoid bone. IMPRESSION: 1. No significant stenosis, occlusion, or aneurysm within the [place]. 2. Approximately 50% stenosis within the proximal right internal carotid artery and 40% focal stenosis within the mid left common carotid artery due to the atherosclerotic plaque. 3. No significant stenosis within the remaining carotid arteries or vertebral arteries. ACT 112: Negative or not required by law. Electronically signed by: Viktor Fink M.D. 04/27/2019 9:06 PM HEAD & NECK CTA HISTORY: Headache. thomas, dizzy TECHNIQUE: Multiaxial CT images of the head were performed following the intravenous administration of contrast to evaluate the major cerebral vessels. Multiaxial CT images of the neck were also performed following the intravenous administration of contrast to evaluate the major cervical vessels. Maximum intensity projection images were also obtained. A dose lowering technique was utilized adhering to the principles of ALARA. COMPARISON: None. FINDINGS: There is no mass, hematoma, midline shift, or acute infarct. Visualized intracranial internal carotid arteries, distal vertebral arteries, and basilar artery are widely patent. 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 Anterior nasal septal defect is noted. The aortic arch and proximal great vessels are widely patent. Moderate calcified plaque within the mid left common carotid artery and right carotid bifurcation. This results in mild stenosis of approximately 50% within the p roximal right internal carotid artery. There is approximately 40% focal stenosis within the mid left common carotid artery. The right common carotid artery and left internal carotid artery are widely patent. No significant stenosis, occlusion, or dissection within the vertebral arteries. The bilateral internal jugular veins are patent. Multiple left thyroid nodules with the largest measuring 1 cm. Small amount of midline ectopic thyroid tissue inferior to the hyoid bone. IMPRESSION: 1. No significant stenosis, occlusion, or aneurysm within the [place]. 2. Approximately 50% stenosis within the proximal right internal carotid artery and 40% focal stenosis within the mid left common carotid artery due to the atherosclerotic plaque. 3. No significant stenosis within the remaining carotid arteries or vertebral arteries. ACT 112: Negative or not required by law. Electronically signed by: Viktor Fink M.D. 04/27/2019 9:06 PM ECG Data Attestation: I personally reviewed and interpreted this ECG as follows: Indication: + chest pain Rate (beats per minute): 82 Rhythm: + sinus rhythm ECG [place]: + Normal ECG Findings: + Other (normal intervals, no acute ischemic changes ); no PACs and no PVCs Blood Pressure Blood Pressure Findings: Elevated blood pressure Blood Pressure Disposition: further management by hospitalist YOLIS Anton Patient presenting with sudden onset of dizziness, vomiting, chest pain, and headache. Unclear etiology at this time. Patient has had prior cardiac evaluation including a negative dobutamine stress test within the last month. Patient unfortunately does have risk factors for ACS and stroke. Neuroimaging was unremarkable. Patient with no focal neuro deficits at bedside and I do not suspect occult CVA or cerebellar infarct at this time. No evidence of infectious etiology. No evidence of acute metabolic or electrolyte abnormality. Patient given several rounds of medications and did feel improved although symptoms not completely resolved. Due to persistent symptoms, I discussed with the patient additional inpatient evaluation. Case discussed with hospitalist. I have lower suspicion for ACS at this time given negative troponin and reassuring EKG. I do not suspect dissection. No evidence of PE and patient states she has been compliant taking her blood thinner. Patient with a known history of thyroid dysfunction, and TSH was noted to be abnormal again. Patient hypertensive here as well, although I suspect this is secondary to her other symptoms and her chronic essential hypertension. I do not suspect hypertensive emergency or urgency at this time. Impression & Plan Dizziness, Headache, Chest pain, Nausea & vomiting Discharge Plan Visit Data *Final* Discharge Date/Time: 04/28/19 01:57 Chief Complaint: Dizziness Stated Complaint: DIZZY, CHEST PAIN, DRY HEAVING, HEADACHE ED Provider: Gina Henderson Discharge Problem: Dizziness, Headache, Chest pain, Nausea & vomiting Patient Disposition: Admitted As Inpatient Discharge Instructions Interventions: ED Discharge Assessment Last Done: 04/28/19 01:57 Discharge Problem: Headache Qualifiers: Headache type: unspecified Headache chronicity pattern: unspecified pattern Intractability: not intractable Qualified Code(s): R51 - Headache Chest pain Qualifiers: Chest pain type: unspecified Qualified Code(s): R07.9 - Chest pain, unspecified Nausea & vomiting Qualifiers: Vomiting type: unspecified Vomiting Intractability: non-intractable Qualified Code(s): R11.2 - Nausea with vomiting, unspecified The scribe's documentation has been prepared under my direction and personally reviewed by me in its entirety. I confirm that the note above accurately reflects all work, treatment, procedures, and medical decision making performed by me.
== END 2019-04-28 16:04 | disposition home or self-care (01) ==
LOC: ED 18:25 → 2N 18:25 → SUATTDRO 04-28 01:09 → 2N 04-28 01:57

== ENCOUNTER 2019-11-11 15:13 | Observation (INO) ==
[2019-11-11] MEDS ORDERED: HYDROmorphone INJ 0.5 MG/0.5 ML SYR IV STA ×3 (16:52→21:25)
[2019-11-11 17:39] LABS: Basophils # (auto) 0.04 K/uL (0-0.2); Basophils % (auto) 0.3 %; Eosinophils # (auto) 0.17 K/uL (0-0.5); Eosinophils % (auto) 1.4 %; Hematocrit (blood only) 45.3 % (37-47); Hemoglobin 15.2 g/dL (12.0-16.0); Immature Granulocytes # (auto) 0.05 K/uL (0.00-0.02); Immature Granulocytes % (auto) 0.4 %; Lymphocytes # (auto) 3.64 K/uL (1.2-3.4); Lymphocytes % (auto) 30.8 %; Mean Corpuscular Hemoglobin 29.8 pg (25-34); Mean Corpuscular Hgb Conc 33.6 g/dL (32-36); Mean Corpuscular Volume 88.8 fL (80-100); Mean Platelet Volume 9.8 fL (7.4-10.4); Monocytes # (auto) 0.96 K/uL (0.11-0.59); Monocytes % (auto) 8.1 %; Neutrophils # (auto) 6.94 K/uL (1.4-6.5); Platelet Count 310 K/uL (130-400); RDW Coefficient of Variation 15.8 % (11.5-14.5); RDW Standard Deviation 51.9 fL (36.4-46.3)
--- NOTE | 2019-11-11 17:44 | Emergency Department Note ---
Impression & Plan Back pain, thoracic ED Provider Note Provider: Dusty Barton MD DATE OF SERVICE: 11/11/2019 CHIEF COMPLAINT: Back pain HISTORY OF PRESENT ILLNESS: Patient is a 59-year-old female with multiple medical issues including diabetes, prior VTE on Xarelto, bipolar, COPD, multiple prior back surgeries done in [place] presenting today complaining of worsening thoracic back pain over the last several weeks. Patient states that last several months she is had intermittent sharp pain in her mid thoracic back. Denies any new trauma but at this time states she has had a significant increase in the amount of sharp pain in her mid thoracic back is wraparound a little bit around her chest. Sometimes last fleeting seconds other times can last an hour and sort of cause her to stiffen up not be able to move. States the pain sometimes makes her nauseous but denies abdominal pain. Patient states she has baseline intermittent numbness and neuropathy in the lower extremities. Denies lower back pain. Patient states she is tried some Tylenol home as well as various topical treatments without significant improvement. Patient states that lying flat makes her symptoms worse. Patient states he is having difficulty getting in and out of her car with different turning events causing this pain to reproduce. Denies fever. Patient describes as almost feels like things are somewhat shifting in her back when this happens. Prior L ovarian mass removal. REVIEW OF SYSTEMS: A total of 10 review of systems was obtained and negative except as stated above in the HPI. PAST MEDICAL HISTORY: As noted above MEDICATIONS: Reviewed home medication list SOCIAL HISTORY: and lives at home with , denies use of marijuana/CBD PHYSICAL EXAM: GENERAL: alert and oriented sitting in a wheelchair in the room appears mild to moderately uncomfortable. Head: normocephalic and atraumatic EYES: No injection, discharge or icterus. NECK: Trachea midline. Supple. ENT: Mucous membranes pink and moist. LUNGS: Airway patent. No retractions. Breath sounds clear HEART: Regular rate and rhythm. No chest wall tenderness ABDOMEN: Soft and non-tender, without guarding or rebound. BACK: Slight mid thoracic midline tenderness, no significant paraspinal tenderness. SKIN: Acyanotic, warm, dry, without rashes EXTREMITIES: Without swelling, tenderness or deformity of the lower extremities NEUROLOGICAL: No focal deficits. No aphasia. No facial droop or slurred speech. Normal strength and tone in the extremities. Sensation to gross touch normal. EK bpm normal sinus rhythm. No PVCs or PACs. No acute ST segment elevation or depression. QTC 441. Patient's hypertension was referred to the hospitalist PDMP was checked without noted issue. HOSPITAL COURSE: 1654 Patient was first seen and H&P performed. 2011 Patient reassessed and updated. Patient was self transferring from whee lchair to bed and having severe pain difficulty. Discussed with her MRI findings and lab findings. Discussed with her options at this time versus outpatient discharge versus further observation here in the hospital. 2019 [place] [facility] [place]. Patient's laboratory studies and imaging reviewed. Differential includes Musculoskeletal, disc herniation, fracture, metastatic disease, cord compression, discitis, sciatica, cauda equina, infection, aortic disease, renal colic, gastrointestinal, as well as other pathologies. IMPRESSION/MEDICAL DECISION MAKING: Patient presents with intermittent episodes of significant midthoracic back pain. Denies new trauma but history of prior surgery several years ago. I would lower suspicion is acutely infectious. He is anticoagulated. Doubt PE. Lower suspicion this represents dissection. I doubt this is acutely pneumonia pneumothorax. Symptoms are intermittent. Reproducible with certain movements. EKG and basic labs were obtained however. MRI of the thoracic spine will be obtained to look for possible spinal pathology. Patient does have some baseline neuropathic issues in the lower extremities she states. Patient states she is in significant discomfort but is tolerated Dilaudid before and was given this. Has multiple allergies to different pain medications. States has not tolerated steroids in the past. Laboratory studies show slight nonspecific leukocytosis similar to previous as well as a slight CRP elevation noted of previous values. No evidence of troponin elevation or other significant electrolyte abnormality. No evidence of pancreatitis or hepatic dysfunction. Renal function at baseline. No evidence of UTI. Treat her with several dose of hydromorphone for pain. MRI was completed thoracic spine with and without contrast. Again I doubt an infection based on the stat read report. There is no evidence of abnormal enhancement seen here. There is no evidence of significant spinal canal steno sis or narrowing. Multiple level degenerative disc disease is noted. There is limitation of study specific to metallic artifact from prior hardware. Discussed findings with patient. Discussed with her options of going home with pain medicine and following up with her prior spine surgeon vs observation. Patient stated pain was severe. Evening meds ordered gabapentin and ppi; lidoderm patch ordered. Patient elected for further observation here. DIAGNOSIS: Thoracic back pain DISPOSITION: Hospitalist will evaluate Preliminary Findings Only See Final Report For Complete Findings MRI T SPINE : Impression: Postsurgical change of the lower thoracic spine with extensive susceptibility artifact related to metallic hardware which severely degraded examination. Evaluation of these levels is essentially nondiagnostic. No evidence of lumbar spine fracture, epidural collection, or spinal cord abnormality in the nonoperative thoracic spine. Multilevel degenerative disc disease throughout the nonoperative thoracic spine without high-grade spinal canal stenosis or foraminal narrowing. No abnormal enhancement seen on postcontrast sequences. 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; underwent bilateral salpingo-oophorectomy History of anemia (Resolved) 04/2018 S/P BLOOD TRANSFUSION (POLYPS IN STOMACH) History of pulmonary embolism (~2016) Hx of deep venous thrombosis (~2014) X2 R LEG Hypertension Hypothyroidism Morbid obesity Osteoarthritis Restless leg syndrome Scoliosis Sleep apnea NO DEVICE Umbilical hernia Urinary incontinence Vitamin D deficiency Surgical History (Updated 08/21/19 @ 10:27 by LUCY Francois) H/O thyroidectomy History of 2 sections History of appendectomy History of cardiac catheterization SEVERAL YEARS AGO= NO STENTS History of cholecystectomy History of colonoscopy History of endoscopy History of hysterectomy (~1981) History of lumbar surgery WITH "SCREWS" History of salpingo-oophorectomy (~07/2018) History of thyroidectomy History of total left knee replacement History of total right knee replacement Presence of IVC filter (~07/2018) Social History Smoking Status: Current every day smoker Tobacco Type: Cigarettes Cigarettes Per Day: 10-15; Second Hand Exposure: Yes; Hx Alcohol Use: No Hx Substance Use: No Preferred Language: Bahamian Communication Ability: Effective Visual Impairment: No Limitations 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: Normal Gaming Commissioner Required: No Beliefs That Will Affect Care: None marital status: Current Living Situation: Family Current Living Situation Comment: and mother Feels Safe at Home: Yes Childhood Exposure to Second-Hand Smoke: Yes Diet Comment: regular during the past year weight has: increased > 10 lbs Dental Care, Regularly: No Physical Activity Frequency: Does not Exercise Seatbelt Use: always Sunscreen Use: Yes Allergies Allergies Allergy/AdvReac Type Severity Reaction Status Date / Time erythromycin base Allergy Severe "ALL PINK Verified 11/11/19 18:17 AND SWELLED UP" ketorolac Allergy Severe SOB,TACHYCA Verified 11/11/19 18:17 RDIA carbamazepine Allergy Intermediate Heart Verified 11/11/19 18:17 Arrhythmia acetaminophen [From Vicodin] AdvReac Intermediate Nausea Verified 11/11/19 18:17 adhesive AdvReac Intermediate SKIN TEARS Verified 11/11/19 18:17 butorphanol [From Stadol] AdvReac Intermediate Agitated Verified 11/11/19 18:17 hydrocodone [From Vicodin] AdvReac Intermediate Nausea Verified 11/11/19 18:17 Macrolide Antibiotics AdvReac Intermediate VOMITTING Verified 11/11/19 18:17 oxycodone [From Percocet] AdvReac Intermediate Nausea Verified 11/11/19 18:17 temazepam AdvReac Intermediate GI SYMPTOMS Verified 11/11/19 18:17 Home Meds Home Medications Medication Instructions Recorded Confirmed lactulose 10 gm PO BID PRN 11/11/19 11/11/19 sucralfate [Carafate] 10 ml PO TID PRN 11/11/19 11/11/19 Previous Rx's Medication Instructions Recorded furosemide 20 mg tablet 20 mg PO DIRECTED PRN #30 tab 11/23/18 diclofenac sodium 1 % topical gel See Rx Instructions TOPICAL 01/16/19 .COMPLEX #100 gm nystatin 100,000 unit/gram topical 1 appln TOP TID PRN #30 gm 04/08/19 powder levothyroxine 125 mcg tablet 125 mcg PO QAM #30 tab 04/29/19 nystatin 100,000 unit/mL oral 2 ml BUCCAL QID PRN #60 ml 04/29/19 suspension ondansetron 4 mg PO Q6H PRN #15 tab 07/11/19 albuterol sulfate 2.5 mg INHALATION QID PRN #180 ml 07/17/19 trazodone 150 mg tablet 300 mg PO HS #60 tab 08/06/19 trazodone 50 mg tablet 50 mg PO HS #30 tab 08/06/19 gabapentin 600 mg tablet 600 mg PO BID #180 tab 08/16/19 losartan 100 mg tablet 50 mg PO QAM #90 tab 08/16/19 calcium carbonate 500 mg (1,250 1 tab PO QAM #90 tab 08/20/19 mg)-vitamin D3 200 unit tablet pantoprazole 40 mg tablet,delayed 40 mg PO BID #60 tab 09/11/19 release rivaroxaban 20 mg tablet 20 mg PO QAM #30 tab 10/10/19 spironolactone 25 mg tablet 25 mg PO QAM #90 tab 10/10/19 albuterol sulfate 90 mcg/actuation 2 puff INHALATION Q4H PRN #18 gm 10/18/19 aerosol inhaler Results & Data (ED) Vital Signs Vital Signs - 24 hr 11/11/19 15:19 11/11/19 18:00 11/11/19 18:25 Temperature 36.9 C Temperature Source Oral Pulse Rate 83 Pulse Rate [Finger] 80 Respiratory Rate 20 17 Respiratory Effort / Characteristics Non-Labored Spontaneous Respiratory Depth Normal Respiratory Pattern Regular Blood Pressure 183/105 H Blood Pressure [Left Arm] 137/78 Blood Pressure Mean 131 Blood Pressure Mean [Left Arm] 97 Blood Pressure Position Sitting Pulse Oximetry 98 97 97 Oxygen Delivery Method Room Air Room Air Room Air Sepsis Recent Fever Within 48 Hours No Sepsis New/Unexplained Change in Mental Status N/A Sepsis Action Taken by Nursing No Action Required 11/11/19 20:09 11/11/19 21:31 Temperature Temperature Source Pulse Rate Pulse Rate [Finger] 85 76 Respiratory Rate 20 18 Respiratory Effort / Characteristics Respiratory Depth Respiratory Pattern Blood Pressure Blood Pressure [Left Arm] 145/80 H 132/89 Blood Pressure Mean Blood Pressure Mean [Left Arm] 101 103 Blood Pressure Position Pulse Oximetry 96 98 Oxygen Delivery Method Room Air Room Air Sepsis Recent Fever Within 48 Hours Sepsis New/Unexplained Change in Mental Status Sepsis Action Taken by Nursing Laboratory Data Result diagrams: 11/11/19 17:30 11/11/19 17:30 Lab Results 11/11/19 11/11/19 11/11/19 Range/Units 17:30 17:30 17:54 WBC 11.80 H (4.8-10.8) K/uL RBC 5.10 (4.2-5.4) M/uL Hgb 15.2 (12.0-16.0) g/dL Hct 45.3 (37-47) % MCV 88.8 (80-100) fL MCH 29.8 (25-34) pg MCHC 33.6 (32-36) g/dL RDW Std Deviation 51.9 H (36.4-46.3) fL RDW Coeff of Wilber 15.8 H (11.5-14.5) % Plt Count 310 (130-400) K/uL MPV 9.8 (7.4-10.4) fL Immature Gran % (Auto) 0.4 % Neut % (Auto) 59.0 % Lymph % (Auto) 30.8 % [place] % (Auto) 8.1 % Eos % (Auto) 1.4 % Baso % (Auto) 0.3 % Neut # (Auto) 6.94 H (1.4-6.5) K/uL Lymph # (Auto) 3.64 H (1.2-3.4) K/uL [place] # (Auto) 0.96 H (0.11-0.59) K/uL Eos # (Auto) 0.17 (0-0.5) K/uL Baso # (Auto) 0.04 (0-0.2) K/uL Immature Gran # (Auto) 0.05 H (0.00-0.02) K/uL Sodium 138 (136-145) mmol/L Potassium 3.9 (3.5-5.1) mmol/L Chloride 103 (98-107) mmol/L Carbon Dioxide 29 (21-32) mmol/L Anion Gap 6.0 (3-11) BUN 12 (7-18) mg/dl Creatinine 0.93 (0.6-1.2) mg/dl Est Cr Clr Drug Dosing 78.5 ml/min Est GFR ( Amer) 78.5 Est GFR (Non-Af Amer) 67.7 BUN/Creatinine Ratio 13.3 (10-20) Glucose 80 (70-99) mg/dl Calcium 9.5 (8.5-10.1) mg/dl Total Bilirubin 0.5 (0.2-1) mg/dl AST 21 (15-37) U/L ALT 30 (12-78) U/L Alkaline Phosphatase 92 (45-117) U/L Troponin I < 0.015 (0-0.045) ng/ml C-Reactive Protein 0.85 H (0-0.29) mg/dl Total Protein 8.0 (6.4-8.2) gm/dl Albumin 4.0 (3.4-5.0) gm/dl Globulin 4.0 (2.5-4.0) gm/dl Albumin/Globulin Ratio 1.0 (0.9-2) Lipase 123 (73-393) U/L Urine Color Yellow Urine Appearance Clear (Clear) Urine pH 5.0 (4.5-7.5) Ur Specific [place] 1.006 (1.000-1.030) Urine Protein Negative (Negative) Urine Glucose (UA) Negative (Negative) Urine Ketones Negative (Negative) Urine Blood Trace H (Negative) Urine Nitrite Negative (Negative) Urine Bilirubin Negative (Negative) Urine Urobilinogen Negative (Negative) Ur Leukocyte Esterase Negative (Negative) Urine WBC (Auto) 0 (0-5) /hpf Urine RBC (Auto) 0-4 (0-4) /hpf U Hyaline Cast (Auto) 1-5 (0-5) /lpf U Epithel Cells (Auto) 10-20 H (0-5) /lpf Urine Bacteria (Auto) Negative (Negative) Administered Medications Gadobutrol (Gadavist 65ml) 11 ml IV ONCE PRN PRN Reason: Interaction Checking Stop: 11/15/19 20:48 Last Admin: 11/11/19 20:50 Dose: 11 ml Documented by: [id number] Discontinued Medications Gabapentin (Neurontin) 600 mg PO NOW STA Stop: 11/11/19 22:33 Last Admin: 11/11/19 22:38 Dose: 600 mg Documented by: [id number] Hydromorphone HCl (Dilaudid) 1 mg IV NOW STA Stop: 11/11/19 16:53 Last Admin: 11/11/19 17:39 Dose: 1 mg Documented by: [id number] Hydromorphone HCl (Dilaudid) 0.5 mg IV NOW STA Stop: 11/11/19 19:12 Last Admin: 11/11/19 20:08 Dose: 0.5 mg Documented by: [id number] Hydromorphone HCl (Dilaudid) 0.5 mg IV NOW STA Stop: 11/11/19 21:26 Last Admin: 11/11/19 21:34 Dose: 0.5 mg Documented by: [id number] Lidocaine (Lidoderm 5%) 1 patch TD ONCE STA Stop: 11/11/19 22:09 Last Admin: 11/11/19 22:38 Dose: 1 patch Documented by: [id number] Pantoprazole Sodium (Protonix) 40 mg PO NOW STA Stop: 11/11/19 22:33 Last Admin: 11/11/19 22:38 Dose: 40 mg Documented by: [id number] Discharge Plan Visit Data Chief Complaint: Back Injury/Pain Stated Complaint: BACK PAIN ED Provider: Dusty Barton Discharge Problem: Back pain, thoracic Patient Disposition: Being Evaluated by Hospitalist Forms Stand Alone Forms: [facility] Prescriptions Prescriptions: No Action levothyroxine 125 mcg tablet 125 mcg PO QAM Qty: 30 RF: 5 albuterol sulfate 2.5 mg /3 mL (0.083 %) solution for nebulization 2.5 mg Inhalation QID PRN (Reason: Shortness Of Breath Or Wheezing) Qty: 180 RF: 3 trazodone 150 mg tablet 300 mg PO HS Qty: 60 RF: 5 trazodone 50 mg tablet 50 mg PO HS Qty: 30 RF: 5 gabapentin 600 mg tablet 600 mg PO BID Qty: 180 RF: 1 losartan 100 mg tablet 50 mg PO QAM Qty: 90 RF: 1 calcium carbonate-vitamin D3 500 mg(1,250mg) -200 unit tablet 1 tab PO QAM Qty: 90 RF: 3 pantoprazole 40 mg tablet,delayed release (DR/EC) 40 mg PO BID Qty: 60 RF: 2 Xarelto 20 mg tablet 20 mg PO QAM Qty: 30 RF: 3 spironolactone 25 mg tablet 25 mg PO QAM Qty: 90 RF: 1 albuterol sulfate 90 mcg/actuation HFA aerosol inhaler 2 puff Inhalation Q4H PRN (Reason: Shortness Of Breath Or Wheezing) Qty: 18 RF: 3 diclofenac sodium 1 % gel See Patient Comments topical .COMPLEX Qty: 100 RF: 3 nystatin 100,000 unit/gram powder 1 appln TOP TID PRN (Reason: skin irritation) Qty: 30 RF: 1 furosemide 20 mg tablet 20 mg PO DIRECTED PRN (Reason: Edema) Qty: 30 RF: 0 nystatin 100,000 unit/mL suspension 2 ml BUCCAL QID PRN (Reason: mouth irritation) Qty: 60 RF: 3 ondansetron 4 mg tablet,disintegrating 4 mg PO Q6H PRN (Reason: nausea and vomiting) Qty: 15 RF: 0 sucralfate [Carafate] 100 mg/mL suspension 10 ml PO TID PRN (Reason: NEEDED) RF: 0 lactulose 10 gram/15 mL solution 10 gm PO BID PRN (Reason: NEEDED) RF: 0 Referrals Referrals: Raleigh Chi CRNP [Primary Care Provider] - Discharge Problem: Back pain, thoracic Qualifiers: Chronicity: acute Back pain laterality: bilateral Qualified Code(s): M54.6 - Pain in thoracic spine
[2019-11-11 17:57] LABS: Alanine Aminotransferase 30 U/L (12-78); Aspartate Aminotransferase 21 U/L (15-37); BUN Creatinine Ratio 13.3 (10-20); Blood Urea Nitrogen 12 mg/dl (7-18); C Reactive Protein 0.85 mg/dl (0-0.29); Calcium 9.5 mg/dl (8.5-10.1); Carbon Dioxide 29 mmol/L (21-32); Chloride 103 mmol/L (98-107); Creatinine Clr Calc Pharmacy 78.5 ml/min; Est GFR (African American) 78.5; Est GFR (Non-African American) 67.7; Glucose 80 mg/dl (70-99); Lipase 123 U/L (73-393); Potassium 3.9 mmol/L (3.5-5.1); Sodium 138 mmol/L (136-145)
[2019-11-11 18:02] LABS: Alkaline Phosphatase 92 U/L (45-117); Bilirubin,Total 0.5 mg/dl (0.2-1); Troponin I < 0.015 ng/ml (0-0.045)
[2019-11-11 18:16] LABS: Appearance Urine Clear (Clear); Bacteria Urine Automated Negative (Negative); Bilirubin Urine Negative (Negative); Blood Urine Trace (Negative); Color Urine Yellow; Glucose Urine UA Negative (Negative); Ketones Urine Negative (Negative); Leukocyte Esterase Urine Negative (Negative); Nitrite Urine Negative (Negative); Protein Urine Negative (Negative); RBC Urine Automated 0-4 /hpf (0-4); Specific Gravity Urine 1.006 (1.000-1.030); Urobilinogen Urine Negative (Negative); WBC Urine Automated 0 /hpf (0-5)
[2019-11-11] MEDS ORDERED: GADOBUTROL 65ML VIAL IV PRN (20:49)
[2019-11-11] MEDS ORDERED: LIDOCAINE 5% 1 PATCH TD STA (22:08)
[2019-11-11] MEDS ORDERED: PANTOprazole 40 MG TAB PO STA (22:32)
[2019-11-11] MEDS ORDERED: GABAPENTIN 600 MG TAB PO STA (22:32)
[2019-11-11] MEDS ORDERED: ONDANSETRON INJ 2 MG/ML 2 ML VIAL IV STA (23:11)
--- NOTE | 2019-11-11 23:23 | History & Physical Report ---
Date of Service November 11, 2019 Assessment & Plan (1) Chronic radicular low back pain: Chronic radicular thoracic and lumbar pain/ankylosing spondylitis- MRI with artifact, but does not show any acute abnormality. Do a trial of Decadron 10 mg IV now then 6 mg IV every 6 hours. Benadryl 25 mg IV every 3 hours as needed is premed to Dilaudid 0.5 mg IV every 3 hours as needed severe pain. Patient has reported sensitivities to hydrocodone and oxycodone. Consult orthopedic spine specialty Dr. Crespo. May benefit from pain management consult with Drs. Healy/Peter. Present on Admission?: Yes (2) Back pain, thoracic: See above Present on Admission?: Yes (3) Ankylosing spondylitis: See above Present on Admission?: Yes (4) Hypertension: Losartan 50 mg p.o. daily and spironolactone 25 mg p.o. daily. Present on Admission?: Yes (5) COPD (chronic obstructive pulmonary disease): Continue usual outpatient inhalers Present on Admission?: Yes (6) GERD (gastroesophageal reflux disease): Continue pantoprazole 40 mg p.o. twice daily Present on Admission?: Yes (7) History of pulmonary embolism: History of pulmonary embolism/presence of IVC filter- Patient presently is on Xarelto 20 mg p.o. every morning and will be continued Present on Admission?: Yes (8) Presence of IVC filter: See above Present on Admission?: Yes (9) Hypothyroidism: Continue levothyroxine 125 mcg p.o. daily Present on Admission?: Yes (10) Bipolar disorder with depression: Continue trazodone Present on Admission?: Yes History of Present Illness Chief Complaint: The patient presents to the emergency department with complaint of worsening thoracic and lumbar back pain over the last several weeks. Primary Care Provider: LUCY Francois The patient is a 59-year-old female with a past 3 including diabetes mellitus type 2, presence of IVC filter, vitamin D deficiency, restless leg syndrome, degenerative disc disease, anxiety with depression, GERD, history of PE, hypothyroidism, asthma, insomnia, left ovarian granulosa cell tumor, colonic diverticulosis, sleep apnea, hypertension, ankylosing spondylitis, dyslipidemia, chronic radicular low back pain, scoliosis, bipolar disorder depression, COPD and urinary incontinence. Patient has a history of multiple lumbar surgeries x4, and has had the slowly worsening of her chronic low back pain to the point that she cannot tolerate it at this time. Allergies Allergy/AdvReac Type Severity Reaction Status Date / Time erythromycin base Allergy Severe "ALL PINK Verified 11/11/19 18:17 AND SWELLED UP" ketorolac Allergy Severe SOB,TACHYCA Verified 11/11/19 18:17 RDIA carbamazepine Allergy Intermediate Heart Verified 11/11/19 18:17 Arrhythmia acetaminophen [From Vicodin] AdvReac Intermediate Nausea Verified 11/11/19 18:17 adhesive AdvReac Intermediate SKIN TEARS Verified 11/11/19 18:17 butorphanol [From Stadol] AdvReac Intermediate Agitated Verified 11/11/19 18:17 hydrocodone [From Vicodin] AdvReac Intermediate Nausea Verified 11/11/19 18:17 Macrolide Antibiotics AdvReac Intermediate VOMITTING Verified 11/11/19 18:17 oxycodone [From Percocet] AdvReac Intermediate Nausea Verified 11/11/19 18:17 temazepam AdvReac Intermediate GI SYMPTOMS Verified 11/11/19 18:17 Home Medications Home Medications Medication Instructions Recorded Confirmed Type furosemide 20 mg tablet 20 mg PO DIRECTED PRN #30 tab 11/23/18 11/11/19 Rx diclofenac sodium 1 % topical gel See Rx Instructions TOPICAL 01/16/19 11/11/19 Rx .COMPLEX #100 gm nystatin 100,000 unit/gram topical 1 appln TOP TID PRN #30 gm 04/08/19 11/11/19 Rx powder levothyroxine 125 mcg tablet 125 mcg PO QAM #30 tab 04/29/19 11/11/19 Rx nystatin 100,000 unit/mL oral 2 ml BUCCAL QID PRN #60 ml 04/29/19 11/11/19 Rx suspension ondansetron 4 mg PO Q6H PRN #15 tab 07/11/19 11/11/19 Rx albuterol sulfate 2.5 mg INHALATION QID PRN #180 ml 07/17/19 11/11/19 Rx trazodone 150 mg tablet 300 mg PO HS #60 tab 08/06/19 11/11/19 Rx trazodone 50 mg tablet 50 mg PO HS #30 tab 08/06/19 11/11/19 Rx gabapentin 600 mg tablet 600 mg PO BID #180 tab 08/16/19 11/11/19 Rx losartan 100 mg tablet 50 mg PO QAM #90 tab 08/16/19 11/11/19 Rx calcium carbonate 500 mg (1,250 1 tab PO QAM #90 tab 08/20/19 11/11/19 Rx mg)-vitamin D3 200 unit tablet pantoprazole 40 mg tablet,delayed 40 mg PO BID #60 tab 09/11/19 11/11/19 Rx release rivaroxaban 20 mg tablet 20 mg PO QAM #30 tab 10/10/19 11/11/19 Rx spironolactone 25 mg tablet 25 mg PO QAM #90 tab 10/10/19 11/11/19 Rx albuterol sulfate 90 mcg/actuation 2 puff INHALATION Q4H PRN #18 gm 10/18/19 11/11/19 Rx aerosol inhaler lactulose 10 gm PO BID PRN 11/11/19 11/11/19 History sucralfate [Carafate] 10 ml PO TID PRN 11/11/19 11/11/19 History Past Med/Surg History Medical History (Updated 11/11/19 @ 22:38 by Dusty Barton M.D.) Acute intra-cranial hemorrhage Ankylosing spondylitis Anxiety and depression (08/19/12) Asthma Bipolar disorder with depression Chronic radicular low back pain Constipation, chronic COPD (chronic obstructive pulmonary disease) Degenerative disc disease Diabetes type 2, uncontrolled (Chronic) Diverticular disease of colon Dyslipidemia (Chronic) GERD (gastroesophageal reflux disease) 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; underwent bilateral salpingo-oophorectomy History of anemia (Resolved) 04/2018 S/P BLOOD TRANSFUSION (POLYPS IN STOMACH) History of pulmonary embolism (~2016) Hx of deep venous thrombosis (~2014) X2 R LEG Hypertension Hypothyroidism Morbid obesity Osteoarthritis Restless leg syndrome Scoliosis Sleep apnea NO DEVICE Umbilical hernia Urinary incontinence Vitamin D deficiency Surgical History (Updated 08/21/19 @ 10:27 by LUCY Francois) H/O thyroidectomy History of 2 sections History of appendectomy History of cardiac catheterization SEVERAL YEARS AGO= NO STENTS History of cholecystectomy History of colonoscopy History of endoscopy History of hysterectomy (~1981) History of lumbar surgery WITH "SCREWS" History of salpingo-oophorectomy (~07/2018) History of thyroidectomy History of total left knee replacement History of total right knee replacement Presence of IVC filter (~07/2018) Social History Smoking Status: Current every day smoker Tobacco Type: Cigarettes Cigarettes Per Day: 6; Second Hand Exposure: Yes; Hx Alcohol Use: No Hx Substance Use: No Preferred Language: Ugandan Communication Ability: Effective Visual Impairment: No Limitations 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: Normal Exchange Teller Required: No Beliefs That Will Affect Care: None marital status: Current Living Situation: Spouse and Parent Current Living Situation Comment: and mother Other Information That Helps Us Care for You: No Feels Safe at Home: Yes Safety Concerns: Feels Safe At This Time Childhood Exposure to Second-Hand Smoke: Yes Diet Comment: regular during the past year weight has: increased > 10 lbs Dental Care, Regularly: No Physical Activity Frequency: Does not Exercise Seatbelt Use: always Sunscreen Use: Yes Review of Systems Review of Systems: The patient denies chest pain, palpitations, shortness of breath, dyspnea on exertion, cough, lower extremity swelling, sore throat, fevers, chills, sweats, vomiting, diarrhea , constipation, abdominal pain, pelvic pain, blood in urine or stool, dysuria, urinary frequency or urgency, lightheadedness, dizziness, headache, memory loss, loss of consciousness, rash, abnormal bruising or bleeding, imbalance, focal weakness, numbness or tingling in arms or legs, neck pain, or night sweats. The review of systems is otherwise negative other than for that already noted above, and at least 10 systems have been reviewed. Physical Exam Physical Exam: The patient is awake, alert and oriented 3, well developed and well nourished, normocephalic and atraumatic, lying in bed and in no acute distress. HEENT--PERRL, EOMI, mucous membranes and oropharynx normal. Neck--supple. No JVD. No bruits. Thyroid normal, trachea midline, no adenopathy. Heart--normal S1 and S2. No murmurs, rubs or gallops. Lungs--clear bilaterally, no respiratory distress, no accessory muscle use. Abdomen--normal bowel sounds and soft. Nontender. Nondistended. Extremities--no cyanosis or clubbing. No edema. Dermatologic--normal skin turgor, normal color, no abnormal lymph nodes, no rash. Neurologic--cranial nerves II through XII grossly intact. Rheumatologic--normal range of motion. Psychiatric--normal affect. Results & Data Results & Data ([facility]) Vital Signs (Past 12 Hours) Vital Signs Temp Pulse Pulse Resp BP BP Pulse Ox 11/11/19 21:31 76 18 132/89 98 11/11/19 20:09 85 20 145/80 H 96 11/11/19 18:25 80 17 137/78 97 11/11/19 18:00 97 11/11/19 15:19 98.4 F 83 20 183/105 H 98 Laboratory Results Laboratory Results WBC 11.80 K/uL (4.8-10.8) H 11/11/19 17:30 RBC 5.10 M/uL (4.2-5.4) 11/11/19 17:30 Hgb 15.2 g/dL (12.0-16.0) 11/11/19 17:30 Hct 45.3 % (37-47) 11/11/19 17:30 MCV 88.8 fL (80-100) 11/11/19 17:30 MCH 29.8 pg (25-34) 11/11/19 17:30 MCHC 33.6 g/dL (32-36) 11/11/19 17:30 RDW Std Deviation 51.9 fL (36.4-46.3) H 11/11/19 17:30 RDW Coeff of Wilber 15.8 % (11.5-14.5) H 11/11/19 17:30 Plt Count 310 K/uL (130-400) 11/11/19 17:30 MPV 9.8 fL (7.4-10.4) 11/11/19 17:30 Immature Gran % (Auto) 0.4 % 11/11/19 17:30 Neut % (Auto) 59.0 % 11/11/19 17:30 Lymph % (Auto) 30.8 % 11/11/19 17:30 [place] % (Auto) 8.1 % 11/11/19 17:30 Eos % (Auto) 1.4 % 11/11/19 17:30 Baso % (Auto) 0.3 % 11/11/19 17:30 Neut # (Auto) 6.94 K/uL (1.4-6.5) H 11/11/19 17:30 Lymph # (Auto) 3.64 K/uL (1.2-3.4) H 11/11/19 17:30 [place] # (Auto) 0.96 K/uL (0.11-0.59) H 11/11/19 17:30 Eos # (Auto) 0.17 K/uL (0-0.5) 11/11/19 17:30 Baso # (Auto) 0.04 K/uL (0-0.2) 11/11/19 17:30 Immature Gran # (Auto) 0.05 K/uL (0.00-0.02) H 11/11/19 17:30 Sodium 138 mmol/L (136-145) 11/11/19 17:30 Potassium 3.9 mmol/L (3.5-5.1) 11/11/19 17:30 Chloride 103 mmol/L (98-107) 11/11/19 17:30 Carbon Dioxide 29 mmol/L (21-32) 11/11/19 17:30 Anion Gap 6.0 (3-11) 11/11/19 17:30 BUN 12 mg/dl (7-18) 11/11/19 17:30 Creatinine 0.93 mg/dl (0.6-1.2) 11/11/19 17:30 Est Cr Clr Drug Dosing 78.5 ml/min 11/11/19 17:30 Est GFR ( Amer) 78.5 11/11/19 17:30 Est GFR (Non-Af Amer) 67.7 11/11/19 17:30 BUN/Creatinine Ratio 13.3 (10-20) 11/11/19 17:30 Glucose 80 mg/dl (70-99) 11/11/19 17:30 Calcium 9.5 mg/dl (8.5-10.1) 11/11/19 17:30 Total Bilirubin 0.5 mg/dl (0.2-1) 11/11/19 17:30 AST 21 U/L (15-37) 11/11/19 17:30 ALT 30 U/L (12-78) 11/11/19 17:30 Alkaline Phosphatase 92 U/L (45-117) 11/11/19 17:30 Troponin I < 0.015 ng/ml (0-0.045) 11/11/19 17:30 C-Reactive Protein 0.85 mg/dl (0-0.29) H 11/11/19 17:30 Total Protein 8.0 gm/dl (6.4-8.2) 11/11/19 17:30 Albumin 4.0 gm/dl (3.4-5.0) 11/11/19 17:30 Globulin 4.0 gm/dl (2.5-4.0) 11/11/19 17:30 Albumin/Globulin Ratio 1.0 (0.9-2) 11/11/19 17:30 Lipase 123 U/L (73-393) 11/11/19 17:30 Urine Color Yellow 11/11/19 17:54 Urine Appearance Clear (Clear) 11/11/19 17:54 Urine pH 5.0 (4.5-7.5) 11/11/19 17:54 Ur Specific Ten Sleep 1.006 (1.000-1.030) 11/11/19 17:54 Urine Protein Negative (Negative) 11/11/19 17:54 Urine Glucose (UA) Negative (Negative) 11/11/19 17:54 Urine Ketones Negative (Negative) 11/11/19 17:54 Urine Blood Trace (Negative) H 11/11/19 17:54 Urine Nitrite Negative (Negative) 11/11/19 17:54 Urine Bilirubin Negative (Negative) 11/11/19 17:54 Urine Urobilinogen Negative (Negative) 11/11/19 17:54 Ur Leukocyte Esterase Negative (Negative) 11/11/19 17:54 Urine WBC (Auto) 0 /hpf (0-5) 11/11/19 17:54 Urine RBC (Auto) 0-4 /hpf (0-4) 11/11/19 17:54 U Hyaline Cast (Auto) 1-5 /lpf (0-5) 11/11/19 17:54 U Epithel Cells (Auto) 10-20 /lpf (0-5) H 11/11/19 17:54 Urine Bacteria (Auto) Negative (Negative) 11/11/19 17:54 Diagnostic Findings GFR 67.7 11CC GADAAVIST INJ. LEFT IV AT 2045 HRS. BY TSD HX OF OVARIAN MASS PREV. LUMBAR SURG X 4 DIFFICULTY AMBULATING AND SEVERE BACK PAIN X FEW MONTHS NO RECENT TRAMA SCANNED BY TSD Slices: 203 Priors: Tech: Alfie Purdy @ Exams: MRI T SPINE Contrast: IV Amt: 11cc gadavist Accession Numbers: [id number] Preliminary Findings Only See Final Report For Complete Findings MRI T SPINE : Impression: Postsurgical change of the lower thoracic spine with extensive susceptibility artifact related to metallic hardware which severely degraded examination. Evaluation of these levels is essentially nondiagnostic. No evidence of lumbar spine fracture, epidural collection, or spinal cord abnormality in the nonoperative thoracic spine. Multilevel degenerative disc disease throughout the nonoperative thoracic spine without high-grade spinal canal stenosis or foraminal narrowing. No abnormal enhancement seen on postcontrast sequences. Radiologist: Tank Faith MD Study ready at 21:15 and initial results transmitted at 21:40 *This report constitutes a preliminary interpretation only. Non-acute findings felt to be unrelated to the clinical presentation may not be discussed in this report. The study will be interpreted and a final report will be generated by the local Radiologist the following shift. To reach the hospital radiology department call [phone]. If a discrepancy is found between the preliminary and final interpretations of this study, please notify us via our Client Portal at [email or web address] QA Exams.You can also fax this report with a description of the discrepancy, or include the final report, to our daytime fax number [phone].If faxing, please indicate the severity of discrepancy using one of the following categories: [ ] 1 - Agree/Informational [ ] 2 - Unlikely to Affect Management [ ] 3 - Possible Eventual Change of Management [ ] 4 - Probable Immediate Change of Management For all other patient related information, please fax us at [phone]. [id number] Code Status & VTE Plan Code Status Full code VTE Prophylaxis Plan VTE Prophylaxis will be ordered: Yes PG Care Time/CCT Total # of Minutes Spent Total Time Spent with Patient: Total time spent is greater than 50% in coordination of care (as documented) at patient's floor/unit and/or counseling patient: Coding Level of Care Code 44572 Initial Inpt Care Lvl 3 Diagnoses Chronic radicular low back pain M54.16; G89.29 Back pain, thoracic M54.6 Back pain laterality: bilateral Chronicity: acute Ankylosing spondylitis M45.9 Hypertension I10 COPD (chronic obstructive pulmonary disease) J44.9 COPD type: unspecified COPD GERD (gastroesophageal reflux disease) K21.9 History of pulmonary embolism Z86.711 Presence of IVC filter Z95.828 Hypothyroidism E03.9 Bipolar disorder with depression F31.30 (1) Back pain, thoracic Back pain laterality: bilateral Chronicity: acute Qualified Code(s): M54.6 - Pain in thoracic spine (2) COPD (chronic obstructive pulmonary disease) COPD type: unspecified COPD Qualified Code(s): J44.9 - Chronic obstructive pulmonary disease, unspecified
[2019-11-12] MEDS ORDERED: MAGNESIUM HYDROXIDE SUSP 30 ML UDC PO PRN (00:15)
[2019-11-12] MEDS ORDERED: ALBUTEROL 0.083% NEBU SOLN 3 ML VIAL INH PRN (00:15)
[2019-11-12] MEDS ORDERED: ALBUTEROL HFA 8 GM INHALER INH PRN (00:15)
[2019-11-12] MEDS ORDERED: ALUMINUM/MAGNESIUM SUSP 30 ML UDC PO PRN (00:15)
[2019-11-12] MEDS ORDERED: DiphenhydrAMINE HCL 50 MG/ML VIAL IV PRN (00:15)
[2019-11-12] MEDS ORDERED: NYSTATIN POWDER 15GM BTL EXT PRN (00:15)
[2019-11-12] MEDS ORDERED: SUCRALFATE 1 GM/10 ML UDC PO PRN (00:40)
[2019-11-12] MEDS ORDERED: LACTULOSE SYRUP 20 GM/30 ML UDC PO PRN (00:47)
[2019-11-12] MEDS: GABAPENTIN 600 MG TAB PO SCH ×3 (00:51→21:19)
[2019-11-12] MEDS: PANTOprazole 40 MG TAB PO SCH ×3 (00:51→21:21)
[2019-11-12] MEDS: HYDROmorphone INJ 0.5 MG/0.5 ML SYR IV PRN ×6 (00:52→21:18)
[2019-11-12] MEDS ORDERED: DEXAMETHASONE SOD PHOSPHATE 10 MG in SYRINGE 0 ML IV ONE (02:15)
[2019-11-12] MEDS: ONDANSETRON INJ 2 MG/ML 2 ML VIAL IV PRN ×2 (02:28→14:23)
[2019-11-12] MEDS: LEVOTHYROXINE SODIUM 125 MCG TABLET PO SCH (05:52)
[2019-11-12] MEDS: DEXAMETHASONE SOD PHOSPHATE 6 MG in SYRINGE 0 ML IV SCH ×3 (07:39→21:17)
[2019-11-12] MEDS: SPIRONOLACTONE 25 MG TAB PO SCH (09:07)
[2019-11-12] MEDS: CALCIUM 600MG + VIT D 400 IU TAB PO SCH (09:07)
[2019-11-12] MEDS: RIVAROXABAN 20 MG TAB PO SCH (09:07)
[2019-11-12] MEDS: LOSARTAN POTASSIUM 50 MG TAB PO SCH (09:07)
--- NOTE | 2019-11-12 09:46 | XRay Report ---
XR thoracic spine 3V routine CLINICAL HISTORY: Pain. COMPARISON STUDY: Thoracic spine radiographs June 13, 2016. MRI of the thoracic spine November 10. FINDINGS: Incidental note is made of right neck surgical clips. Thoracolumbar spine fusion is partial ly imaged. Visualized portions of the hardware are intact. The left T10 pedicle screw slightly extend s through the superior endplate. This is unchanged. Evidence for kyphoplasty at the T9 level is noted . No acute thoracic spine fracture is identified. No suspicious osseous lesions are noted. There is m ild multilevel disc space narrowing and moderate osteophytosis of the thoracic spine. IMPRESSION: 1. Partially imaged thoracolumbar spine fusion. Left T10 pedicle screw slightly extends through the s uperior endplate. 2. Status post T9 vertebroplasty. 3. No acute thoracic spine fracture or subluxation. 4. Mild multilevel degenerative changes within the thoracic spine. ACT 112: Negative or not required by law. Electronically signed by: Jerry Francis M.D. 11/12/2019 9:44 AM
--- NOTE | 2019-11-12 09:55 | Hospitalist Progress Note ---
Date of Service November 12, 2019 Assessment & Plan (1) Back pain, thoracic: (2) Presence of IVC filter: (3) Diabetes type 2, uncontrolled: (4) Vitamin D deficiency: (5) Restless leg syndrome: (6) Osteoarthritis: (7) Degenerative disc disease: (8) Constipation, chronic: (9) Anxiety and depression: (10) History of pulmonary embolism: (11) GERD (gastroesophageal reflux disease): Admission and Anticipated Discharge Date Admission Date: November 11, 2019 Supervising Physician Co-Signing Physician Notes I personally examined the patient and verified all rivera points of history and exa m, discussed case, and agree with decision making with Dr Acuna. back pain intense the last 2-3 weeks - had had bad runs of pain in the past but either they were times that she needed a surgery and then things improved, or it was when she was doing things that she clearly could point to as exacerbaters. this time - nothing. pain intense, in back. does occassionally radiate around side to chest - but can be either or both - and seems to happen in brief jolts - will feel it then it will improve - positional or movement dependant. hears crunching and popping sounds in chest and back bety when she walks. vitals noted appearing in pain breathing unlabored. msk/ost - R>L Tspine paraspinals high tone/tender/decreased ROM - direct myofascial w some minor improvements in tissue texture - was quite tender and reproduced pain well - pt did tolerate OMT OK. pushing posteriorly on ribs did reproduce some of her back pain and was somewhat like the pain that radiates. back pain - acute seems heavily muscle spasm related. radiation around to chest was initially concerning for radiculopathy but seems more c/w rib pain from articulation in Tspine region after further hx and PE. acute - so hopefully can reign in - aggressive management -tylenol 650 TID -valium 5mg bid as muscle relaxant -diclofenac gel to paraspinals QID -oxycodone or IV dilauded prn breakthrough -OMT -PT/OT eval and treat -ortho spine input appreciated somatic dysfunction Tspine region -OMT as above Subjective Patient was seen at bedside this morning. Her back pain worsened without any inciting event and she is unsure why. She came to the hospital because her pain became intolerable. Her activity is very limited and this is greatly impacting her quality of life. Denies CP, SOB, bowel/bladder incontinence, urinary symptoms, GI symptoms, falls, trauma, nausea, or vomiting. Review of Systems Constitutional: no fever, no chills, no sweats and no body aches Respiratory: no cough, no chest congestion, no sputum production and no wheezing Cardiovascular: no chest pain, no palpitations, no edema and no calf pain Gastrointestinal: no nausea, no vomiting, no hematemesis and no cramping Physical Exam Constitutional: well developed and well nourished; no acute distress and not ill appearing Respiratory: normal respiratory effort, lungs clear to auscultation Cardiovascular: RRR, no murmur, no edema Musculoskeletal: Moderate tenderness of the thoracic spine and ribs Results & Data Results & Data ([facility]) Vital Signs (Past 12 Hours) Vital Signs Temp Pulse Resp BP BP Pulse Ox 11/12/19 09:10 36.6 C 84 20 109/74 96 11/12/19 00:17 36.5 C 70 18 161/93 H 96 11/11/19 23:33 61 18 150/88 H 98 (1) Back pain, thoracic Back pain laterality: bilateral Chronicity: acute Qualified Code(s): M54.6 - Pain in thoracic spine
--- NOTE | 2019-11-12 10:30 | Magnetic Resonance Report ---
MR thoracic spine wo/w con HISTORY: 59 years-old Female pain, distant hx surgery subacute severe mid back pain without reported trauma. COMPARISON: CT abdomen and pelvis 07/11/2019, CTA chest 05/07/2019. TECHNIQUE: Multiplanar multisequence MRI of the thoracic spine obtained both with and without the use of 11.0 mL Gadavist. FINDINGS: Study is mildly motion degraded. The cloth picker localizer images demonstrate cardiomegaly. Trace pleural e ffusions. Study is motion degraded. Extensive artifact from posterior interbody veronica and screw fusion which extends from T10-S1. Remote kyphoplasty changes at T9. No acute fracture, subluxation, bone mar row edema or marrow replacing process. There is mild to moderate multilevel neural foraminal narrowin g with associated spondylitic spurring. Multilevel posterior annular disc bulging with at least moder ate facet arthrosis. There is mild multilevel foraminal narrowing. At T3-T4 there is a probable disc protrusion versus disc osteophyte complex measuring 8 mm within the right lateral recess/right neural foraminal distribution which causes moderate right lateral recess and at least mild right foraminal narrowing with mild central canal stenosis. Mild central canal stenosis at T6-T7 secondary to posteri or annular disc bulge with spondylitic spurring. Evaluation of the lower thoracic spine is limited se condary to aforementioned artifact. There is a suggested postoperative fluid collection within the op erative bed of the lumbar spine measuring up to 3.1 cm transversely. No abnormal enhancement. IMPRESSION: 1. Limited exam as above. 2. Posterior interbody veronica and screw fusion at T10-S1 with kyphoplasty changes at T9. Probable seroma within the operative bed of the lumbar spine, partially imaged. 3. Multilevel discogenic degeneration and facet arthrosis. 4. Probable disc protrusion versus disc osteophyte complex within the right lateral recess/right neur al foramen at T3-T4 causes moderate right lateral recess and at least mild right foraminal narrowing. 5. Mild central canal stenosis at T3-T4 and T6-T7. 6. No abnormal enhancement. ACT 112: Negative or not required by law. The above report was generated using voice recognition software. It may contain grammatical, syntax o r spelling errors. Dictated: 11/12/2019 7:57 AM Transcribed: 11/12/2019 8:30 AM Amy [id number] Quyen Electronically signed by: Bi Beard M.D. 11/12/2019 10:29 AM
[2019-11-12] MEDS: ACETAMINOPHEN 325 MG TAB PO PRN (13:25)
--- NOTE | 2019-11-12 13:29 | Electrocardiogram Report ---
Test Reason : Blood Pressure : / mmHG Vent. Rate : 076 BPM Atrial Rate : 076 BPM P-R Int : 136 ms QRS Dur : 082 ms QT Int : 392 ms P-R-T Axes : 051 -26 036 degrees QTc Int : 441 ms Normal sinus rhythm Low voltage QRS Possible Anterolateral infarct (cited on or before 27-APR-2019) Abnormal ECG When compared with ECG of 11-JUL-2019 16:38, No significant change was found Confirmed by Gerry Mendoza ([id number]) on 11/12/2019 1:29:15 PM Referred By: REFERRED SELF Confirmed By:Gerry Mendoza
--- NOTE | 2019-11-12 14:05 | Orthopedic Consultation ---
Date of Consultation November 12, 2019 Assessment & Plan (1) Back pain, thoracic: At this time the patient presents with a clear thoracic radiculopathy. Her MRI does not demonstrate any neural foraminal disease. There is some adjacent level stenosis at the T9-T10 level. I would like to obtain a CAT scan lumbar spine for further anatomic detail. He may consider thoracic nerve root blocks as both a diagnostic and therapeutic alternative. Present on Admission?: Yes History of Present Illness Reason for Consultation: Thoracic back pain Attending Physician: Shaw Lee, History of Present Illness This is a 59-year-old female who presents with worsening thoracic back pain over the past 2 weeks. She denies any precipitating trauma fall or event. She states she is had these symptoms for several months but not as debilitating. She describes shocklike pain radiating from the lower thoracic spine around her rib cage. Typically activity exacerbated the symptoms. Recently has become incapacitating in nature. She has a history of multiple lumbar surgeries includ ing lumbar decompression and fusion stay collagen followed by surgery and [facility] and lastly surgery and [facility] which was instrumented fusion T10 to the sacrum. She later had a kyphoplasty at T9. She had been doing nicely after all these procedures. At this time she denies any lower extremity numbness tingling or weakness. She denies any radicular complaints. She denies any upper extremity issues. Allergies Allergy/AdvReac Type Severity Reaction Status Date / Time erythromycin base Allergy Severe "ALL PINK Verified 11/11/19 18:17 AND SWELLED UP" ketorolac Allergy Severe SOB,TACHYCA Verified 11/11/19 18:17 RDIA carbamazepine Allergy Intermediate Heart Verified 11/11/19 18:17 Arrhythmia acetaminophen [From Vicodin] AdvReac Intermediate Nausea Verified 11/11/19 18:17 adhesive AdvReac Intermediate SKIN TEARS Verified 11/11/19 18:17 butorphanol [From Stadol] AdvReac Intermediate Agitated Verified 11/11/19 18:17 hydrocodone [From Vicodin] AdvReac Intermediate Nausea Verified 11/11/19 18:17 Macrolide Antibiotics AdvReac Intermediate VOMITTING Verified 11/11/19 18:17 oxycodone [From Percocet] AdvReac Intermediate Nausea Verified 11/11/19 18:17 temazepam AdvReac Intermediate GI SYMPTOMS Verified 11/11/19 18:17 Home Medications Home Medications Medication Instructions Recorded Confirmed Type furosemide 20 mg tablet 20 mg PO DIRECTED PRN #30 tab 11/23/18 11/11/19 Rx diclofenac sodium 1 % topical gel See Rx Instructions TOPICAL 01/16/19 11/11/19 Rx .COMPLEX #100 gm nystatin 100,000 unit/gram topical 1 appln TOP TID PRN #30 gm 04/08/19 11/11/19 Rx powder levothyroxine 125 mcg tablet 125 mcg PO QAM #30 tab 04/29/19 11/11/19 Rx nystatin 100,000 unit/mL oral 2 ml BUCCAL QID PRN #60 ml 04/29/19 11/11/19 Rx suspension ondansetron 4 mg PO Q6H PRN #15 tab 07/11/19 11/11/19 Rx albuterol sulfate 2.5 mg INHALATION QID PRN #180 ml 07/17/19 11/11/19 Rx trazodone 150 mg tablet 300 mg PO HS #60 tab 08/06/19 11/11/19 Rx trazodone 50 mg tablet 50 mg PO HS #30 tab 08/06/19 11/11/19 Rx gabapentin 600 mg tablet 600 mg PO BID #180 tab 08/16/19 11/11/19 Rx losartan 100 mg tablet 50 mg PO QAM #90 tab 08/16/19 11/11/19 Rx calcium carbonate 500 mg (1,250 1 tab PO QAM #90 tab 08/20/19 11/11/19 Rx mg)-vitamin D3 200 unit tablet pantoprazole 40 mg tablet,delayed 40 mg PO BID #60 tab 09/11/19 11/11/19 Rx release rivaroxaban 20 mg tablet 20 mg PO QAM #30 tab 10/10/19 11/11/19 Rx spironolactone 25 mg tablet 25 mg PO QAM #90 tab 10/10/19 11/11/19 Rx albuterol sulfate 90 mcg/actuation 2 puff INHALATION Q4H PRN #18 gm 10/18/19 11/11/19 Rx aerosol inhaler lactulose 10 gm PO BID PRN 11/11/19 11/11/19 History sucralfate [Carafate] 10 ml PO TID PRN 11/11/19 11/11/19 History Patient History Medical History (Updated 11/11/19 @ 22:38 by Dusty Barton M.D.) Acute intra-cranial hemorrhage Ankylosing spondylitis Anxiety and depression (08/19/12) Asthma Bipolar disorder with depression Chronic radicular low back pain Constipation, chronic COPD (chronic obstructive pulmonary disease) Degenerative disc disease Diabetes type 2, uncontrolled (Chronic) Diverticular disease of colon Dyslipidemia (Chronic) GERD (gastroesophageal reflux disease) 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; underwent bilateral salpingo-oophorectomy History of anemia (Resolved) 04/2018 S/P BLOOD TRANSFUSION (POLYPS IN STOMACH) History of pulmonary embolism (~2016) Hx of deep venous thrombosis (~2014) X2 R LEG Hypertension Hypothyroidism Morbid obesity Osteoarthritis Restless leg syndrome Scoliosis Sleep apnea NO DEVICE Umbilical hernia Urinary incontinence Vitamin D deficiency Surgical History (Updated 08/21/19 @ 10:27 by LUCY Francois) H/O thyroidectomy History of 2 sections History of appendectomy History of cardiac catheterization SEVERAL YEARS AGO= NO STENTS History of cholecystectomy History of colonoscopy History of endoscopy History of hysterectomy (~1981) History of lumbar surgery WITH "SCREWS" History of salpingo-oophorectomy (~07/2018) History of thyroidectomy History of total left knee replacement History of total right knee replacement Presence of IVC filter (~07/2018) Social History Smoking Status: Current every day smoker Tobacco Type: Cigarettes Cigarettes Per Day: 6; Second Hand Exposure: Yes; Hx Alcohol Use: No Hx Substance Use: No Preferred Language: Croatian Communication Ability: Effective Visual Impairment: No Limitations 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: Normal Overweaver Required: No Beliefs That Will Affect Care: None marital status: Current Living Situation: Spouse and Parent Current Living Situation Comment: and mother Other Information That Helps Us Care for You: No Feels Safe at Home: Yes Safety Concerns: Feels Safe At This Time Childhood Exposure to Second-Hand Smoke: Yes Diet Comment: regular during the past year weight has: increased > 10 lbs Dental Care, Regularly: No Physical Activity Frequency: Does not Exercise Seatbelt Use: always Sunscreen Use: Yes Physical Exam Physical Exam: On exam she is neurologically intact upper and lower extremity testing. She is able to sit up at the side of the bed with with assistance. This is been very uncomfortable for her she says that these rotation and twisting reproduces symptoms radiating around her ribs from her lower thoracic spine. There is no abdominal skin markings to her back. Is well-healed incision. Results & Data ([facility]) Vital Signs (Past 12 Hours) Vital Signs Temp Pulse Resp BP Pulse Ox 11/12/19 09:10 36.6 C 84 20 109/74 96 (1) Back pain, thoracic Back pain laterality: bilateral Chronicity: acute Qualified Code(s): M54.6 - Pain in thoracic spine
[2019-11-12] MEDS: NICOTINE 14 MG/24 HR PATCH TD SCH (15:02)
--- NOTE | 2019-11-12 15:06 | CT Scan Report ---
THORACIC SPINE CT CT DOSE: 1058.10 mGy.cm HISTORY: Severe thoracic pain TECHNIQUE: Multiaxial CT images of the thoracic spine were performed and reformatted in the sagittal and coronal plane without the use of contrast. A dose lowering technique was utilized adhering to th e principles of ALARA. COMPARISON: Thoracic spine radiograph 11/12/2019. Thoracic spine MRI 11/11/2019. FINDINGS: There is again noted posterior fusion from T10 through the visualized lumbar spine with ped icle screws and rods. The hardware appears intact. The left T10 pedicle screws abuts and may extend t hrough the superior endplate. Mild anterior wedging at T10 is again noted. Vertebroplasty at T9. Trac e amount of cement seen within the anterior epidural space. This is of doubtful clinical significance . No acute fractures identified within the thoracic spine. Mild disc space narrowing throughout the t horacic spine with endplate osteophytes. No pneumothorax. Bibasilar densities favor atelectasis. Eval uation the central canal is suboptimal due to the CT technique. However, there is no significant cent ral canal narrowing within the upper to mid thoracic spine. The lower thoracic spine central canal is nondiagnostic due to the metallic artifact from the posterior fusion hardware. This is better apprec iated on the recent thoracic spine MRI. No significant paravertebral edema. Eybr-lb-mileghsc bilatera l neural foraminal narrowing at T2-T3 due to the facet hypertrophy. IMPRESSION: 1. No acute fractures identified within the thoracic spine. 2. Posterior interbody veronica and screw fusion from T10 through the imaged lumbar spine with kyphoplasty changes at T9. The hardware appears intact. The left T10 pedicle screw abuts and may extend to the s uperior endplate. No erosive changes identified. 3. Mild degenerative disc disease throughout the upper to mid thoracic spine. ACT 112: Negative or not required by law. Electronically signed by: Viktor Fink M.D. 11/12/2019 3:05 PM
--- NOTE | 2019-11-12 20:05 | Billing Data ---
Date of Service November 12, 2019 Coding Level of Care Code 46972 Subseq Obs Care Lvl 3
--- NOTE | 2019-11-12 20:05 | Hospitalist Progress Note ---
Date of Service November 12, 2019 Assessment & Plan Admission and Anticipated Discharge Date Admission Date: November 11, 2019 Results & Data Results & Data ([facility]) Vital Signs (Past 12 Hours) Vital Signs Temp Pulse Resp BP Pulse Ox 11/12/19 16:21 98.2 F 78 18 136/84 94 11/12/19 09:10 97.9 F 84 20 109/74 96 PG Care Time/CCT Total # of Minutes Spent Total Time Spent with Patient: Total time spent is greater than 50% in coordination of care (as documented) at patient's floor/unit and/or counseling patient: Coding Level of Care Code None CPT Codes Musculoskeletal - Musculoskeletal: 67588 Osteo Jah Tr 1-2 Body regions ([id number])
[2019-11-12] MEDS: diazePAM 5 MG TABLET PO SCH (21:18)
[2019-11-12] MEDS: TRAZODONE HCL 50 MG TAB PO SCH (21:18)
[2019-11-12] MEDS: ACETAMINOPHEN 325 MG TAB PO SCH (21:18)
[2019-11-12] MEDS: TRAZODONE HCL 100 MG TAB PO SCH (21:20)
[2019-11-12] MEDS: DICLOFENAC SOD 1% GEL 100 GM TUBE EXT SCH (22:03)
[2019-11-13] MEDS: DEXAMETHASONE SOD PHOSPHATE 6 MG in SYRINGE 0 ML IV SCH ×4 (02:35→20:32)
[2019-11-13] MEDS: HYDROmorphone INJ 0.5 MG/0.5 ML SYR IV PRN ×4 (02:37→15:59)
[2019-11-13] MEDS: LEVOTHYROXINE SODIUM 125 MCG TABLET PO SCH (05:58)
[2019-11-13 08:29] LABS: BUN Creatinine Ratio 17.1 (10-20); Calcium 8.9 mg/dl (8.5-10.1); Creatinine Clr Calc Pharmacy 75.8 ml/min; Est GFR (African American) 75.6; Est GFR (Non-African American) 65.2; Potassium 4.5 mmol/L (3.5-5.1)
[2019-11-13] MEDS: NICOTINE 14 MG/24 HR PATCH TD SCH (09:34)
[2019-11-13] MEDS: RIVAROXABAN 20 MG TAB PO SCH (09:48)
[2019-11-13] MEDS: GABAPENTIN 600 MG TAB PO SCH ×2 (09:48→20:30)
[2019-11-13] MEDS: PANTOprazole 40 MG TAB PO SCH ×2 (09:48→20:31)
[2019-11-13] MEDS: CALCIUM 600MG + VIT D 400 IU TAB PO SCH (09:49)
[2019-11-13] MEDS: LOSARTAN POTASSIUM 50 MG TAB PO SCH (09:49)
[2019-11-13] MEDS: SPIRONOLACTONE 25 MG TAB PO SCH (09:49)
[2019-11-13] MEDS: ACETAMINOPHEN 325 MG TAB PO SCH ×3 (09:50→20:31)
[2019-11-13] MEDS: DICLOFENAC SOD 1% GEL 100 GM TUBE EXT SCH ×4 (09:50→20:32)
[2019-11-13] MEDS: diazePAM 5 MG TABLET PO SCH ×3 (10:07→20:33)
--- NOTE | 2019-11-13 11:25 | Discharge Summary ---
Date of Service November 13, 2019 Admission HPI Per Admitting Provider The patient is a 59-year-old female with a past 3 including diabetes mellitus type 2, presence of IVC filter, vitamin D deficiency, restless leg syndrome, degenerative disc disease, anxiety with depression, GERD, history of PE, hypothyroidism, asthma, insomnia, left ovarian granulosa cell tumor, colonic diverticulosis, sleep apnea, hypertension, ankylosing spondylitis, dyslipidemia, chronic radicular low back pain, scoliosis, bipolar disorder depression, COPD and urinary incontinence. Patient has a history of multiple lumbar surgeries x4, and has had the slowly worsening of her chronic low back pain to the point that she cannot tolerate it at this time. Admission Exam Per Admitting Provider The patient is awake, alert and oriented 3, well developed and well nourished, normocephalic and atraumatic, lying in bed and in no acute distress. HEENT--PERRL, EOMI, mucous membranes and oropharynx normal. Neck--supple. No JVD. No bruits. Thyroid normal, trachea midline, no adenopathy. Heart--normal S1 and S2. No murmurs, rubs or gallops. Lungs--clear bilaterally, no respiratory distress, no accessory muscle use. Abdomen--normal bowel sounds and soft. Nontender. Nondistended. Extremities--no cyanosis or clubbing. No edema. Dermatologic--normal skin turgor, normal color, no abnormal lymph nodes, no rash. Neurologic--cranial nerves II through XII grossly intact. Rheumatologic--normal range of motion. Psychiatric--normal affect. Discharge Exam General: A&Ox3. NAD. Cooperative. HEENT: Atraumatic, normocephalic. PERLAA. Pulm: CTAB A&P. -wheezes, -rales, -rhonchi. Symmetrical chest rise. No increase work of breathing. No respiratory distress. Cardiac: RRR, -mrg. Radial pulses intact and symmetrical. Abdominal: Nontender, nondistended, soft. BS present. MSK: Industrial Training Specialist strength and ankle plantarflexion/dorsiflexion 5/5 and soft touch intact in fingers and toes without asymmetry. Elbow flexion 5/5 bilaterally, shoulder internal rotation reproduces pain at thoracic back bilaterally. Increased thoracic paraspinal tone bilaterally, thoracic paraspinals mildly TTP without radicular findings. Discharge Data Allergies Allergy/AdvReac Type Severity Reaction Status Date / Time erythromycin base Allergy Severe "ALL PINK Verified 11/11/19 18:17 AND SWELLED UP" ketorolac Allergy Severe SOB,TACHYCA Verified 11/11/19 18:17 RDIA carbamazepine Allergy Intermediate Heart Verified 11/11/19 18:17 Arrhythmia acetaminophen [From Vicodin] AdvReac Intermediate Nausea Verified 11/11/19 18:17 adhesive AdvReac Intermediate SKIN TEARS Verified 11/11/19 18:17 butorphanol [From Stadol] AdvReac Intermediate Agitated Verified 11/11/19 18:17 hydrocodone [From Vicodin] AdvReac Intermediate Nausea Verified 11/11/19 18:17 Macrolide Antibiotics AdvReac Intermediate VOMITTING Verified 11/11/19 18:17 oxycodone [From Percocet] AdvReac Intermediate Nausea Verified 11/11/19 18:17 temazepam AdvReac Intermediate GI SYMPTOMS Verified 11/11/19 18:17 Consultations 11/11/19 22:33 ED Decision to Admit Stat 11/12/19 00:15 Consult Case Management - Discharge Planning Routine Consult Orthopedic Surgery Routine Ordered Studies 11/11/19 17:09 MR thoracic spine wo/w con Stat 11/12/19 14:45 CT thoracic spine wo con Routine Hospital Course (1) Back pain, thoracic: Oralia Oneil is a 59yo F with a pMHx of chronic back pain s/p 4x lumbar back surgical intervention with hardware, anklyosing spondylitis, asthma, insomnia, HLD, scoliosis, bipolar disorder, COPD, T2DM, hx of PE with IVC filter, and afib who presented with intractable back pain. To do as outpatient: 1. Follow-up with PCP and orthopedics 2. Schedule and follow-up OMT sessions Back Pain 2/2 thoracic degenerative disease with superimposed biomechanical dysfunction Oralia present with chronic back pain gradually worsening over many weeks/months to a point that had finally become intractable and unbearable causing her to present to the emergency department. She was admitted and placed on decadron, tylenol, and as needed hydromorphone with diphenhydramine premedication. MRI showed posterior interbody veronica and screw fusion at T10-S1 with kyphoplasty changes at T9, Probable seroma within the operative bed of the lumbar spine, partially imaged, Multilevel discogenic degeneration and facet arthrosis, Probable disc protrusion versus disc osteophyte complex within the right lateral recess/right neural foramen at T3-T4 causes moderate right lateral recess and at least mild right foraminal narrowing, and Mild central canal stenosis at T3-T4 and T6-T7. Thoracic spine CT showed no acute fractures identified within the thoracic spine, Posterior interbody veronica and screw fusion from T10 through the imaged lumbar spine with kyphoplasty changes at T9, intact hardware, T10 pedicle screw abuts and may extend to the superior endplate, No erosive changes identified, and mild degenerative disc disease throughout the upper to mid thoracic spine. Clinically her pain was intense injolts, occassiona lly radiated around side to chest, and was positional/movement dependent. Ortho was consulted and considered a nerve block, but based on above with minimal foraminal changes was deferred. Based on a physical exam with prominent paraspinal increased tone and biomechanical dysfunction patient was treatment with valium overnight and two courses of OMT which improved her pain. Per patient she had "20% improvement" in her pain the next day. She was discharged to followup with her PCP and Dr. Archer for additional OMT therapy. History of PE Oralia has a history of DVT with a past PE. She has a prior IVC placed with subsequent thrombosis for which she is on rivaroxaban 20 mg daily. She is continued on her prior to admission rivaroxaban did not show any signs of DVT or PE during admission. Type 2 diabetes mellitus Oralia has a history of impaired fasting glucose/diabetes no longer on anti- glycemic therapy. She had adequate glycemic control in the 80s on admission, and continued to have good glycemic control with one episode of hypoglycemia following dexamethasone. She was discharged to follow-up with her PCP for routine diabetic management and repeat A1c. She was continued on her CORAL inhibitor during admission. Gerd Oralia was continued on Protonix 40 mg during admission and did not show any signs of a acute GERD exacerbation Anxiety/Depression/Biplar Oralia has a history of anxiety/depression/report of bipolar treated only with trazodone nightly. She did not show any signs of chica during admission, did not have any auditory or visual hallucinations, and had a normal affect and appropriate speech during admission. She is continued on trazodone during admission and did not have any psychotropic medication changes. HTN Oralia has a history of hypertension, she was continued on her prior to admission spironolactone and losartan with adequate blood pressure control. COPD Oralia has a history of COPD, she was continued on albuterol every 4 hours as needed but did not experience any symptom exacerbation or wheezing during admission. She was discharged to continue her prior to admission albuterol as needed. She is not on any laba/lama/ICS, she was discharged to follow-up with her PCP for review of spirometry and evaluation for inhalers based on her symptoms and clinical presentation. Hypothyroid Oralia was admitted and continued on her prior to admission dose of levothyroxine and was clinically euthyroid throughout admission. (2) Presence of IVC filter: (3) Diabetes type 2, uncontrolled: (4) Vitamin D deficiency: (5) Restless leg syndrome: (6) Osteoarthritis: (7) Degenerative disc disease: (8) Constipation, chronic: (9) Anxiety and depression: (10) History of pulmonary embolism: (11) GERD (gastroesophageal reflux disease): Discharge Plan Discharge Items Patient Disposition: Home - Self-Care Reason For Visit: INTRACTABLE BACK PAIN Discharge Diagnosis: Muskuloskeletal Back pain Activity: Resume your previous activity Non-emergency contact: Primary Care Provider and Hospitalist Call non-emergency contact if: you have any medication questions, your symptoms worsen, your pain is not controlled, your pain is worsening, your pain is unusual for you and your pain is concerning for you Follow-up/Referrals: Raleigh Chi CRNP [Primary Care Provider] - Diet: Regular Addtl Attending Provider Instructions: You are admitted to the hospital for severe back pain. Imaging of your back showed chronic changes, but no acute spinal fracture or sudden changes. Chronic degenerative changes and postsurgical changes were appreciated. Orthopedic surgery was consulted, and did not feel that there was nerve root impingement that would benefit from an injection or nerve block. Your pain was multifactorial, but a substantial amount of mechanical dysfunction and muscle tension/spasm was appreciated. You improved with OMT therapy and Valium. You have been discharged on medications as below, and with follow-up appointments for further OMT therapy. You have been prescribed a new medication, You are being referred for follow-up appointment for OMT therapy to help improve your back pain. A referral has been placed for you to follow-up with Dr. Julian Archer. You should receive confirmation of this appointment within 48 hours. If you do not receive confirmation of this appointment, or need to change your appointment, please call his office at You are being scheduled for a follow-up appointment with your primary care physician. You should be seen for a follow-up appointment in 1 to 2 weeks. You should receive a call to confirm your appointment, if you do not receive a call within 48 hours to confirm your appointment please call your primary care provider's office at If you develop any new or worsening symptoms including fever, chills, sweats, chest pain, chest pressure, difficulty breathing, uncontrolled nausea/vomiting, rash, wheezing, passing out or nearly passing out, bleeding, black/bloody bowel movements, or other new or concerning symptoms please call your primary care physician at [], or call 911 for re-evaluation in the emergency department if you are very concerned. Pending Studies at Discharge: No Stand-Alone Forms: My Vocab, Smoking Cessation Medications and DC Order Prescriptions: No Action levothyroxine 125 mcg tablet 125 mcg PO QAM Qty: 30 RF: 5 albuterol sulfate 2.5 mg /3 mL (0.083 %) solution for nebulization 2.5 mg Inhalation QID PRN (Reason: Shortness Of Breath Or Wheezing) Qty: 180 RF: 3 trazodone 150 mg tablet 300 mg PO HS Qty: 60 RF: 5 trazodone 50 mg tablet 50 mg PO HS Qty: 30 RF: 5 gabapentin 600 mg tablet 600 mg PO BID Qty: 180 RF: 1 losartan 100 mg tablet 50 mg PO QAM Qty: 90 RF: 1 calcium carbonate-vitamin D3 500 mg(1,250mg) -200 unit tablet 1 tab PO QAM Qty: 90 RF: 3 pantoprazole 40 mg tablet,delayed release (DR/EC) 40 mg PO BID Qty: 60 RF: 2 Xarelto 20 mg tablet 20 mg PO QAM Qty: 30 RF: 3 spironolactone 25 mg tablet 25 mg PO QAM Qty: 90 RF: 1 albuterol sulfate 90 mcg/actuation HFA aerosol inhaler 2 puff Inhalation Q4H PRN (Reason: Shortness Of Breath Or Wheezing) Qty: 18 RF: 3 diclofenac sodium 1 % gel See Patient Comments topical .COMPLEX Qty: 100 RF: 3 nystatin 100,000 unit/gram powder 1 appln TOP TID PRN (Reason: skin irritation) Qty: 30 RF: 1 furosemide 20 mg tablet 20 mg PO DIRECTED PRN (Reason: Edema) Qty: 30 RF: 0 nystatin 100,000 unit/mL suspension 2 ml BUCCAL QID PRN (Reason: mouth irritation) Qty: 60 RF: 3 ondansetron 4 mg tablet,disintegrating 4 mg PO Q6H PRN (Reason: nausea and vomiting) Qty: 15 RF: 0 sucralfate [Carafate] 100 mg/mL suspension 10 ml PO TID PRN (Reason: NEEDED) RF: 0 lactulose 10 gram/15 mL solution 10 gm PO BID PRN (Reason: NEEDED) RF: 0 Admission Data Admit Date/Time: 11/11/19 23:22 Attending Provider: Shaw Lee Admit Provider: Ander Wilde Primary Care Provider: Raleigh Chi Other Providers: Ander Wilde ; Jesse Crespo
[2019-11-13] MEDS ORDERED: diazePAM 5 MG TABLET PO SCH (13:15)
--- NOTE | 2019-11-13 13:34 | Hospitalist Progress Note ---
Date of Service November 13, 2019 Assessment & Plan (1) Back pain, thoracic: Oralia Oneil is a 59yo F with a pMHx of chronic back pain s/p 4x lumbar back surgical intervention with hardware, anklyosing spondylitis, asthma, insomnia, HLD, scoliosis, bipolar disorder, COPD, T2DM, hx of PE with IVC filter, and afib who presented with intractable back pain. Chronic low back pain, history of radicular symptoms with superimposed biomechanical dysfunction Patient with history of chronic radicular thoracic back pain and lumbar ankylosing spondylitis On exam patient has substantial paraspinal muscle increased tone with pain on shoulder internal rotation and thoracic rotation. Spasm appreciated. MRI showed posterior interbody veronica and screw fusion at T10-S1 with kyphoplasty changes at T9, Probable seroma within the operative bed of the lumbar spine, partially imaged, Multilevel discogenic degeneration and facet arthrosis, Probable disc protrusion versus disc osteophyte complex within the right lateral recess/right neural foramen at T3-T4 causes moderate right lateral recess and at least mild right foraminal narrowing, and Mild central canal stenosis at T3-T4 and T6-T7. Thoracic spine CT showed no acute fractures identified within the thoracic spine, Posterior interbody veronica and screw fusion from T10 through the imaged lumbar spine with kyphoplasty changes at T9, intact hardware, T10 pedicle screw abuts and may extend to the superior endplate, No erosive changes identified, a nd mild degenerative disc disease throughout the upper to mid thoracic spine. Patient at high risk for radicular pain, however based on physical exam and suspect that she has a large component of spasm/biomechanical dysfunction. Improved with OMT Continues to have spasm today. Continue OMT, Valium 5 mg p.o. twice daily and observe overnight Continue Tylenol p.o. 3 times daily [place], Voltaren 4 times daily, oxycodone as needed for breakthrough Ortho consulted, patient being evaluated for potential spinal root block. appreciate recommendations Hypertension Continue losartan 50 mg daily, spironolactone 25 mg daily COPD Stable, no acute exacerbations Continue albuterol every 4 hours as needed as needed. No wheezing on exam GERD Continue Protonix 40 mg daily History of pulmonary embolism with IVC filter and anticoagulation Continue Xarelto 20 mg daily No signs of acute DVT or PE Hypothyroidism Patient clinically euthyroid Continue Synthroid 125 mcg p.o. 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 No signs of chica. History of impaired fasting glucose, type 2 diabetes mellitus not on anti- glycemic's Glucose initially well controlled on admit in the 80s, increased to the 200s w ith steroids A1c pending SSI insulin Glucose checks AC/at bedtimeBMP daily DVT prophylaxis: Rivaroxaban as above Diet: Consistent carb Disposition: MedSurg, continue to follow for pain control (2) Diabetes type 2, uncontrolled: (3) Presence of IVC filter: (4) Vitamin D deficiency: (5) Restless leg syndrome: (6) Osteoarthritis: (7) Degenerative disc disease: Admission and Anticipated Discharge Date Admission Date: November 11, 2019 Supervising Physician Co-Signing Physician Notes I personally examined the patient and verified all rivera points of history and exam, discussed case, and agree with decision making with Dr Medina. was doing better earlier but then somehow moved a little and then spasms really started back up again. notes that valium does help - doesn't make her too groggy. ongoing pain in thoracic region. vitals noted appearing in pain breathing unlabored. msk/ost - R>L Tspine paraspinals high tone/tender/decreased ROM - LAS and direct myofascial - improved tissue texture fairly well - reproduced pain but pt tolerated well. back pain - acute seems heavily muscle spasm related. radiation around to chest was initially concerning for radiculopathy but seems more c/w rib pain from articulation in Tspine region after further hx and PE. acute - so hopefully can reign in - aggressive management; that said, ortho harbors concerns on radiculopathy and certainly pain management eval quite reasonable -tylenol 650 TID -valium 5mg increase to QID as muscle relaxant -continue diclofenac gel to paraspinals QID -continue oxycodone or IV dilauded prn breakthrough -OMT again - anticipate need for ongoing OMT as outpt -PT/OT eval and treat -ortho spine input appreciated - await pain consult somatic dysfunction Tspine region -OMT as above done today Subjective Seen at bedside this morning. She reports she got a little bit of sleep last night, and overall feels well but still occasionally has muscle spasms and pain. Bewd-fy-lalw motion (shoulder flexion with internal rotation) strongly exacerbates her back pain in her paraspinal muscles, but does not produce radicular pain wrapping around the sides. No fevers, chills, sweats. Continues to have intermittent shooting pain in her upper back which occasionally travels down to her low back, but which is currently not traveling into her thigh or buttock. Denies numbness/tingling. Denies focal weakness, although notes that her movement is pain limited and positional. No shortness of breath or difficulty breathing. No wheezing. No cough. Peeing normally, no dysuria. Denies other symptoms. Review of Systems Review of Systems: All systems reviewed & are unremarkable except as noted in HPI & below Physical Exam Physical Exam: General: A&Ox3. NAD. Cooperative. HEENT: Atraumatic, normocephalic. PERLAA. Pulm: CTAB A&P. -wheezes, -rales, -rhonchi. Symmetrical chest rise. No increase work of breathing. No respiratory distress. Cardiac: RRR, -mrg. Radial pulses intact and symmetrical. Abdominal: Nontender, nondistended, soft. BS present. 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 Elbow flexion 5/5 bilaterally, shoulder internal rotation reproduces pain at thoracic back bilaterally. Shoulder and upper thorax movement limited by pain. Increased thoracic paraspinal tone bilaterally, thoracic paraspinals mildly TTP without radiating/electric pain at radicular root palpation. Results & Data Results & Data ([facility]) Vital Signs (Past 12 Hours) Vital Signs Temp Pulse Resp BP Pulse Ox 11/13/19 07:10 36.6 C 79 18 115/72 97 Resident Activity Tracking Resident Involvement: Resident Care Provided Care Provided: Adult Hospital Medicine (1) Back pain, thoracic Back pain laterality: bilateral Chronicity: acute Qualified Code(s): M54.6 - Pain in thoracic spine
--- NOTE | 2019-11-13 17:17 | Orthopedic Progress Note ---
Date of Service November 13, 2019 Assessment & Plan (1) Back pain, thoracic: At this time we had the opportunity review her CAT scan MRI and x-ray images. I strongly suspect she has a thoracic radiculopathy however imaging is not entirely supportive. Does not demonstrate any evidence of severe neural compression consistent with her presentation. Would ask her to consider a diagnostic therapeutic thoracic nerve root block. Hopefully this provide both relief and assist us in her diagnosis. She may also want to follow-up with Dr. Ravi in [place] who performed her recent procedure. I will consult pain management. Present on Admission?: Yes Admission and Anticipated Discharge Date Admission Date: November 11, 2019 Subjective Patient is continues to complain of significant lower thoracic radiculopathy. Is still quite debilitating in nature. Any activity seems to exacerbate her pain. Physical Exam Physical Exam: Exam she is neurologically intact she is able to sit up for me. She is in obvious distress. Results & Data ([facility]) Vital Signs (Past 12 Hours) Vital Signs Temp Pulse Resp BP Pulse Ox 11/13/19 07:10 36.6 C 79 18 115/72 97 (1) Back pain, thoracic Back pain laterality: bilateral Chronicity: acute Qualified Code(s): M54.6 - Pain in thoracic spine
[2019-11-13] MEDS: ONDANSETRON INJ 2 MG/ML 2 ML VIAL IV PRN (18:02)
--- NOTE | 2019-11-13 20:08 | Hospitalist Progress Note ---
Date of Service November 13, 2019 Assessment & Plan Admission and Anticipated Discharge Date Admission Date: November 11, 2019 Results & Data Results & Data ([facility]) Vital Signs (Past 12 Hours) Vital Signs Temp Pulse Resp BP Pulse Ox 11/13/19 15:00 98.2 F 75 18 114/71 97 PG Care Time/CCT Total # of Minutes Spent Total Time Spent with Patient: Total time spent is greater than 50% in coordination of care (as documented) at patient's floor/unit and/or counseling patient: Coding Level of Care Code None CPT Codes Musculoskeletal - Musculoskeletal: 70550 Oste[address] Jah Tr 1-2 Body regions ([id number])
--- NOTE | 2019-11-13 20:08 | Billing Data ---
Date of Service November 13, 2019 Coding Level of Care Code 38186 Subseq Hosp Care Lvl 3
[2019-11-13] MEDS: TRAZODONE HCL 100 MG TAB PO SCH (20:30)
[2019-11-13] MEDS: TRAZODONE HCL 50 MG TAB PO SCH (20:30)
[2019-11-13] MEDS: OXYCODONE HCL IR 5 MG TAB (IMMEDIATE RELEASE) PO PRN (20:40)
[2019-11-14] MEDS: HYDROmorphone INJ 0.5 MG/0.5 ML SYR IV PRN ×7 (00:19→23:32)
[2019-11-14] MEDS: DEXAMETHASONE SOD PHOSPHATE 6 MG in SYRINGE 0 ML IV SCH (03:11)
[2019-11-14] MEDS: ONDANSETRON INJ 2 MG/ML 2 ML VIAL IV PRN ×2 (03:18→21:25)
[2019-11-14] MEDS: LEVOTHYROXINE SODIUM 125 MCG TABLET PO SCH (06:14)
[2019-11-14] MEDS ORDERED: KETOROLAC 30 MG/ML VIAL ONE (08:37)
[2019-11-14] MEDS ORDERED: TRIAMCINOLONE ACET 40 MG/ML VIAL ONE (08:37)
[2019-11-14] MEDS: SPIRONOLACTONE 25 MG TAB PO SCH (08:57)
[2019-11-14] MEDS: GABAPENTIN 600 MG TAB PO SCH ×3 (08:57→20:38)
[2019-11-14] MEDS: PANTOprazole 40 MG TAB PO SCH ×2 (08:58→20:39)
[2019-11-14] MEDS: LOSARTAN POTASSIUM 50 MG TAB PO SCH (08:58)
[2019-11-14] MEDS: ACETAMINOPHEN 325 MG TAB PO SCH ×3 (08:58→20:39)
[2019-11-14] MEDS: RIVAROXABAN 20 MG TAB PO SCH (08:59)
[2019-11-14] MEDS: NICOTINE 14 MG/24 HR PATCH TD SCH (08:59)
[2019-11-14] MEDS: CALCIUM 600MG + VIT D 400 IU TAB PO SCH (08:59)
[2019-11-14] MEDS: DICLOFENAC SOD 1% GEL 100 GM TUBE EXT SCH ×4 (09:00→20:59)
[2019-11-14] MEDS: diazePAM 5 MG TABLET PO SCH ×4 (09:03→20:43)
--- NOTE | 2019-11-14 09:14 | Hospitalist Progress Note ---
Date of Service November 14, 2019 Assessment & Plan (1) Back pain, thoracic: Oralia Oneil is a 59yo F with a pMHx of chronic back pain s/p 4x lumbar back surgical intervention with hardware, anklyosing spondylitis, asthma, insomnia, HLD, scoliosis, bipolar disorder, COPD, T2DM, hx of PE with IVC filter, and afib who presented with intractable back pain. Thoracic back pain: improved with OMT and valium; roxinol worsened pain -c/w daily OMT -c/w valium 5mg PO QID -c/w tylenol PO tid -c/w voltaren gel QID -ortho consult to evaluate for potential spinal root block Hypertension -c/w losartan 50 mg daily -c/w spironolactone 25 mg daily COPD: stable, no acute exacerbations -c/w albuterol q4h prn GERD -c/w protonix 40 mg qd History of PE with IVC filter and anticoagulation -c/w xarelto 20mg qd Hypothyroidism -c/w synthroid 25mcg po qd Anxiety/depression with history of bipolar -c/w trazodone 300mg qhs DVT prophylaxis: xarelto as above Diet: consistent carb Disposition: inpatient, continue to follow for pain control (2) Diabetes type 2, uncontrolled: (3) Presence of IVC filter: (4) Vitamin D deficiency: (5) Restless leg syndrome: (6) Osteoarthritis: (7) Degenerative disc disease: Admission and Anticipated Discharge Date Admission Date: November 13, 2019 Subjective Patient reports her pain is the same as yesterday, and says the roxinal yesterday made her pain much worse. Report she "cried herself to sleep". Reassured patient we will do what we can to help alleviate the pain. Patient denies any new symptoms. Patient believes the valium helps her pain "a bit". Review of Systems Constitutional: no fever, no chills, no sweats and no fatigue Respiratory: no cough, no dyspnea, no pain on inspiration and no wheezing Cardiovascular: no chest pain, no palpitations, no lightheadedness and no syncope Gastrointestinal: no abdominal pain, no nausea, no vomiting and no dysphagia Physical Exam Constitutional: well developed and well nourished; no acute distress and not ill appearing Respiratory: normal respiratory effort, lungs clear to auscultation Cardiovascular: RRR, no murmur, no edema Results & Data Results & Data ([facility]) Vital Signs (Past 12 Hours) Vital Signs Temp Pulse Resp BP Pulse Ox 11/14/19 07:42 36.5 C 73 16 143/78 H 97 11/13/19 23:58 36.6 C 83 16 126/73 97 (1) Back pain, thoracic Back pain laterality: bilateral Chronicity: acute Qualified Code(s): M54.6 - Pain in thoracic spine
--- NOTE | 2019-11-14 10:39 | Pain Management Consultation ---
Date of Consultation November 14, 2019 Assessment & Plan (1) Back pain, thoracic: * Continue Diclofenac gel * Continue Gabapentin 600mg TID * Consider switching diazepam 5mg QID to a different muscle relaxer such as Baclofen 10mg QID * Will leave Dilaudid and Oxycodone as is for now. She is aware she needs to limit the use for potential discharge. * I have offered the patient trigger point injections at today's visit. Risks and benefits were reviewed and she would like to proceed. For details, see procedure note below. I do typically use a combination of Toradol, Kenalog, and Ropivacaine. She does have a listed allergy of Toradol and reported racing heart rate and anxiety from an intravenous injection. She would like to try the trigger point injection with Toradol for possible increased efficacy as it is intramuscular rather than intravenous. Patient is aware of risks. TRIGGER POINT INJECTION Diagnosis: Myofascial Pain Injection Site: Bilateral paravertebral muscles - 2 sites each side Performed By: Adri Wilkins PA-C Prior to starting, the diagnosis and the procedure was reviewed with the patient in detail. Possible risks and complications including infection, bleeding, damage to surrounding structures and increased pain were discussed. Alternative therapies were also reviewed. All questions were answered and they agreed to proceed. Informed consent was obtained. Allergies and medication list was reviewed. The patient was placed in sitting position. Immediately prior to starting the procedure, a time out was conducted with the staff and the patient where the patient was identified, proposed procedure was verified, consent was reviewed and the proper site for the planned procedure was identified. Patient was not given any intravenous sedation and constant verbal contact was maintained throughout the procedure. On examination, no signs of skin breakdown or infection were noted at the injection site. The site was cleansed with CloraPrep followed by alcohol. Sterile technique was used throughout the procedure. After identifying skeletal landmarks, 3 cc was injected into each site with a solution containing 8 cc of 0.5% Ropivacaine MPF, 30 mg Toradol, and 40 mg Kenalog. Aspiration was negative. Hemostasis noted. Back pain laterality: bilateral Chronicity: acute Qualified Code(s): M54.6 - Pain in thoracic spine History of Present Illness Attending Physician: Shaw Lee DO History of Present Illness Mrs. Oneil is a 59 year old female that has been seen in the [facility] for thoracic back pain that has been ongoing for two weeks without any known injury. Patient does have a significant history of #4 back surgeries which includes a T10-S1 fusion and a T9 kyphoplasty. She describes and aching and spasming sensation along the mid thoracic region. When the pain is severe she will experience the pain radiating around to her chest bilaterally. She has been taking Tylenol at home without improvement. There is increased pain with positional changes. Reporting limitations into her daily activities. There is difficulty sleeping due to pain. Patient does report nausea from Dilaudid. Oxycodone was given once yesterday and the patient states that it provided mild pain relief for only a short amount of time. She find Diazepam sligtly helpful. Gabapentin it at 600mg TID. Pain Assessment Full Body Front + Back: 1. Allergies Allergy/AdvReac Type Severity Reaction Status Date / Time erythromycin base Allergy Severe "ALL PINK Verified 11/11/19 18:17 AND SWELLED UP" ketorolac Allergy Severe SOB,TACHYCA Verified 11/11/19 18:17 RDIA carbamazepine Allergy Intermediate Heart Verified 11/11/19 18:17 Arrhythmia acetaminophen [From Vicodin] AdvReac Intermediate Nausea Verified 11/11/19 18:17 adhesive AdvReac Intermediate SKIN TEARS Verified 11/11/19 18:17 butorphanol [From Stadol] AdvReac Intermediate Agitated Verified 11/11/19 18:17 hydrocodone [From Vicodin] AdvReac Intermediate Nausea Verified 11/11/19 18:17 Macrolide Antibiotics AdvReac Intermediate VOMITTING Verified 11/11/19 18:17 oxycodone [From Percocet] AdvReac Intermediate Nausea Verified 11/11/19 18:17 temazepam AdvReac Intermediate GI SYMPTOMS Verified 11/11/19 18:17 Home Medications Home Medications Medication Instructions Recorded Confirmed Type furosemide 20 mg tablet 20 mg PO DIRECTED PRN #30 tab 11/23/18 11/11/19 Rx diclofenac sodium 1 % topical gel See Rx Instructions TOPICAL 01/16/19 11/11/19 Rx .COMPLEX #100 gm nystatin 100,000 unit/gram topical 1 appln TOP TID PRN #30 gm 04/08/19 11/11/19 Rx powder levothyroxine 125 mcg tablet 125 mcg PO QAM #30 tab 04/29/19 11/11/19 Rx nystatin 100,000 unit/mL oral 2 ml BUCCAL QID PRN #60 ml 04/29/19 11/11/19 Rx suspension ondansetron 4 mg PO Q6H PRN #15 tab 07/11/19 11/11/19 Rx albuterol sulfate 2.5 mg INHALATION QID PRN #180 ml 07/17/19 11/11/19 Rx trazodone 150 mg tablet 300 mg PO HS #60 tab 08/06/19 11/11/19 Rx trazodone 50 mg tablet 50 mg PO HS #30 tab 08/06/19 11/11/19 Rx gabapentin 600 mg tablet 600 mg PO BID #180 tab 08/16/19 11/11/19 Rx losartan 100 mg tablet 50 mg PO QAM #90 tab 08/16/19 11/11/19 Rx calcium carbonate 500 mg (1,250 1 tab PO QAM #90 tab 08/20/19 11/11/19 Rx mg)-vitamin D3 200 unit tablet pantoprazole 40 mg tablet,delayed 40 mg PO BID #60 tab 09/11/19 11/11/19 Rx release rivaroxaban 20 mg tablet 20 mg PO QAM #30 tab 10/10/19 11/11/19 Rx spironolactone 25 mg tablet 25 mg PO QAM #90 tab 10/10/19 11/11/19 Rx albuterol sulfate 90 mcg/actuation 2 puff INHALATION Q4H PRN #18 gm 10/18/19 11/11/19 Rx aerosol inhaler lactulose 10 gm PO BID PRN 11/11/19 11/11/19 History sucralfate [Carafate] 10 ml PO TID PRN 11/11/19 11/11/19 History Patient History Medical History Acute intra-cranial hemorrhage Ankylosing spondylitis Anxiety and depression (08/19/12) Asthma Bipolar disorder with depression Chronic radicular low back pain Constipation, chronic COPD (chronic obstructive pulmonary disease) Degenerative disc disease Diabetes type 2, uncontrolled (Chronic) Diverticular disease of colon Dyslipidemia (Chronic) GERD (gastroesophageal reflux disease) 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; underwent bilateral salpingo-oophorectomy History of anemia (Resolved) 04/2018 S/P BLOOD TRANSFUSION (POLYPS IN STOMACH) History of pulmonary embolism (~2017) Hx of deep venous thrombosis (~2014) X2 R LEG Hypertension Hypothyroidism Morbid obesity Osteoarthritis Restless leg syndrome Scoliosis Sleep apnea NO DEVICE Umbilical hernia Urinary incontinence Vitamin D deficiency Surgical History H/O thyroidectomy History of 2 sections History of appendectomy History of cardiac catheterization SEVERAL YEARS AGO= NO STENTS History of cholecystectomy History of colonoscopy History of endoscopy History of hysterectomy (~1981) History of lumbar surgery WITH "SCREWS" History of salpingo-oophorectomy (~07/2018) History of thyroidectomy History of total left knee replacement History of total right knee replacement Presence of IVC filter (~07/2018) Family History Father Heart disease Diabetes Hypertension Myocardial infarction, Onset Age: 35 Sister Depression Hypertension Mother Diabetes Hypertension Kidney disease Denies family history of Ovarian cancer Prostate cancer Breast cancer Lung cancer Colorectal cancer Social History Smoking Status: Current every day smoker Tobacco Type: Cigarettes Cigarettes Per Day: 6; Second Hand Exposure: Yes; Hx Alcohol Use: No Hx Substance Use: No Preferred Language: Persian Communication Ability: Effective Visual Impairment: No Limitations 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: Normal Water Softener Servicer Required: No Beliefs That Will Affect Care: None marital status: Current Living Situation: Spouse and Parent Current Living Situation Comment: and mother Other Information That Helps Us Care for You: No Feels Safe at Home: Yes Safety Concerns: Feels Safe At This Time Childhood Exposure to Second-Hand Smoke: Yes Diet Comment: regular during the past year weight has: increased > 10 lbs Dental Care, Regularly: No Physical Activity Frequency: Does not Exercise Seatbelt Use: always Sunscreen Use: Yes Physical Exam Physical Exam: GENERAL: This is a morbidly obese 59 year old female that does appear moderately uncomfortable with positional changes. HEAD/FACE: Normocephalic and atraumatic. EYES: No drainage or conjunctival injection. ENT: Nose without bleeding or discharge. Oral mucosa moist. CHEST/AXILLA: Chest movement symmetrical. No deformities noted. BACK: Complete loss of lumbar lordosis. There is a large well healed incision from the distal thoracic to the sacrum. There is marked spasm and trigger points noted along the bilateral paravertebral muscles. SKIN: Ocean, warm and dry. No rash noted. MS/EXTREMITY: No swelling, no deformities. Moving extremities appropriately. NEURO: Alert and appears oriented. Speech is fluent. Cranial Nerves are grossly intact. PSYCH: Alert, pleasant, affect is calm Results Diagnostic Review MRI Findings: MRI OF THE LUMBAR SPINE WITHOUT CONTRAST CLINICAL HISTORY: Lower back pain. Radiculopathy. Previous spinal surgery. COMPARISON STUDY: Lumbar spine MRI August 14, 2013. Lumbar spine CT June 03, 2014. TECHNIQUE: Utilizing a 1.5 Rupali magnet and dedicated coil, multiplanar, multiecho imaging of the lumbar spine was performed without IV contrast. FINDINGS: Interval postoperative findings since CT of August 01, 2014 are noted. For purposes of numbering on this exam, the L5-S1 disc space is assigned to axial image 18 of 31. This exam is compromised by susceptibility artifact from the spinal hardware. A posterior decompression is noted. Bilateral pedicle screw fusion from T10 through S1 is noted. There is a multilevel discectomy. Bilateral iliac bolts are noted. Previous T9 vertebroplasty is noted. Note is made of a 7.8 x 5.1 x 1.8 cm laminectomy bed fluid collection which extends from the L2-L5 levels. This contains a few thin septations. There is no intracanalicular mass or fluid collection. This has no mass effect upon the thecal sac. Central canal and neural foramen are suboptimally assessed given artifact. Paravertebral soft tissues are otherwise unremarkable. T9-T10: There is suspected mild central canal narrowing which is suboptimally assessed due to artifact. T10-T11: The central canal and neural foramen are patent. T11-T12: The central canal and neural foramen are patent. L1-2: The central canal and neural foramen are grossly patent. L2-3: The central canal and neural foramen are patent. L3-4: The central canal and neural foramen are patent. L4-5: Central canal and neural foramen are patent. L5-S1: The central canal and neural foramen are patent. IMPRESSION: 1. Status post multilevel discectomy and laminectomy with T10-S1 pedicle screw fusion and placement of bilateral iliac bolts. Exam compromised by susceptibility artifact from the hardware. 2. 7.8 x 5.1 x 1.8 cm laminectomy bed fluid collection that extends from the L2- L5 levels which is nonspecific but favors a seroma. 3. Suspected mild central canal narrowing at T9-T10 level. Electronically signed by: Jerry Francis M.D. 12/31/2018 8:11 AM MR thoracic spine wo/w con HISTORY: 59 years-old Female pain, distant hx surgery subacute severe mid back pain without reported trauma. COMPARISON: CT abdomen and pelvis 07/11/2019, CTA chest 05/07/2019. TECHNIQUE: Multiplanar multisequence MRI of the thoracic spine obtained both with and without the use of 11.0 mL Gadavist. FINDINGS: Study is mildly motion degraded. The restaurant host localizer images demonstrate cardiome cora. Trace pleural effusions. Study is motion degraded. Extensive artifact from posterior interbody veronica and screw fusion which extends from T10-S1. Remote kyphoplasty changes at T9. No acute fracture, subluxation, bone marrow edema or marrow replacing process. There is mild to moderate multilevel neural foraminal narrowing with associated spondylitic spurring. Multilevel posterior annular disc bulging with at least moderate facet arthrosis. There is mild multilevel foraminal narrowing. At T3-T4 there is a probable disc protrusion versus disc osteophyte complex measuring 8 mm within the right lateral recess/right neural foraminal distribution which causes moderate right lateral recess and at least mild right foraminal narrowing with mild central canal stenosis. Mild central canal stenosis at T6-T7 secondary to posterior annular disc bulge with spondylitic spurring. Evaluation of the lower thoracic spine is limited secondary to aforementioned artifact. There is a suggested postoperative fluid collection within the operative bed of the lumbar spine measuring up to 3.1 cm transversely. No abnormal enhancement. IMPRESSION: 1. Limited exam as above. 2. Posterior interbody veronica and screw fusion at T10-S1 with kyphoplasty changes at T9. Probable seroma within the operative bed of the lumbar spine, partially imaged. 3. Multilevel discogenic degeneration and facet arthrosis. 4. Probable disc protrusion versus disc osteophyte complex within the right lateral recess/right neural foramen at T3-T4 causes moderate right lateral recess and at least mild right foraminal narrowing. 5. Mild central canal stenosis at T3-T4 and T6-T7. 6. No abnormal enhancement. ACT 112: Negative or not required by law. The above report was generated using voice recognition software. It may contain grammatical, syntax or spelling errors. Dictated: 11/12/2019 7:57 AM Transcribed: 11/12/2019 8:30 AM Amy [id number] [email or web address] Electronically signed by: Bi Beard M.D. 11/12/2019 10:[address] Findings: THORACIC SPINE CT CT DOSE: 1058.10 mGy.cm HISTORY: Severe thoracic pain TECHNIQUE: Multiaxial CT images of the thoracic spine were performed and reformatted in the sagittal and coronal plane without the use of contrast. A dose lowering technique was utilized adhering to the principles of ALARA. COMPARISON: Thoracic spine radiograph 11/12/2019. Thoracic spine MRI 11/11/2019. FINDINGS: There is again noted posterior fusion from T10 through the visualized lumbar spine with pedicle screws and rods. The hardware appears intact. The left T10 pedicle screws abuts and may extend through the superior endplate. Mild anterior wedging at T10 is again noted. Vertebroplasty at T9. Trace amount of cement seen within the anterior epidural space. This is of doubtful clinical significance. No acute fractures identified within the thoracic spine. Mild disc space narrowing throughout the thoracic spine with endplate osteophytes. No pneu mothorax. Bibasilar densities favor atelectasis. Evaluation the central canal is suboptimal due to the CT technique. However, there is no significant central canal narrowing within the upper to mid thoracic spine. The lower thoracic spine central canal is nondiagnostic due to the metallic artifact from the posterior fusion hardware. This is better appreciated on the recent thoracic spine MRI. No significant paravertebral edema. [id number] bilateral neural foraminal narrowing at T2-T3 due to the facet hypertrophy. IMPRESSION: 1. No acute fractures identified within the thoracic spine. 2. Posterior interbody veronica and screw fusion from T10 through the imaged lumbar spine with kyphoplasty changes at T9. The hardware appears intact. The left T10 pedicle screw abuts and may extend to the superior endplate. No erosive changes identified. 3. Mild degenerative disc disease throughout the upper to mid thoracic spine. ACT 112: Negative or not required by law. Electronically signed by: Viktor Fink M.D. 11/12/2019 3:05 PM Radiology Findings: XR thoracic spine 3V routine CLINICAL HISTORY: Pain. COMPARISON STUDY: Thoracic spine radiographs June 13, 2016. MRI of the thoracic spine November 11, 2019. FINDINGS: Incidental note is made of right neck surgical clips. Thoracolumbar spine fusion is partially imaged. Visualized portions of the hardware are intact. The left T10 pedicle screw slightly extends through the superior endplate. This is unchanged. Evidence for kyphoplasty at the T9 level is noted. No acute thoracic spine fracture is identified. No suspicious osseous lesions are noted. There is mild multilevel disc space narrowing and moderate osteophytosis of the thoracic spine. IMPRESSION: 1. Partially imaged thoracolumbar spine fusion. Left T10 pedicle screw slightly extends through the superior endplate. 2. Status post T9 vertebroplasty. 3. No acute thoracic spine fracture or subluxation. 4. Mild multilevel degenerative changes within the thoracic spine. ACT 112: Negative or not required by law. Electronically signed by: Jerry Francis M.D. 11/12/2019 9:44 AM
[2019-11-14] MEDS: OXYCODONE HCL IR 5 MG TAB (IMMEDIATE RELEASE) PO PRN (14:26)
--- NOTE | 2019-11-14 18:17 | Hospitalist Progress Note ---
Date of Service November 14, 2019 Assessment & Plan (1) Back pain, thoracic: has ankylosing spondylitis as well as mutliple back surgeries but acute seems heavily muscle spasm related. radiation around to chest was initially concerning for radiculopathy but seems more c/w rib pain from articulation in Tspine region after further hx and PE. further - imaging does not show any areas really c/w nerve impingement. current pain is acute - so hopefully can reign in - aggressive management as below -tylenol 650 TID -valium 5mg QID as muscle relaxant (pain management considered baclofen as alternative but she notes this gave her ?myoclonus as a side effect in the past) -continue diclofenac gel to paraspinals QID -increased gabapentin to 600mg TID for now -continue oxycodone or IV dilauded prn breakthrough -trigger point injections done today (11/13) -OMT done 11/11, 11/12 -- will resume again tomorrow (pending eval of trigger point sites) -PT/OT eval and treat -give trial of mag sulfate IV (sometimes can anecdotally help w spasms - certainly low risk to give a therapeutic trial) ---->once doing better will likely benefit from more routine OMT and/or pain//injections as outpt since her spine anatomy is likely the nidus for the muscle spasms (ie she would be reasonably likely to have recurrence so staying ahead of the situation is likely to be to her benefit) (2) Diabetes type 2, uncontrolled: A1c 6.8 - was really only uncontrolled while on steroids - but since there is no radiculopathy and since steroids weren't helping with her sx otherwise - stopped. (3) Stress response: related to pain and prior concerns that she would not be able to find appropriate dx and treatment. offered reassurance and support. (4) Somatic dysfunction of thoracic region: OMT done on 11/11, 11/12, today not due to injections - anticipate resumption tomororw unless situation changes (5) Vitamin D deficiency: will update level - if still low will replace aggressively since pain literature correlates low D w more myofascial pain (6) Presence of IVC filter: See above noted (7) Restless leg syndrome: fortunately has not been causing her problems right now (8) Osteoarthritis: (9) Degenerative disc disease: (10) DVT prophylaxis: anticoagulated (11) Discharge planning issues: PT/OT eval and treat ongoing right now would strongly consider rehab - not only for ongoing strengthening as it relates to back pain - but also to try to help w leg weakness. Admission and Anticipated Discharge Date Admission Date: November 13, 2019 Subjective still hurting a good deal off and on - sometimes a little better than others, but still quite bad overall - still notes that if she moves "the wrong way" pain will really get intense. also notes that at times when pain really gets intense it will start to hurt up into neck and shoulders. pain management saw earlier - did trigger point injections - input greatly appreciated. repeatedly notes that she's gotten tired of how many times she was seen without real answers "your spine looks ok" and then sent home - appreciative that she feels she is now getting more of a dx and plan. worried about if it will recur. also notes that her legs have been progressively weaker for the last year - getting to where she's not able to get around as much as she used to / would like to - notes that case management or PT were discussing possible rehab - wonders if this would be a good idea Review of Systems Review of Systems: All systems reviewed & are unremarkable except as noted in HPI & below Physical Exam Physical Exam: gen aaox3 pleasant but at times tearful, perseverates a little on the past as it relates to her suffering and being seen many times without improvement. far less pain distress than yesterday at least at the time i'm in the room. heent nc at mmm. breathing unlabored no accessory muscles good effort. msk/ost - R>L Tspine paraspinals high tone/tender/decreased ROM - did not do OMT today as she had trigger point injections just a few hours earlier - sites appearing c/d/i - very very small area of bruising where injections were given. skin no rashes no pallor or icterus. neuro no focal deficits. Results & Data Results & Data ([facility]) Vital Signs (Past 12 Hours) Vital Signs Temp Pulse Resp BP BP Pulse Ox 11/14/19 16:06 98.6 F 70 20 137/79 97 11/14/19 07:42 97.7 F 73 16 143/78 H 97 PG Care Time/CCT Total # of Minutes Spent Total Time Spent with Patient: Total time spent is greater than 50% in coordination of care (as documented) at patient's floor/unit and/or counseling patient: Coding Level of Care Code 53325 Subseq Hosp Care Lvl 3 Diagnoses Back pain, thoracic M54.6 Back pain laterality: bilateral Chronicity: acute Diabetes type 2, uncontrolled E11.65 Stress response F43.0 Somatic dysfunction of thoracic region M99.02 Vitamin D deficiency E55.9 Presence of IVC filter Z95.828 Restless leg syndrome G25.81 Osteoarthritis M19.90 Degenerative disc disease DVT prophylaxis Z29.9 Discharge planning issues Z02.9 (1) Back pain, thoracic Back pain laterality: bilateral Chronicity: acute Qualified Code(s): M54.6 - Pain in thoracic spine
[2019-11-14] MEDS: MAGNESIUM SULFATE / D5W 1 GM/100 ML BAG IV SCH ×3 (18:39→22:42)
[2019-11-14] MEDS: TRAZODONE HCL 100 MG TAB PO SCH (20:37)
[2019-11-14] MEDS: TRAZODONE HCL 50 MG TAB PO SCH (20:38)
[2019-11-15] MEDS: LEVOTHYROXINE SODIUM 125 MCG TABLET PO SCH (05:36)
--- NOTE | 2019-11-15 08:51 | Pain Management Progress Note ---
Date of Service November 15, 2019 Assessment & Plan (1) Back pain, thoracic: She is reporting mild improvement in pain from the trigger point injections. There is some bruising so I did make the patient aware of that. I have emphasized the importance of using the Oxycodone for pain relief rather than the IV Dilaudid so that she can prepare for discharge and she is agreeable. Will sign off on the patient. Please call with any questions or concerns. Back pain laterality: bilateral Chronicity: acute Qualified Code(s): M54.6 - Pain in thoracic spine Subjective Mrs. Oneil is a 59 year old female with thoracic back pain that required hospitalization at [facility]. She does have T10-S1 fusion and T9 kyphoplasty. I did give the patient trigger point injections yesterday which she states have provided mild relief. She does continue to use IV Dilaudid 0.5 mg x 3 hours with moderate pain relief. She has used Oxycodone twice as it does not provide relief as quickly. She denies any complaints. Pain Assessment Pain Assessment Full Body Front + Back: 1. Physical Exam Physical Exam: GENERAL: 59 year old female. Speech and cognition is intact. Mood and affect is appropriate. Does not appear in acute distress. BACK: Mild tenderness along the mid thoracic region. NEURO: Awake, alert, and oriented x 3. SKIN: No erythema, edema, or drainage of the injection sites. There is mild ecchymosis at the injection sites.
[2019-11-15] MEDS: CALCIUM 600MG + VIT D 400 IU TAB PO SCH (09:30)
[2019-11-15] MEDS: SPIRONOLACTONE 25 MG TAB PO SCH (09:30)
[2019-11-15] MEDS: GABAPENTIN 600 MG TAB PO SCH ×3 (09:30→21:07)
[2019-11-15] MEDS: PANTOprazole 40 MG TAB PO SCH ×2 (09:31→21:08)
[2019-11-15] MEDS: ACETAMINOPHEN 325 MG TAB PO SCH ×3 (09:31→21:09)
[2019-11-15] MEDS: diazePAM 5 MG TABLET PO SCH ×4 (09:32→21:07)
[2019-11-15] MEDS: NICOTINE 14 MG/24 HR PATCH TD SCH (09:32)
[2019-11-15] MEDS: RIVAROXABAN 20 MG TAB PO SCH (09:32)
[2019-11-15] MEDS: LOSARTAN POTASSIUM 50 MG TAB PO SCH (09:35)
[2019-11-15] MEDS: DICLOFENAC SOD 1% GEL 100 GM TUBE EXT SCH ×4 (09:36→21:11)
[2019-11-15] MEDS: OXYCODONE HCL IR 5 MG TAB (IMMEDIATE RELEASE) PO PRN (10:22)
[2019-11-15] MEDS: HYDROmorphone INJ 0.5 MG/0.5 ML SYR IV PRN ×2 (15:17→21:16)
--- NOTE | 2019-11-15 20:01 | Hospitalist Progress Note ---
Date of Service November 15, 2019 Assessment & Plan (1) Back pain, thoracic: has ankylosing spondylitis as well as mutliple back surgeries but acute seems heavily muscle spasm related. radiation around to chest was initially concerning for radiculopathy but seems more c/w rib pain from articulation in Tspine region after further hx and PE. further - imaging does not show any areas really c/w nerve impingement. current pain is acute - so hopefully can reign in - aggressive management as below -tylenol 650 TID -valium 5mg QID as muscle relaxant (pain management considered baclofen as alternative but she notes this gave her ?myoclonus as a side effect in the past) -continue diclofenac gel to paraspinals QID - gabapentin to 600mg TID for now -oxycodone not really helping, dilauded does but wears off. given no intention of sending home w narcotics, will simply dc oxycodone for now and increase dilauded to 1mg prn -trigger point injections done 11/13 -OMT done 11/11, 11/12, skipped 11/13 w trigger points, resumed 11/14 -now that "hyperacute" tissue texture fading - moist heat -PT/OT eval and treat -mag seemed to help some but also (not unexpectedly) made legs weak - will continue but for now just as mag ox 400mg PO bid ---->once doing better will likely benefit from more routine OMT and/or pain//injections as outpt since her spine anatomy is likely the nidus for the muscle spasms (ie she would be reasonably likely to have recurrence so staying ahead of the situation is likely to be to her benefit) (2) Diarrhea: with onset after lactulose, strongly suspect laxative related not on abx, no fevers, no abdominal pain making Cdiff unlikely no n/v and no clear exposures making viral highly unlikely as well follow gentle fluids overnight since she's feeling dry (and dehydration would not help w muscle spasms as above) (3) Somatic dysfunction of thoracic region: OMT done on 11/11, 11/12, and again as above today (4) Stress response: doing better w reassurance and support (5) Diabetes type 2, uncontrolled: A1c 6.8 - was really only uncontrolled while on steroids - but since there is no radiculopathy and since steroids weren't helping with her sx otherwise - stopped. outpt f/u (6) Vitamin D deficiency: D level 30 - doubt this is amplifying her myofascial pain (7) Presence of IVC filter: See above noted (8) Restless leg syndrome: fortunately has not been causing her problems right now (9) Osteoarthritis: (10) Degenerative disc disease: (11) DVT prophylaxis: anticoagulated (12) Discharge planning issues: PT/OT eval and treat ongoing for above and for leg weakness right now would strongly consider rehab - not only for ongoing strengthening as it relates to back pain - but also to try to help w leg weakness. Admission and Anticipated Discharge Date Admission Date: November 13, 2019 Subjective notes back pain still bad, but actually main complaint today is diarrhea - up all night with it, frequent. belly a little sore but not really painful. no f/c/s. no vomiting. back pain present hurts when she's upright for a while. still intense in mid back but now R maybe feels a litle better L still bad and still radiates up L shoulder, ribs hurt some when sitting up for a while Review of Systems Review of Systems: All systems reviewed & are unremarkable except as noted in HPI & below Physical Exam Physical Exam: gen aao pleasant fatigued but nad. heent nc at mmm breathing unlabored no accessory muscles good effort abd soft nd mild diffuse tender no guarding no rebound no masses. ost/msk R sided paraspinals Tspine actually less high tone than before - gentle LAS done some. L sided Tspine paraspinals and prescapular musculature (region of levator scap) high tone/tender/decreased ROM - but not as boggy or hyperacutely tender as before - LAS - improved. pt tolerated well and not only w some soft tissue improvement and some reduction in pain - paraspinals moreso than levator scap in this regard but some with both - pt tolerated well. Results & Data Results & Data ([facility]) Vital Signs (Past 12 Hours) Vital Signs Temp Pulse Resp BP Pulse Ox 11/15/19 15:49 98.2 F 79 20 145/77 H 96 11/15/19 09:35 142/89 H PG Care Time/CCT Total # of Minutes Spent Total Time Spent with Patient: Total time spent is greater than 50% in coordination of care (as documented) at patient's floor/unit and/or counseling patient: Coding Level of Care Code 79396 Subseq Hosp Care Lvl 3 Diagnoses Back pain, thoracic M54.6 Back pain laterality: bilateral Chronicity: acute Diarrhea R19.7 Somatic dysfunction of thoracic region M99.02 Stress response F43.0 Diabetes type 2, uncontrolled E11.65 Vitamin D deficiency E55.9 Presence of IVC filter Z95.828 Restless leg syndrome G25.81 Osteoarthritis M19.90 Degenerative disc disease DVT prophylaxis Z29.9 Discharge planning issues Z02.9 CPT Codes Musculoskeletal - Musculoskeletal: 55659 Osteo Jah Tr 1-2 Body regions ([id number]) (1) Back pain, thoracic Back pain laterality: bilateral Chronicity: acute Qualified Code(s): M54.6 - Pain in thoracic spine
[2019-11-15] MEDS: LACTATED RINGER'S 1,000 ML IV SCH (20:09)
[2019-11-15] MEDS: TRAZODONE HCL 50 MG TAB PO SCH (21:07)
[2019-11-15] MEDS: TRAZODONE HCL 100 MG TAB PO SCH (21:08)
[2019-11-15] MEDS: MAGNESIUM OXIDE 400 MG TAB PO SCH (21:15)
[2019-11-16] MEDS: LEVOTHYROXINE SODIUM 125 MCG TABLET PO SCH (05:42)
[2019-11-16] MEDS: LACTATED RINGER'S 1,000 ML IV SCH ×2 (08:46→20:18)
[2019-11-16] MEDS: MAGNESIUM OXIDE 400 MG TAB PO SCH (08:48)
[2019-11-16] MEDS: LOSARTAN POTASSIUM 50 MG TAB PO SCH (08:51)
[2019-11-16] MEDS: RIVAROXABAN 20 MG TAB PO SCH (08:52)
[2019-11-16] MEDS: SPIRONOLACTONE 25 MG TAB PO SCH (08:52)
[2019-11-16] MEDS: DICLOFENAC SOD 1% GEL 100 GM TUBE EXT SCH ×4 (08:52→20:13)
[2019-11-16] MEDS: ACETAMINOPHEN 325 MG TAB PO SCH ×3 (08:52→20:13)
[2019-11-16] MEDS: GABAPENTIN 600 MG TAB PO SCH ×3 (08:52→20:13)
[2019-11-16] MEDS: CALCIUM 600MG + VIT D 400 IU TAB PO SCH (08:52)
[2019-11-16] MEDS: NICOTINE 14 MG/24 HR PATCH TD SCH (08:52)
[2019-11-16] MEDS: diazePAM 5 MG TABLET PO SCH ×4 (08:58→20:13)
[2019-11-16] MEDS: HYDROmorphone INJ 0.5 MG/0.5 ML SYR IV PRN ×4 (08:58→20:16)
[2019-11-16] MEDS: PANTOprazole 40 MG TAB PO SCH ×2 (10:49→20:13)
--- NOTE | 2019-11-16 18:52 | Hospitalist Progress Note ---
Date of Service November 16, 2019 Assessment & Plan (1) Back pain, thoracic: has ankylosing spondylitis as well as mutliple back surgeries but acute seems heavily muscle spasm related. radiation around to chest was initially concerning for radiculopathy but seems more c/w rib pain from articulation in Tspine region after further hx and PE. further - imaging does not show any areas really c/w nerve impingement. current pain is acute - so hopefully can reign in - aggressive management as below -tylenol 650 TID -valium 5mg QID as muscle relaxant (pain management considered baclofen as alternative but she notes this gave her ?myoclonus as a side effect in the past) -diclofenac gel to paraspinals QID -gabapentin increased to 600mg TID -dilauded 1mg q3prn breakthrough pain -trigger point injections done 11/13 -OMT done 11/11, 11/12, skipped 11/13 w trigger points, resumed 11/14, again 7.25 -now that "hyperacute" tissue texture fading - moist heat as much as she can tolerate -PT/OT eval and treat ---->once doing better will likely benefit from more routine OMT and/or pain//injections as outpt since her spine anatomy is likely the nidus for the muscle spasms (ie she would be reasonably likely to have recurrence so staying ahead of the situation is likely to be to her benefit) (2) Diarrhea: with onset after lactulose, strongly suspect laxative related initially - but still ongoing. stool for Cdiff. if negative can treat symptomatically such as lomotil. probiotics for now as they may help reduce diarrhea some. (3) Somatic dysfunction of thoracic region: OMT done on 11/11, 11/12, 11/14, and again as above today (4) Stress response: overall responds well to reassurance and support (5) Diabetes type 2, uncontrolled: A1c 6.8 - was really only uncontrolled while on steroids - but since there is no radiculopathy and since steroids weren't helping with her sx otherwise - stopped. outpt f/u (6) Vitamin D deficiency: D level 30 - doubt this is amplifying her myofascial pain (7) Presence of IVC filter: See above noted (8) Restless leg syndrome: fortunately has not been causing her problems right now (9) Osteoarthritis: (10) Degenerative disc disease: (11) DVT prophylaxis: anticoagulated (12) Discharge planning issues: PT/OT eval and treat ongoing for above and for leg weakness right now would strongly consider rehab - not only for ongoing strengthening as it relates to back pain - but also to try to help w leg weakness. Admission and Anticipated Discharge Date Admission Date: November 13, 2019 Subjective back about the same - still mostly thoracic still mostly L and up L shoulder now - R still improved. but having ongoing diarrhea - thinks that being unable to settle due to diarrhea is a big part of why she's not really feeling better. diarrhea frequent, watery, now also mucousy. notes different than what she's had before w IBD. notes follows [facility] for this - they just have her on diet modification. Review of Systems Review of Systems: All systems reviewed & are unremarkable except as noted in HPI & below Physical Exam Physical Exam: gen aao pleasant but fatigued and anxious. heent nc at mmm breathing unlabored no accessory muscles good effort skin no rashes no pallor or icterus neuro no focal deficits. abd soft nd very mild diffuse tenderness no guarding no rebound. L sided Tspine paraspinals and musculature in region of levator scap high tone/tender/decreased ROM - myofascial, inhibitory pressure - improved tissue texture some - pt tolerated well. Results & Data Results & Data ([facility]) Vital Signs (Past 12 Hours) Vital Signs Temp Pulse Pulse Resp BP BP Pulse Ox 11/16/19 15:06 97.7 F 73 18 131/78 98 11/16/19 08:50 97.9 F 71 16 141/91 H 98 11/16/19 08:00 98.6 F 65 18 163/83 H 98 PG Care Time/CCT Total # of Minutes Spent Total Time Spent with Patient: Total time spent is greater than 50% in coordination of care (as documented) at patient's floor/unit and/or counseling patient: Coding Level of Care Code 59291 Subseq Hosp Care Lvl 3 Diagnoses Back pain, thoracic M54.6 Back pain laterality: bilateral Chronicity: acute Diarrhea R19.7 Somatic dysfunction of thoracic region M99.02 Stress response F43.0 Diabetes type 2, uncontrolled E11.65 Vitamin D deficiency E55.9 Presence of IVC filter Z95.828 Restless leg syndrome G25.81 Osteoarthritis M19.90 Degenerative disc disease DVT prophylaxis Z29.9 Discharge planning issues Z02.9 CPT Codes Musculoskeletal - Musculoskeletal: 27116 Osteo Jah Tr 1-2 Body regions ([id number]) (1) Back pain, thoracic Back pain laterality: bilateral Chronicity: acute Qualified Code(s): M54.6 - Pain in thoracic spine
[2019-11-16] MEDS: TRAZODONE HCL 100 MG TAB PO SCH (20:13)
[2019-11-16] MEDS: TRAZODONE HCL 50 MG TAB PO SCH (20:13)
[2019-11-17] MEDS: LEVOTHYROXINE SODIUM 125 MCG TABLET PO SCH (06:16)
[2019-11-17] MEDS: NICOTINE 14 MG/24 HR PATCH TD SCH (08:33)
[2019-11-17] MEDS: LACTATED RINGER'S 1,000 ML IV SCH (08:34)
[2019-11-17] MEDS: HYDROmorphone INJ 0.5 MG/0.5 ML SYR IV PRN ×4 (08:50→20:48)
[2019-11-17] MEDS: CALCIUM 600MG + VIT D 400 IU TAB PO SCH (08:50)
[2019-11-17] MEDS: diazePAM 5 MG TABLET PO SCH ×4 (08:50→20:39)
[2019-11-17] MEDS: ACETAMINOPHEN 325 MG TAB PO SCH ×3 (08:50→20:40)
[2019-11-17] MEDS: GABAPENTIN 600 MG TAB PO SCH ×3 (08:50→20:40)
[2019-11-17] MEDS: LACTOBACILLUS ACIDOPHILUS (FLORANEX) TAB PO SCH ×3 (08:50→16:02)
[2019-11-17] MEDS: RIVAROXABAN 20 MG TAB PO SCH (08:50)
[2019-11-17] MEDS: PANTOprazole 40 MG TAB PO SCH ×2 (08:50→20:39)
[2019-11-17] MEDS: LOSARTAN POTASSIUM 50 MG TAB PO SCH (08:50)
[2019-11-17] MEDS: SPIRONOLACTONE 25 MG TAB PO SCH (08:50)
[2019-11-17] MEDS: DICLOFENAC SOD 1% GEL 100 GM TUBE EXT SCH ×4 (08:53→20:41)
[2019-11-17] MEDS: ONDANSETRON INJ 2 MG/ML 2 ML VIAL IV PRN (13:24)
--- NOTE | 2019-11-17 18:32 | Hospitalist Progress Note ---
Date of Service November 17, 2019 Assessment & Plan (1) Back pain, thoracic: has ankylosing spondylitis as well as mutliple back surgeries but acute seems heavily muscle spasm related. radiation around to chest was initially concerning for radiculopathy but seems more c/w rib pain from articulation in Tspine region after further hx and PE. further - imaging does not show any areas really c/w nerve impingement. current pain is acute - so hopefully can reign in - aggressive management as below appears to be helping -tylenol 650 TID -valium 5mg QID as muscle relaxant (pain management considered baclofen as alternative but she notes this gave her ?myoclonus as a side effect in the past) -diclofenac gel to paraspinals QID -gabapentin increased to 600mg TID -dilauded 1mg q3prn breakthrough pain -trigger point injections done 11/13 -OMT done 11/11, 11/12, skipped 11/13 w trigger points, resumed 11/14, again 11/15 and a little bit on 11/16 -now that "hyperacute" tissue texture fading - continue moist heat as much as she can tolerate -PT/OT eval and treat ---->once doing better will likely benefit from more routine OMT and/or pain//injections as outpt since her spine anatomy is likely the nidus for the muscle spasms (ie she would be reasonably likely to have recurrence so staying ahead of the situation is likely to be to her benefit)(would have routine follow up w Dr Julian Archer DO, as well as [facility] pain management, in order to stay ahead of problem (2) Lumbar radiculopathy: new today - diffuse R leg lumbar distribution. MRI from december noted - all postop changes without nerve impingement. does not show cord compression s/s. mild weakness, fairly notable sensory diminishment. was moving a lot - and probably quite abruptly - last 2 days with diarrhea being so intense and so frequent --> she does note that sometimes at home a lesser version of the same symptom complex would arise associated with activity - but would go away more quickly as well. no s/s cauda equina, no s/s intense or emergent nerve compression. for now - rest. by tomorrow (11/17) if sx are not improving, then would consider re-imaging Lspine and/or steroids for radiculopathy (was on steroids earlier in hospital course when initial concern was thoracic radiculopathy- -but this was before she showed current symptoms) (3) Diarrhea: with onset after lactulose, strongly suspect laxative related initially - but still ongoing for another ~36 hours raised concern. she notes a vague hx of "diet controlled crohn's" (managed by radhika mccann) that possibly contributed, possibly such massive changes in meds contributed as well. Cdiff negative, diarrhea slowing. imodium prn. ok to stop IVF since diarrhea slowing (4) Somatic dysfunction of thoracic region: OMT done on 11/11, 11/12, 11/14, 11/15 and again as above today (5) Stress response: overall responds well to reassurance and support, doing better today (6) Diabetes type 2, uncontrolled: A1c 6.8 - control actually adequate outpt f/u (7) Vitamin D deficiency: D level 30 - doubt this is amplifying her myofascial pain (8) Presence of IVC filter: See above noted (9) Restless leg syndrome: fortunately has not been causing her problems right now (10) Osteoarthritis: (11) Degenerative disc disease: (12) DVT prophylaxis: anticoagulated (13) Discharge planning issues: PT/OT eval and treat ongoing for above and for leg weakness (especially since new today) right now would strongly consider rehab - not only for ongoing strengthening as it relates to back pain - but also to try to help w leg weakness. Admission and Anticipated Discharge Date Admission Date: November 13, 2019 Subjective thoracic back pain still present but improving. does not seem nearly as intense diarrhea has slowed considerably - and Cdiff was sent, is negative new problem started this AM - R leg "feels big" - and weak. whole R leg. feels like it's dragging when she's going to the bathroom. has had this happen at home from time to time but usually goes away much quicker. no loss of bowel or bladder (she does have a chronic stress incontinence of urine but nothing new or different, and she did have fecal incontinence today - but only because it came on with rapid urgency and she wasn't able to make it to the bathroom in time) Review of Systems Review of Systems: All systems reviewed & are unremarkable except as noted in HPI & below Physical Exam Physical Exam: gen aao pleasantly anxious no distress, still somewhat fatigued appearing. heent nc at mmm. breathing unlabored no accessory muscles good effort. skin no rashes no pallor or icterus. msk/ost - R sided Tspine parsapinals somewhat high tone/tender/decreased ROM - inhibitory pressure and LAS - tolerated well, mild change in tissue texture (but overall is markedly better than it was days ago). neuromsk - R leg ~4/5 great toe raise, foot raise, flex/ex at knee and flex at hip compared to ~5-/5 L side. diminished sensation throughout entire leg all dermatomes. Results & Data Results & Data ([facility]) Vital Signs (Past 12 Hours) Vital Signs Temp Pulse Pulse Resp BP Pulse Ox 11/17/19 15:40 97.7 F 70 20 165/93 H 99 11/17/19 07:09 98.6 F 75 16 132/77 96 PG Care Time/CCT Total # of Minutes Spent Total Time Spent with Patient: Total time spent is greater than 50% in coordination of care (as documented) at patient's floor/unit and/or counseling patient: Coding Level of Care Code 23419 Subseq Hosp Care Lvl 3 Diagnoses Back pain, thoracic M54.6 Back pain laterality: bilateral Chronicity: acute Lumbar radiculopathy M54.16 Diarrhea R19.7 Somatic dysfunction of thoracic region M99.02 Stress response F43.0 Diabetes type 2, uncontrolled E11.65 Vitamin D deficiency E55.9 Presence of IVC filter Z95.828 Restless leg syndrome G25.81 Osteoarthritis M19.90 Degenerative disc disease DVT prophylaxis Z29.9 Discharge planning issues Z02.9 (1) Back pain, thoracic Back pain laterality: bilateral Chronicity: acute Qualified Code(s): M54.6 - Pain in thoracic spine
[2019-11-17] MEDS: TRAZODONE HCL 50 MG TAB PO SCH (20:40)
[2019-11-17] MEDS: TRAZODONE HCL 100 MG TAB PO SCH (20:40)
[2019-11-17] MEDS: LOPERAMIDE LIQUID 120 ML BOTTLE PO PRN (21:11)
[2019-11-18] MEDS: LOPERAMIDE LIQUID 120 ML BOTTLE PO PRN (00:12)
[2019-11-18] MEDS: HYDROmorphone INJ 0.5 MG/0.5 ML SYR IV PRN ×4 (00:14→21:40)
[2019-11-18] MEDS ORDERED: LEVOTHYROXINE SODIUM 25 MCG TABLET PO SCH (06:30)
[2019-11-18] MEDS ORDERED: LEVOTHYROXINE SODIUM 100 MCG TABLET PO SCH (06:30)
[2019-11-18] MEDS: LACTOBACILLUS ACIDOPHILUS (FLORANEX) TAB PO SCH ×3 (08:17→17:04)
[2019-11-18] MEDS: LOSARTAN POTASSIUM 50 MG TAB PO SCH (08:18)
[2019-11-18] MEDS: CALCIUM 600MG + VIT D 400 IU TAB PO SCH (08:18)
[2019-11-18] MEDS: GABAPENTIN 600 MG TAB PO SCH ×3 (08:18→21:27)
[2019-11-18] MEDS: NICOTINE 14 MG/24 HR PATCH TD SCH (08:18)
[2019-11-18] MEDS: SPIRONOLACTONE 25 MG TAB PO SCH (08:18)
[2019-11-18] MEDS: PANTOprazole 40 MG TAB PO SCH ×2 (08:19→21:26)
[2019-11-18] MEDS: diazePAM 5 MG TABLET PO SCH ×4 (08:19→21:28)
[2019-11-18] MEDS: ACETAMINOPHEN 325 MG TAB PO SCH ×3 (08:19→21:27)
[2019-11-18] MEDS: DICLOFENAC SOD 1% GEL 100 GM TUBE EXT SCH ×4 (08:19→21:28)
[2019-11-18] MEDS: RIVAROXABAN 20 MG TAB PO SCH (08:20)
--- NOTE | 2019-11-18 09:04 | Hospitalist Progress Note ---
Date of Service November 18, 2019 Assessment & Plan (1) Back pain, thoracic: Oralia Oneil is a 59yo F with a pMHx of chronic back pain s/p 4x lumbar back surgical intervention with hardware, anklyosing spondylitis, asthma, insomnia, HLD, scoliosis, bipolar disorder, COPD, T2DM, hx of PE with IVC filter, and AFib who presented with intractable back pain. Lumbar radiculopathy with new right leg weakness, decreased sensation -check MRI spine. r/o cauda equina syndrome Thoracic back pain: improved with OMT and valium; roxinol worsened pain -c/w valium 5mg PO QID -c/w tylenol PO tid -c/w voltaren gel QID Diarrhea -frequent episodes, every 30 minutes -Immodium yesterday no relief. Will discontinue Immodium and add Bismuth salicylate 250 chewable tab x2 PO q4h PRN -will explore other etiologies tomorrow Hypertension -c/w losartan 50 mg daily -c/w spironolactone 25 mg daily COPD: stable, no acute exacerbations -c/w albuterol q4h prn GERD -c/w protonix 40 mg qd History of PE with IVC filter and anticoagulation -c/w xarelto 20mg qd Hypothyroidism -c/w synthroid 25mcg po qd Anxiety/depression with history of bipolar -c/w trazodone 300mg qhs DVT prophylaxis: xarelto as above Diet: consistent carb Disposition: inpatient, continue to follow for pain control (2) Diabetes type 2, uncontrolled: (3) Presence of IVC filter: (4) Vitamin D deficiency: (5) Restless leg syndrome: (6) Osteoarthritis: (7) Degenerative disc disease: Admission and Anticipated Discharge Date Admission Date: November 13, 2019 Supervising Physician Co-Signing Physician Notes Resident Physician Supervision Note: I independently interviewed and examined the patient and verified the rivera history and physical, reviewed labs and image studies, discussed the case with the resident Dr. Robin and agree with the findings and care plan. Subjective Diarrhea has worsened. Watery and clear mucous. She has an episode every half hour. Does not feel that Immodium has helped. R entire leg has weakness and numbness, not tingling. Feels worse than yesterday. Back pain at baseline. 8/10 severity. ROS otherwise negative. Review of Systems Review of Systems: Constitutional: Denies fever, chills Eyes: Denies vision change, eye pain Cardiovascular: Denies chest pain Respiratory: Denies shortness of breath, cough, sputum production, difficulty breathing Gastrointestinal: Positive for diarrhea. Mild RLQ abdominal pain. Denies vomiting. Genitourinary: Denies urinary symptoms including dysuria Musculoskeletal: Denies weakness, muscle aches/pain, joint aches/pain Neurological: Positive weakness and decreased sensation of R lower extremity. Denies headache Physical Exam Physical Exam: General: A&Ox3. NAD. Cooperative. HEENT: Atraumatic, normocephalic. Pulm: CTAB A&P. -wheezes, -rales, -rhonchi. Symmetrical chest rise. No increase work of breathing. No respiratory distress. Cardiac: RRR, -mrg. Abdominal: Nontender, nondistended, soft. Neuro: Slightly decreased motor strength of R lower extremity compared to left (per senior resident's exam). Decreased sensation of R lower extremity. Numbness at back of r thigh w/ R leg raise to 15 degrees. Results & Data Results & Data ([facility]) Vital Signs (Past 12 Hours) Vital Signs Temp Pulse Pulse Resp BP Pulse Ox 11/18/19 07:17 36.5 C 71 18 156/83 H 96 11/17/19 23:34 36.8 C 70 18 173/95 H 99 CBC Results Results Complete Blood Count Results: RBC 3.93 M/uL (4.2-5.4) L 11/18/19 WBC 13.38 K/uL (4.8-10.8) H 11/18/19 Hgb 11.6 g/dL (12.0-16.0) L 11/18/19 Hct 35.4 % (37-47) L 11/18/19 Plt Count 262 K/uL (130-400) 11/18/19 Chemistry (BMP) Results BMP Results: Sodium 140 mmol/L (136-145) 11/18/19 Potassium 4.2 mmol/L (3.5-5.1) 11/18/19 Chloride 107 mmol/L (98-107) 11/18/19 BUN 15 mg/dl (7-18) 11/18/19 Creatinine 1.07 mg/dl (0.6-1.2) 11/18/19 Glucose 168 mg/dl (70-99) H 11/18/19 Resident Activity Tracking Resident Involvement: Resident Care Provided Care Provided: Adult Hospital Medicine (1) Back pain, thoracic Back pain laterality: bilateral Chronicity: acute Qualified Code(s): M54.6 - Pain in thoracic spine
[2019-11-18 10:40] LABS: Basophils # (auto) 0.01 K/uL (0-0.2); Basophils % (auto) 0.1 %; Eosinophils # (auto) 0.19 K/uL (0-0.5); Eosinophils % (auto) 1.4 %; Hematocrit (blood only) 35.4 % (37-47); Hemoglobin 11.6 g/dL (12.0-16.0); Immature Granulocytes # (auto) 0.37 K/uL (0.00-0.02); Immature Granulocytes % (auto) 2.8 %; Lymphocytes # (auto) 2.25 K/uL (1.2-3.4); Lymphocytes % (auto) 16.8 %; Mean Corpuscular Hemoglobin 29.5 pg (25-34); Mean Corpuscular Hgb Conc 32.8 g/dL (32-36); Mean Corpuscular Volume 90.1 fL (80-100); Monocytes # (auto) 1.19 K/uL (0.11-0.59); Monocytes % (auto) 8.9 %; Neutrophils # (auto) 9.37 K/uL (1.4-6.5); Platelet Count 262 K/uL (130-400); RDW Coefficient of Variation 16.3 % (11.5-14.5); RDW Standard Deviation 53.9 fL (36.4-46.3); Red Blood Count 3.93 M/uL (4.2-5.4); White Blood Count 13.38 K/uL (4.8-10.8)
[2019-11-18 11:29] LABS: BUN Creatinine Ratio 13.8 (10-20); Calcium 8.6 mg/dl (8.5-10.1); Est GFR (African American) 66.3; Est GFR (Non-African American) 57.2; Potassium 4.2 mmol/L (3.5-5.1)
[2019-11-18] MEDS ORDERED: LACTATED RINGER'S 1,000 ML IV SCH (20:15)
[2019-11-18] MEDS: TRAZODONE HCL 100 MG TAB PO SCH (21:25)
[2019-11-18] MEDS: TRAZODONE HCL 50 MG TAB PO SCH (21:26)
[2019-11-18] MEDS: BISMUTH SUBSALICYLATE 262 MG CHEW PO PRN (21:28)
[2019-11-19] MEDS: HYDROmorphone INJ 0.5 MG/0.5 ML SYR IV PRN ×5 (00:41→16:30)
[2019-11-19] MEDS: LEVOTHYROXINE SODIUM 125 MCG TABLET PO SCH (06:29)
[2019-11-19] MEDS: BISMUTH SUBSALICYLATE 262 MG CHEW PO PRN ×2 (06:31→11:56)
--- NOTE | 2019-11-19 07:30 | Magnetic Resonance Report ---
MR lumbar spine wo con HISTORY: Pain. Neuropathy. ? cauda equina TECHNIQUE: Multiplanar multisequence MRI of the lumbar spine was performed without the use of contras t. COMPARISON: 12/31/2018 FINDINGS: For the purpose of the report the L5-S1 disc space will be located on axial image 33 of 38. Unchanged exam compared to the prior study. Extensive bilateral fusion and laminectomy as has been di scussed previously. Postprocedural seroma posterior to the L2-L5 levels of the lumbar spine. This is unchanged in size or configuration. Within limitations of metallic hardware artifact there is no significant compromise of the spinal can al or neural foramina. IMPRESSION: 1. Stable postoperative change consistent with an extensive laminectomy and fusion. 2. Stable seroma of the posterior tissues from L2 through L5 3. No evidence for a significant compromise of the spinal canal within limitations of extensive metal lic artifact. ACT 112: Negative or not required by law. The above report was generated using voice recognition software. It may contain grammatical, syntax or spelling errors. Electronically signed by: Junior Montoya M.D. 11/19/2019 7:28 AM
[2019-11-19 07:52] LABS: Basophils # (auto) 0.02 K/uL (0-0.2); Basophils % (auto) 0.2 %; Eosinophils # (auto) 0.26 K/uL (0-0.5); Hematocrit (blood only) 37.3 % (37-47); Hemoglobin 11.6 g/dL (12.0-16.0); Immature Granulocytes # (auto) 0.31 K/uL (0.00-0.02); Immature Granulocytes % (auto) 2.4 %; Lymphocytes # (auto) 2.46 K/uL (1.2-3.4); Lymphocytes % (auto) 19.4 %; Mean Corpuscular Hemoglobin 28.5 pg (25-34); Mean Corpuscular Hgb Conc 31.1 g/dL (32-36); Mean Corpuscular Volume 91.6 fL (80-100); Mean Platelet Volume 9.8 fL (7.4-10.4); Monocytes # (auto) 1.21 K/uL (0.11-0.59); Monocytes % (auto) 9.5 %; Neutrophils # (auto) 8.44 K/uL (1.4-6.5); Neutrophils % (auto) 66.5 %; Platelet Count 274 K/uL (130-400); RDW Coefficient of Variation 16.7 % (11.5-14.5); RDW Standard Deviation 55.3 fL (36.4-46.3); Red Blood Count 4.07 M/uL (4.2-5.4)
[2019-11-19 08:24] LABS: BUN Creatinine Ratio 15.1 (10-20); Calcium 8.6 mg/dl (8.5-10.1); Est GFR (African American) 80.6; Est GFR (Non-African American) 69.5; Potassium 4.4 mmol/L (3.5-5.1)
[2019-11-19] MEDS: diazePAM 5 MG TABLET PO SCH ×3 (09:11→16:41)
[2019-11-19] MEDS: RIVAROXABAN 20 MG TAB PO SCH (09:12)
[2019-11-19] MEDS: NICOTINE 14 MG/24 HR PATCH TD SCH (09:12)
[2019-11-19] MEDS: ACETAMINOPHEN 325 MG TAB PO SCH ×2 (09:12→13:11)
[2019-11-19] MEDS: PANTOprazole 40 MG TAB PO SCH (09:13)
[2019-11-19] MEDS: GABAPENTIN 600 MG TAB PO SCH ×2 (09:13→13:12)
[2019-11-19] MEDS: LOSARTAN POTASSIUM 50 MG TAB PO SCH (09:13)
[2019-11-19] MEDS: CALCIUM 600MG + VIT D 400 IU TAB PO SCH (09:13)
[2019-11-19] MEDS: LACTOBACILLUS ACIDOPHILUS (FLORANEX) TAB PO SCH ×3 (09:14→16:30)
[2019-11-19] MEDS: SPIRONOLACTONE 25 MG TAB PO SCH (09:14)
[2019-11-19] MEDS: DICLOFENAC SOD 1% GEL 100 GM TUBE EXT SCH ×3 (09:15→16:29)
--- NOTE | 2019-11-19 09:43 | Hospitalist Progress Note ---
Date of Service November 19, 2019 Assessment & Plan (1) Back pain, thoracic: Oralia Oneil is a 59yo F with a pMHx of chronic back pain s/p 4x lumbar back surgical intervention with hardware, anklyosing spondylitis, asthma, insomnia, HLD, scoliosis, bipolar disorder, COPD, T2DM, hx of PE with IVC filter, and AFib who presented with intractable back pain. R lower extremity weakness and R medial thigh pain -weakenss started 2 days ago, pain today. worsened -MRI neg for stenosis or impingement -pt reports hx of dvt in calf, dvt in leg, and pe. on Xarelto. symptoms feel similar to prior dvt -neg Pete sign on exam -denies hx of bleeding diathesis and hormone use. reports prolonged bedrest prior to hospialization -plan: doppler of R thigh Thoracic back pain: improved with OMT and valium; roxinol worsened pain -c/w daily OMT -c/w valium 5mg PO QID -c/w tylenol PO tid -c/w voltaren gel QID Diarrhea -frequent episodes, every 30 minutes. feels symptoms not improving -Immodium yesterday no relief. Will discontinue Immodium and add Bismuth salicylate 250 chewable tab x2 PO q4h PRN -will explore other etiologies tomorrow -clinically has moist mucous membranes. will continue continuous IV fluids at 100mL/hr -expand workup for diarrhea. check stool and IBD serology. Hypertension -c/w losartan 50 mg daily -c/w spironolactone 25 mg daily COPD: stable, no acute exacerbations -c/w albuterol q4h prn GERD -c/w protonix 40 mg qd History of PE with IVC filter and anticoagulation -c/w xarelto 20mg qd Hypothyroidism -c/w synthroid 25mcg po qd Anxiety/depression with history of bipolar -c/w trazodone 300mg qhs DVT prophylaxis: xarelto as above Diet: consistent carb Disposition: inpatient, continue to follow for pain control (2) Diabetes type 2, uncontrolled: (3) Presence of IVC filter: (4) Vitamin D deficiency: (5) Restless leg syndrome: (6) Osteoarthritis: (7) Degenerative disc disease: Admission and Anticipated Discharge Date Admission Date: November 13, 2019 Subjective 630 to 830 went 4 times. watery. bright yellow mucousy stomach still sore lower abd. about same intensity as yesterday. 8.5 drinks 4-5 500mL water beakers. 4 year [facility] gastro altoona 4 years ago said she had crohns colonoscopy said very slight touch of crohns preceded by 1 mo diarrhea diarr episodes beame more freq. 3 day spells every other month increased to every month etc. pt says her r leg pain feels like her prior dvt 2011rcalf 2015rgroin dvts. 2017? pe current sxs feels like r groin. constant thug pain. r medial thigh inner thigh mild ttp dribbling not as bad plan us. fluids workup crohns hx ovarian cancer no fam hx cancers smoker former no illicit no etoh on xarelto no fam hx of clotting problems Physical Exam Physical Exam: General: A&Ox3. NAD. Cooperative. HEENT: Atraumatic, normocephalic. Pulm: CTAB A&P. -wheezes, -rales, -rhonchi. Symmetrical chest rise. No increase work of breathing. No respiratory distress. Cardiac: RRR, -mrg. Radial pulses intact and symmetrical. Abdominal: RLQ TTP, no rebounding or guarding. Nondistended, soft. Neuro: Mild tenderness to palpation of R medial thigh. Negative Pete sign. Decreased sensation of RLE. Motor strength slightly decreased on RLE. Results & Data Results & Data ([facility]) Vital Signs (Past 12 Hours) Vital Signs Temp Pulse Resp BP Pulse Ox 11/19/19 07:32 36.5 C 66 20 140/87 98 11/18/19 23:11 36.9 C 66 14 104/68 96 (1) Back pain, thoracic Back pain laterality: bilateral Chronicity: acute Qualified Code(s): M54.6 - Pain in thoracic spine
[2019-11-19] MEDS: ONDANSETRON INJ 2 MG/ML 2 ML VIAL IV PRN ×2 (10:17→16:30)
[2019-11-19] MEDS: ACETAMINOPHEN 325 MG TAB PO PRN (11:56)
--- NOTE | 2019-11-19 14:30 | Ultrasound Report ---
US venous doppler LE RT CLINICAL HISTORY: Right lower extremity pain. History of prior DVT. COMPARISON STUDY: 05/11/2018 FINDINGS: Real-time and color flow Doppler imaging were performed. Flow was seen within the femoral, popliteal and calf veins with no intraluminal thrombus demonstrated. The saphenous vein is patent. IMPRESSION: No evidence of right lower extremity DVT. ACT 112: Negative or not required by law. Electronically signed by: Fco Anguiano M.D. 11/19/2019 2:29 PM
--- NOTE | 2019-11-19 23:36 | Discharge Summary ---
Date of Service November 19, 2019 Admission HPI Per Admitting Provider The patient is a 59-year-old female with a past 3 including diabetes mellitus type 2, presence of IVC filter, vitamin D deficiency, restless leg syndrome, degenerative disc disease, anxiety with depression, GERD, history of PE, hypothyroidism, asthma, insomnia, left ovarian granulosa cell tumor, colonic diverticulosis, sleep apnea, hypertension, ankylosing spondylitis, dyslipidemia, chronic radicular low back pain, scoliosis, bipolar disorder depression, COPD and urinary incontinence. Patient has a history of multiple lumbar surgeries x4, and has had the slowly worsening of her chronic low back pain to the point that she cannot tolerate it at this time. Admission Exam Per Admitting Provider The patient is awake, alert and oriented 3, well developed and well nourished, normocephalic and atraumatic, lying in bed and in no acute distress. HEENT--PERRL, EOMI, mucous membranes and oropharynx normal. Neck--supple. No JVD. No bruits. Thyroid normal, trachea midline, no adenopathy. Heart--normal S1 and S2. No murmurs, rubs or gallops. Lungs--clear bilaterally, no respiratory distress, no accessory muscle use. Abdomen--normal bowel sounds and soft. Nontender. Nondistended. Extremities--no cyanosis or clubbing. No edema. Dermatologic--normal skin turgor, normal color, no abnormal lymph nodes, no rash. Neurologic--cranial nerves II through XII grossly intact. Rheumatologic--normal range of motion. Psychiatric--normal affect. Principal Diagnosis musculoskeletal back pain Discharge Exam General: A&Ox3. NAD. Cooperative. HEENT: Atraumatic, normocephalic. Pulm: CTAB A&P. -wheezes, -rales, -rhonchi. Symmetrical chest rise. No increase work of breathing. No respiratory distress. Cardiac: RRR, -mrg. Radial pulses intact and symmetrical. Abdominal: RLQ TTP, no rebounding or guarding. Nondistended, soft. Neuro: Mild tenderness to palpation of R medial thigh. Negative Pete sign. Decreased sensation of RLE. Motor strength slightly decreased on RLE. Discharge Data Allergies Allergy/AdvReac Type Severity Reaction Status Date / Time erythromycin base Allergy Severe "ALL PINK Verified 11/11/19 18:17 AND SWELLED UP" ketorolac Allergy Severe SOB,TACHYCA Verified 11/11/19 18:17 RDIA carbamazepine Allergy Intermediate Heart Verified 11/11/19 18:17 Arrhythmia acetaminophen [From Vicodin] AdvReac Intermediate Nausea Verified 11/11/19 18:17 adhesive AdvReac Intermediate SKIN TEARS Verified 11/11/19 18:17 butorphanol [From Stadol] AdvReac Intermediate Agitated Verified 11/11/19 18:17 hydrocodone [From Vicodin] AdvReac Intermediate Nausea Verified 11/11/19 18:17 Macrolide Antibiotics AdvReac Intermediate VOMITTING Verified 11/11/19 18:17 oxycodone [From Percocet] AdvReac Intermediate Nausea Verified 11/11/19 18:17 temazepam AdvReac Intermediate GI SYMPTOMS Verified 11/11/19 18:17 Consultations 11/11/19 22:33 ED Decision to Admit Stat 11/12/19 00:15 Consult Case Management - Discharge Planning Routine Consult Orthopedic Surgery Routine 11/13/19 16:16 Consult [facility] ticket scheduler Routine 11/13/19 17:17 Consult Pain Management Routine Ordered Studies 11/11/19 17:09 MR thoracic spine wo/w con Stat 11/12/19 14:45 CT thoracic spine wo con Routine 11/18/19 11:54 MR lumbar spine wo con Stat 11/19/19 11:52 US venous doppler LE RT Stat Hospital Course (1) Chronic radicular low back pain: Oralia Oneil is a 59 year old female with a hx of chronic back pain s/p 4x back surgeries with hardware, anklyosing spondylitis, bipolar disorder, COPD, T2DM, hx of PE and RLE DVTs with IVC filter and Xarelto, and AFib who presented with intractable back pain. To Do As Outpatient: 1. Follow up with PCP to discuss temporary pain control. Sign up with pain management clinic. 2. Follow up with Dr. Archer for OMT sessions. 3. Pay attention to worsening RLE symptoms and recurrence of urinary incontinence. Acute on Chronic back pain Bella presented with worsening severe back pain. She has a history of multiple l umbar surgeries with anklyosing spondylitis. She was neurovascularly intact on admission, but severely limited by pain and spasms in her mid and low back. Thoracic spine MRI and CT lumbar spine were not consistent with acute stenosis or impingement and showed no evidence of spinal compression. She was treated PRN Dilaudid, Valium twice daily, Voltaren, lidocaine patches, Tylenol, and OMT for pain control. She tolerated Valium twice daily well without sedation but had partial response. Due to her severe pain, this was increased and trialed at four times daily which produced mild sedation. OMT was continued, and patient experienced slow but consistent pain relief and had functional improvements in her ability to ambulate. She developed RLE weakness and some sensory change as below, but neural compression/cauda equina/neurologic emergencies were ruled out with MRI and she was followed clinically. She continued to improve and was seen by PT who recommended discharge home. Upon discharge, patient was dissatisfied with not being discharged with Dilaudid. After discussion, she was agreeable to the discharge plan of no narcotic pain medications, Valium 5mg BID PRN x 5 days, and reaching out to pain management for more senior care pain control. She was also scheduled for outpatient followup OMT sessions which provided clinical benefit to her during admission. RLE weakness and sensory change The patient developed new RLE weakness in a radicular pattern, decreased sensation, and mild urinary incontinence after several days of admission. Patient mentioned new R medial thigh pain on 11/19/19 with no improvement in the weakness, so MRI and RLE duplex were ordered. MRI lumbar spine did not show evidence of cauda equina, severe spinal stenosis, or nerve/spinal compression. A RLE duplex ordered did not show evidence of DVT. Diarrhea She had watery, mucousy episodes (~every 30 minutes) that worsened during week. We did not treat with antibiotics given that the patient's C. diff toxin and gene were negative. Prescribed Immodium which did not help. Switched from Immodium to Pepto Bismol with some improvement in symptoms, so recommended continuing ([id number]) as outpatient. Leukocytosis 11-13k during admission, consistent w/ patient's baseline and was not thought to be reflective of infection. Diabetes type 2 Oralia has a history of T2DM with an A1C of 6.8%. She was placed on sliding scale insulin during admission with adequate glycemic control. History of DVT Oralia has a history of DVT on anticoagulation with Xarelto. She was continued on Xarelto during admission. Doppler study due to RLE symptoms as above did not show any evidence of DVT. She did not show any other signs of DVT or PE during admission. Total Time Total Time Spent Total Time Spent (In Minutes): Please refer to attending note. Discharge Plan Discharge Items Patient Disposition: Home - Self-Care Reason For Visit: INTRACTABLE BACK PAIN Discharge Diagnosis: Muskuloskeletal Back pain Activity: Per Instructions section Non-emergency contact: Primary Care Provider and Hospitalist Call non-emergency contact if: you have any medication questions, your symptoms worsen, your pain is not controlled, your pain is worsening, your pain is unusual for you and your pain is concerning for you Follow-up/Referrals: Raleigh Chi CRNP [Primary Care Provider] - 11/26/19 8:20 am Diet: Regular Addtl Attending Provider Instructions: You are admitted to the hospital for severe back pain. Imaging of your back showed chronic changes, but no acute spinal fracture or sudden changes. Chronic degenerative changes and postsurgical changes were appreciated. Orthopedic surgery was consulted, and did not feel that there was nerve root impingement that would benefit from an injection or nerve block. Your pain was multifactorial, but a substantial amount of mechanical dysfunction and muscle tension/spasm was appreciated. You improved with OMT therapy and Valium. You have been discharged on medications as below, and with follow-up appointments for further OMT therapy. Because you had R leg weakness and pain, we did an ultrasound on your right lower extremity. It did not show any blood clots. You have been prescribed a new medication, Valium. This is a benzodiazepine, and can be very sedating. Please do not drive or operate machinery while taking this medication. We have prescribed Valium 5 mg by mouth twice daily for 5 days. Please follow-up with your primary care physician or Dr. Archer to discuss this medication further. For the diarrhea, we initially prescribed Imodium. When that did not help the symptoms, we switched to Pepto Bismol 262mg chewable tab x2 as needed up to 4 times a day. This is an [id number] medication that you can obtain from the pharmacy. Please follow up with your primary care doctor if you have further GI symptoms. You are being referred for follow-up appointment for OMT therapy to help improve your back pain. A referral has been placed for you to follow-up with Dr. Julian Archer. You should receive confirmation of this appointment within 48 hours. If you do not receive confirmation of this appointment, or need to change your appointment, please call his office at You are being scheduled for a follow-up appointment with your primary care physician. You should be seen for a follow-up appointment in 1 to 2 weeks. You should receive a call to confirm your appointment, if you do not receive a call within 48 hours to confirm your appointment please call your primary care provider's office at If you develop any new or worsening symptoms including fever, chills, sweats, chest pain, chest pressure, difficulty breathing, uncontrolled nausea/vomiting, rash, wheezing, passing out or nearly passing out, bleeding, black/bloody bowel movements, or other new or concerning symptoms please call your primary care physician, or call 911 for re-evaluation in the emergency department if you are very concerned. Pending Studies at Discharge: No Stand-Alone Forms: My [facility] [employer], Smoking Cessation Medications and DC Order Prescriptions: New diazepam 5 mg Tablet 5 mg PO BID Qty: 10 RF: 0 Continued levothyroxine 125 mcg tablet 125 mcg PO QAM Qty: 30 RF: 5 albuterol sulfate 2.5 mg /3 mL (0.083 %) solution for nebulization 2.5 mg Inhalation QID PRN (Reason: Shortness Of Breath Or Wheezing) Qty: 180 RF: 3 trazodone 150 mg tablet 300 mg PO HS Qty: 60 RF: 5 trazodone 50 mg tablet 50 mg PO HS Qty: 30 RF: 5 gabapentin 600 mg tablet 600 mg PO BID Qty: 180 RF: 1 losartan 100 mg tablet 50 mg PO QAM Qty: 90 RF: 1 calcium carbonate-vitamin D3 500 mg(1,250mg) -200 unit tablet 1 tab PO QAM Qty: 90 RF: 3 pantoprazole 40 mg tablet,delayed release (DR/EC) 40 mg PO BID Qty: 60 RF: 2 Xarelto 20 mg tablet 20 mg PO QAM Qty: 30 RF: 3 spironolactone 25 mg tablet 25 mg PO QAM Qty: 90 RF: 1 albuterol sulfate 90 mcg/actuation HFA aerosol inhaler 2 puff Inhalation Q4H PRN (Reason: Shortness Of Breath Or Wheezing) Qty: 18 RF: 3 diclofenac sodium 1 % gel See Patient Comments topical .COMPLEX Qty: 100 RF: 3 nystatin 100,000 unit/gram powder 1 appln TOP TID PRN (Reason: skin irritation) Qty: 30 RF: 1 furosemide 20 mg tablet 20 mg PO DIRECTED PRN (Reason: Edema) Qty: 30 RF: 0 nystatin 100,000 unit/mL suspension 2 ml BUCCAL QID PRN (Reason: mouth irritation) Qty: 60 RF: 3 ondansetron 4 mg tablet,disintegrating 4 mg PO Q6H PRN (Reason: nausea and vomiting) Qty: 15 RF: 0 sucralfate [Carafate] 100 mg/mL suspension 10 ml PO TID PRN (Reason: NEEDED) RF: 0 lactulose 10 gram/15 mL solution 10 gm PO BID PRN (Reason: NEEDED) RF: 0 Discharge Orders: Discharge Order (Routine); Ordered 11/19/19 Ordered By: Bong Webb/Other Patient Handouts: Understanding Scoliosis, RLS What to Do, Understanding Lumbar Radiculopathy Admission Data Admit Date/Time: 11/13/19 20:07 Attending Provider: Yesenia Dewitt Admit Provider: Ander Wilde Primary Care Provider: Raleigh Chi Other Providers: Ander Wilde ; Jesse Crespo ; Sal Healy ; Gilberto Acuna ; Shaw Lee Other Interventions: Discharge Summary Assessment (RN) Last Done: 11/19/19 16:57 DC Date/Time DO NOT enter until pt leaves facility: 11/19/19 19:00 Supervising Physician Co-Signing Physician Notes Resident Physician Supervision Note: I independently interviewed and examined the patient and verified the rivera history and physical, reviewed labs and image studies, discussed the case with the resident Dr. Bong Robin and agree with the findings and care plan.
== END 2019-11-19 19:00 | disposition home or self-care (01) | DRG 552 ==
LOC: 3N 15:13 → ED 15:13 → SUATTDRO 23:22 → 3N 23:56 → SUATTDRO 11-13 20:07

== ENCOUNTER 2020-06-19 11:15 | Observation (INO) ==
--- NOTE | 2020-06-19 11:55 | XRay Report ---
XR chest 1V portable CLINICAL HISTORY: Atypical chest pain COMPARISON STUDY: May 17, 2020 FINDINGS: The cardiac and mediastinal contours are normal. There is no evidence of focal pulmonary co nsolidation. There is no evidence of failure. No pleural effusions are visualized.[There is a tiny ca lcified granuloma within the right midlung zone. There is a new ill-defined 7 mm opacity at the right lung base, infectious/inflammatory versus summation shadow. Postsurgical changes are present within the thoracolumbar spine IMPRESSION: 1. New 7 mm opacity at the right lung base, summation shadow versus infectious/inflammatory. Otherwis e no acute findings. ACT 112: Negative or not required by law. Electronically signed by: Fco Anguiano M.D. 06/19/2020 11:54 AM
[2020-06-19 11:59] LABS: Basophils # (auto) 0.02 K/uL (0-0.2); Basophils % (auto) 0.2 %; Eosinophils # (auto) 0.11 K/uL (0-0.5); Eosinophils % (auto) 1.2 %; Hematocrit (blood only) 42.6 % (37-47); Hemoglobin 14.5 g/dL (12.0-16.0); Immature Granulocytes # (auto) 0.02 K/uL (0.00-0.02); Immature Granulocytes % (auto) 0.2 %; Lymphocytes # (auto) 2.62 K/uL (1.2-3.4); Lymphocytes % (auto) 27.8 %; Mean Corpuscular Hemoglobin 31.1 pg (25-34); Mean Corpuscular Volume 91.4 fL (80-100); Monocytes # (auto) 1.04 K/uL (0.11-0.59); Neutrophils # (auto) 5.62 K/uL (1.4-6.5); Neutrophils % (auto) 59.6 %; Platelet Count 323 K/uL (130-400); RDW Standard Deviation 50.2 fL (36.4-46.3); Red Blood Count 4.66 M/uL (4.2-5.4); White Blood Count 9.43 K/uL (4.8-10.8)
[2020-06-19 12:14] LABS: Partial Thromboplastin Ratio 1.1; Partial Thromboplastin Time 28.8 Seconds (21.0-31.0); Prothrombin Time 10.5 Seconds (9.0-12.0)
[2020-06-19] MEDS ORDERED: NITROGLYCERIN 2% OINTMENT 30GM TUBE EXT STA (12:18)
[2020-06-19] MEDS ORDERED: MAGNESIUM SULFATE / D5W 1 GM/100 ML BAG IV ONE (12:18)
[2020-06-19] MEDS ORDERED: ACETAMINOPHEN 500 MG TAB PO STA (12:18)
[2020-06-19] MEDS ORDERED: METOCLOPRAMIDE HCL INJ 5 MG/ML 2 ML VIAL IV STA (12:18)
--- NOTE | 2020-06-19 12:20 | Emergency Department Note ---
Impression & Plan Atypical chest pain, Headache, Encounter for smoking cessation counseling ED Provider Note NAME: MARIZA SWAIN AGE: 60 SEX: F : 1960 ARRIVES VIA: Ambulance INFORMANT: Patient, ED PROVIDER(S): Gilberto Narayan MD Chief Complaint: Chest pain HPI: Patient does present with concern for chest pains. The patient states that she has had chest pains began this morning described as left-sided jabbing and radiating to her left neck with associated headache. The patient states that she did take nitro in route and this seemed to improve her chest discomfort. The patient does have a history of blood clots and does take Xarelto. The patient denies any recent travel or sick contacts. The patient does have a known history of smoking but states she has improved only 2 cigarettes/day. The patient denies any shortness of breath. The patient has had nausea. The patient did have some sweating episodes yesterday. The patient denies any lower extremity swelling but does states she has a mild tingling in the right lower extremity which she states is been ongoing x1 week and does have a remote history of back surgery. Patient denies any back pain saddle anesthesia or bowel or bladder incontinence. ROS: See HPI for pertinent positives and negatives. A total of 10 systems were reviewed and otherwise negative. Past medical history: See below Surgical history: See below Social history: See below Physical Exam: GENERAL: Wearing a mask. EYE EXAM: Normal conjunctiva. PERRL, no anisocoria and EOM's grossly intact w/o pain. NECK: Supple, no nuchal rigidity, no adenopathy, non-tender. No signs of meningismus. LUNGS: Clear to auscultation. Normal chest wall mechanics. HEART: NSR, no MRG. ABDOMEN: Abdomen soft, non-tender, normo-active bowel sounds, no masses, no rebound or guarding. BACK: No CVA TTP. SKIN: No rashes and no bruising. UPPER EXTREMITIES: Upper extremities are grossly normal. LOWER EXTREMITIES: Grossly normal, no edema. NEURO EXAM: A&O x3, cranial nerves II-XII grossly intact, normal speech, moves all 4 extremities on command w/o issue. Slight decrease sensation of right l ower extremity compared to left. Otherwise no sensory deficits. Differential diagnoses: .ddchest Course: Patient was seen and evaluated the bedside. Full history physical exam was performed. EKG: Indication: Chest pain Normal sinus rhythm, rate of 67, normal intervals, left axis deviation, T wave inversion in lead III not in contiguous leads. T wave inversion in lead III may be slightly progressed from comparison EKG June 17, 2020. Imaging Studies: Radiology results as stated below per my review in the radiologist's interpretation: CT head/brain wo con CLINICAL HISTORY: Headache COMPARISON STUDY: MRI the brain dated 04/28/2019, head CT dated 04/27/2019 TECHNIQUE: Axial CT of the brain is performed from the vertex to the skull base. IV contrast was not administered for this examination. A dose lowering technique was utilized adhering to the principles of ALARA. CT DOSE: 638.56 mGycm FINDINGS: No intra or extra-axial mass lesions are visualized. There is no CT evidence of acute cortical infarction. There is no evidence of midline shift. There is no acute hemorrhage. No calvarial fractures are visualized. There is no evidence of pathologic ventricular dilatation. There is no evidence of acute sinusitis IMPRESSION: No acute intracranial findings ACT 112: Negative or not required by law. Electronically signed by: Fco Anguiano M.D. 06/19/2020 1:40 PM Dictated: 06/19/20 1338 Transcribed: 06/19/201337 SINGLE VIEW CHEST CLINICAL HISTORY: Atypical chest pain. FINDINGS: An AP, portable, upright chest radiograph is compared to study dated 06/19/2020. The cardiomediastinal silhouette is unremarkable. The lungs and pleural spaces are clear. The nodular density questioned at the right lung base on today's earlier examination is no longer appreciated. No pneumothorax is seen. The bony thorax is grossly intact. Fusion hardware is seen at the thoracolumbar junction. IMPRESSION: No active disease in the chest. ACT 112: Negative or not required by law. Electronically signed by: Yvan De Anda M.D. 06/19/2020 1:23 PM Dictated: 06/19/20 1321 Transcribed: 06/19/20 132 Cardiac monitoring: An order was placed for continuous cardiac monitoring. The monitor shows a rate of with rhythm. MDM: Patient was seen due to concerns for chest pain and headache. Blood work is obtained along with an EKG troponin chest x-ray CT of the head. The patient was treated symptomatically with regard to her headache and chest pain. I counseled patient on smoking cessation for 3 minutes. Treatment options discussed and resources provided. Patient was receptive. Patient has a normal white count H&H and platelet count. Kidney function is unremarkable with a negative troponin. Chest x-ray clear. CT of the head is negative. I did speak with the patient given the patient's risk factors with associated left-sided chest pain improved with nitro as well as the fact that it radiated to the neck believe the patient would benefit from chest pain observation. I did speak the on-call hospitalist and the patient was admitted to the [facility] medicaments service under Dr. Romero. Aspirin was held at the time of her admission as the patient did have a prior history with what she described as likely GI bleed with associated transfusion and thus was told not to take any aspirin. Chest pain had improved with the nitro. Medications were ordered for the patient's headache. The patient has a nonfocal neurologic exam is not meningitic or encephalopathic. 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; underwent bilateral salpingo-oophorectomy History of anemia 04/2018 S/P BLOOD TRANSFUSION (POLYPS IN STOMACH) History of pulmonary embolism (~2016) Hx of deep venous thrombosis (~2014) X2 R LEG Hypertension Hypothyroidism Intermittent claudication Morbid obesity Osteoarthritis Radicular pain of thoracic region Restless leg syndrome Scoliosis Sleep apnea NO DEVICE Umbilical hernia Urinary incontinence Vitamin D deficiency Surgical History H/O thyroidectomy History of 2 sections History of appendectomy History of cardiac catheterization SEVERAL YEARS AGO= NO STENTS History of cholecystectomy History of colonoscopy History of endoscopy History of hysterectomy (~1981) History of lumbar surgery WITH "SCREWS"--T10-S1 fusion History of salpingo-oophorectomy (~07/2018) History of thyroidectomy History of total left knee replacement History of total right knee replacement Presence of IVC filter (~07/2018) Family History Father Heart disease Diabetes Hypertension Myocardial infarction, Onset Age: 35 Sister Depression Hypertension Mother Diabetes Hypertension Kidney disease Denies family history of Ovarian cancer Prostate cancer Breast cancer Lung cancer Colorectal cancer Social History Smoking Status: Current every day smoker Tobacco Type: Cigarettes packs per day: 0.25; Cigarettes Per Day: 6; Second Hand Exposure: Yes; Hx Alcohol Use: No Hx Substance Use: No Preferred Language: [place] Communication Ability: Effective Visual Impairment: No Limitations 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: Normal 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 Beliefs That Will Affect Care: None marital status: Current Living Situation: Spouse and Parent Current Living Situation Comment: and mother How many Children do You have: 2 Feels Safe at Home: Yes Childhood Exposure to Second-Hand Smoke: Yes Diet Comment: regular caffeine: Yes during the past year weight has: remained stable Dental Care, Regularly: No Physical Activity Frequency: Does not Exercise Seatbelt Use: always Sunscreen Use: Yes Assistive Devices: Walker Allergies Allergies Allergy/AdvReac Type Severity Reaction Status Date / Time erythromycin base Allergy Severe "ALL PINK Verified 06/19/20 14:28 AND SWELLED UP" ketorolac Allergy Severe SOB,TACHYCA Verified 06/19/20 14:28 RDIA carbamazepine Allergy Intermediate Heart Verified 06/19/20 14:28 Arrhythmia acetaminophen [From Vicodin] AdvReac Intermediate Nausea Verified 06/19/20 14:28 adhesive AdvReac Intermediate SKIN TEARS Verified 06/19/20 14:28 butorphanol [From Stadol] AdvReac Intermediate Agitated Verified 06/19/20 14:28 hydrocodone [From Vicodin] AdvReac Intermediate Nausea Verified 06/19/20 14:28 Macrolide Antibiotics AdvReac Intermediate VOMITTING Verified 06/19/20 14:28 oxycodone [From Percocet] AdvReac Intermediate Nausea Verified 06/19/20 14:28 temazepam AdvReac Intermediate GI SYMPTOMS Verified 06/19/20 14:28 Home Meds Home Medications Medication Instructions Recorded Confirmed lactulose 10 gm PO BID PRN 11/11/19 06/19/20 sucralfate [Carafate] 10 ml PO TID PRN 11/11/19 06/19/20 diclofenac sodium 1 g TOPICAL DIRECTED PRN 04/25/20 06/19/20 tiotropium bromide [Spiriva 1 puff INHALATION QAM 06/17/20 06/19/20 Respimat] levothyroxine 125 mcg PO DAILYBB 06/19/20 06/19/20 Previous Rx's Medication Instructions Recorded furosemide 20 mg tablet 20 mg PO DIRECTED PRN #30 tab 11/23/18 nystatin 100,000 unit/gram topical 1 appln TOP TID PRN #30 gm 04/08/19 powder nystatin 100,000 unit/mL oral 2 ml BUCCAL QID PRN #60 ml 04/29/19 suspension ondansetron 4 mg PO Q6H PRN #15 tab 07/11/19 calcium carbonate 500 mg (1,250 1 tab PO QAM #90 tab 08/20/19 mg)-vitamin D3 200 unit tablet gabapentin 600 mg tablet 600 mg PO TID #180 tab 11/26/19 albuterol sulfate 2.5 mg INHALATION QID PRN #180 ml 03/02/20 albuterol sulfate 90 mcg/actuation 2 puff INHALATION Q4H PRN #18 gm 03/02/20 aerosol inhaler losartan 50 mg tablet 50 mg PO QAM #90 tab 03/31/20 spironolactone 25 mg tablet 25 mg PO QAM #90 tab 03/31/20 trazodone 150 mg tablet 300 mg PO HS #180 tab 04/23/20 nystatin 100,000 unit/gram topical 1 applic TOPICAL BID #30 g 05/01/20 cream triamcinolone acetonide 0.1 % 1 applic TOPICAL BID #30 g 05/01/20 topical cream pantoprazole 40 mg tablet,delayed 40 mg PO BID #180 tab 05/26/20 release rivaroxaban 20 mg tablet 20 mg PO QAM #90 tab 05/28/20 rosuvastatin 10 mg tablet 10 mg PO DAILY #30 tab 06/11/20 trazodone 50 mg tablet 50 mg PO HS #90 tab 06/19/20 Results & Data (ED) Vital Signs Vital Signs - 24 hr 06/19/20 11:18 06/19/20 11:24 06/19/20 11:33 Temperature 36.7 C Temperature Source Oral Pulse Rate 71 70 71 Pulse Rate [Apical] Pulse Rate from SpO2 Sensor 72 71 Respiratory Rate 12 20 17 Respiratory Effort / Characteristics Non-Labored Blood Pressure 149/98 H 149/98 H Blood Pressure [Right Arm] Blood Pressure Mean 115 115 Blood Pressure Mean [Right Arm] Pulse Oximetry 95 97 95 Oxygen Delivery Method Room Air Sepsis Recent Fever Within 48 Hours No Sepsis New/Unexplained Change in Mental Status N/A Sepsis Action Taken by Nursing No Action Required 06/19/20 12:00 06/19/20 12:30 06/19/20 12:31 Temperature Temperature Source Pulse Rate 69 70 Pulse Rate [Apical] 70 Pulse Rate from SpO2 Sensor 70 Respiratory Rate 14 18 Respiratory Effort / Characteristics Blood Pressure Blood Pressure [Right Arm] 145/90 H Blood Pressure Mean Blood Pressure Mean [Right Arm] 108 Pulse Oximetry 94 97 Oxygen Delivery Method Room Air Sepsis Recent Fever Within 48 Hours Sepsis New/Unexplained Change in Mental Status Sepsis Action Taken by Nursing 06/19/20 12:32 06/19/20 13:00 06/19/20 13:50 Temperature Temperature Source Pulse Rate 70 64 71 Pulse Rate [Apical] Pulse Rate from SpO2 Sensor Respiratory Rate 19 12 Respiratory Effort / Characteristics Blood Pressure 145/90 H 124/97 Blood Pressure [Right Arm] Blood Pressure Mean 108 106 Blood Pressure Mean [Right Arm] Pulse Oximetry Oxygen Delivery Method Sepsis Recent Fever Within 48 Hours Sepsis New/Unexplained Change in Mental Status Sepsis Action Taken by [facility] Medications Current Medication List: was personally reviewed by me Laboratory Data Attestation: I reviewed the patient's lab results. Result diagrams: 06/19/20 11:28 06/19/20 11:28 Lab Results 06/19/20 06/19/20 06/19/20 Range/Units 11:28 11:28 11:28 WBC 9.43 (4.8-10.8) K/uL RBC 4.66 (4.2-5.4) M/uL Hgb 14.5 (12.0-16.0) g/dL Hct 42.6 (37-47) % MCV 91.4 (80-100) fL MCH 31.1 (25-34) pg MCHC 34.0 (32-36) g/dL RDW Std Deviation 50.2 H (36.4-46.3) fL RDW Coeff of Wilber 15.0 H (11.5-14.5) % Plt Count 323 (130-400) K/uL MPV 10.0 (7.4-10.4) fL Immature Gran % (Auto) 0.2 % Neut % (Auto) 59.6 % Lymph % (Auto) 27.8 % [place] % (Auto) 11.0 % Eos % (Auto) 1.2 % Baso % (Auto) 0.2 % Neut # (Auto) 5.62 (1.4-6.5) K/uL Lymph # (Auto) 2.62 (1.2-3.4) K/uL [place] # (Auto) 1.04 H (0.11-0.59) K/uL Eos # (Auto) 0.11 (0-0.5) K/uL Baso # (Auto) 0.02 (0-0.2) K/uL Immature Gran # (Auto) 0.02 (0.00-0.02) K/uL PT 10.5 (9.0-12.0) Seconds INR 1.0 (0.9-1.1) APTT 28.8 (21.0-31.0) Seconds PTT Ratio 1.1 Sodium 140 (136-145) mmol/L Potassium 4.4 D (3.5-5.1) mmol/L Chloride 108 H (98-107) mmol/L Carbon Dioxide 26 (21-32) mmol/L Anion Gap 6.0 (3-11) BUN 11 (7-18) mg/dl Creatinine 1.05 (0.6-1.2) mg/dl Est Cr Clr Drug Dosing 67.1 ml/min Est GFR ( Amer) 67.3 Est GFR (Non-Af Amer) 58.1 BUN/Creatinine Ratio 10.6 (10-20) Glucose 104 H (70-99) mg/dl Calcium 9.1 (8.5-10.1) mg/dl Total Bilirubin 0.3 (0.2-1) mg/dl AST 18 (15-37) U/L ALT 25 (12-78) U/L Alkaline Phosphatase 71 (45-117) U/L Troponin I < 0.015 (0-0.045) ng/ml Total Protein 6.8 (6.4-8.2) gm/dl Albumin 3.6 (3.4-5.0) gm/dl Globulin 3.2 (2.5-4.0) gm/dl Albumin/Globulin Ratio 1.1 (0.9-2) Specimen Hemolysis Administered Medications Discontinued Medications Acetaminophen (Acetaminophen 500 Mg Tab) 1,000 mg PO NOW STA Stop: 06/19/20 12:19 Last Admin: 06/19/20 13:04 Dose: 1,000 mg Documented by: [id number] Sodium Chloride (Nss 1000ml) 1,000 mls @ 999 mls/hr IV .Q1H1M MIGUEL Stop: 06/19/20 13:30 Last Infusion: 06/19/20 13:38 Dose: 0 mls/hr Documented by: [id number] Admin: 06/19/20 12:30 Dose: 999 mls/hr Documented by: [id number] Magnesium Sulfate/Dextrose (Magnesium Sulfate / D5w) 1 gm in 100 mls @ 100 mls/hr IV NOW ONE Stop: 06/19/20 13:17 Last Infusion: 06/19/20 13:38 Dose: 0 mls/hr Documented by: [id number] Admin: 06/19/20 12:30 Dose: 100 mls/hr Documented by: [id number] Sodium Chloride (Nss 1000ml) 500 mls @ 999 mls/hr IV .Q31M ONE Stop: 06/19/20 14:55 Last Infusion: 06/19/20 15:38 Dose: 0 mls/hr Documented by: [id number] Admin: 06/19/20 15:05 Dose: 999 mls/hr Documented by: [id number] Metoclopramide HCl (Metoclopramide Hcl Inj 5 Mg/Ml 2 Ml Vial) 10 mg IV NOW STA Stop: 06/19/20 12:19 Last Admin: 06/19/20 12:30 Dose: 10 mg Documented by: [id number] Nitroglycerin (Nitroglycerin 2% Ointment 30gm Tube) 0.5 inch EXT NOW STA Stop: 06/19/20 12:19 Last Admin: 06/19/20 12:30 Dose: 0.5 inch Documented by: [id number] Ondansetron HCl (Ondansetron Inj 2 Mg/Ml 2 Ml Vial) 4 mg IV NOW STA Stop: 06/19/20 14:26 Last Admin: 06/19/20 15:05 Dose: 4 mg Documented by: [id number] Discharge Plan Visit Data Chief Complaint: Chest Pain ED Provider: Gilberto Narayan Discharge Problem: Atypical chest pain, Headache, Encounter for smoking cessation counseling Forms Stand Alone Forms: My [facility] [employer] Prescriptions Prescriptions: No Action calcium carbonate-vitamin D3 500 mg(1,250mg) -200 unit tablet 1 tab PO QAM Qty: 90 RF: 3 albuterol sulfate 90 mcg/actuation HFA aerosol inhaler 2 puff Inhalation Q4H PRN (Reason: Shortness Of Breath Or Wheezing) Qty: 18 RF: 3 albuterol sulfate 2.5 mg /3 mL (0.083 %) solution for nebulization 2.5 mg Inhalation QID PRN (Reason: Shortness Of Breath Or Wheezing) Qty: 180 RF: 3 spironolactone 25 mg tablet 25 mg PO QAM Qty: 90 RF: 1 losartan 50 mg tablet 50 mg PO QAM Qty: 90 RF: 1 trazodone 150 mg tablet 300 mg PO HS Qty: 180 RF: 1 nystatin 100,000 unit/gram cream 1 applic topical BID Qty: 30 RF: 1 triamcinolone acetonide 0.1 % cream 1 applic topical BID Qty: 30 RF: 0 pantoprazole 40 mg tablet,delayed release (DR/EC) 40 mg PO BID Qty: 180 RF: 2 Xarelto 20 mg tablet 20 mg PO QAM Qty: 90 RF: 1 rosuvastatin 10 mg tablet 10 mg PO DAILY Qty: 30 RF: 2 trazodone 50 mg tablet 50 mg PO HS Qty: 90 RF: 1 nystatin 100,000 unit/gram powder 1 appln TOP TID PRN (Reason: skin irritation) Qty: 30 RF: 1 gabapentin 600 mg tablet 600 mg PO TID Qty: 180 RF: 3 furosemide 20 mg tablet 20 mg PO DIRECTED PRN (Reason: Edema) Qty: 30 RF: 0 nystatin 100,000 unit/mL suspension 2 ml BUCCAL QID PRN (Reason: mouth irritation) Qty: 60 RF: 3 ondansetron 4 mg tablet,disintegrating 4 mg PO Q6H PRN (Reason: nausea and vomiting) Qty: 15 RF: 0 diclofenac sodium 1 % gel 1 g topical DIRECTED PRN (Reason: Pain) RF: 0 sucralfate [Carafate] 100 mg/mL suspension 10 ml PO TID PRN (Reason: NEEDED) RF: 0 lactulose 10 gram/15 mL solution 10 gm PO BID PRN (Reason: NEEDED) RF: 0 Spiriva Respimat 1.25 mcg/actuation mist 1 puff inhalation QAM RF: 0 levothyroxine 125 mcg tablet 125 mcg PO DAILYBB RF: 0 Discharge Problem: Headache Qualifiers: Headache type: unspecified Headache chronicity pattern: acute headache
[2020-06-19] MEDS ORDERED: SODIUM CHLORIDE 0.9% 1000ML 1,000 ML IV SCH (12:30)
[2020-06-19 13:09] LABS: Alanine Aminotransferase 25 U/L (12-78); Albumin Globulin Ratio 1.1 (0.9-2); Albumin Level 3.6 gm/dl (3.4-5.0); Alkaline Phosphatase 71 U/L (45-117); Aspartate Aminotransferase 18 U/L (15-37); BUN Creatinine Ratio 10.6 (10-20); Bilirubin,Total 0.3 mg/dl (0.2-1); Blood Urea Nitrogen 11 mg/dl (7-18); Calcium 9.1 mg/dl (8.5-10.1); Carbon Dioxide 26 mmol/L (21-32); Chloride 108 mmol/L (98-107); Creatinine Clr Calc Pharmacy 67.1 ml/min; Est GFR (African American) 67.3; Est GFR (Non-African American) 58.1; Globulin 3.2 gm/dl (2.5-4.0); Glucose 104 mg/dl (70-99); Sodium 140 mmol/L (136-145); Total Protein 6.8 gm/dl (6.4-8.2); Troponin I < 0.015 ng/ml (0-0.045)
[2020-06-19 13:12] LABS: Potassium 4.4 mmol/L (3.5-5.1)
--- NOTE | 2020-06-19 13:24 | XRay Report ---
SINGLE VIEW CHEST CLINICAL HISTORY: Atypical chest pain. FINDINGS: An AP, portable, upright chest radiograph is compared to study dated 06/19/2020. The cardiom ediastinal silhouette is unremarkable. The lungs and pleural spaces are clear. The nodular density qu estioned at the right lung base on today's earlier examination is no longer appreciated. No pneumotho rax is seen. The bony thorax is grossly intact. Fusion hardware is seen at the thoracolumbar junction . IMPRESSION: No active disease in the chest. ACT 112: Negative or not required by law. Electronically signed by: Yvan De Anda M.D. 06/19/2020 1:23 PM
--- NOTE | 2020-06-19 13:41 | CT Scan Report ---
CT head/brain wo con CLINICAL HISTORY: Headache COMPARISON STUDY: MRI the brain dated 04/28/2019, head CT dated 04/27/2019 TECHNIQUE: Axial CT of the brain is performed from the vertex to the skull base. IV contrast was not administered for this examination. A dose lowering technique was utilized adhering to the principles of ALARA. CT DOSE: 638.56 mGycm FINDINGS: No intra or extra-axial mass lesions are visualized. There is no CT evidence of acute cortical infarc tion. There is no evidence of midline shift. There is no acute hemorrhage. No calvarial fractures ar e visualized. There is no evidence of pathologic ventricular dilatation. There is no evidence of acute sinusitis IMPRESSION: No acute intracranial findings ACT 112: Negative or not required by law. Electronically signed by: Foc Anguiano M.D. 06/19/2020 1:40 PM
--- NOTE | 2020-06-19 14:12 | Electrocardiogram Report ---
Test Reason : Blood Pressure : / mmHG Vent. Rate : 067 BPM Atrial Rate : 067 BPM P-R Int : 142 ms QRS Dur : 084 ms QT Int : 398 ms P-R-T Axes : 051 -26 033 degrees QTc Int : 420 ms Normal sinus rhythm Low voltage QRS Poor R wave progression, consider anterior GA vs. lead placement vs. LVH Abnormal ECG When compared with ECG of 17-JUN-2020 17:37, Borderline criteria for Anterolateral infarct are now Present Confirmed by Fernie Sanchez ([id number]) on 06/19/2020 2:12:19 PM Referred By: [email or web address] Confirmed By:Brannon Sanchez
[2020-06-19] MEDS ORDERED: SODIUM CHLORIDE 0.9% 1000ML 500 ML IV ONE (14:25)
[2020-06-19] MEDS ORDERED: ONDANSETRON INJ 2 MG/ML 2 ML VIAL IV STA (14:25)
--- NOTE | 2020-06-19 15:49 | History & Physical Report ---
Date of Service June 19, 2020 Assessment & Plan (1) Chest pain: - Admit to tele for observation for r/o - Concern for ACS with chest pain, pressure, Left arm numbness and tingling with radiation up into the jaw, nausea and diaphoresis. Father in his late 50s with multiple hx of ME. - Trend cardiac biomarkers, initial set was negative, next set due 1800, trend x 2 more sets - EKG reviewed as above - possible anterolateral lead T wave changes - monitor - Check 2 D echo - If negative enzymes can consider a stress test tomorrow morning - pt would require dobutamine stress test with inability to walk well at baseline due to bilateral TKA and multiple back surgeries/hardware - PT/OT consulted - Consider cardiology consultation pending troponins and echo results (2) Hypertension: -Hold Lasix 20 mg as she has not needed to take this medication in a long time. No edema in BLE. Appears euvolemic. -Continue losartan 50 mg daily and spironolactone 25 mg daily (3) Dyslipidemia: -Continue rosuvastatin 10 mg daily -Check am lipid profile (4) History of pulmonary embolism: - History of such in 2019 - status post IVC filter placement and removal when she underwent ovarian malignancy removal in 2017 - IVC filter now removed - Continue on Xarelto 20 mg daily (5) Diabetes type 2, uncontrolled: - Last A1C= 6.4 on 06/08/20, no need for recheck with am - Does not appear that she in on any home meds - ISS with accuchecks ACHS, HH/DM diet (6) Hypothyroidism: -Continue levothyroxine 125 mcg daily (7) Morbid obesity: -BMI 41.2 -Encourage diet and exercise (8) Sleep apnea: -Does not wear CPAP, does not wear oxygen at baseline (9) Ankylosing spondylitis: - History of such, continue gabapentin 600 mg tid - Multiple back surgeries, 2010, 2012, 2015 (10) Bipolar disorder with depression: - History of such, continue trazodone 350 mg HS - Pt is otherwise unmedicated and does not want to be on antipsychotic medication as she "felt like a zombie" while on it. - Has had 7 manic episodes within the last year. Reports she cleans a lot when this happens, lasts 3-4 days and then she is tired and crashes and resets. (11) Vitamin D deficiency: -Continue supplementation with calcium/vit d tabs daily (12) Osteoarthritis: - Encourage exercise as tolerated, gabapentin DVT ppx: xarelto, cristals CODE: Full Dispo: From home, dc likely within 1 day, observation overnight. History of Present Illness Primary Care Provider: LUCY Francois This is a 60-year-old female with PMHx of HTN, HLD, COPD, asthma, smokes 2- 3cigarettes daily, history of PE on Xarelto, ovarian carcinoma s/p surgical excision, IVC filter placement and now removed in 2018, back surgeries with hardware placement in 2010, 2012, 2014, hx of intracranial hemorrhage secondary to fall where she slipped on ice and fell in 2017, DM type II, RLS, osteoarthritis, bipolar type I, GERD, hypothyroidism, morbid obesity with BMI of 41.2, ankylosing spondylitis, sleep apnea who presents with acute onset of left- sided chest pain with radiation to the neck. She reports initially her pain started 2 days ago with a frontal headache and noted that her blood pressure was slightly elevated as well as heart palpitations. Her headache improved and she attempted to go to sleep Monday night. Yesterday, she presented to the [facility] after worsening headache which started again, elevated blood pressure of 170 systolic. Once there she underwent cardiac work-up performed to no avail, negative EKG and bloodwork. She was set up to see her PCP at 1820, after she was discharged from the ER she did go to the appointment where they determined that there was no further work- up to complete. Her headache had resolved and had normal blood pressures so was sent home. This morning she awoke feeling well, had a blood pressure of 107/80, was eating breakfast with her mom and developed a frontal headache again all of a sudden which was excruciating. Her blood pressure at that point was again in the 170s, she began to feel chest pressure with radiation up into her jaw, left arm numbness/tingling and became nauseous and slightly diaphoretic. She received nitro spray via [facility] on the way to the ER, and an additional dose here. Chest pain is improved at this point with application of nitro paste, reports a 2/10 currently but still has a mild headache. She denies anxiety or stress provoking situations. She admits to being manic bipolar, not on any medication for years. She has had approximately 7 episodes of chica within the last year where she cleans significantly but does not become irrational, spend large amounts of money, or develop SI/HI. Family Hx: father in late 50s, had multiple heart attacks starting in his 30s. Social: Smokes 2-3 cig daily, denies alcohol use, does not routinely exercise, eats 1 meal daily, lives at home with and her mother. Allergies Allergy/AdvReac Type Severity Reaction Status Date / Time erythromycin base Allergy Severe "ALL PINK Verified 06/25/20 10:09 AND SWELLED UP" ketorolac Allergy Severe SOB,TACHYCA Verified 06/25/20 10:09 RDIA carbamazepine Allergy Intermediate Heart Verified 06/25/20 10:09 Arrhythmia acetaminophen [From Vicodin] AdvReac Intermediate Nausea Verified 06/25/20 10:09 adhesive AdvReac Intermediate SKIN TEARS Verified 06/25/20 10:09 butorphanol [From Stadol] AdvReac Intermediate Agitated Verified 06/25/20 10:09 hydrocodone [From Vicodin] AdvReac Intermediate Nausea Verified 06/25/20 10:09 Macrolide Antibiotics AdvReac Intermediate VOMITTING Verified 06/25/20 10:09 oxycodone [From Percocet] AdvReac Intermediate Nausea Verified 06/25/20 10:09 temazepam AdvReac Intermediate GI SYMPTOMS Verified 06/25/20 10:09 Home Medications Medication Instructions Recorded Confirmed Type furosemide 20 mg tablet 20 mg PO DIRECTED PRN #30 tab 11/23/18 06/25/20 Rx nystatin 100,000 unit/gram topical 1 appln TOP TID PRN #30 gm 04/08/19 06/25/20 Rx powder nystatin 100,000 unit/mL oral 2 ml BUCCAL QID PRN #60 ml 04/29/19 06/25/20 Rx suspension ondansetron 4 mg PO Q6H PRN #15 tab 07/11/19 06/25/20 Rx calcium carbonate 500 mg (1,250 1 tab PO QAM #90 tab 08/20/19 06/25/20 Rx mg)-vitamin D3 200 unit tablet lactulose 10 gm PO BID PRN 11/11/19 06/25/20 History sucralfate [Carafate] 10 ml PO TID PRN 11/11/19 06/25/20 History gabapentin 600 mg tablet 600 mg PO TID #180 tab 11/26/19 06/25/20 Rx albuterol sulfate 2.5 mg INHALATION QID PRN #180 ml 03/02/20 06/25/20 Rx albuterol sulfate 90 mcg/actuation 2 puff INHALATION Q4H PRN #18 gm 03/02/20 06/25/20 Rx aerosol inhaler losartan 50 mg tablet 50 mg PO QAM #90 tab 03/31/20 06/25/20 Rx spironolactone 25 mg tablet 25 mg PO QAM #90 tab 03/31/20 06/25/20 Rx diclofenac sodium 1 g TOPICAL DIRECTED PRN 04/25/20 06/25/20 History nystatin 100,000 unit/gram topical 1 applic TOPICAL BID #30 g 05/01/20 06/25/20 Rx cream triamcinolone acetonide 0.1 % 1 applic TOPICAL BID #30 g 05/01/20 06/25/20 Rx topical cream pantoprazole 40 mg tablet,delayed 40 mg PO BID #180 tab 05/26/20 06/25/20 Rx release rivaroxaban 20 mg tablet 20 mg PO QAM #90 tab 05/28/20 06/25/20 Rx rosuvastatin 10 mg tablet 10 mg PO DAILY #30 tab 06/11/20 06/25/20 Rx Spiriva Respimat 1 puff INHALATION QAM 06/17/20 06/25/20 History levothyroxine 125 mcg PO DAILYBB 06/19/20 06/25/20 History amlodipine 5 mg PO DAILY #30 tab 06/21/20 06/25/20 Rx aspirin [Aspirin Low Dose] 81 mg PO DAILY #30 tab 06/21/20 06/25/20 Rx yevrlwgwya-jokdqwyqwcvrv-ypdv 1 tab PO Q4H PRN #8 tab 06/21/20 Rx lamotrigine [Lamictal] See Taper PO QAM #90 tab 06/21/20 06/25/20 Rx trazodone 150 mg PO HS 30 Days #90 tab 06/21/20 06/25/20 Rx Past Med/Surg History Medical History Acute intra-cranial hemorrhage Ankylosing spondylitis Asthma Bipolar II disorder Chronic radicular low back pain Constipation, chronic COPD (chronic obstructive pulmonary disease) Degenerative disc disease Diabetes type 2, uncontrolled Diverticular disease of colon Dyslipidemia GERD (gastroesophageal reflux disease) 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; underwent bilateral salpingo-oophorectomy History of anemia 04/2018 S/P BLOOD TRANSFUSION (POLYPS IN STOMACH) History of pulmonary embolism (~2016) Hx of deep venous thrombosis (~2014) X2 R LEG Hypertension Hypothyroidism Intermittent claudication Morbid obesity Osteoarthritis Radicular pain of thoracic region Restless leg syndrome Scoliosis Sleep apnea NO DEVICE Umbilical hernia Urinary incontinence Vitamin D deficiency Surgical History H/O thyroidectomy History of 2 sections History of appendectomy History of cardiac catheterization SEVERAL YEARS AGO= NO STENTS History of cholecystectomy History of colonoscopy History of endoscopy History of hysterectomy (~1981) History of lumbar surgery WITH "SCREWS"--T10-S1 fusion History of salpingo-oophorectomy (~07/2018) History of thyroidectomy History of total left knee replacement History of total right knee replacement Family History Father Heart disease Diabetes Hypertension Myocardial infarction, Onset Age: 35 Sister Depression Hypertension Mother Diabetes Hypertension Kidney disease Denies family history of Ovarian cancer Prostate cancer Breast cancer Lung cancer Colorectal cancer Social History Smoking Status: Current every day smoker Tobacco Type: Cigarettes packs per day: 0.25; Cigarettes Per Day: 2-3; Second Hand Exposure: No; Hx Alcohol Use: No Hx Substance Use: No Preferred Language: [place]an Communication Ability: Effective Visual Impairment: No Limitations 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: Normal Teradata Developer Required: No Beliefs That Will Affect Care: None marital status: Current Living Situation: Spouse and Parent Current Living Situation Comment: & MOM How many Children do You have: 2 Feels Safe at Home: Yes Childhood Exposure to Second-Hand Smoke: Yes Diet Comment: regular caffeine: Yes during the past year weight has: remained stable Dental Care, Regularly: No Physical Activity Frequency: Does not Exercise Seatbelt Use: always Sunscreen Use: Yes Assistive Devices: None Review of Systems Review of Systems: Constitutional: No fever, sweats or chills Eyes: No diplopia, no worsening or blurred vision ENT: normal hearing, no trouble swallowing Respiratory: No cough, sputum, dyspnea at rest or on exertion Cardiovascular: No chest pain, tightness or palpitations Abdomen: No pain, nausea, vomiting, diarrhea or constipation Musculoskeletal: No joint pain, calf pain, swelling Neurologic: No weakness, numbness/tingling, or balance problems Psychiatric: No anxiety or depression Skin: No rash or itch Physical Exam Physical Exam: General: awake, alert, no apparent distress, morbidly obese with BMI 41.2 Head: Normocephalic, atraumatic ENT: PERRL, EOMI, no pharyngeal exudate, mucous membranes moist Chest: Chest is nontender to palpation, clear to auscultation, on room air, no adventitious breath sounds Cardiac: Regular rate and rhythm, no murmur, no JVD, normal peripheral pulses, good capillary refill Abdominal: NABS x 4 quadrants, soft, nondistended, nontender to palpation, no rebound or guarding Back: No point tenderness, surgical scars present, healed well. Extremities: Normal inspection, no peripheral edema or erythema, calfs nontender to palpation Psych: Normal mood and affect Neuro: AAO x 3, strength intact bilaterally and rated 5/5, no motor deficits, speech is clear, no peripheral sensory deficits Results & Data Results & Data ([facility]) Vital Signs (Past 12 Hours) Vital Signs Temp Pulse Pulse Resp BP BP Pulse Ox 06/19/20 13:50 71 06/19/20 13:00 64 12 124/97 06/19/20 12:32 70 19 145/90 H 06/19/20 12:31 70 06/19/20 12:30 70 18 145/90 H 97 06/19/20 12:00 69 14 94 06/19/20 11:33 71 17 95 06/19/20 11:24 36.7 C 70 20 149/98 H 97 06/19/20 11:18 71 12 149/[address] head/brain wo con CLINICAL HISTORY: Headache COMPARISON STUDY: MRI the brain dated 04/28/2019, head CT dated 04/27/2019 TECHNIQUE: Axial CT of the brain is performed from the vertex to the skull base. IV contrast was not administered for this examination. A dose lowering technique was utilized adhering to the principles of ALARA. CT DOSE: 638.56 mGycm FINDINGS: No intra or extra-axial mass lesions are visualized. There is no CT evidence of acute cortical infarction. There is no evidence of midline shift. There is no acute hemorrhage. No calvarial fractures are visualized. There is no evidence of pathologic ventricular dilatation. There is no evidence of acute sinusitis IMPRESSION: No acute intracranial findings SINGLE VIEW CHEST CLINICAL HISTORY: Atypical chest pain. FINDINGS: An AP, portable, upright chest radiograph is compared to study dated 06/19/2020. The cardiomediastinal silhouette is unremarkable. The lungs and pleural spaces are clear. The nodular density questioned at the right lung base on today's earlier examination is no longer appreciated. No pneumothorax is seen. The bony thorax is grossly intact. Fusion hardware is seen at the thoracolumbar junction. IMPRESSION: No active disease in the chest. ECG Additional Comments: 19-JUN-2020 11:24:18 [facility]-EDSTAT ROUTINE RETRIEVAL Normal sinus rhythm Low voltage QRS Poor R wave progression, consider anterior ME vs. lead placement vs. LVH Abnormal ECG When compared with ECG of 17-JUN-2020 17:37, Borderline criteria for Anterolateral infarct are now Present Confirmed by Fernie Sanchez ([id number]) on 06/19/2020 2:12:19 PM 25mm/s 10mm/mV 150Hz 9.0.9 12SL 241 RAMA: 10 Referred by: SELF Confirmed By: Fernie Marvin. rate 67 BPM AZ interval 142 ms QRS duration 84 ms QT/QTc 398/420 ms Supervising Physician Co-Signing Physician Notes Patient seen and examined at bedside. During my face to face encounter with patient, I obtained a history and physical examination. I discussed case with Sendy Shaw PA-C and patient. I agree with above note and plan. All of patient's questions were answered Patient will be admitted under observation for chest pain rule. Will order trop serially. PG Care Time/CCT Total # of Minutes Spent Total Time Spent with Patient: Total time spent is greater than 50% in c oordination of care (as documented) at patient's floor/unit and/or counseling patient: Coding Level of Care Code 73312 Initial Inpt Care Lvl 3 Diagnoses Chest pain R07.9 Chest pain type: unspecified Hypertension I10 Dyslipidemia E78.5 History of pulmonary embolism Z86.711 Diabetes type 2, uncontrolled E11.65 Hypothyroidism E03.9 Morbid obesity E66.01 Sleep apnea G47.30 Ankylosing spondylitis M45.9 Bipolar disorder with depression F31.30 Vitamin D deficiency E55.9 Osteoarthritis M19.90 (1) Chest pain Chest pain type: unspecified Qualified Code(s): R07.9 - Chest pain, unspecified
[2020-06-19] MEDS ORDERED: DEXTROSE 50% 50 ML SYRINGE IV PRN (18:34)
[2020-06-19] MEDS ORDERED: ALBUTEROL HFA 8 GM INHALER INH PRN (18:34)
[2020-06-19] MEDS ORDERED: ALBUTEROL 0.083% NEBU SOLN 3 ML VIAL INH PRN (18:34)
[2020-06-19] MEDS ORDERED: CARBOHYDRATES FOR HYPOGLYCEMIA PO PRN (18:34)
[2020-06-19] MEDS ORDERED: GLUCOSE 40% GEL 15 GM TUBE PO PRN (18:34)
[2020-06-19] MEDS ORDERED: GLUCAGON FOR INJ 1 MG VIAL SQ PRN (18:34)
[2020-06-19] MEDS ORDERED: GLUCOSE 10 TABS/TUBE PO PRN (18:34)
[2020-06-19] MEDS ORDERED: FUROSEMIDE 20 MG TAB PO PRN ×2 (18:34)
[2020-06-19] MEDS ORDERED: SUCRALFATE 1 GM/10 ML UDC PO PRN (19:13)
[2020-06-19] MEDS ORDERED: IBUPROFEN 200 MG TAB PO PRN (19:38)
[2020-06-19] MEDS ORDERED: MoRPHine SULFATE 2 MG/ML CARP IV PRN (19:39)
[2020-06-19] MEDS: TRIAMCINOLONE ACET 0.1% CR 15 GM TUBE TOP SCH (20:09)
[2020-06-19] MEDS: PANTOprazole 40 MG TAB PO SCH (20:11)
[2020-06-19] MEDS: GABAPENTIN 600 MG TAB PO SCH (20:11)
[2020-06-19] MEDS: INSULIN ASPART 100 UNITS/ML 3 ML PEN SC SCH (20:24)
[2020-06-19] MEDS: ONDANSETRON INJ 2 MG/ML 2 ML VIAL IV PRN (20:51)
[2020-06-19] MEDS ORDERED: traZODone HCL 50 MG TAB PO SCH (21:00)
[2020-06-19] MEDS ORDERED: traZODone HCL 100 MG TAB PO SCH (21:00)
[2020-06-19] MEDS ORDERED: PROMETHAZINE HCL 6.25 MG in SODIUM CHLORIDE 0.9% 50 ML IV PRN (22:47)
[2020-06-19] MEDS: MoRPHine SULFATE 2 MG/ML CARP IV PRN (22:54)
[2020-06-20] MEDS: MoRPHine SULFATE 2 MG/ML CARP IV PRN (00:44)
[2020-06-20] MEDS ORDERED: ACETAMINOPHEN/CODEINE 120MG/12MG 5ML UDP PO ONE (04:27)
--- NOTE | 2020-06-20 04:37 | Communication Note ---
Date of Service: June 20, 2020 Called to bedside regarding severe, ongoing headache. Patient describes a sensation of throbbing R sided headache. This has apparently been going on for the past several days. No associated photo or phonophobia. She believes her headaches are correlated to when her BP goes high. Prior to recent days, her BP was well controlled - she has no idea why it has been running so high. Exam: well appearing CV: RRR. S1 and S2 appreciated. no mrg. Chest pain not reproducible on exam. Pulm: Lungs CTA in all lung hamlin, b/l Neuro: CN II-XII intact. No pronator drift. Full strength. Head CT on admission normal, no bleeds or structural issues. Concern for Reversible cerebral vasoconstriction syndrome or Posterior reversible encephalopathy syndrome (although patient is not encephalopathic). Would like to start nicardipine, however HR is low at 55. Will hold off at this time. Will order Tylenol + Codeine for pain. Consider MRI in am.
[2020-06-20] MEDS ORDERED: HYDROmorphone INJ 0.5 MG/0.5 ML SYR IV PRN (04:43)
[2020-06-20] MEDS: ACETAMINOPHEN 325 MG TAB PO PRN ×2 (04:43→09:46)
[2020-06-20 04:58] LABS: Hematocrit (blood only) 41.5 % (37-47); Hemoglobin 13.8 g/dL (12.0-16.0); Mean Corpuscular Hemoglobin 30.7 pg (25-34); Mean Corpuscular Hgb Conc 33.3 g/dL (32-36); Mean Corpuscular Volume 92.2 fL (80-100); Mean Platelet Volume 10.3 fL (7.4-10.4); Platelet Count 296 K/uL (130-400); RDW Coefficient of Variation 15.1 % (11.5-14.5); RDW Standard Deviation 51.4 fL (36.4-46.3); White Blood Count 8.15 K/uL (4.8-10.8)
[2020-06-20] MEDS: LEVOTHYROXINE SODIUM 125 MCG TABLET PO SCH (04:59)
[2020-06-20 05:23] LABS: Alanine Aminotransferase 24 U/L (12-78); Albumin Level 3.4 gm/dl (3.4-5.0); BUN Creatinine Ratio 9.4 (10-20); Blood Urea Nitrogen 10 mg/dl (7-18); Calcium 8.5 mg/dl (8.5-10.1); Carbon Dioxide 28 mmol/L (21-32); Chloride 110 mmol/L (98-107); Cholesterol 214 mg/dl (0-200); Creatinine Clr Calc Pharmacy 63.2 ml/min; Est GFR (African American) 62.9; Est GFR (Non-African American) 54.3; Glucose 96 mg/dl (70-99); Magnesium 2.4 mg/dl (1.8-2.4); Potassium 4.1 mmol/L (3.5-5.1); Sodium 140 mmol/L (136-145)
[2020-06-20 05:26] LABS: Albumin Globulin Ratio 1.1 (0.9-2); Alkaline Phosphatase 66 U/L (45-117); Aspartate Aminotransferase 14 U/L (15-37); Bilirubin,Total 0.4 mg/dl (0.2-1); Chol HDL Ratio 5; HDL Cholesterol 41 mg/dl; LDL Cholesterol Calculated 143 mg/dl; Phosphorus 3.4 mg/dl (2.5-4.9); Total Protein 6.4 gm/dl (6.4-8.2); Triglycerides 151 mg/dl (0-150); Troponin I < 0.015 ng/ml (0-0.045); VLDL Cholesterol 30 mg/dl
[2020-06-20] MEDS: INSULIN ASPART 100 UNITS/ML 3 ML PEN SC SCH ×4 (08:17→20:49)
[2020-06-20] MEDS: PANTOprazole 40 MG TAB PO SCH ×2 (08:18→20:06)
[2020-06-20] MEDS: LOSARTAN POTASSIUM 50 MG TAB PO SCH (08:19)
[2020-06-20] MEDS: SPIRONOLACTONE 25 MG TAB PO SCH (08:19)
[2020-06-20] MEDS: ROSUVASTATIN CALCIUM 10 MG TAB PO SCH (08:19)
[2020-06-20] MEDS: CALCIUM 600MG + VIT D 400 IU TAB PO SCH (08:20)
[2020-06-20] MEDS: RIVAROXABAN 20 MG TAB PO SCH (08:20)
[2020-06-20] MEDS: GABAPENTIN 600 MG TAB PO SCH ×3 (08:20→20:06)
[2020-06-20] MEDS: NYSTATIN POWDER 15GM BTL EXT PRN (08:21)
[2020-06-20] MEDS: UMECLIDINIUM BROMIDE 62.5MCG/BLISTER 7 PUFFS/INHALER INH SCH (08:22)
[2020-06-20] MEDS: NICOTINE 7 MG/24 HR TDSY TD SCH (08:22)
--- NOTE | 2020-06-20 08:36 | Hospitalist Progress Note ---
Date of Service June 20, 2020 Assessment & Plan (1) Chest pain: Admit to tele for observation for r/o Concern for ACS with chest pain, pressure, Left arm numbness and tingling with radiation up into the jaw, nausea and diaphoresis. Father in his late 50s with multiple hx of [place]. Trop negative x 3 Cardiology on consult ECHO pending ?Outpatient dobutamine stress if symptoms can be controlled, but currently still reporting L chest pain/Rarm numbness and tingling along with R leg tingling. Calves non-tender, non-swollen. Will add B12 -- wnl PT/OT consulted Increased headache reported and elevated BPs. Given tylenol and compazine without much relief -- suspect rebound given multiple doses of morphine and dilaudid this morning Adding amlodipine 5mg NOW -- ?printzmetal angina Patient with hx ICH. Initial CT Head negative Will obtain MRI brain ?If transient HTN causing neurological symptoms. Also with hx bipolar chica and 7 episodes this year. --> Will ask psych to weigh in as well Neurology consult pending MRI results (2) Hypertension: Hold Lasix 20 mg as she has not needed to take this medication in a long time. No edema in BLE. Appears euvolemic. Continue losartan 50 mg daily and spironolactone 25 mg daily BP 122/72 but was elevated this monring secondary to pain (3) Dyslipidemia: Continue rosuvastatin 10 mg daily Lipid panel with borderline triglycerides/cholesterol -- consider increase at discharge for prevention given family hx (4) History of pulmonary embolism: History of such in 2019 status post IVC filter placement and removal when she underwent ovarian malignancy removal in 2017 - IVC filter now removed Continue on Xarelto 20 mg daily (5) Diabetes type 2, uncontrolled: Last A1C= 6.4 on 06/08/20, no need for recheck with am Does not appear that she in on any home meds ISS with accuchecks ACHS, HH/DM diet (6) Hypothyroidism: Continue levothyroxine 125 mcg daily Last TSH 0.85 on 06/08 (7) Morbid obesity: BMI 41.2 Encourage diet and exercise (8) Sleep apnea: Does not wear CPAP, does not wear oxygen at baseline (9) Ankylosing spondylitis: History of such, continue gabapentin 600 mg tid Multiple back surgeries, 2010, 2012, 2014 (10) Bipolar disorder with depression: History of such, continue trazodone 350 mg HS <-- consider decreased dose? Pt is otherwise unmedicated and does not want to be on antipsychotic medication as she "felt like a zombie" while on it. Has had 7 manic episodes within the last year. Reports she cleans a lot when this happens, lasts 3-4 days and then she is tired and crashes and resets. Psych consulted as above (11) Vitamin D deficiency: Continue supplementation with calcium/vit d tabs daily (12) Osteoarthritis: Encourage exercise as tolerated, gabapentin DVT ppx: Clarence Lucia CODE: Full Dispo: continued inpatient stay for imaging/symptom control as above Admission and Anticipated Discharge Date Admission Date: June 19, 2020 Subjective Patient evaluated this morning. Pain/pressure in her left chest for past three days. Happens at rest and causes increased anxiety regarding not wanting to get up/move due to not wanting her HR or BP to become elevated and worsen her symptoms. Feels her head throb with each beat of her heart. Seen in ER 3 days ago with negative work-up and was discharged. Seen again in [place] day following and then had follow up with PCP who wanted her to come back to [facility] ER but she was fed up and wanted to go home for the day. Again awoken with pressure and decided to come to the ER. Seen by Cardiology this morning and was told no issues. Negative troponins. Headaches this morning without history of headache (although fall and hx ICH in past), got dose of compazine this morning and still persists. At end of conversation patient with increased nausea and feeling like she needed to vomiting. Reports right eye still fuzzy but had episode of visual loss for approximately 5 minutes. Getting dose of zofran from nursing dayna. Discussed rebound headaches from pain medications. Cant take benadryl as it causes her to have her eyes swollen. Cannot take s teroids due to hx of bipolar/chica. No increased stressors reported other than frustrations with repeated negative work-up. Will obtain MRI of brain and consult Neurology if needed. No fever, chills, abdominal pain, difficulty eating, dysuria at this time. Questions/concerns addressed. Review of Systems Review of Systems: All systems reviewed & are unremarkable except as noted in HPI & below Physical Exam Physical Exam: General: awake, alert, nauseous, morbidly obese with BMI 41.2, no acute distress Head: Normocephalic, atraumatic ENT: PERRL, EOMI, no pharyngeal exudate, mucous membranes moist Chest: Chest is nontender to palpation, clear to auscultation, on room air, no adventitious breath sounds Cardiac: Regular rate and rhythm, no murmur, no JVD, normal peripheral pulses, good capillary refill Abdominal: NABS x 4 quadrants, soft, nondistended, nontender to palpation, no rebound or guarding Back: No point tenderness, surgical scars present, healed well. Extremities: Normal inspection, no peripheral edema or erythema, calfs nontender to palpation Psych: AOx3, irritable affect Neuro: strength intact bilaterally and rated 5/5, no motor deficits, speech is clear, no peripheral sensory deficits. sensation intact Results & Data Results & Data ([facility]) Vital Signs (Past 12 Hours) Vital Signs Temp Pulse Resp BP BP Pulse Ox 06/20/20 07:31 36.4 C L 56 L 18 145/83 H 97 06/20/20 03:21 36.4 C L 65 16 126/90 97 06/19/20 23:12 36.6 C 55 L 18 130/95 98 Laboratory Results 06/20/20 06/20/20 06/20/20 Range/Units 07:29 04:22 04:22 WBC 8.15 (4.8-10.8) K/uL RBC 4.50 (4.2-5.4) M/uL Hgb 13.8 (12.0-16.0) g/dL Hct 41.5 (37-47) % MCV 92.2 (80-100) fL MCH 30.7 (25-34) pg MCHC 33.3 (32-36) g/dL RDW Std Deviation 51.4 H (36.4-46.3) fL RDW Coeff of Wilber 15.1 H (11.5-14.5) % Plt Count 296 (130-400) K/uL MPV 10.3 (7.4-10.4) fL Immature Gran % (Auto) % Neut % (Auto) % Lymph % (Auto) % Lee % (Auto) % Eos % (Auto) % Baso % (Auto) % Neut # (Auto) (1.4-6.5) K/uL Lymph # (Auto) (1.2-3.4) K/uL Lee # (Auto) (0.11-0.59) K/uL Eos # (Auto) (0-0.5) K/uL Baso # (Auto) (0-0.2) K/uL Immature Gran # (Auto) (0.00-0.02) K/uL PT (9.0-12.0) Seconds INR (0.9-1.1) APTT (21.0-31.0) Seconds PTT Ratio Sodium 140 (136-145) mmol/L Potassium 4.1 (3.5-5.1) mmol/L Chloride 110 H (98-107) mmol/L Carbon Dioxide 28 (21-32) mmol/L Anion Gap 2.0 L (3-11) BUN 10 (7-18) mg/dl Creatinine 1.11 (0.6-1.2) mg/dl Est Cr Clr Drug Dosing 63.2 ml/min Est GFR ( Amer) 62.9 Est GFR (Non-Af Amer) 54.3 BUN/Creatinine Ratio 9.4 L (10-20) Glucose 96 (70-99) mg/dl POC Glucose 91 (70-99) mg/dl Calcium 8.5 (8.5-10.1) mg/dl Phosphorus 3.4 (2.5-4.9) mg/dl Magnesium 2.4 (1.8-2.4) mg/dl Total Bilirubin 0.4 (0.2-1) mg/dl AST 14 L (15-37) U/L ALT 24 (12-78) U/L Alkaline Phosphatase 66 (45-117) U/L Troponin I < 0.015 (0-0.045) ng/ml Total Protein 6.4 (6.4-8.2) gm/dl Albumin 3.4 (3.4-5.0) gm/dl Globulin 3.0 (2.5-4.0) gm/dl Albumin/Globulin Ratio 1.1 (0.9-2) Triglycerides 151 H (0-150) mg/dl Cholesterol 214 H (0-200) mg/dl LDL Cholesterol, Calc 143 mg/dl VLDL Cholesterol, Calc 30 mg/dl HDL Cholesterol 41 mg/dl Cholesterol/HDL Ratio 5 Specimen Hemolysis COVID-19 Eval Order SARS-CoV-2, RNA, NAAT (NEGATIVE) 06/19/20 06/19/20 06/19/20 Range/Units 20:35 20:23 18:37 WBC (4.8-10.8) K/uL RBC (4.2-5.4) M/uL Hgb (12.0-16.0) g/dL Hct (37-47) % MCV (80-100) fL MCH (25-34) pg MCHC (32-36) g/dL RDW Std Deviation (36.4-46.3) fL RDW Coeff of Wilber (11.5-14.5) % Plt Count (130-400) K/uL MPV (7.4-10.4) fL Immature Gran % (Auto) % Neut % (Auto) % Lymph % (Auto) % Lee % (Auto) % Eos % (Auto) % Baso % (Auto) % Neut # (Auto) (1.4-6.5) K/uL Lymph # (Auto) (1.2-3.4) K/uL Lee # (Auto) (0.11-0.59) K/uL Eos # (Auto) (0-0.5) K/uL Baso # (Auto) (0-0.2) K/uL Immature Gran # (Auto) (0.00-0.02) K/uL PT (9.0-12.0) Seconds INR (0.9-1.1) APTT (21.0-31.0) Seconds PTT Ratio Sodium (136-145) mmol/L Potassium (3.5-5.1) mmol/L Chloride (98-107) mmol/L Carbon Dioxide (21-32) mmol/L Anion Gap (3-11) BUN (7-18) mg/dl Creatinine (0.6-1.2) mg/dl Est Cr Clr Drug Dosing ml/min Est GFR ( Amer) Est GFR (Non-Af Amer) BUN/Creatinine Ratio (10-20) Glucose (70-99) mg/dl POC Glucose 112 H 84 (70-99) mg/dl Calcium (8.5-10.1) mg/dl Phosphorus (2.5-4.9) mg/dl Magnesium (1.8-2.4) mg/dl Total Bilirubin (0.2-1) mg/dl AST (15-37) U/L ALT (12-78) U/L Alkaline Phosphatase (45-117) U/L Troponin I < 0.015 (0-0.045) ng/ml Total Protein (6.4-8.2) gm/dl Albumin (3.4-5.0) gm/dl Globulin (2.5-4.0) gm/dl Albumin/Globulin Ratio (0.9-2) Triglycerides (0-150) mg/dl Cholesterol (0-200) mg/dl LDL Cholesterol, Calc mg/dl VLDL Cholesterol, Calc mg/dl HDL Cholesterol mg/dl Cholesterol/HDL Ratio Specimen Hemolysis COVID-19 Eval Order SARS-CoV-2, RNA, NAAT (NEGATIVE) 06/19/20 06/19/20 06/19/20 Range/Units 16:23 16:23 11:28 WBC (4.8-10.8) K/uL RBC (4.2-5.4) M/uL Hgb (12.0-16.0) g/dL Hct (37-47) % MCV (80-100) fL MCH (25-34) pg MCHC (32-36) g/dL RDW Std Deviation (36.4-46.3) fL RDW Coeff of Wilber (11.5-14.5) % Plt Count (130-400) K/uL MPV (7.4-10.4) fL Immature Gran % (Auto) % Neut % (Auto) % Lymph % (Auto) % Lee % (Auto) % Eos % (Auto) % Baso % (Auto) % Neut # (Auto) (1.4-6.5) K/uL Lymph # (Auto) (1.2-3.4) K/uL Lee # (Auto) (0.11-0.59) K/uL Eos # (Auto) (0-0.5) K/uL Baso # (Auto) (0-0.2) K/uL Immature Gran # (Auto) (0.00-0.02) K/uL PT (9.0-12.0) Seconds INR (0.9-1.1) APTT (21.0-31.0) Seconds PTT Ratio Sodium 140 (136-145) mmol/L Potassium 4.4 D (3.5-5.1) mmol/L Chloride 108 H (98-107) mmol/L Carbon Dioxide 26 (21-32) mmol/L Anion Gap 6.0 (3-11) BUN 11 (7-18) mg/dl Creatinine 1.05 (0.6-1.2) mg/dl Est Cr Clr Drug Dosing 67.1 ml/min Est GFR ( Amer) 67.3 Est GFR (Non-Af Amer) 58.1 BUN/Creatinine Ratio 10.6 (10-20) Glucose 104 H (70-99) mg/dl POC Glucose (70-99) mg/dl Calcium 9.1 (8.5-10.1) mg/dl Phosphorus (2.5-4.9) mg/dl Magnesium (1.8-2.4) mg/dl Total Bilirubin 0.3 (0.2-1) mg/dl AST 18 (15-37) U/L ALT 25 (12-78) U/L Alkaline Phosphatase 71 (45-117) U/L Troponin I < 0.015 (0-0.045) ng/ml Total Protein 6.8 (6.4-8.2) gm/dl Albumin 3.6 (3.4-5.0) gm/dl Globulin 3.2 (2.5-4.0) gm/dl Albumin/Globulin Ratio 1.1 (0.9-2) Triglycerides (0-150) mg/dl Cholesterol (0-200) mg/dl LDL Cholesterol, Calc mg/dl VLDL Cholesterol, Calc mg/dl HDL Cholesterol mg/dl Cholesterol/HDL Ratio Specimen Hemolysis COVID-19 Eval Order Covid19 [facility]Now [facility] SARS-CoV-2, RNA, NAAT NEGATIVE (NEGATIVE) 06/19/20 06/19/20 Range/Units 11:28 11:28 WBC 9.43 (4.8-10.8) K/uL RBC 4.66 (4.2-5.4) M/uL Hgb 14.5 (12.0-16.0) g/dL Hct 42.6 (37-47) % MCV 91.4 (80-100) fL MCH 31.1 (25-34) pg MCHC 34.0 (32-36) g/dL RDW Std Deviation 50.2 H (36.4-46.3) fL RDW Coeff of Wilber 15.0 H (11.5-14.5) % Plt Count 323 (130-400) K/uL MPV 10.0 (7.4-10.4) fL Immature Gran % (Auto) 0.2 % Neut % (Auto) 59.6 % Lymph % (Auto) 27.8 % Lee % (Auto) 11.0 % Eos % (Auto) 1.2 % Baso % (Auto) 0.2 % Neut # (Auto) 5.62 (1.4-6.5) K/uL Lymph # (Auto) 2.62 (1.2-3.4) K/uL Lee # (Auto) 1.04 H (0.11-0.59) K/uL Eos # (Auto) 0.11 (0-0.5) K/uL Baso # (Auto) 0.02 (0-0.2) K/uL Immature Gran # (Auto) 0.02 (0.00-0.02) K/uL PT 10.5 (9.0-12.0) Seconds INR 1.0 (0.9-1.1) APTT 28.8 (21.0-31.0) Seconds PTT Ratio 1.1 Sodium (136-145) mmol/L Potassium (3.5-5.1) mmol/L Chloride (98-107) mmol/L Carbon Dioxide (21-32) mmol/L Anion Gap (3-11) BUN (7-18) mg/dl Creatinine (0.6-1.2) mg/dl Est Cr Clr Drug Dosing ml/min Est GFR ( Amer) Est GFR (Non-Af Amer) BUN/Creatinine Ratio (10-20) Glucose (70-99) mg/dl POC Glucose (70-99) mg/dl Calcium (8.5-10.1) mg/dl Phosphorus (2.5-4.9) mg/dl Magnesium (1.8-2.4) mg/dl Total Bilirubin (0.2-1) mg/dl AST (15-37) U/L ALT (12-78) U/L Alkaline Phosphatase (45-117) U/L Troponin I (0-0.045) ng/ml Total Protein (6.4-8.2) gm/dl Albumin (3.4-5.0) gm/dl Globulin (2.5-4.0) gm/dl Albumin/Globulin Ratio (0.9-2) Triglycerides (0-150) mg/dl Cholesterol (0-200) mg/dl LDL Cholesterol, Calc mg/dl VLDL Cholesterol, Calc mg/dl HDL Cholesterol mg/dl Cholesterol/HDL Ratio Specimen Hemolysis COVID-19 Eval Order SARS-CoV-2, RNA, NAAT (NEGATIVE) PG Care Time/CCT Total # of Minutes Spent Total Time Spent with Patient: Total time spent is greater than 50% in c oordination of care (as documented) at patient's floor/unit and/or counseling patient: Coding Level of Care Code 50670 Subseq Obs Care Lvl 3 Diagnoses Chest pain R07.9 Chest pain type: unspecified Hypertension I10 Dyslipidemia E78.5 History of pulmonary embolism Z86.711 Diabetes type 2, uncontrolled E11.65 Hypothyroidism E03.9 Morbid obesity E66.01 Sleep apnea G47.30 Ankylosing spondylitis M45.9 Bipolar disorder with depression F31.30 Vitamin D deficiency E55.9 Osteoarthritis M19.90 (1) Chest pain Chest pain type: unspecified Qualified Code(s): R07.9 - Chest pain, unspecified
[2020-06-20] MEDS: TRIAMCINOLONE ACET 0.1% CR 15 GM TUBE TOP SCH ×2 (08:44→20:05)
[2020-06-20] MEDS ORDERED: PROCHLORPERAZINE MALEATE 5 MG TAB PO ONE (08:55)
[2020-06-20] MEDS: ONDANSETRON INJ 2 MG/ML 2 ML VIAL IV PRN (11:22)
[2020-06-20] MEDS ORDERED: amLODIPine BESYLATE 5 MG TAB PO ONE ×2 (11:24→12:15)
--- NOTE | 2020-06-20 12:07 | Psychiatric Consultation ---
Date of Consultation June 20, 2020 Impression / Recommendations (1) Bipolar II disorder: -Patient reports a history of hypomanic episodes, and previous diagnosis of bipolar disorder, meeting criteria for bipolar type II. She is interested in mood stabilizing medication, and wanted a medication with the lowest risk of side effects. Discussed lithium, Depakote, and lamotrigine, and she opted for a trial of lamotrigine. Reviewed risk, benefits, and side effects including SJS. Discussed need to follow the standard dose protocol 25 mg daily x 2 weeks, 50 mg daily x 2 weeks, then 100 mg daily. Will provide her with a patient handout about the medication. Last the psychiatric liaison nurse to make a referral to [facility] in [place] for outpatient psychiatric care/med management. -Patient is on high-dose trazodone for sleep, although she states it is ineffective, and given the risk of destabilizing mood, recommend tapering off of it. She does not want to just stop it as she is concerned that she will have withdrawal. Can reduce to 150 mg at bedtime and discontinued after several days. -Mood currently euthymic, no acute safety concerns, no indication for inpatient psychiatric treatment. Psych History Chief Complaint "I definitely need something to even me out". History of Present Illness Patient admitted yesterday for cardiac work-up after she experienced chest pain and pressure, left arm numbness and tingling, nausea and diaphoresis. She reported a history of bipolar disorder, currently prescribed trazodone 350 mg at bedtime, and reported 7 "manic" episodes in the past year. On my assessment, she states she was diagnosed with bipolar disorder 7-8 years ago at [facility] in [place], and was prescribed multiple medications, but did not like them as she "felt like a zombie." She is no longer seeing a psychiatrist, but continues to get trazodone from her PCP, although she states it is not working and she continues to struggle with chronic insomnia. She reports mood is currently euthymic, but she has been having frequent episodes of increased goal-directed activity, "wanna do everything, do 6 things at one time," with decreased sleep, high energy, and mood is "kind of happy." They last a maximum of 3 days, denies other symptoms of chica, afterwards she will "crash and sleep." She does feel it would be helpful to have a medication to even her mood out. Denies SI, HI, safety concerns. Past Psychiatric History Outpatient Services: None currently History of Previous Suicide Attempt: No Past Medication Trials: Unknown if she cannot recall the names of medications, but does not think she has been on lithium or Depakote Think she tried multiple atypical antipsychotics which caused her to "swell up like a balloon," and feels "like a zombie" Allergies Allergy/AdvReac Type Severity Reaction Status Date / Time erythromycin base Allergy Severe "ALL PINK Verified 06/19/20 14:28 AND SWELLED UP" ketorolac Allergy Severe SOB,TACHYCA Verified 06/19/20 14:28 RDIA carbamazepine Allergy Intermediate Heart Verified 06/19/20 14:28 Arrhythmia acetaminophen [From Vicodin] AdvReac Intermediate Nausea Verified 06/19/20 14:28 adhesive AdvReac Intermediate SKIN TEARS Verified 06/19/20 14:28 butorphanol [From Stadol] AdvReac Intermediate Agitated Verified 06/19/20 14:28 hydrocodone [From Vicodin] AdvReac Intermediate Nausea Verified 06/19/20 14:28 Macrolide Antibiotics AdvReac Intermediate VOMITTING Verified 06/19/20 14:28 oxycodone [From Percocet] AdvReac Intermediate Nausea Verified 06/19/20 14:28 temazepam AdvReac Intermediate GI SYMPTOMS Verified 06/19/20 14:28 Home Medications Medication Instructions Recorded Confirmed Type furosemide 20 mg tablet 20 mg PO DIRECTED PRN #30 tab 11/23/18 06/19/20 Rx nystatin 100,000 unit/gram topical 1 appln TOP TID PRN #30 gm 04/08/19 06/19/20 Rx powder nystatin 100,000 unit/mL oral 2 ml BUCCAL QID PRN #60 ml 04/29/19 06/19/20 Rx suspension ondansetron 4 mg PO Q6H PRN #15 tab 07/11/19 06/19/20 Rx calcium carbonate 500 mg (1,250 1 tab PO QAM #90 tab 08/20/19 06/19/20 Rx mg)-vitamin D3 200 unit tablet lactulose 10 gm PO BID PRN 11/11/19 06/19/20 History sucralfate [Carafate] 10 ml PO TID PRN 11/11/19 06/19/20 History gabapentin 600 mg tablet 600 mg PO TID #180 tab 11/26/19 06/19/20 Rx albuterol sulfate 2.5 mg INHALATION QID PRN #180 ml 03/02/20 06/19/20 Rx albuterol sulfate 90 mcg/actuation 2 puff INHALATION Q4H PRN #18 gm 03/02/20 06/19/20 Rx aerosol inhaler losartan 50 mg tablet 50 mg PO QAM #90 tab 03/31/20 06/19/20 Rx spironolactone 25 mg tablet 25 mg PO QAM #90 tab 03/31/20 06/19/20 Rx trazodone 150 mg tablet 300 mg PO HS #180 tab 04/23/20 06/19/20 Rx diclofenac sodium 1 g TOPICAL DIRECTED PRN 04/25/20 06/19/20 History nystatin 100,000 unit/gram topical 1 applic TOPICAL BID #30 g 05/01/20 06/19/20 Rx cream triamcinolone acetonide 0.1 % 1 applic TOPICAL BID #30 g 05/01/20 06/19/20 Rx topical cream pantoprazole 40 mg tablet,delayed 40 mg PO BID #180 tab 05/26/20 06/19/20 Rx release rivaroxaban 20 mg tablet 20 mg PO QAM #90 tab 05/28/20 06/19/20 Rx rosuvastatin 10 mg tablet 10 mg PO DAILY #30 tab 06/11/20 06/19/20 Rx tiotropium bromide [Spiriva 1 puff INHALATION QAM 06/17/20 06/19/20 History Respimat] levothyroxine 125 mcg PO DAILYBB 06/19/20 06/19/20 History trazodone 50 mg tablet 50 mg PO HS #90 tab 06/19/20 06/19/20 Rx Substance Abuse History Denies Personal History Living Arrangements: Home Living Arrangements Comments: In [place] with her and mother Beliefs That Will Affect Care: None Patient History Medical History Acute intra-cranial hemorrhage Ankylosing spondylitis Anxiety and depression (08/19/12) Asthma Bipolar disorder with depression Chronic radicular low back pain Constipation, chronic COPD (chronic obstructive pulmonary disease) Degenerative disc disease Diabetes type 2, uncontrolled Diverticular disease of colon Dyslipidemia GERD (gastroesophageal reflux disease) 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; underwent bilateral salpingo-oophorectomy History of anemia 04/2018 S/P BLOOD TRANSFUSION (POLYPS IN STOMACH) History of pulmonary embolism (~2016) Hx of deep venous thrombosis (~2014) X2 R LEG Hypertension Hypothyroidism Intermittent claudication Morbid obesity Osteoarthritis Radicular pain of thoracic region Restless leg syndrome Scoliosis Sleep apnea NO DEVICE Umbilical hernia Urinary incontinence Vitamin D deficiency Surgical History H/O thyroidectomy History of 2 sections History of appendectomy History of cardiac catheterization SEVERAL YEARS AGO= NO STENTS History of cholecystectomy History of colonoscopy History of endoscopy History of hysterectomy (~1981) History of lumbar surgery WITH "SCREWS"--T10-S1 fusion History of salpingo-oophorectomy (~07/2018) History of thyroidectomy History of total left knee replacement History of total right knee replacement Presence of IVC filter (~07/2018) Family History Father Heart disease Diabetes Hypertension Myocardial infarction, Onset Age: 35 Sister Depression Hypertension Mother Diabetes Hypertension Kidney disease Denies family history of Ovarian cancer Prostate cancer Breast cancer Lung cancer Colorectal cancer Social History Smoking Status: Current every day smoker Tobacco Type: Cigarettes packs per day: 0.25; Cigarettes Per Day: 2-3; Second Hand Exposure: No; Do You Dip or Chew Tobacco: No; Tobacco Cessation Education Requested by Patient: No Hx Alcohol Use: No Hx Substance Use: No Preferred Language: Azeri Communication Ability: Effective Visual Impairment: No Limitations 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: Normal 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 Beliefs That Will Affect Care: None marital status: Current Living Situation: Spouse and Parent Current Living Situation Comment: & MOM How many Children do You have: 2 Other Information That Helps Us Care for You: No Feels Safe at Home: Yes Safety Concerns: Feels Safe At This Time Childhood Exposure to Second-Hand Smoke: Yes Diet Comment: regular caffeine: Yes during the past year weight has: remained stable Dental Care, Regularly: No Physical Activity Frequency: Does not Exercise Seatbelt Use: always Sunscreen Use: Yes Assistive Devices: None Physical Exam Psychiatric: Orientation: alert and cooperative Morbidly obese, wearing a hospital gown, nose pierced, seated in no acute distress, eating lunch. Eye Contact: + fair eye contact Motor Behavior: no abnormal motor movements Speech: normal rate/rhythm/volume of speech Affect: euthymic affect "Okay." Thought Process: linear/logical thought process Thought Content: reality based without delusions Suicidal Thoughts: denies suicidal thoughts Homicidal Thoughts: denies homicidal thoughts Hallucinations: no auditory hallucinations Cognition: recent memory grossly intact, attention grossly intact and language grossly intact Estimated Intelligence: average estimated intelligence Insight: + fair insight Judgement: + fair judgement Vital Signs (Past 24 Hours): Last Vital Signs Temp 36.7 C 06/20/20 11:07 Pulse 58 L 06/20/20 11:07 Resp 20 06/20/20 11:07 BP 122/72 06/20/20 11:07 Pulse Ox 96 06/20/20 11:07 Review of Systems All systems reviewed & are unremarkable except as noted in HPI & below Headache Results & Data (PSY) Medications Administered Acetaminophen (Acetaminophen 325 Mg Tab) 650 mg PO Q4H PRN PRN Reason: Moderate Pain Stop: 07/19/20 18:33 Last Admin: 06/20/20 09:46 Dose: 650 mg Documented by: [id number] Admin: 06/20/20 04:43 Dose: 650 mg Documented by: [id number] Gabapentin (Gabapentin 600 Mg Tab) 600 mg PO TID [facility] Stop: 07/19/20 20:59 Last Admin: 06/20/20 08:20 Dose: 600 mg Documented by: [id number] Admin: 06/19/20 20:11 Dose: 600 mg Documented by: [id number] Ibuprofen (Ibuprofen 200 Mg Tab) 400 mg PO QID PRN PRN Reason: Headache Stop: 07/19/20 19:37 Last Admin: 06/19/20 20:11 Dose: 400 mg Documented by: [id number] Insulin Aspart (Insulin Aspart 100 Units/Ml 3 Ml Pen) 0 units SC ACHS [facility] Stop: 07/19/20 20:59 Last Admin: 06/20/20 08:17 Dose: 4 units Documented by: [id number] Cosigned by: [id number] Admin: 06/19/20 20:24 Dose: Not Given Documented by: [id number] Cosigned by: [id number] Levothyroxine Sodium (Levothyroxine Sodium 125 Mcg Tablet) 125 mcg PO DAILYBB [facility] Stop: 07/20/20 06:29 Last Admin: 06/20/20 04:59 Dose: 125 mcg Documented by: [id number] Losartan Potassium (Losartan Potassium 50 Mg Tab) [facility] Stop: 07/20/20 08:59 Last Admin: 06/20/20 08:19 Dose: 50 mg Documented by: [id number] Miscellaneous (Remove Nicoderm Patch) 1 ea N/A [id number] [facility] Stop: 07/20/20 08:58 Last Admin: 06/20/20 08:43 Dose: 1 ea Documented by: [id number] Multivitamins/Minerals (Calcium 600mg + Vit D 400 Iu Tab) 1 tab PO [facility] Stop: 07/20/20 08:59 Last Admin: 06/20/20 08:20 Dose: 1 tab Documented by: [id number] Nicotine (Nicotine 7 Mg/24 Hr Tdsy) 7 mg TD [facility] Stop: 07/20/20 08:59 Last Admin: 06/20/20 08:22 Dose: 7 mg Documented by: [id number] Nystatin (Nystatin Powder 15gm Btl) 1 appln EXT TID PRN PRN Reason: skin irritation Stop: 07/19/20 18:33 Last Admin: 06/20/20 08:21 Dose: 1 appln Documented by: [id number] Ondansetron HCl (Ondansetron Inj 2 Mg/Ml 2 Ml Vial) 4 mg IV Q4H PRN PRN Reason: Nausea And Vomiting Stop: 07/19/20 18:33 Last Admin: 06/20/20 11:22 Dose: 4 mg Documented by: [id number] Admin: 06/19/20 20:51 Dose: 4 mg Documented by: [id number] Pantoprazole Sodium (Pantoprazole 40 Mg Tab) 40 mg PO BID [facility] Stop: 07/19/20 20:59 Last Admin: 06/20/20 08:18 Dose: 40 mg Documented by: [id number] Admin: 06/19/20 20:11 Dose: 40 mg Documented by: [id number] Rivaroxaban (Rivaroxaban 20 Mg Tab) 20 [facility] [place] Stop: 07/20/20 08:59 Last Admin: 06/20/20 08:20 Dose: 20 mg Documented by: [id number] Rosuvastatin Calcium (Rosuvastatin Calcium 10 Mg Tab) 10 mg PO DAILY [facility] Stop: 07/20/20 08:59 Last Admin: 06/20/20 08:19 Dose: 10 mg Documented by: [id number] Spironolactone (Spironolactone 25 Mg Tab) 25 mg PO QAM [facility] Stop: 07/20/20 08:59 Last Admin: 06/20/20 08:19 Dose: 25 mg Documented by: [id number] Trazodone HCl (Trazodone Hcl 50 Mg Tab) 50 mg PO HS [facility] Stop: 07/19/20 20:59 Last Admin: 06/19/20 20:11 Dose: 50 mg Documented by: [id number] Trazodone HCl (Trazodone Hcl 100 Mg Tab) 300 mg PO HS [facility] Stop: 07/19/20 20:59 Last Admin: 06/19/20 20:11 Dose: 300 mg Documented by: [id number] Triamcinolone Acetonide (Triamcinolone Acet 0.1% Cr 15 Gm Tube) 1 appln TOP BID [facility] Stop: 07/19/20 20:59 Last Admin: 06/20/20 08:44 Dose: 1 appln Documented by: [id number] Admin: 06/19/20 20:09 Dose: Not Given Documented by: [id number] Umeclidinium Kempton (Umeclidinium [place] 62.5mcg/Blister 7 Puffs/Inhaler) 1 puffs INH QAM [facility] Stop: 07/20/20 08:59 Last Admin: 06/20/20 08:22 Dose: 1 puffs Documented by: [id number] Coding Level of Care Code 91157 [facility] Intl Hosp Care Lvl 3 Diagnoses Bipolar II disorder F31.81
[2020-06-20] MEDS ORDERED: GADOBUTROL 65ML VIAL IV ONE (12:39)
--- NOTE | 2020-06-20 12:50 | Cardiology Consultation ---
Date of Consultation June 20, 2020 Assessment & Plan (1) Atypical chest pain: (2) History of pulmonary embolism: (3) Morbid obesity: (4) Headache: Although the patient has multiple vascular risk factors, her symptoms at this point sound fairly atypical, her ECG shows no ischemic change, and serial cardiac enzymes were normal. Her echocardiogram showed no wall motion abnormalities. The fact that she had no ECG or enzyme findings after a prolonged episode of chest discomfort also makes it less likely that she was experiencing myocardial ischemia. Her risk of an acute thrombotic event is further reduced by her chronic anticoagulation with rivaroxaban. The absence of significant coronary disease on remote catheterization as well as a fairly recent dobutamine stress echocardiogram (late 2018) suggest that she is unlikely to have extensive coronary artery disease. Regardless of the presence/absence of significant coronary disease presently, she has sufficient vascular risk factors (obesity, diabetes, hypertension, dyslipidemia) to warrant agressive risk factor management. In particular, she would benefit from being on a statin (LDL was 143), weight loss, and smoking cessation. At this point, no further inpatient work-up of her chest pain syndrome is readily available or necessary. The absence of findings would weigh against cardiac catheterization, she would have to have rivaroxaban held for this and such a study could be performed on a routine basis as an outpatient if she has frequently recurring chest pain. Alternatively, could repeat a dobutamine stress echocardiogram, this too could be performed as an outpatient in the near future. Case discussed with Bell Espinal PA-C. History of Present Illness Reason for Consultation: Chest pain Requesting Physician: Bell Espinal PA-C/Gabino Sheets MD Attending Physician: Gabino Sheets MD History of Present Illness 60-year-old woman with history of tobacco use, COPD, hypertension, pulmonary embolism (on rivaroxaban), diabetes mellitus, morbid obesity, and other medical problems who was admitted 06/19/2020 with complaint of chest pain. 2 days prior to admission she noted a right-sided headache, she was seen in the ER and found to be hypertensive. ECG and cardiac enzymes apparently negative. Her headache resolved but occurred on the day of admission and was followed by left neck discomfort and some chest pressure which she described as varying with her heartbeat, almost a formal palpitation. She was given nitroglycerin by EMS and noted some improvement in her discomfort. She notes that she still has a sense of fluctuating chest discomfort which varies with each heartbeat. This is currently mild compared with her more significant chest discomfort yesterday. No change with respiration or position. No associated symptoms currently (she did have slight diaphoresis nausea yesterday). Aside from her mild chest discomfort, she feels well currently. Past cardiac history: She did have a cardiac catheterization approximately 12 years ago with apparently normal coronaries. A dobutamine stress echocardiogram March 2019 showed no ischemia at 81% maximum predicted heart rate. Allergies Allergy/AdvReac Type Severity Reaction Status Date / Time erythromycin base Allergy Severe "ALL PINK Verified 06/19/20 14:28 AND SWELLED UP" ketorolac Allergy Severe SOB,TACHYCA Verified 06/19/20 14:28 RDIA carbamazepine Allergy Intermediate Heart Verified 06/19/20 14:28 Arrhythmia acetaminophen [From Vicodin] AdvReac Intermediate Nausea Verified 06/19/20 14:28 adhesive AdvReac Intermediate SKIN TEARS Verified 06/19/20 14:28 butorphanol [From Stadol] AdvReac Intermediate Agitated Verified 06/19/20 14:28 hydrocodone [From Vicodin] AdvReac Intermediate Nausea Verified 06/19/20 14:28 Macrolide Antibiotics AdvReac Intermediate VOMITTING Verified 06/19/20 14:28 oxycodone [From Percocet] AdvReac Intermediate Nausea Verified 06/19/20 14:28 temazepam AdvReac Intermediate GI SYMPTOMS Verified 06/19/20 14:28 Home Medications Medication Instructions Recorded Confirmed Type furosemide 20 mg tablet 20 mg PO DIRECTED PRN #30 tab 11/23/18 06/19/20 Rx nystatin 100,000 unit/gram topical 1 appln TOP TID PRN #30 gm 04/08/19 06/19/20 Rx powder nystatin 100,000 unit/mL oral 2 ml BUCCAL QID PRN #60 ml 04/29/19 06/19/20 Rx suspension ondansetron 4 mg PO Q6H PRN #15 tab 07/11/19 06/19/20 Rx calcium carbonate 500 mg (1,250 1 tab PO QAM #90 tab 08/20/19 06/19/20 Rx mg)-vitamin D3 200 unit tablet lactulose 10 gm PO BID PRN 11/11/19 06/19/20 History sucralfate [Carafate] 10 ml PO TID PRN 11/11/19 06/19/20 History gabapentin 600 mg tablet 600 mg PO TID #180 tab 11/26/19 06/19/20 Rx albuterol sulfate 2.5 mg INHALATION QID PRN #180 ml 03/02/20 06/19/20 Rx albuterol sulfate 90 mcg/actuation 2 puff INHALATION Q4H PRN #18 gm 03/02/20 06/19/20 Rx aerosol inhaler losartan 50 mg tablet 50 mg PO QAM #90 tab 03/31/20 06/19/20 Rx spironolactone 25 mg tablet 25 mg PO QAM #90 tab 03/31/20 06/19/20 Rx trazodone 150 mg tablet 300 mg PO HS #180 tab 04/23/20 06/19/20 Rx diclofenac sodium 1 g TOPICAL DIRECTED PRN 04/25/20 06/19/20 History nystatin 100,000 unit/gram topical 1 applic TOPICAL BID #30 g 05/01/20 06/19/20 Rx cream triamcinolone acetonide 0.1 % 1 applic TOPICAL BID #30 g 05/01/20 06/19/20 Rx topical cream pantoprazole 40 mg tablet,delayed 40 mg PO BID #180 tab 05/26/20 06/19/20 Rx release rivaroxaban 20 mg tablet 20 mg PO QAM #90 tab 05/28/20 06/19/20 Rx rosuvastatin 10 mg tablet 10 mg PO DAILY #30 tab 06/11/20 06/19/20 Rx tiotropium bromide [Spiriva 1 puff INHALATION QAM 06/17/20 06/19/20 History Respimat] levothyroxine 125 mcg PO DAILYBB 06/19/20 06/19/20 History trazodone 50 mg tablet 50 mg PO HS #90 tab 06/19/20 06/19/20 Rx Patient History Medical History Acute intra-cranial hemorrhage Ankylosing spondylitis Asthma Bipolar II disorder Chronic radicular low back pain Constipation, chronic COPD (chronic obstructive pulmonary disease) Degenerative disc disease Diabetes type 2, uncontrolled Diverticular disease of colon Dyslipidemia GERD (gastroesophageal reflux disease) 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; underwent bilateral salpingo-oophorectomy History of anemia 04/2018 S/P BLOOD TRANSFUSION (POLYPS IN STOMACH) History of pulmonary embolism (~2016) Hx of deep venous thrombosis (~2014) X2 R LEG Hypertension Hypothyroidism Intermittent claudication Morbid obesity Osteoarthritis Radicular pain of thoracic region Restless leg syndrome Scoliosis Sleep apnea NO DEVICE Umbilical hernia Urinary incontinence Vitamin D deficiency Surgical History H/O thyroidectomy History of 2 sections History of appendectomy History of cardiac catheterization SEVERAL YEARS AGO= NO STENTS History of cholecystectomy History of colonoscopy History of endoscopy History of hysterectomy (~1981) History of lumbar surgery WITH "SCREWS"--T10-S1 fusion History of salpingo-oophorectomy (~07/2018) History of thyroidectomy History of total left knee replacement History of total right knee replacement Family History Diabetes Father Mother Depression Sister Heart disease Father Kidney disease Mother Myocardial infarction Father, Onset Age: 35 Hypertension Father Sister Mother Denies family history of Ovarian cancer Prostate cancer Breast cancer Lung cancer Colorectal cancer Social History Smoking Status: Current every day smoker Tobacco Type: Cigarettes packs per day: 0.25; Cigarettes Per Day: 2-3; Second Hand Exposure: No; Do You Dip or Chew Tobacco: No; Tobacco Cessation Education Requested by Patient: No Hx Alcohol Use: No Hx Substance Use: No Preferred Language: Romansh Communication Ability: Effective Visual Impairment: No Limitations 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: Normal 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 Beliefs That Will Affect Care: None marital status: Current Living Situation: Spouse and Parent Current Living Situation Comment: & MOM How many Children do You have: 2 Other Information That Helps Us Care for You: No Feels Safe at Home: Yes Safety Concerns: Feels Safe At This Time Childhood Exposure to Second-Hand Smoke: Yes Diet Comment: regular caffeine: Yes during the past year weight has: remained stable Dental Care, Regularly: No Physical Activity Frequency: Does not Exercise Seatbelt Use: always Sunscreen Use: Yes Assistive Devices: None Review of Systems Gastrointestinal: + heartburn Physical Exam Physical Exam: Obese middle-aged white female appears minimally uncomfortable. BP 122/72. Pulse 60 bpm and regular without ectopy. Skin: no ecchymoses or generalized lesions. HEENT: unremarkable. Neck: no JVD or carotid bruits. Lungs: clear. Cardiac: regular rhythm, no murmur or gallop. Abdomen: benign. Extremities: no edema, pulses intact. Neurologic: normal affect and conversation, grossly nonfocal. Results & Data ([facility]) Vital Signs (Past 12 Hours) Vital Signs Temp Pulse Resp BP BP Pulse Ox 06/20/20 11:07 98.1 F 58 L 20 122/72 96 06/20/20 07:31 97.5 F L 56 L 18 145/83 H 97 06/20/20 03:21 97.5 F L 65 16 126/90 97 Laboratory Results Troponin was negative x3. Diagnostic Findings ECG on admission showed sinus rhythm with low voltage QRS and poor R wave progression, no acute ischemic changes. Compared with 06/17/2020 ECG, R wave progression was less robust. 2 ECGs from 06/17/2020 both showed sinus rhythm with poor R wave progression, no acute ischemic changes. Echocardiogram today shows normal LV systolic function with no regional wall motion abilities. Mild LVH with diastolic dysfunction and no significant valvular disease. Right ventricular systolic pressure was normal. PG Care Time/CCT Total # of Minutes Spent Total Time Spent with Patient: Total time spent is greater than 50% in coordination of care (as documented) at patient's floor/unit and/or counseling patient: Coding Level of Care Code 46698 Initial Inpt Care Lvl 3 Diagnoses Atypical chest pain R07.89 History of pulmonary embolism Z86.711 Morbid obesity E66.01 Headache R51.9 Headache chronicity pattern: acute headache Headache type: unspecified (1) Headache Headache chronicity pattern: acute headache Headache type: unspecified
--- NOTE | 2020-06-20 12:53 | Magnetic Resonance Report ---
MRI OF THE BRAIN COMBO CLINICAL HISTORY: Headache. Right arm tingling and numbness. COMPARISON STUDY: CT of the brain dated 06/19/2020. MRI of the brain dated 04/28/2019. TECHNIQUE: MRI of the brain was performed utilizing various T1 and T2-weighted sequences in the axial , sagittal, and coronal planes. Contrast-enhanced sequences were acquired following the administratio n of 10 cc of Gadavist. The examination is modestly degraded by motion artifact. FINDINGS: Brain parenchyma: There is minimal microangiopathic change. The brain parenchyma is otherwise normal in appearance. There is no hemorrhage or mass effect. There is no restricted diffusion to suggest acu te ischemia. No enhancing mass lesion is identified on the postcontrast images. Adan-white matter dif ferentiation is preserved. No extra-axial fluid collection is seen. The cerebellar tonsils are normal in configuration. Ventricles, sulci, and cisterns: Normal in configuration. Pituitary and sella: Unremarkable. Intracranial vasculature: Normal flow voids are maintained at the skull base. Orbits: The bony orbits are grossly intact. Orbital contents are normal in appearance. Sinuses and mastoids: There is evidence of previous paranasal sinus surgery. The paranasal sinuses an d mastoid air cells are clear. Calvarium: Unremarkable. Cervical cord: Partially visualized cervical spinal cord is normal in morphology and signal intensity . IMPRESSION: No acute intracranial abnormality. ACT 112: Negative or not required by law. Electronically signed by: Yvan De Anda M.D. 06/20/2020 12:51 PM
--- NOTE | 2020-06-20 12:54 | XCELERA ---
[id number]
[2020-06-20] MEDS ORDERED: BUTALBITAL/ACETAMIN/CAFFEINE TAB PO STA (16:11)
[2020-06-20] MEDS: DICLOFENAC SOD 1% GEL 100 GM TUBE EXT PRN (20:07)
[2020-06-20] MEDS: BUTALBITAL/ACETAMIN/CAFFEINE TAB PO PRN (20:37)
[2020-06-20] MEDS ORDERED: traZODone HCL 50 MG TAB PO SCH (21:00)
[2020-06-21 06:01] LABS: Hematocrit (blood only) 42.1 % (37-47); Hemoglobin 14.3 g/dL (12.0-16.0); Mean Corpuscular Hemoglobin 31.1 pg (25-34); Mean Corpuscular Volume 91.5 fL (80-100); Mean Platelet Volume 10.1 fL (7.4-10.4); Platelet Count 304 K/uL (130-400); RDW Coefficient of Variation 14.7 % (11.5-14.5); RDW Standard Deviation 49.4 fL (36.4-46.3); White Blood Count 7.78 K/uL (4.8-10.8)
[2020-06-21 06:41] LABS: Albumin Level 3.6 gm/dl (3.4-5.0); BUN Creatinine Ratio 14.8 (10-20); Creatinine Clr Calc Pharmacy 74.3 ml/min; Est GFR (Non-African American) 65.6; Potassium 4.1 mmol/L (3.5-5.1)
[2020-06-21] MEDS: LEVOTHYROXINE SODIUM 125 MCG TABLET PO SCH (06:43)
[2020-06-21 06:44] LABS: Albumin Globulin Ratio 1.2 (0.9-2); Bilirubin,Total 0.4 mg/dl (0.2-1); Globulin 3.1 gm/dl (2.5-4.0); Total Protein 6.7 gm/dl (6.4-8.2)
[2020-06-21] MEDS: LOSARTAN POTASSIUM 50 MG TAB PO SCH (08:12)
[2020-06-21] MEDS: PANTOprazole 40 MG TAB PO SCH (08:13)
[2020-06-21] MEDS: ROSUVASTATIN CALCIUM 10 MG TAB PO SCH (08:13)
[2020-06-21] MEDS: CALCIUM 600MG + VIT D 400 IU TAB PO SCH (08:13)
[2020-06-21] MEDS: TRIAMCINOLONE ACET 0.1% CR 15 GM TUBE TOP SCH (08:13)
[2020-06-21] MEDS: GABAPENTIN 600 MG TAB PO SCH (08:13)
[2020-06-21] MEDS: SPIRONOLACTONE 25 MG TAB PO SCH (08:13)
[2020-06-21] MEDS: RIVAROXABAN 20 MG TAB PO SCH (08:13)
[2020-06-21] MEDS: NYSTATIN POWDER 15GM BTL EXT PRN (08:14)
[2020-06-21] MEDS: DICLOFENAC SOD 1% GEL 100 GM TUBE EXT PRN (08:15)
[2020-06-21] MEDS: INSULIN ASPART 100 UNITS/ML 3 ML PEN SC SCH ×2 (08:17→12:11)
[2020-06-21] MEDS: NICOTINE 7 MG/24 HR TDSY TD SCH (08:18)
[2020-06-21] MEDS: UMECLIDINIUM BROMIDE 62.5MCG/BLISTER 7 PUFFS/INHALER INH SCH (08:19)
[2020-06-21] MEDS ORDERED: lamoTRIgine 25 MG TAB PO SCH (09:00)
--- NOTE | 2020-06-21 09:00 | Hospitalist Progress Note ---
Date of Service June 21, 2020 Assessment & Plan Admission and Anticipated Discharge Date Admission Date: June 19, 2020 Results & Data Results & Data ([facility]) Vital Signs (Past 12 Hours) Vital Signs Temp Pulse Resp BP BP Pulse Ox 06/21/20 07:10 36.4 C L 70 19 133/87 97 06/21/20 03:42 36.6 C 67 18 149/84 H 97 06/20/20 23:00 36.4 C L 72 18 126/76 98 Laboratory Results 06/21/20 06/21/20 06/21/20 Range/Units 07:10 05:26 05:26 WBC 7.78 (4.8-10.8) K/uL RBC 4.60 (4.2-5.4) M/uL Hgb 14.3 (12.0-16.0) g/dL Hct 42.1 (37-47) % MCV 91.5 (80-100) fL MCH 31.1 (25-34) pg MCHC 34.0 (32-36) g/dL RDW Std Deviation 49.4 H (36.4-46.3) fL RDW Coeff of Wilber 14.7 H (11.5-14.5) % Plt Count 304 (130-400) K/uL MPV 10.1 (7.4-10.4) fL ESR (0-21) mm/hr Sodium 140 (136-145) mmol/L Potassium 4.1 (3.5-5.1) mmol/L Chloride 108 H (98-107) mmol/L Carbon Dioxide 27 (21-32) mmol/L Anion Gap 5.0 (3-11) BUN 14 (7-18) mg/dl Creatinine 0.95 (0.6-1.2) mg/dl Est Cr Clr Drug Dosing 74.3 ml/min Est GFR ( Amer) 76.0 Est GFR (Non-Af Amer) 65.6 BUN/Creatinine Ratio 14.8 (10-20) Glucose 94 (70-99) mg/dl POC Glucose 96 (70-99) mg/dl Calcium 9.0 (8.5-10.1) mg/dl Total Bilirubin 0.4 (0.2-1) mg/dl AST 20 (15-37) U/L ALT 27 (12-78) U/L Alkaline Phosphatase 69 (45-117) U/L Total Creatine Kinase (26-192) U/L Total Protein 6.7 (6.4-8.2) gm/dl Albumin 3.6 (3.4-5.0) gm/dl Globulin 3.1 (2.5-4.0) gm/dl Albumin/Globulin Ratio 1.2 (0.9-2) 06/20/20 06/20/20 06/20/20 Range/Units 20:40 16:48 10:44 WBC (4.8-10.8) K/uL RBC (4.2-5.4) M/uL Hgb (12.0-16.0) g/dL Hct (37-47) % MCV (80-100) fL MCH (25-34) pg MCHC (32-36) g/dL RDW Std Deviation (36.4-46.3) fL RDW Coeff of Wilber (11.5-14.5) % Plt Count (130-400) K/uL MPV (7.4-10.4) fL ESR (0-21) mm/hr Sodium (136-145) mmol/L Potassium (3.5-5.1) mmol/L Chloride (98-107) mmol/L Carbon Dioxide (21-32) mmol/L Anion Gap (3-11) BUN (7-18) mg/dl Creatinine (0.6-1.2) mg/dl Est Cr Clr Drug Dosing ml/min Est GFR ( Amer) Est GFR (Non-Af Amer) BUN/Creatinine Ratio (10-20) Glucose (70-99) mg/dl POC Glucose 91 119 H 89 (70-99) mg/dl Calcium (8.5-10.1) mg/dl Total Bilirubin (0.2-1) mg/dl AST (15-37) U/L ALT (12-78) U/L Alkaline Phosphatase (45-117) U/L Total Creatine Kinase (26-192) U/L Total Protein (6.4-8.2) gm/dl Albumin (3.4-5.0) gm/dl Globulin (2.5-4.0) gm/dl Albumin/Globulin Ratio (0.9-2) 06/20/20 06/20/20 Range/Units 04:22 04:22 WBC (4.8-10.8) K/uL RBC (4.2-5.4) M/uL Hgb (12.0-16.0) g/dL Hct (37-47) % MCV (80-100) fL MCH (25-34) pg MCHC (32-36) g/dL RDW Std Deviation (36.4-46.3) fL RDW Coeff of Wilber (11.5-14.5) % Plt Count (130-400) K/uL MPV (7.4-10.4) fL ESR 8 (0-21) mm/hr Sodium (136-145) mmol/L Potassium (3.5-5.1) mmol/L Chloride (98-107) mmol/L Carbon Dioxide (21-32) mmol/L Anion Gap (3-11) BUN (7-18) mg/dl Creatinine (0.6-1.2) mg/dl Est Cr Clr Drug Dosing ml/min Est GFR ( Amer) Est GFR (Non-Af Amer) BUN/Creatinine Ratio (10-20) Glucose (70-99) mg/dl POC Glucose (70-99) mg/dl Calcium (8.5-10.1) mg/dl Total Bilirubin (0.2-1) mg/dl AST (15-37) U/L ALT (12-78) U/L Alkaline Phosphatase (45-117) U/L Total Creatine Kinase 181 (26-192) U/L Total Protein (6.4-8.2) gm/dl Albumin (3.4-5.0) gm/dl Globulin (2.5-4.0) gm/dl Albumin/Globulin Ratio (0.9-2) PG Care Time/CCT Total # of Minutes Spent Total Time Spent with Patient: Total time spent is greater than 50% in coordination of care (as documented) at patient's floor/unit and/or counseling patient: Coding
[2020-06-21] MEDS: BUTALBITAL/ACETAMIN/CAFFEINE TAB PO PRN (10:24)
--- NOTE | 2020-06-21 11:41 | Discharge Summary ---
Date of Service June 21, 2020 Admission HPI Per Admitting Provider This is a 60-year-old female with PMHx of HTN, HLD, COPD, asthma, smokes 2- 3cigarettes daily, history of PE on Xarelto, ovarian carcinoma s/p surgical excision, IVC filter placement and now removed in 2018, back surgeries with hardware placement in 2010, 2012, 2014, hx of intracranial hemorrhage secondary to fall where she slipped on ice and fell in 2017, DM type II, RLS, osteoarthritis, bipolar type I, GERD, hypothyroidism, morbid obesity with BMI of 41.2, ankylosing spondylitis, sleep apnea who presents with acute onset of left- sided chest pain with radiation to the neck. She reports initially her pain started 2 days ago with a frontal headache and noted that her blood pressure was slightly elevated as well as heart palpitations. Her headache improved and she attempted to go to sleep Monday night. Yesterday, she presented to the [place] ER after worsening headache which started again, elevated blood pressure of 170 systolic. Once there she underwent cardiac work-up performed to no avail, negative EKG and bloodwork. She was set up to see her PCP at 1820, after she was discharged from the ER she did go to the appointment where they determined that there was no further work- up to complete. Her headache had resolved and had normal blood pressures so was sent home. This morning she awoke feeling well, had a blood pressure of 107/80, was eating breakfast with her mom and developed a frontal headache again all of a sudden which was excruciating. Her blood pressure at that point was again in the 170s, she began to feel chest pressure with radiation up into her jaw, left arm numbness/tingling and became nauseous and slightly diaphoretic. She received nitro spray via [facility] on the way to the ER, and an additional dose here. Chest pain is improved at this point with application of nitro paste, reports a 2/10 currently but still has a mild headache. She denies anxiety or stress provoking situations. She admits to being manic bipolar, not on any medication for years. She has had approximately 7 episodes of chica within the last year where she cleans significantly but does not become irrational, spend large amounts of money, or develop SI/HI. Family Hx: father in late 50s, had multiple heart attacks starting in his 30s. Social: Smokes 2-3 cig daily, denies alcohol use, does not routinely exercise, eats 1 meal daily, lives at home with and her mother. Admission Exam Per Admitting Provider General: awake, alert, no apparent distress, morbidly obese with BMI 41.2 Head: Normocephalic, atraumatic ENT: PERRL, EOMI, no pharyngeal exudate, mucous membranes moist Chest: Chest is nontender to palpation, clear to auscultation, on room air, no adventitious breath sounds Cardiac: Regular rate and rhythm, no murmur, no JVD, normal peripheral pulses, good capillary refill Abdominal: NABS x 4 quadrants, soft, nondistended, nontender to palpation, no rebound or guarding Back: No point tenderness, surgical scars present, healed well. Extremities: Normal inspection, no peripheral edema or erythema, calfs nontender to palpation Psych: Normal mood and affect Neuro: AAO x 3, strength intact bilaterally and rated 5/5, no motor deficits, speech is clear, no peripheral sensory deficits Principal Diagnosis Chest Pain r/o ACS Discharge Exam General: awake, alert, nauseous, morbidly obese with BMI 41.2, no acute distress Head: Normocephalic, atraumatic ENT: PERRL, EOMI, no pharyngeal exudate, mucous membranes moist Chest: Chest is nontender to palpation, clear to auscultation, on room air, no adventitious breath sounds. Erythema under right breast with nystatin, no drain age, nontender Cardiac: Regular rate and rhythm, no murmur, no JVD, normal peripheral pulses, good capillary refill Abdominal: NABS x 4 quadrants, soft, nondistended, nontender to palpation, no rebound or guarding Back: No point tenderness, surgical scars present, healed well. Extremities: Normal inspection, no peripheral edema or erythema, calfs nontender to palpation Psych: AOx3, Neuro: strength intact bilaterally and rated 5/5, no motor deficits, speech is clear, no peripheral sensory deficits. sensation intact. no pronator drift. sensation intact. Discharge Data Allergies Allergy/AdvReac Type Severity Reaction Status Date / Time erythromycin base Allergy Severe "ALL PINK Verified 06/19/20 14:28 AND SWELLED UP" ketorolac Allergy Severe SOB,TACHYCA Verified 06/19/20 14:28 RDIA carbamazepine Allergy Intermediate Heart Verified 06/19/20 14:28 Arrhythmia acetaminophen [From Vicodin] AdvReac Intermediate Nausea Verified 06/19/20 14:28 adhesive AdvReac Intermediate SKIN TEARS Verified 06/19/20 14:28 butorphanol [From Stadol] AdvReac Intermediate Agitated Verified 06/19/20 14:28 hydrocodone [From Vicodin] AdvReac Intermediate Nausea Verified 06/19/20 14:28 Macrolide Antibiotics AdvReac Intermediate VOMITTING Verified 06/19/20 14:28 oxycodone [From Percocet] AdvReac Intermediate Nausea Verified 06/19/20 14:28 temazepam AdvReac Intermediate GI SYMPTOMS Verified 06/19/20 14:28 Consultations 06/19/20 15:18 ED Decision to Admit Stat 06/19/20 18:34 Consult Case Management - Discharge Planning Routine 06/20/20 09:19 Consult Cardiology Routine 06/20/20 11:27 Consult Psychiatry Routine Ordered Studies 06/19/20 12:19 CT head/brain wo con Stat 06/20/20 11:17 MR brain wo/w con Urgent ECHO Hospital Course (1) Chest pain: Admit to tele for observation for r/o Concern for ACS with chest pain, pressure, Left arm numbness and tingling with radiation up into the jaw, nausea and diaphoresis. Father in his late 50s with multiple hx of ME. Trop negative x 3 Cardiology on consult ECHO without wma, no change from prior 2018. Patient to call for outpatient dobutamine stress in next 1-2 weeks once coordinates transportation with her son who has been using her vehicle while his is being repaired BP elevated and was started on daily amlodipine 5mg and continued at discharge. BP improved to 134/89 prior to d/c [place] some increase in chica/bipolar symptoms as well exacerbated by large doses of trazodone utilized for insomnia and psychiatry was consulted --> Decreased to 150mg trazodone at night and started on lamotrigine taper 25mg x 2 weeks, increase to 50mg x 2 weeks then 100mg daily --> Getting set up with [facility] for follow up/further medication adjustments Also developed numbness/tingling to R leg with headache and visual changes in patient with hx ICH MRI brain performed negative for acute process Did receive multiple doses of morphine for chest pain and likely rebound headache in addition to caffeine withdrawal and was improved with fioricet for migraine type headache. Sent with couple at discharge if they recur. ESR wnl re garding possible concerns for a GCA To continue Crestor 10mg at night for prevention given hx of myalgias to atorvastatin (2) Hypertension: Hold Lasix 20 mg as she has not needed to take this medication in a long time. No edema in BLE. Appears euvolemic. Continued losartan 50 mg daily and spironolactone 25 mg daily Added amlodipine 5mg and continued at discharge BP elevations secondary to pain, improved with headache control and addition of amlodipine Follow up with PCP (3) Dyslipidemia: Continue rosuvastatin 10 mg daily (recently added at [place] this week from recent admission and hx intolerance to atorvastatin) Lipid panel with borderline triglycerides/cholesterol (4) History of pulmonary embolism: History of such in 2019 status post IVC filter placement and removal when she underwent ovarian malignancy removal in 2017 - IVC filter now removed Continued on Xarelto 20 mg daily (5) Diabetes type 2, uncontrolled: Last A1C= 6.4 on 06/08/20, no need for recheck with am Does not appear that she in on any home meds BSGs acceptable Follow up with PCP (6) Hypothyroidism: Continue levothyroxine 125 mcg daily Last TSH 0.85 on 06/08 (7) Morbid obesity: BMI 41.2 Encouraged diet and exercise (8) Sleep apnea: Does not wear CPAP, does not wear oxygen at baseline. follow up PCP (9) Ankylosing spondylitis: History of such, continue gabapentin 600 mg tid Multiple back surgeries, 2010, 2012, 2014 (10) Bipolar disorder with depression: History of such. Had been on trazodone 350 mg HS "for 8 years" likely contributing to increased episodes of chica over past year -- 7 reported with 3- 4 days of chica followed by crashing Psych consulted as above (11) Vitamin D deficiency: Continued supplementation with calcium/vit d tabs daily (12) Osteoarthritis: Encourage exercise as tolerated, continued gabapentin GERD -- Continue protonix 40mg daily DVT ppx: Xarelto Teds CODE: Full Discharged home with /son. Total Time Total Time Spent Total Time Spent (In Minutes): 100 Discharge Plan Discharge Items Patient Disposition: Home - Self-Care Reason For Visit: CHEST PAIN Discharge Diagnosis: Chest Pain Goals: You have been hospitalized for an acute medical problem. During your stay at [facility], we have made an effort to correct the problem that brought you to the hospital while keeping you as comfortable as possible. Medications were used to bring your condition under control and your discharge instructions will include directions for any medications you should take after leaving the hospital. Please make sure you see your Primary Care Provider as part of your follow up plan. Activity: Resume your previous activity Non-emergency contact: Primary Care Provider Call non-emergency contact if: you have any medication questions, your symptoms worsen and your pain is not controlled Follow-up/Referrals: Raleigh Chi CRNP [Primary Care Provider] - Diet: Carb Consistent or DM2 and Heart Healthy Addtl Attending Provider Instructions: You have been hospitalized for chest pain. You have undergone evaluation with labs to ensure no damage to heart tissue and these were negative on all three lab draws. An ultrasound of your heart was performed which did not show any signs of damage to your heart or evidence of prior heart attack. You were started on low dose amlodipine to help get better control of your blood pressure and should continue this medication at discharge. You should continue the prescription for CRESTOR (ROSUVASTATIN) as previosuly sent from prior hospital instead of the atorvastatin as you did not tolerate this as well last time. As we talked about, you should try taking at night to prevent as much cramping/aches. You can discuss with your PCP about CoQ10 or alternative agents if you are unable to tolerate the statin. Please watch your sodium intact as discussed as this can raise your blood pressure as well. You may continue protonix daily for reflux symptoms. It is also strongly recommended that you quit smoking as this increases your risk of cardiovascular disease as well as other medical issues. You should start a daily baby aspirin for prevention as well. You should follow up with cardiology about scheduling a dobutamine stress echo in the next 1-2 weeks for evaluation. Their number is . You had headaches and numbness with visual changes and this could have been from caffeine withdrawal as well as a rebound headache from morphine for the chest pain. This has improved with caffeine and you have also been sent several doses of Fioricet to use as needed for migraine. You did have an MRI of your brain which did not show any acute findings. You were also evaluated by psychiatry while in the hospital given your history of bipolar and recent episodes of reported chica. Recommendations were to: * decrease your trazodone at night to 150mg * Start lamictal 25mg by mouth daily for two weeks, then increase to 50mg by mouth daily for two weeks and then you should continue on the 100mg by mouth daily. * You will be contacted about follow up appointment with Yobany as previously discussed You should continue the nystatin to your right breast and keep area clean/dry. If you develop any opening/drainage you should contact your PCP about being seen sooner. Please follow up with your primary care provider in the next week. Please follow up with gastroenterology as previously scheduled and also with psychiatry as discussed. Please return to the emergency department with any worsening chest pain, shortness of breath or for any other symptoms that are concerning for you. It has been a pleasure being a part of the medical team providing for you while you have been in the hospital. Take care! Pending Studies at Discharge: No Stand-Alone Forms: My [facility] mYwindow, Smoking Cessation Medications and DC Order Prescriptions: New trazodone 50 mg Tablet 150 mg PO HS 30 Days Qty: 90 RF: 0 habfwyktkm-raqzkiytpyleh-rqkb 50-325-40 mg Tablet 1 tab PO Q4H PRN (Reason: pain) Qty: 8 RF: 0 lamotrigine [Lamictal] 25 mg Tablet See Taper mg PO QAM Qty: 90 RF: 0 aspirin [Aspirin Low Dose] 81 mg tablet,delayed release (DR/EC) 81 mg PO DAILY Qty: 30 RF: 0 amlodipine 5 mg tablet 5 mg PO DAILY Qty: 30 RF: 0 Continued calcium carbonate-vitamin D3 500 mg(1,250mg) -200 unit tablet 1 tab PO QAM Qty: 90 RF: 3 albuterol sulfate 90 mcg/actuation HFA aerosol inhaler 2 puff Inhalation Q4H PRN (Reason: Shortness Of Breath Or Wheezing) Qty: 18 RF: 3 albuterol sulfate 2.5 mg /3 mL (0.083 %) solution for nebulization 2.5 mg Inhalation QID PRN (Reason: Shortness Of Breath Or Wheezing) Qty: 180 RF: 3 spironolactone 25 mg tablet 25 mg PO QAM Qty: 90 RF: 1 losartan 50 mg tablet 50 mg PO QAM Qty: 90 RF: 1 nystatin 100,000 unit/gram cream 1 applic topical BID Qty: 30 RF: 1 triamcinolone acetonide 0.1 % cream 1 applic topical BID Qty: 30 RF: 0 pantoprazole 40 mg tablet,delayed release (DR/EC) 40 mg PO BID Qty: 180 RF: 2 Xarelto 20 mg tablet 20 mg PO QAM Qty: 90 RF: 1 rosuvastatin 10 mg tablet 10 mg PO DAILY Qty: 30 RF: 2 nystatin 100,000 unit/gram powder 1 appln TOP TID PRN (Reason: skin irritation) Qty: 30 RF: 1 gabapentin 600 mg tablet 600 mg PO TID Qty: 180 RF: 3 furosemide 20 mg tablet 20 mg PO DIRECTED PRN (Reason: Edema) Qty: 30 RF: 0 nystatin 100,000 unit/mL suspension 2 ml BUCCAL QID PRN (Reason: mouth irritation) Qty: 60 RF: 3 ondansetron 4 mg tablet,disintegrating 4 mg PO Q6H PRN (Reason: nausea and vomiting) Qty: 15 RF: 0 diclofenac sodium 1 % gel 1 g topical DIRECTED PRN (Reason: Pain) RF: 0 sucralfate [Carafate] 100 mg/mL suspension 10 ml PO TID PRN (Reason: NEEDED) RF: 0 lactulose 10 gram/15 mL solution 10 gm PO BID PRN (Reason: NEEDED) RF: 0 Spiriva Respimat 1.25 mcg/actuation mist 1 puff inhalation QAM RF: 0 levothyroxine 125 mcg tablet 125 mcg PO DAILYBB RF: 0 Discontinued trazodone 150 mg tablet 300 mg PO HS Qty: 180 RF: 1 trazodone 50 mg tablet 50 mg PO HS Qty: 90 RF: 1 Discharge Orders: Discharge Order (Routine); Ordered 06/21/20 Ordered By: Bell Webb/Other Patient Handouts: Self-Care for Headaches, Medicines for Heart Disease, Rosuvastatin Tablets, Amlodipine tablets Admission Data Admit Date/Time: 06/19/20 15:57 Attending Provider: Gabino Shetes Admit Provider: Juancarlos Romero Primary Care Provider: Raleigh Chi Other Providers: Juancarlos Romero ; Asael Clement ; Eugenia Browne Other Interventions: Discharge Summary Assessment (RN) Last Done: 06/21/20 13:12 Coding Level of Care Code 76383 OBS Care - Discharge Diagnoses Chest pain R07.9 Chest pain type: unspecified Hypertension I10 Dyslipidemia E78.5 History of pulmonary embolism Z86.711 Diabetes type 2, uncontrolled E11.65 Hypothyroidism E03.9 Morbid obesity E66.01 Sleep apnea G47.30 Ankylosing spondylitis M45.9 Bipolar disorder with depression F31.30 Vitamin D deficiency E55.9 Osteoarthritis M19.90
--- NOTE | 2020-06-21 13:00 | Cardiology Progress Note ---
Date of Service June 21, 2020 Assessment & Plan (1) Atypical chest pain: (2) History of pulmonary embolism: (3) Morbid obesity: (4) Headache: As noted, the patient does have multiple vascular risk factors but there is no evidence of an acute cardiac event at this time. Given her vascular risk factors would consider initiating a statin (LDL 143), encouraged weight loss and smoking cessation. Since she is already anticoagulated with rivaroxaban and there would be increased bleeding risk of adding aspirin, would await further evaluation before starting aspirin. Given her clinical stability, recommended outpatient pharmacologic stress study (dobutamine stress echocardiogram) at her convenience. At the time of my evaluation this morning, the patient was comfortable. Admission and Anticipated Discharge Date Admission Date: June 19, 2020 Subjective Patient is feeling significant better today, her headache is resolved and she no longer complained of chest discomfort. Physical Exam Physical Exam: Obese middle-aged white female appears minimally uncomfortable. BP 134/89 mmHg. Pulse 62 bpm and regular without ectopy. Skin: no ecchymoses or generalized lesions. HEENT: unremarkable. Neck: no JVD or carotid bruits. Lungs: clear. Cardiac: regular rhythm, no murmur or gallop. Abdomen: benign. Extremities: no edema, pulses intact. Neurologic: normal affect and conversation, grossly nonfocal. Results & Data ([facility]) Vital Signs (Past 12 Hours) Vital Signs Temp Pulse Pulse Resp BP BP Pulse Ox 06/21/20 12:47 62 06/21/20 11:42 98.1 F 75 18 134/89 96 06/21/20 07:10 97.5 F L 70 19 133/87 97 06/21/20 03:42 97.9 F 67 18 149/84 H 97 Laboratory Results Labs today were all unremarkable. Telemetry monitoring showed sinus rhythm in the 60-100 bpm range. No significant ectopy or dysrhythmias. PG Care Time/CCT Total # of Minutes Spent Total Time Spent with Patient: Total time spent is greater than 50% in coordination of care (as documented) at patient's floor/unit and/or counseling patient: Coding Level of Care Code 75683 Subseq Hosp Care Lvl 2 Diagnoses Atypical chest pain R07.89 History of pulmonary embolism Z86.711 Morbid obesity E66.01 Headache R51.9 Headache chronicity pattern: acute headache Headache type: unspecified (1) Headache Headache chronicity pattern: acute headache Headache type: unspecified
[2020-06-21] MEDS: ONDANSETRON INJ 2 MG/ML 2 ML VIAL IV PRN (13:48)
== END 2020-06-21 14:49 | disposition home or self-care (01) ==
LOC: ED 11:15 → 2S 11:15 → SUATTDRO 15:57 → 2S 18:17

== ENCOUNTER 2024-01-03 23:01 | Observation (INO) ==
--- NOTE | 2024-01-03 23:08 | Emergency Department Note ---
History of Present Illness General Chief complaint: Trauma Stated complaint: TRAUMA ALERT Source: patient, EMS, RN notes reviewed and old records reviewed (11/09/22- orthopedic visit for rotator cuff repair follow-up) Mode of arrival: EMS Limitations: no limitations History of Present Illness This patient is a 63-year-old female was brought in as a trauma alert. She is on a blood thinner and fell and hit her head. She has had a headache diarrhea and vomiting. she has had no blood in her vomit or stool. She felt like she was having diarrhea went to the bathroom and passed out. When EMS arrived she seemed weak and at 1 point seem to stare off and were concerned she was having a seizure she had no grand mal type symptoms. They checked her blood sugars in the 150s she is a diabetic. Denies chest pain she does feel short of breath at times when she moves. Denies abdominal pain she has a headache and some mild neck pain right now but no chest pain or shortness of breath at present. no focal numbness or weakness. Home Medications Medication Instructions Recorded Confirmed Type nystatin 100,000 unit/gram topical 1 appln topical TID PRN skin 04/08/19 01/04/24 Rx powder irritation #30 grams spironolactone 25 mg tablet 25 mg PO QAM #90 tabs 04/19/22 01/03/24 Rx rivaroxaban 20 mg tablet (Xarelto) 20 mg PO QAM #90 tabs 06/03/22 01/03/24 Rx losartan 50 mg tablet 50 mg PO QAM #90 tabs 07/07/22 01/03/24 Rx amlodipine 5 mg tablet 5 mg PO QAM 09/12/22 01/03/24 History gabapentin 600 mg tablet 900 mg PO HS 09/24/22 01/03/24 History trazodone 100 mg tablet 100 mg PO HS 09/24/22 01/03/24 History duloxetine 60 mg capsule,delayed 60 mg PO HS 01/03/24 01/03/24 History release gabapentin 600 mg tablet 600 mg PO .AM & AFTERNOON 01/03/24 01/03/24 History levothyroxine 137 mcg tablet 137 mcg PO DAILYBB 01/03/24 01/03/24 History pantoprazole 40 mg tablet,delayed 40 mg PO AMHS 01/03/24 01/03/24 History release albuterol sulfate 2.5 mg/3 mL 2.5 mg continuous nebulization QID 01/04/24 01/04/24 History (0.083 %) solution for nebulization PRN Shortness Of Breath Or Wheezing dulaglutide 1.5 mg/0.5 mL 1.5 mg subcut WK 01/04/24 01/04/24 History subcutaneous pen injector (Trulicity) tiotropium bromide 2.5 2 puff inhalation DAILY PRN 01/04/24 01/04/24 History mcg/actuation mist for inhalation Shortness Of Breath (Spiriva Respimat) Allergies Allergy/AdvReac Type Severity Reaction Status Date / Time erythromycin base Allergy Severe Swelling, Verified 09/24/22 16:57 "all pink" ketorolac Allergy Severe SOB, Verified 09/24/22 16:57 tachycardia acetaminophen [From Vicodin] AdvReac Intermediate Nausea Verified 09/24/22 16:57 adhesive AdvReac Intermediate Skin tears Verified 09/24/22 16:57 butorphanol [From Stadol] AdvReac Intermediate Agitation Verified 09/24/22 16:57 carbamazepine AdvReac Intermediate Heart Verified 09/24/22 16:57 Arrhythmia hydrocodone [From Vicodin] AdvReac Intermediate Nausea Verified 09/24/22 16:57 Macrolide Antibiotics AdvReac Intermediate Vomiting Verified 09/24/22 16:57 oxycodone [From Percocet] AdvReac Intermediate Nausea Verified 09/24/22 16:57 temazepam AdvReac Intermediate GI symptoms Verified 09/24/22 16:57 semaglutide [From Ozempic] AdvReac Gastrointestinal Verified 09/24/22 16:57 Upset Past Med/Surg History Problem List (Updated 01/04/24 @ 03:50 by Obed Ratliff MD) Nausea, vomiting and diarrhea (Acute) Acute dehydration (Acute) Headache (Acute) Syncope (Acute) Trauma (Acute) Status post right rotator cuff repair Encounter for pre-operative examination Bipolar disorder with depression Morbid obesity Insomnia (Chronic) Back pain, thoracic (Acute) Stress response Diarrhea Lumbar radiculopathy Encounter for smoking cessation counseling (Acute) Abnormal finding on cardiovascular stress test Hypercholesterolemia Chronic sinusitis Tobacco use disorder Rotator cuff tear arthropathy of right shoulder Grief Loss of spouse 10/26/21 Bipolar II disorder Intermittent claudication History of lumbar surgery (Acute) + "screws", T10-S1 fusion Radicular pain of thoracic region Diabetes type 2, uncontrolled (Chronic) Vitamin D deficiency Restless leg syndrome Osteoarthritis Degenerative disc disease GERD (gastroesophageal reflux disease) History of pulmonary embolism > 5 years ago, reason for Xarelto, unknown etiology Hypothyroidism Asthma Granulosa cell tumor of left ovary 2017, underwent bilateral salpingo-oophorectomy Diverticular disease of colon Sleep apnea No device Hypertension Ankylosing spondylitis Dyslipidemia (Chronic) Chronic radicular low back pain Scoliosis COPD (chronic obstructive pulmonary disease) Urinary incontinence Medical History Asthma History of thyroid nodule History of intracranial hemorrhage 4+ years ago r/t fall Constipation, chronic Umbilical hernia History of anemia 2019 > blood transfusion (r/t stomach polyps) Hx of deep venous thrombosis RLE x2 (2010 post-op, 2012 post-op) Surgical History History of back surgery x4 History of salpingo-oophorectomy (~07/2018) H/O thyroidectomy History of colonoscopy History of total left knee replacement History of total right knee replacement History of thyroidectomy History of 2 sections History of hysterectomy (~1981) History of cholecystectomy History of appendectomy History of cardiac catheterization Remote hx several years ago > no stents History of endoscopy Family History Father Heart disease Diabetes Hypertension Myocardial infarction, Onset Age: 35 Sister Depression Hypertension Mother Diabetes Hypertension Kidney disease Denies family history of Ovarian cancer Prostate cancer Breast cancer Lung cancer Colorectal cancer Social History Smoking Status: Current every day smoker Tobacco Type: Cigarettes packs per day: 0.25; Cigarettes Per Day: 6 per day; Second Hand Exposure: No; Do You Dip or Chew Tobacco: No; Hx Alcohol Use: No Hx Substance Use: No Preferred Language: Yoruba Communication Ability: Effective Visual Impairment: No Limitations 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: Normal Real Estate Assessor Required: No Beliefs That Will Affect Care: None marital status: / Current Living Situation: Parent Current Living Situation Comment: MOM lives with pt How many Children do You have: 2 Feels Safe at Home: Yes Childhood Exposure to Second-Hand Smoke: Yes Diet: regular Diet Comment: regular caffeine: Yes during the past year weight has: remained stable Dental Care, Regularly: No Physical Activity Frequency: Does not Exercise Seatbelt Use: always Sunscreen Use: Yes Assistive Devices: Cane and Glasses Review of Systems A total of 10 systems reviewed and were otherwise negative Physical Exam Vital Signs Vital Signs - 24 hr 01/03/24 22:53 01/03/24 23:06 01/03/24 23:11 Temperature 36.7 C 36.7 C Temperature Source Oral Pulse Rate 78 78 Pulse Rate [Finger] Pulse Rate from SpO2 Sensor Pulse Strength [Bilateral Femoral] Normal Respiratory Rate 18 18 Respiratory Effort / Characteristics Non-Labored Respiratory Depth Blood Pressure 121/66 128/88 Blood Pressure [Right Arm] Blood Pressure Mean 84 Blood Pressure Mean [Right Arm] Pulse Oximetry 100 98 98 Oxygen Delivery Method Room Air Room Air Nasal Cannula Sepsis Recent Fever Within 48 Hours No Sepsis New/Unexplained Change in Mental Status No Sepsis Action Taken by Nursing No Action Required 01/03/24 23:11 01/03/24 23:11 01/03/24 23:11 Temperature Temperature Source Pulse Rate Pulse Rate [Finger] Pulse Rate from SpO2 Sensor Pulse Strength [Bilateral Femoral] Respiratory Rate Respiratory Effort / Characteristics Respiratory Depth Normal Normal Blood Pressure Blood Pressure [Right Arm] Blood Pressure Mean Blood Pressure Mean [Right Arm] Pulse Oximetry 98 Oxygen Delivery Method Room Air Sepsis Recent Fever Within 48 Hours Sepsis New/Unexplained Change in Mental Status Sepsis Action Taken by Nursing 01/03/24 23:15 01/03/24 23:45 01/04/24 00:00 Temperature Temperature Source Pulse Rate 75 82 Pulse Rate [Finger] 76 Pulse Rate from SpO2 Sensor 82 Pulse Strength [Bilateral Femoral] Respiratory Rate 16 16 Respiratory Effort / Characteristics Non-Labored Respiratory Depth Normal Blood Pressure 103/65 Blood Pressure [Right Arm] 123/76 Blood Pressure Mean 77 Blood Pressure Mean [Right Arm] 91 Pulse Oximetry 95 99 Oxygen Delivery Method Room Air Room Air Sepsis Recent Fever Within 48 Hours Sepsis New/Unexplained Change in Mental Status Sepsis Action Taken by Nursing 01/04/24 00:00 01/04/24 00:15 01/04/24 00:24 Temperature Temperature Source Pulse Rate 85 84 85 Pulse Rate [Finger] Pulse Rate from SpO2 Sensor 84 85 Pulse Strength [Bilateral Femoral] Respiratory Rate 18 12 13 Respiratory Effort / Characteristics Respiratory Depth Blood Pressure 125/74 119/79 92/63 L Blood Pressure [Right Arm] Blood Pressure Mean 105 92 72 Blood Pressure Mean [Right Arm] Pulse Oximetry 99 98 92 Oxygen Delivery Method Room Air Room Air Room Air Sepsis Recent Fever Within 48 Hours Sepsis New/Unexplained Change in Mental Status Sepsis Action Taken by Nursing 01/04/24 00:39 01/04/24 00:54 01/04/24 00:55 Temperature Temperature Source Pulse Rate 85 93 H Pulse Rate [Finger] Pulse Rate from SpO2 Sensor 86 87 Pulse Strength [Bilateral Femoral] Respiratory Rate 16 17 Respiratory Effort / Characteristics Respiratory Depth Blood Pressure 129/87 129/87 Blood Pressure [Right Arm] Blood Pressure Mean 101 104 Blood Pressure Mean [Right Arm] Pulse Oximetry 99 97 Oxygen Delivery Method Sepsis Recent Fever Within 48 Hours Sepsis New/Unexplained Change in Mental Status Sepsis Action Taken by Nursing 01/04/24 00:55 01/04/24 00:57 Temperature Temperature Source Pulse Rate 85 Pulse Rate [Finger] Pulse Rate from SpO2 Sensor 83 Pulse Strength [Bilateral Femoral] Respiratory Rate 15 Respiratory Effort / Characteristics Respiratory Depth Blood Pressure 129/87 Blood Pressure [Right Arm] Blood Pressure Mean 104 Blood Pressure Mean [Right Arm] Pulse Oximetry 100 Oxygen Delivery Method Sepsis Recent Fever Within 48 Hours Sepsis New/Unexplained Change in Mental Status Sepsis Action Taken by Nursing General: Well developed well nourished [id number] older female who appears in no acute distress, breathing comfortably on room air. Normal speech. Alert and orient x 3 nonslurred speech. Answers questions appropriately. HEENT: Normal cephalic atraumatic. Pupils are equal round and reactive to light. Extraocular movements are intact. Oropharynx is pink with moist mucous membranes. No swelling of the mouth lips or tongue. Neck: Supple with a midline trachea. No meningeal signs or stiffness, no JVD or bruits. No Stridor. Noncolored upon arrival Chest: Clear to auscultation bilaterally. No wheezes or rhonchi. No increased work of breathing. Heart: Regular rate and rhythm without murmurs or gallops. Abdomen: Soft nontender, nondistended without rebound guarding or rigidity. Extremities: No cyanosis clubbing or edema. No calf tenderness or assymetry Spine/Back. Non tender to palpation. No CVA tenderness Skin: Good turgor without rashes. Neurologic exam: Cranial nerves two through 12 are intact. Motor and sensation are intact and symmetrical throughout. Course Administered Medications Potassium Chloride/Sodium Chloride (Normal Saline W/20 Meq Kcl) 20 meq in 1,000 mls @ 125 mls/hr IV .Q8H MIGUEL Stop: 01/04/24 16:44 Last Admin: 01/04/24 01:38 Dose: 125 mls/hr Documented By: SUSIE Discontinued Medications Hydromorphone HCl (Hydromorphone Inj 0.5 Mg/0.5 Ml Syr) 0.5 mg IV NOW STA Stop: 01/04/24 00:06 Last Admin: 01/04/24 00:10 Dose: 0.5 mg Documented By: SUNNY Sodium Chloride (Nss) 1,000 mls @ 999 mls/hr IV .Q1H1M ONE Stop: 01/04/24 00:07 Last Infusion: 01/04/24 00:36 Dose: Infused Documented By: Admin: 01/03/24 23:36 Dose: 999 mls/hr Documented By: PERRY Ceftriaxone Sodium (Rocephin) 2,000 mg in 50 mls @ 100 mls/hr IV NOW STA Stop: 01/04/24 01:55 Last Infusion: 01/04/24 02:12 Dose: Infused Documented By: Admin: 01/04/24 01:38 Dose: 100 mls/hr Documented By: SUSIE Ioversol (Optiray 320 125ml) 125 ml IV ONCE ONE Stop: 01/03/24 23:26 Last Admin: 01/03/24 23:25 Dose: 118 ml Documented By: MARY Medical Decision Making Differential Diagnosis Syncope, arrhythmia, trauma, infection, electrolyte or metabolic abnormality, dehydration, traumatic injuries, PE, arrhythmia, cardiac disease Medical Records Attestation: I reviewed the patient's medical records. Home Medications Current Medication List: was personally reviewed by me Laboratory Data Attestation: I reviewed the patient's lab results. 01/03/24 23:11 01/03/24 23:11 Lab Results 01/03/24 01/03/24 01/03/24 Range/Units 23:11 23:15 23:37 WBC 11.27 H (4.8-10.8) K/ul RBC 4.28 (4.20-5.40) M/uL Hgb 11.9 L (12.0-16.0) g/dl POC Hgb 13.3 (12.0-16.0) g/dl Hct 37.1 (37.0-47.0) % POC Hct 39 (37-47) % MCV 86.7 (80.0-100.0) fL MCH 27.8 (25.0-34.0) pg MCHC 32.1 (32.0-36.0) g/dL RDW Std Deviation 55.9 H (36.4-46.3) fL RDW Coeff of Wilber 17.4 H (11.5-14.5) % Plt Count 309 (130-400) K/uL MPV 9.7 (9.4-12.4) fL Immature Gran % (Auto) 0.5 % Neut % (Auto) 71.7 % Lymph % (Auto) 18.4 % [place] % (Auto) 7.9 % Eos % (Auto) 1.1 % Baso % (Auto) 0.4 % Neut # (Auto) 8.09 H (1.40-6.50) K/uL Lymph # (Auto) 2.07 (1.20-3.40) K/uL [place] # (Auto) 0.89 H (0.11-0.59) K/uL Eos # (Auto) 0.12 (0.00-0.50) K/uL Baso # (Auto) 0.04 (0.00-0.20) K/uL Immature Gran # (Auto) 0.06 (0.01-0.20) K/uL PT 11.4 (9.0-12.0) Seconds INR 1.1 (0.9-1.1) POC Sodium 139 (135-144) mmol/L Sodium 137 (136-145) mmol/L POC Potassium 3.4 (3.3-5.0) mmol/L Potassium 3.4 L (3.5-5.1) mmol/L POC Chloride 103 (101-112) mmol/L Chloride 105 (98-107) mmol/L Carbon Dioxide 24 (21-32) mmol/L POC Total CO2 22 L (24-31) mmol/L Anion Gap 8 (3-11) POC Anion Gap 18.0 (16-25) mmol/L POC BUN 18 (7-18) mg/dl BUN 19 (6-23) mg/dl Creatinine 1.05 (0.6-1.2) mg/dl POC Creatinine 1.1 (0.6-1.3) mg/dl Est Cr Clr Drug Dosing 58.1 ml/min Est GFR ( Amer) 65.9 ml/min Est GFR (Non-Af Amer) 56.9 ml/min BUN/Creatinine Ratio 18.1 (10-20) Glucose 180 H (70-99(Fasting)) mg/dl POC Glucose (other) 176 H (70-99) mg/dl Lactate 2.6 H* (0.4-2.0) mmol/L Calcium 9.3 (8.6-10.3) mg/dl POC Ioniz Calcium Lucy 1.26 (1.12-1.32) mmol/l Magnesium 1.9 (1.7-2.4) mg/dl Total Bilirubin 0.4 (0.2-1.0) mg/dl AST 15 (13-39) U/L ALT 11 (7-52) U/L Alkaline Phosphatase 77 (34-104) U/L Troponin I High Sens 4.1 (0-14) pg/ml Total Protein 6.3 (6.0-8.3) gm/dl Albumin 4.0 (3.4-5.0) gm/dl Globulin 2.3 L (2.5-4.0) gm/dl Albumin/Globulin Ratio 1.7 (0.9-2) Amylase 47 (25-115) U/L Urine Color Urine Appearance (Clear) Urine pH (4.5-7.5) Ur Specific [place] (1.000-1.030) Urine Protein (Negative) Urine Glucose (UA) (Negative) Urine Ketones (Negative) Urine Blood (Negative) Urine Nitrite (Negative) Urine Bilirubin (Negative) Urine Urobilinogen (Negative) Ur Leukocyte Esterase (Negative) Adenovirus (PCR) Not Detected (NotDetected) B. pertussis DNA (PCR) Not Detected (NotDetected) B.parapertussis DNA PCR Not Detected (NotDetected) C. pneumoniae DNA (PCR) Not Detected (NotDetected) Coronavirus OC43 (PCR) Not Detected (NotDetected) Coronavirus HKU1 (PCR) Not Detected (NotDetected) Coronavirus 229E (PCR) Not Detected (NotDetected) SARS-CoV-2 (PCR) Not Detected (NotDetected) Coronavirus NL63 (PCR) Not Detected (NotDetected) Human Metapneumovir PCR Not Detected (NotDetected) Influenza Type A (PCR) Not Detected (NotDetected) Influenza Type B (PCR) Not Detected (NotDetected) M. pneumoniae (PCR) Not Detected (NotDetected) Parainfluenza 1 (PCR) Not Detected (NotDetected) Parainfluenza 2 (PCR) Not Detected (NotDetected) Parainfluenza 3 (PCR) Not Detected (NotDetected) Parainfluenza 4 (PCR) Not Detected (NotDetected) RSV (PCR) Not Detected (NotDetected) Entero/Rhino (PCR) Not Detected (NotDetected) 01/04/24 Range/Units 00:55 WBC (4.8-10.8) K/ul RBC (4.20-5.40) M/uL Hgb (12.0-16.0) g/dl POC Hgb (12.0-16.0) g/dl Hct (37.0-47.0) % POC Hct (37-47) % MCV (80.0-100.0) fL MCH (25.0-34.0) pg MCHC (32.0-36.0) g/dL RDW Std Deviation (36.4-46.3) fL RDW Coeff of Wilber (11.5-14.5) % Plt Count (130-400) K/uL MPV (9.4-12.4) fL Immature Gran % (Auto) % Neut % (Auto) % Lymph % (Auto) % [place] % (Auto) % Eos % (Auto) % Baso % (Auto) % Neut # (Auto) (1.40-6.50) K/uL Lymph # (Auto) (1.20-3.40) K/uL [place] # (Auto) (0.11-0.59) K/uL Eos # (Auto) (0.00-0.50) K/uL Baso # (Auto) (0.00-0.20) K/uL Immature Gran # (Auto) (0.01-0.20) K/uL PT (9.0-12.0) Seconds INR (0.9-1.1) POC Sodium (135-144) mmol/L Sodium (136-145) mmol/L POC Potassium (3.3-5.0) mmol/L Potassium (3.5-5.1) mmol/L POC Chloride (101-112) mmol/L Chloride (98-107) mmol/L Carbon Dioxide (21-32) mmol/L POC Total CO2 (24-31) mmol/L Anion Gap (3-11) POC Anion Gap (16-25) mmol/L POC BUN (7-18) mg/dl BUN (6-23) mg/dl Creatinine (0.6-1.2) mg/dl POC Creatinine (0.6-1.3) mg/dl Est Cr Clr Drug Dosing ml/min Est GFR ( Amer) ml/min Est GFR (Non-Af Amer) ml/min BUN/Creatinine Ratio (10-20) Glucose (70-99(Fasting)) mg/dl POC Glucose (other) (70-99) mg/dl Lactate (0.4-2.0) mmol/L Calcium (8.6-10.3) mg/dl POC Ioniz Calcium Lucy (1.12-1.32) mmol/l Magnesium (1.7-2.4) mg/dl Total Bilirubin (0.2-1.0) mg/dl AST (13-39) U/L ALT (7-52) U/L Alkaline Phosphatase (34-104) U/L Troponin I High Sens (0-14) pg/ml Total Protein (6.0-8.3) gm/dl Albumin (3.4-5.0) gm/dl Globulin (2.5-4.0) gm/dl Albumin/Globulin Ratio (0.9-2) Amylase (25-115) U/L Urine Color Yellow Urine Appearance Clear (Clear) Urine pH 6.0 (4.5-7.5) Ur Specific [place] 1.040 H (1.000-1.030) Urine Protein Negative (Negative) Urine Glucose (UA) Negative (Negative) Urine Ketones Negative (Negative) Urine Blood Negative (Negative) Urine Nitrite Negative (Negative) Urine Bilirubin Negative (Negative) Urine Urobilinogen Negative (Negative) Ur Leukocyte Esterase Negative (Negative) Adenovirus (PCR) (NotDetected) B. pertussis DNA (PCR) (NotDetected) B.parapertussis DNA PCR (NotDetected) C. pneumoniae DNA (PCR) (NotDetected) Coronavirus OC43 (PCR) (NotDetected) Coronavirus HKU1 (PCR) (NotDetected) Coronavirus 229E (PCR) (NotDetected) SARS-CoV-2 (PCR) (NotDetected) Coronavirus NL63 (PCR) (NotDetected) Human Metapneumovir PCR (NotDetected) Influenza Type A (PCR) (NotDetected) Influenza Type B (PCR) (NotDetected) M. pneumoniae (PCR) (NotDetected) Parainfluenza 1 (PCR) (NotDetected) Parainfluenza 2 (PCR) (NotDetected) Parainfluenza 3 (PCR) (NotDetected) Parainfluenza 4 (PCR) (NotDetected) RSV (PCR) (NotDetected) Entero/Rhino (PCR) (NotDetected) Imaging Data Attestation: I personally reviewed and interpreted this imaging study as follows: My Impression: Chest x-rayno acute infiltrate, failure, pneumothorax seen. Radiologist's Impression: Abdomen/Pelvis CT 01/03/24 23:06 Exam(s): CT ABDOMEN + PELVIS With Contrast IV Amt: 118 ml optiray 320 EXAM: CT Abdomen and Pelvis With Intravenous Contrast CLINICAL HISTORY: Reason for exam: Trauma. TECHNIQUE: Axial computed tomography images of the abdomen and pelvis with intravenous contrast. CTDI is 27.95 mGy and DLP is 846.55 mGy-cm. Automated exposure control was utilized for the study. A dose lowering technique was utilized adhering to the principles of ALARA. CONTRAST: Patient received 118 ml optiray 320 of IV contrast COMPARISON: No relevant prior studies available. FINDINGS: Lung bases: Unremarkable. No mass. No consolidation. ABDOMEN: Liver: Unremarkable. No mass. Gallbladder and bile ducts: Cholecystectomy. No ductal dilation. Pancreas: Unremarkable. No mass. No ductal dilation. Spleen: Unremarkable. No splenomegaly. Adrenals: Unremarkable. No mass. Kidneys and ureters: Unremarkable. No solid mass. No hydronephrosis. Stomach and bowel: Diverticulosis, without acute diverticulitis. No small bowel obstruction. No free intraperitoneal air. PELVIS: Appendix: No findings to suggest acute appendicitis. Bladder: Wall thickening of the urinary bladder, concerning for UTI. Urinalysis recommended. Reproductive: Unremarkable as visualized. ABDOMEN and PELVIS: Intraperitoneal space: Unremarkable. No free air. No significant fluid collection. Bones/joints: Degenerative changes of the spine. Multilevel lumbosacral fusion hardware. No acute fracture. No dislocation. Soft tissues: Unremarkable. Vasculature: Atherosclerotic changes of the aorta. No abdominal aortic aneurysm. Lymph nodes: Unremarkable. No enlarged lymph nodes. IMPRESSION: 1. Wall thickening of the urinary bladder, concerning for UTI. Urinalysis recommended. 2. Cholecystectomy. 3. Diverticulosis, without acute diverticulitis. No small bowel obstruction. No free intraperitoneal air. Electronically signed by: Reid Varela MD 01/03/24 23:[address] 01/03/24 23:06 Exam(s): CT C SPINE EXAM: CT Cervical Spine Without Intravenous Contrast CLINICAL HISTORY: Reason for exam: Trauma. TECHNIQUE: Axial computed tomography images of the cervical spine without intravenous contrast. CTDI is 26.96 mGy and DLP is 475.54 mGy-cm. Automated exposure control was utilized for the study. A dose lowering technique was utilized adhering to the principles of ALARA. COMPARISON: No relevant prior studies available. FINDINGS: The vertebral body heights are maintained. The craniocervical junction is intact. The atlanto-dens interval is maintained. The dens is intact. There is no spondylolisthesis. Multilevel cervical spondylosis and degenerative disc disease. Straightening of the cervical lordosis. IMPRESSION: No acute fracture or subluxation of the cervical spine. Electronically signed by: Reid Varela MD 01/03/24 23:59 PM Chest CTA 01/03/24 23:06 Exam(s): CTA CHEST IV Amt: 118 ml optiray 320 EXAM: CT Angiography Chest With Intravenous Contrast CLINICAL HISTORY: Reason for exam: PE. TECHNIQUE: Axial computed tomographic angiography images of the chest with intravenous contrast. CTDI is 28.07 mGy and DLP is 1313.51 mGy-cm. Automated exposure control was utilized for the study. A dose lowering technique was utilized adhering to the principles of ALARA. MIP reconstructed images were created and reviewed. COMPARISON: No relevant prior studies available. FINDINGS: Pulmonary arteries: Unremarkable. No pulmonary embolism. Aorta: No acute findings. No thoracic aortic aneurysm. Lungs: Unremarkable. No mass. No consolidation. Pleural space: Unremarkable. No significant effusion. No pneumothorax. Heart: Unremarkable. No cardiomegaly. No significant pericardial effusion. No evidence of RV dysfunction. Bones/joints: Multilevel thoracolumbar fusion hardware. Cement kyphoplasty at T11. No acute fracture. No dislocation. Soft tissues: Unremarkable. Lymph nodes: Unremarkable. No enlarged lymph nodes. Gallbladder and bile ducts: Cholecystectomy. IMPRESSION: No acute pulmonary embolism. Electronically signed by: Reid Varela MD 01/04/24 00:[address] 01/03/24 23:06 Exam(s): CT HEAD Without Contrast EXAM: CT Head Without Intravenous Contrast CLINICAL HISTORY: Reason for exam: Trauma. TECHNIQUE: Axial computed tomography images of the head/brain without intravenous contrast. CTDI is 37.32 mGy and DLP is 780.51 mGy-cm. Automated exposure control was utilized for the study. A dose lowering technique was utilized adhering to the principles of ALARA. COMPARISON: No relevant prior studies available. FINDINGS: Brain: Unremarkable. No hemorrhage. No significant white matter disease. No edema. Ventricles: Unremarkable. No ventriculomegaly. Bones/joints: Unremarkable. No acute fracture. Soft tissues: Unremarkable. Sinuses: Unremarkable as visualized. No acute sinusitis. Mastoid air cells: Unremarkable as visualized. No mastoid effusion. IMPRESSION: Normal head/brain CT. Electronically signed by: Reid Varela MD 01/03/24 23:59 PM ECG Data Attestation: I personally reviewed and interpreted this ECG as follows: Indication: + syncope Rate (beats per minute): 76 Rhythm: + normal sinus ECG Intervals/blocks: + Normal QRS, + Normal QT and + Normal MT ECG [place]: + Left axis deviation ECG ST segments: + Normal ST segments ECG Findings: no PACs or no PVCs Comparison ECG Date: from (09/29/23) Change: no significant change MDM Narrative This patient comes in as described above. I saw her immediately upon arrival as she was brought in as a trauma alert in room B1. Upon arrival she is moving all 4 extremities symmetrically. her airway breathing and circulation are intact. We did place a collar as there is no collar prior to arrival. I did order amin trauma scans i-STAT was obtained x-ray was obtained she was placed on a desk monitor. Her initial EKG shows normal sinus rhythm with a rate of 76 there is nothing to suggest significant arrhythmia or ischemia based on her initial EKG. She has no significant electrolyte or metabolic abnormality. White count is mildly elevated but there is no evidence that she has infection besides maybe a GI illness lactic acid also just minimally elevated. It sounds like she has added nausea vomiting diarrhea today and had a syncopal episode. Her scans were reassuring and there is no evidence of any trauma there is no evidence of a PE on the CT angio. She was given Dilaudid 0.5 mg for her headache. She says that the only medication she can take from a pain medicine standpoint. I do think she needs to be admitted/observed given that she had a syncopal episode and is probably dehydrated as well. She has been gently rehydrated with IV fluids in the ER and she will be admitted/observed. I discussed the case with Dr. Seay from the [facility] team. Continuous cardiac monitoring: Orders placed in EMR for continuous desk monitor call upon my evaluation patient to be in normal sinus with a rate of 75 Impression & Plan Trauma, Syncope, Headache, Acute dehydration, Nausea, vomiting and diarrhea Discharge Plan Visit Data Chief Complaint: Trauma Stated Complaint: TRAUMA ALERT ED Provider: Obed Ratliff Discharge Problem: Trauma, Syncope, Headache, Acute dehydration, Nausea, vomiting and diarrhea Discharge Instructions Interventions: ED Discharge Assessment Last Done: 01/04/24 02:27 Discharge Problem: Syncope Qualifiers: Syncope type: unspecified Qualified Code(s): R55 - Syncope and collapse Headache Qualifiers: Headache type: unspecified Headache chronicity pattern: acute headache I ntractability: not intractable Qualified Code(s): R51.9 - Headache, unspecified
[2024-01-03] MEDS: OPTIRAY 320 125ml IV ONE (23:25)
[2024-01-03 23:28] LABS: iSTAT Creatinine 1.1 mg/dl (0.6-1.3); iSTAT Hemoglobin 13.3 g/dl (12.0-16.0); iSTAT Ionized Calcium 1.26 mmol/l (1.12-1.32); iSTAT Potassium 3.4 mmol/L (3.3-5.0)
[2024-01-03] MEDS: SODIUM CHLORIDE 0.9% 1,000 ML IV ONE (23:36)
[2024-01-03 23:41] LABS: Basophils # (auto) 0.04 K/uL (0.00-0.20); Basophils % (auto) 0.4 %; Eosinophils # (auto) 0.12 K/uL (0.00-0.50); Eosinophils % (auto) 1.1 %; Hematocrit (blood only) 37.1 % (37.0-47.0); Hemoglobin 11.9 g/dl (12.0-16.0); Immature Granulocytes # (auto) 0.06 K/uL (0.01-0.20); Immature Granulocytes % (auto) 0.5 %; Lymphocytes # (auto) 2.07 K/uL (1.20-3.40); Lymphocytes % (auto) 18.4 %; Mean Corpuscular Hemoglobin 27.8 pg (25.0-34.0); Mean Corpuscular Hgb Conc 32.1 g/dL (32.0-36.0); Mean Corpuscular Volume 86.7 fL (80.0-100.0); Mean Platelet Volume 9.7 fL (9.4-12.4); Monocytes # (auto) 0.89 K/uL (0.11-0.59); Monocytes % (auto) 7.9 %; Neutrophils # (auto) 8.09 K/uL (1.40-6.50); Neutrophils % (auto) 71.7 %; Platelet Count 309 K/uL (130-400); RDW Coefficient of Variation 17.4 % (11.5-14.5); RDW Standard Deviation 55.9 fL (36.4-46.3); Red Blood Count 4.28 M/uL (4.20-5.40); White Blood Count 11.27 K/ul (4.8-10.8)
[2024-01-03 23:51] LABS: Albumin Globulin Ratio 1.7 (0.9-2); BUN Creatinine Ratio 18.1 (10-20); Bilirubin,Total 0.4 mg/dl (0.2-1.0); Calcium 9.3 mg/dl (8.6-10.3); Creatinine Clr Calc Pharmacy 58.1 ml/min; Est GFR (African American) 65.9 ml/min; Est GFR (Non-African American) 56.9 ml/min; Globulin 2.3 gm/dl (2.5-4.0); Potassium 3.4 mmol/L (3.5-5.1); Total Protein 6.3 gm/dl (6.0-8.3)
--- NOTE | 2024-01-03 23:57 | CT Scan Report ---
Exam(s): CT ABDOMEN + PELVIS With Contrast IV Amt: 118 ml optiray 320 EXAM: CT Abdomen and Pelvis With Intravenous Contrast CLINICAL HISTORY: Reason for exam: Trauma. TECHNIQUE: Axial computed tomography images of the abdomen and pelvis with intravenous contrast. CTDI is 27.95 mGy and DLP is 846.55 mGy-cm. Automated exposure control was utilized for the study. A dose lowering technique was utilized adhering to the principles of ALARA. CONTRAST: Patient received 118 ml optiray 320 of IV contrast COMPARISON: No relevant prior studies available. FINDINGS: Lung bases: Unremarkable. No mass. No consolidation. ABDOMEN: Liver: Unremarkable. No mass. Gallbladder and bile ducts: Cholecystectomy. No ductal dilation. Pancreas: Unremarkable. No mass. No ductal dilation. Spleen: Unremarkable. No splenomegaly. Adrenals: Unremarkable. No mass. Kidneys and ureters: Unremarkable. No solid mass. No hydronephrosis. Stomach and bowel: Diverticulosis, without acute diverticulitis. No small bowel obstruction. No free intraperitoneal air. PELVIS: Appendix: No findings to suggest acute appendicitis. Bladder: Wall thickening of the urinary bladder, concerning for UTI. Urinalysis recommended. Reproductive: Unremarkable as visualized. ABDOMEN and PELVIS: Intraperitoneal space: Unremarkable. No free air. No significant fluid collection. Bones/joints: Degenerative changes of the spine. Multilevel lumbosacral fusion hardware. No acute fracture. No dislocation. Soft tissues: Unremarkable. Vasculature: Atherosclerotic changes of the aorta. No abdominal aortic aneurysm. Lymph nodes: Unremarkable. No enlarged lymph nodes. IMPRESSION: 1. Wall thickening of the urinary bladder, concerning for UTI. Urinalysis recommended. 2. Cholecystectomy. 3. Diverticulosis, without acute diverticulitis. No small bowel obstruction. No free intraperitoneal air. Electronically signed by: Reid Varela MD 01/03/24 23:56 PM
[2024-01-03 23:58] LABS: Troponin I High Sensitivity 4.1 pg/ml (0-14)
--- NOTE | 2024-01-04 | CT Scan Report ---
Exam(s): CT C SPINE EXAM: CT Cervical Spine Without Intravenous Contrast CLINICAL HISTORY: Reason for exam: Trauma. TECHNIQUE: Axial computed tomography images of the cervical spine without intravenous contrast. CTDI is 26.96 mGy and DLP is 475.54 mGy-cm. Automated exposure control was utilized for the study. A dose lowering technique was utilized adhering to the principles of ALARA. COMPARISON: No relevant prior studies available. FINDINGS: The vertebral body heights are maintained. The craniocervical junction is intact. The atlanto-dens interval is maintained. The dens is intact. There is no spondylolisthesis. Multilevel cervical spondylosis and degenerative disc disease. Straightening of the cervical lordosis. IMPRESSION: No acute fracture or subluxation of the cervical spine. Electronically signed by: Reid Varela MD 01/03/24 23:59 PM
--- NOTE | 2024-01-04 | CT Scan Report ---
Exam(s): CT HEAD Without Contrast EXAM: CT Head Without Intravenous Contrast CLINICAL HISTORY: Reason for exam: Trauma. TECHNIQUE: Axial computed tomography images of the head/brain without intravenous contrast. CTDI is 37.32 mGy and DLP is 780.51 mGy-cm. Automated exposure control was utilized for the study. A dose lowering technique was utilized adhering to the principles of ALARA. COMPARISON: No relevant prior studies available. FINDINGS: Brain: Unremarkable. No hemorrhage. No significant white matter disease. No edema. Ventricles: Unremarkable. No ventriculomegaly. Bones/joints: Unremarkable. No acute fracture. Soft tissues: Unremarkable. Sinuses: Unremarkable as visualized. No acute sinusitis. Mastoid air cells: Unremarkable as visualized. No mastoid effusion. IMPRESSION: Normal head/brain CT. Electronically signed by: Reid Varela MD 01/03/24 23:59 PM
[2024-01-04 00:01] LABS: INR 1.1 (0.9-1.1); Prothrombin Time 11.4 Seconds (9.0-12.0)
--- NOTE | 2024-01-04 00:01 | CT Scan Report ---
Exam(s): CTA CHEST IV Amt: 118 ml optiray 320 EXAM: CT Angiography Chest With Intravenous Contrast CLINICAL HISTORY: Reason for exam: PE. TECHNIQUE: Axial computed tomographic angiography images of the chest with intravenous contrast. CTDI is 28.07 mGy and DLP is 1313.51 mGy-cm. Automated exposure control was utilized for the study. A dose lowering technique was utilized adhering to the principles of ALARA. MIP reconstructed images were created and reviewed. COMPARISON: No relevant prior studies available. FINDINGS: Pulmonary arteries: Unremarkable. No pulmonary embolism. Aorta: No acute findings. No thoracic aortic aneurysm. Lungs: Unremarkable. No mass. No consolidation. Pleural space: Unremarkable. No significant effusion. No pneumothorax. Heart: Unremarkable. No cardiomegaly. No significant pericardial effusion. No evidence of RV dysfunction. Bones/joints: Multilevel thoracolumbar fusion hardware. Cement kyphoplasty at T11. No acute fracture. No dislocation. Soft tissues: Unremarkable. Lymph nodes: Unremarkable. No enlarged lymph nodes. Gallbladder and bile ducts: Cholecystectomy. IMPRESSION: No acute pulmonary embolism. Electronically signed by: Reid Varela MD 01/04/24 00:01 AM
[2024-01-04] MEDS: HYDROmorphone INJ 0.5 MG/0.5 ML SYR IV STA (00:10)
[2024-01-04 00:34] LABS: Adenovirus PCR Not Detected (NotDetected); Bordetella parapertussis PCR Not Detected (NotDetected); Bordetella pertussis PCR Not Detected (NotDetected); Chlamydia pneumoniae PCR Not Detected (NotDetected); Coronavirus 229E PCR Not Detected (NotDetected); Coronavirus CoV-2 (COVID19)PCR Not Detected (NotDetected); Coronavirus HKU1 PCR Not Detected (NotDetected); Coronavirus NL63 PCR Not Detected (NotDetected); Coronavirus OC43PCR Not Detected (NotDetected); Human Metapneumovirus PCR Not Detected (NotDetected); Influenza A PCR Not Detected (NotDetected); Influenza B PCR Not Detected (NotDetected); Mycoplasma pneumoniae PCR Not Detected (NotDetected); Parainfluenza Virus 1 PCR Not Detected (NotDetected); Parainfluenza Virus 2 PCR Not Detected (NotDetected); Parainfluenza Virus 3 PCR Not Detected (NotDetected); Parainfluenza Virus 4 PCR Not Detected (NotDetected); Respiratory Syncytial VirusPCR Not Detected (NotDetected); Rhinovirus/Enterovirus PCR Not Detected (NotDetected)
--- NOTE | 2024-01-04 00:58 | History & Physical Report ---
Date of Service January 04, 2024 Assessment & Plan (1) Syncope and collapse: (2) Nausea, vomiting and diarrhea: (3) Urinary tract infection: (4) Urinary incontinence: (5) Acute dehydration: (6) Trauma: (7) Bipolar disorder with depression: (8) Hypercholesterolemia: (9) Diabetes type 2, uncontrolled: (10) Restless leg syndrome: (11) GERD (gastroesophageal reflux disease): (12) Hypertension: (13) COPD (chronic obstructive pulmonary disease): Plan Syncope and collapse/trauma alert- Patient had a syncopal episode while on the commode, and primarily complained of a right-sided headache where she hit her head as she fell. CT scan head without contrast negative CT cervical spine without contrast negative CTA chest PE protocol negative CT abdomen and pelvis showed bladder wall thickness, concerning for urinary tract infection Relative hypotension/dehydration- Hold spironolactone, losartan, and amlodipine Place on normal saline with KCl 20 mEq at 125 mL/h x 2 L Admit to monitored bed Diarrhea- Patient has had issues with intermittently with loose stools, but has not had a bowel movement 3 times she has been in the ED Likely contributing to relative hypovolemic/dehydrated state Urinary tract infection/chronic urinary incontinence/dehydration- Bladder wall thickness suggestive of UTI as noted on CT scan Follow urine culture and sensitivity Empiric ceftriaxone [address] on NSS with KCl 20 mEq at 125 mL/h x 2 L Diabetes mellitus- Hold Trulicity Place on Accu-Cheks with NovoLog SSI History of PE/COPD- Hold Xarelto for now, due to recent head trauma Would hold Spiriva, as patient has fairly significant dry mouth, for which she takes Biotene Bipolar disorder with depression- Continue duloxetine, gabapentin, and trazodone History of Present Illness Chief Complaint: The patient presents to the emergency department as a trauma alert, after a fall, hitting her head, with history of present use of Xarelto. Patient reports that she has had loose stools, and was on the commode, when she had a syncopal episode, hitting her head on part of the furniture in the bathroom, with impact being loud enough that her family heard her despite wearing their headphones, and came to check on her. When EMS arrived, they reported that she appeared generally weak, and were concerned that she might be having a seizure, as she appeared to stare off into space briefly. Her blood sugar was checked and it was in the 150s. Upon arrival to the emergency department, she did complain of right-sided headache, which is where she had hit her head. Primary Care Provider: NO PCP The patient is a 63-year-old female with a past medical history including bipolar disorder with depression, obesity, diarrhea, lumbar radiculopathy, hypercholesterolemia, tobacco use disorder, restless leg syndrome, GERD, history of PE, asthma, hypothyroidism, ankylosing spondylitis, COPD and urinary incontinence. She presents to the emergency department after syncopal episode while on the commode, having hit her head, and complaining of right-sided headache pain. She reports having loose stools today, but this has been an intermittent issue for her for a while. She denies any associated fevers or chills. She has chronic urinary incontinence, and does not notice any difference in her current urine function. Allergies Allergy/AdvReac Type Severity Reaction Status Date / Time erythromycin base Allergy Severe Swelling, Verified 09/24/22 16:57 "all pink" ketorolac Allergy Severe SOB, Verified 09/24/22 16:57 tachycardia acetaminophen [From Vicodin] AdvReac Intermediate Nausea Verified 09/24/22 16:57 adhesive AdvReac Intermediate Skin tears Verified 09/24/22 16:57 butorphanol [From Stadol] AdvReac Intermediate Agitation Verified 09/24/22 16:57 carbamazepine AdvReac Intermediate Heart Verified 09/24/22 16:57 Arrhythmia hydrocodone [From Vicodin] AdvReac Intermediate Nausea Verified 09/24/22 16:57 Macrolide Antibiotics AdvReac Intermediate Vomiting Verified 09/24/22 16:57 oxycodone [From Percocet] AdvReac Intermediate Nausea Verified 09/24/22 16:57 temazepam AdvReac Intermediate GI symptoms Verified 09/24/22 16:57 semaglutide [From Ozempic] AdvReac Gastrointestinal Verified 09/24/22 16:57 Upset Home Medications Medication Instructions Recorded Confirmed Type nystatin 100,000 unit/gram topical 1 appln topical TID PRN skin 04/08/19 01/04/24 Rx powder irritation #30 grams spironolactone 25 mg tablet 25 mg PO QAM #90 tabs 04/19/22 01/03/24 Rx rivaroxaban 20 mg tablet (Xarelto) 20 mg PO QAM #90 tabs 06/03/22 01/03/24 Rx losartan 50 mg tablet 50 mg PO QAM #90 tabs 07/07/22 01/03/24 Rx amlodipine 5 mg tablet 5 mg PO QAM 09/12/22 01/03/24 History gabapentin 600 mg tablet 900 mg PO HS 09/24/22 01/03/24 History trazodone 100 mg tablet 100 mg PO HS 09/24/22 01/03/24 History duloxetine 60 mg capsule,delayed 60 mg PO HS 01/03/24 01/03/24 History release gabapentin 600 mg tablet 600 mg PO .AM & AFTERNOON 01/03/24 01/03/24 History levothyroxine 137 mcg tablet 137 mcg PO DAILYBB 01/03/24 01/03/24 History pantoprazole 40 mg tablet,delayed 40 mg PO AMHS 01/03/24 01/03/24 History release albuterol sulfate 2.5 mg/3 mL 2.5 mg continuous nebulization QID 01/04/24 01/04/24 History (0.083 %) solution for nebulization PRN Shortness Of Breath Or Wheezing dulaglutide 1.5 mg/0.5 mL 1.5 mg subcut WK 01/04/24 01/04/24 History subcutaneous pen injector (Trulicity) tiotropium bromide 2.5 2 puff inhalation DAILY PRN 01/04/24 01/04/24 History mcg/actuation mist for inhalation Shortness Of Breath (Spiriva Respimat) Past Med/Surg History Problem List (Updated 01/04/24 @ 05:06 by Ander Wilde MD) Syncope and collapse (~01/04/24) Nausea, vomiting and diarrhea (Acute) Acute dehydration (Acute) Headache (Acute) Syncope (Acute) Trauma (Acute) Status post right rotator cuff repair Encounter for pre-operative examination Bipolar disorder with depression Morbid obesity Insomnia (Chronic) Back pain, thoracic (Acute) Stress response Diarrhea Lumbar radiculopathy Encounter for smoking cessation counseling (Acute) Abnormal finding on cardiovascular stress test Hypercholesterolemia Chronic sinusitis Tobacco use disorder Rotator cuff tear arthropathy of right shoulder Grief Loss of spouse 10/26/21 Bipolar II disorder Intermittent claudication History of lumbar surgery (Acute) + "screws", T10-S1 fusion Radicular pain of thoracic region Diabetes type 2, uncontrolled (Chronic) Vitamin D deficiency Restless leg syndrome Osteoarthritis Degenerative disc disease GERD (gastroesophageal reflux disease) History of pulmonary embolism > 5 years ago, reason for Xarelto, unknown etiology Hypothyroidism Asthma Granulosa cell tumor of left ovary 2017, underwent bilateral salpingo-oophorectomy Diverticular disease of colon Sleep apnea No device Hypertension Ankylosing spondylitis Dyslipidemia (Chronic) Chronic radicular low back pain Scoliosis COPD (chronic obstructive pulmonary disease) Urinary incontinence Medical History Asthma History of thyroid nodule History of intracranial hemorrhage 4+ years ago r/t fall Constipation, chronic Umbilical hernia History of anemia 2019 > blood transfusion (r/t stomach polyps) Hx of deep venous thrombosis RLE x2 (2010 post-op, 2012 post-op) Surgical History History of back surgery x4 History of salpingo-oophorectomy (~07/2018) H/O thyroidectomy History of colonoscopy History of total left knee replacement History of total right knee replacement History of thyroidectomy History of 2 sections History of hysterectomy (~1981) History of cholecystectomy History of appendectomy History of cardiac catheterization Remote hx several years ago > no stents History of endoscopy Family History Father Heart disease Diabetes Hypertension Myocardial infarction, Onset Age: 35 Sister Depression Hypertension Mother Diabetes Hypertension Kidney disease Denies family history of Ovarian cancer Prostate cancer Breast cancer Lung cancer Colorectal cancer Social History Smoking Status: Former smoker Tobacco Type: Cigarettes packs per day: 0.25; Cigarettes Per Day: 6 per day; Second Hand Exposure: No; Do You Dip or Chew Tobacco: No; Hx Alcohol Use: No Hx Substance Use: No Preferred Language: Luxembourger Communication Ability: Effective Visual Impairment: No Limitations 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: Normal Senior Interactive Developer Required: No Beliefs That Will Affect Care: None marital status: / Current Living Situation: Spouse Current Living Situation Comment: MOM lives with pt How many Children do You have: 2 Feels Safe at Home: Yes Safety Concerns: Feels Safe At This Time Childhood Exposure to Second-Hand Smoke: Yes Diet: regular Diet Comment: regular caffeine: Yes during the past year weight has: remained stable Dental Care, Regularly: No Physical Activity Frequency: Does not Exercise Seatbelt Use: always Sunscreen Use: Yes Assistive Devices: Cane and Glasses Review of Systems Review of Systems: The patient denies chest pain, palpitations, shortness of breath, dyspnea on exertion, cough, lower extremity swelling, sore throat, fevers, chills, sweats, nausea, vomiting, diarrhea , constipation, abdominal pain, pelvic pain, blood in urine or stool, dysuria, change in chronic urinary frequency or urgency, rash, abnormal bruising or bleeding, imbalance, focal weakness, numbness or tingling in arms or legs, generalized arthralgias or myalgias, back or neck pain, or night sweats. The review of systems is otherwise negative other than for that already noted above, and at least 10 systems have been reviewed. Physical Exam Physical Exam: The patient is awake, alert and oriented 3, well developed and well nourished, normocephalic and atraumatic, lying in bed and in no acute distress. HEENT--PERRL, EOMI, mucous membranes and oropharynx mildly dry. Neck--supple. No JVD. No bruits. Thyroid normal, trachea midline, no adenopathy. Heart--normal S1 and S2. No murmurs, rubs or gallops. Lungs--clear bilaterally, no respiratory distress, no accessory muscle use. Abdomen--normal bowel sounds and soft. Nontender. Nondistended Extremities--No edema. Dermatologic--skin is mildly dry Neurologic--cranial nerves II through XII grossly intact. Rheumatologic--normal range of motion. Psychiatric--normal affect. Results & Data Results & Data Vital Signs (Past 12 Hours) Vital Signs Temp Pulse Pulse Resp BP BP Pulse Ox 01/04/24 00:39 85 16 129/87 99 01/04/24 00:24 85 13 92/63 L 92 01/04/24 00:15 84 12 119/79 98 01/04/24 00:00 85 18 125/74 99 01/04/24 00:00 76 16 123/76 99 01/03/24 23:45 82 16 103/65 95 01/03/24 23:15 75 01/03/24 23:11 98 01/03/24 23:11 36.7 C 78 18 128/88 98 01/03/24 23:06 98 01/03/24 22:53 36.7 C 78 18 121/66 100 O2 Del Method 01/04/24 00:39 01/04/24 00:24 Room Air 01/04/24 00:15 Room Air 01/04/24 00:00 Room Air 01/04/24 00:00 Room Air 01/03/24 23:45 Room Air 01/03/24 23:15 01/03/24 23:11 Room Air 01/03/24 23:11 Nasal Cannula 01/03/24 23:06 Room Air 01/03/24 22:53 Room Air Laboratory Results Laboratory Results WBC 11.27 K/ul (4.8-10.8) H 01/03/24 23:11 RBC 4.28 M/uL (4.20-5.40) 01/03/24 23:11 Hgb 11.9 g/dl (12.0-16.0) L 01/03/24 23:11 POC Hgb 13.3 g/dl (12.0-16.0) 01/03/24 23:15 Hct 37.1 % (37.0-47.0) 01/03/24 23:11 POC Hct 39 % (37-47) 01/03/24 23:15 MCV 86.7 fL (80.0-100.0) 01/03/24 23:11 MCH 27.8 pg (25.0-34.0) 01/03/24 23:11 MCHC 32.1 g/dL (32.0-36.0) 01/03/24 23:11 RDW Std Deviation 55.9 fL (36.4-46.3) H 01/03/24 23:11 RDW Coeff of Wilber 17.4 % (11.5-14.5) H 01/03/24 23:11 Plt Count 309 K/uL (130-400) 01/03/24 23:11 MPV 9.7 fL (9.4-12.4) 01/03/24 23:11 Immature Gran % (Auto) 0.5 % 01/03/24 23:11 Neut % (Auto) 71.7 % 01/03/24 23:11 Lymph % (Auto) 18.4 % 01/03/24 23:11 Keith % (Auto) 7.9 % 01/03/24 23:11 Eos % (Auto) 1.1 % 01/03/24 23:11 Baso % (Auto) 0.4 % 01/03/24 23:11 Neut # (Auto) 8.09 K/uL (1.40-6.50) H 01/03/24 23:11 Lymph # (Auto) 2.07 K/uL (1.20-3.40) 01/03/24 23:11 Keith # (Auto) 0.89 K/uL (0.11-0.59) H 01/03/24 23:11 Eos # (Auto) 0.12 K/uL (0.00-0.50) 01/03/24 23:11 Baso # (Auto) 0.04 K/uL (0.00-0.20) 01/03/24 23:11 Immature Gran # (Auto) 0.06 K/uL (0.01-0.20) 01/03/24 23:11 PT 11.4 Seconds (9.0-12.0) 01/03/24 23:11 INR 1.1 (0.9-1.1) 01/03/24 23:11 POC Sodium 139 mmol/L (135-144) 01/03/24 23:15 Sodium 137 mmol/L (136-145) 01/03/24 23:11 POC Potassium 3.4 mmol/L (3.3-5.0) 01/03/24 23:15 Potassium 3.4 mmol/L (3.5-5.1) L 01/03/24 23:11 POC Chloride 103 mmol/L (101-112) 01/03/24 23:15 Chloride 105 mmol/L (98-107) 01/03/24 23:11 Carbon Dioxide 24 mmol/L (21-32) 01/03/24 23:11 POC Total CO2 22 mmol/L (24-31) L 01/03/24 23:15 Anion Gap 8 (3-11) 01/03/24 23:11 POC Anion Gap 18.0 mmol/L (16-25) 01/03/24 23:15 POC BUN 18 mg/dl (7-18) 01/03/24 23:15 BUN 19 mg/dl (6-23) 01/03/24 23:11 Creatinine 1.05 mg/dl (0.6-1.2) 01/03/24 23:11 POC Creatinine 1.1 mg/dl (0.6-1.3) 01/03/24 23:15 Est Cr Clr Drug Dosing 58.1 ml/min 01/03/24 23:11 Est GFR ( Amer) 65.9 ml/min 01/03/24 23:11 Est GFR (Non-Af Amer) 56.9 ml/min 01/03/24 23:11 BUN/Creatinine Ratio 18.1 (10-20) 01/03/24 23:11 Glucose 180 mg/dl (70-99(Fasting)) H 01/03/24 23:11 POC Glucose (other) 176 mg/dl (70-99) H 01/03/24 23:15 Lactate 2.6 mmol/L (0.4-2.0) H* 01/03/24 23:11 Calcium 9.3 mg/dl (8.6-10.3) 01/03/24 23:11 POC Ioniz Calcium Lucy 1.26 mmol/l (1.12-1.32) 01/03/24 23:15 Magnesium 1.9 mg/dl (1.7-2.4) 01/03/24 23:11 Total Bilirubin 0.4 mg/dl (0.2-1.0) 01/03/24 23:11 AST 15 U/L (13-39) 01/03/24 23:11 ALT 11 U/L (7-52) 01/03/24 23:11 Alkaline Phosphatase 77 U/L (34-104) 01/03/24 23:11 Troponin I High Sens 4.1 pg/ml (0-14) 01/03/24 23:11 Total Protein 6.3 gm/dl (6.0-8.3) 01/03/24 23:11 Albumin 4.0 gm/dl (3.4-5.0) 01/03/24 23:11 Globulin 2.3 gm/dl (2.5-4.0) L 01/03/24 23:11 Albumin/Globulin Ratio 1.7 (0.9-2) 01/03/24 23:11 Amylase 47 U/L (25-115) 01/03/24 23:11 Urine Color Yellow 01/04/24 00:55 Urine Appearance Clear (Clear) 01/04/24 00:55 Urine pH 6.0 (4.5-7.5) 01/04/24 00:55 Ur Specific [place] 1.040 (1.000-1.030) H 01/04/24 00:55 Urine Protein Negative (Negative) 01/04/24 00:55 Urine Glucose (UA) Negative (Negative) 01/04/24 00:55 Urine Ketones Negative (Negative) 01/04/24 00:55 Urine Blood Negative (Negative) 01/04/24 00:55 Urine Nitrite Negative (Negative) 01/04/24 00:55 Urine Bilirubin Negative (Negative) 01/04/24 00:55 Urine Urobilinogen Negative (Negative) 01/04/24 00:55 Ur Leukocyte Esterase Negative (Negative) 01/04/24 00:55 Adenovirus (PCR) Not Detected (NotDetected) 01/03/24 23:37 B. pertussis DNA (PCR) Not Detected (NotDetected) 01/03/24 23:37 B.parapertussis DNA PCR Not Detected (NotDetected) 01/03/24 23:37 C. pneumoniae DNA (PCR) Not Detected (NotDetected) 01/03/24 23:37 Coronavirus OC43 (PCR) Not Detected (NotDetected) 01/03/24 23:37 Coronavirus HKU1 (PCR) Not Detected (NotDetected) 01/03/24 23:37 Coronavirus 229E (PCR) Not Detected (NotDetected) 01/03/24 23:37 SARS-CoV-2 (PCR) Not Detected (NotDetected) 01/03/24 23:37 Coronavirus NL63 (PCR) Not Detected (NotDetected) 01/03/24 23:37 Human Metapneumovir PCR Not Detected (NotDetected) 01/03/24 23:37 Influenza Type A (PCR) Not Detected (NotDetected) 01/03/24 23:37 Influenza Type B (PCR) Not Detected (NotDetected) 01/03/24 23:37 M. pneumoniae (PCR) Not Detected (NotDetected) 01/03/24 23:37 Parainfluenza 1 (PCR) Not Detected (NotDetected) 01/03/24 23:37 Parainfluenza 2 (PCR) Not Detected (NotDetected) 01/03/24 23:37 Parainfluenza 3 (PCR) Not Detected (NotDetected) 01/03/24 23:37 Parainfluenza 4 (PCR) Not Detected (NotDetected) 01/03/24 23:37 RSV (PCR) Not Detected (NotDetected) 01/03/24 23:37 Entero/Rhino (PCR) Not Detected (NotDetected) 01/03/24 23:37 Impressions Abdomen/Pelvis CT 01/03/24 23:06 Exam(s): CT ABDOMEN + PELVIS With Contrast IV Amt: 118 ml optiray 320 EXAM: CT Abdomen and Pelvis With Intravenous Contrast CLINICAL HISTORY: Reason for exam: Trauma. TECHNIQUE: Axial computed tomography images of the abdomen and pelvis with intravenous contrast. CTDI is 27.95 mGy and DLP is 846.55 mGy-cm. Automated exposure control was utilized for the study. A dose lowering technique was utilized adhering to the principles of ALARA. CONTRAST: Patient received 118 ml optiray 320 of IV contrast COMPARISON: No relevant prior studies available. FINDINGS: Lung bases: Unremarkable. No mass. No consolidation. ABDOMEN: Liver: Unremarkable. No mass. Gallbladder and bile ducts: Cholecystectomy. No ductal dilation. Pancreas: Unremarkable. No mass. No ductal dilation. Spleen: Unremarkable. No splenomegaly. Adrenals: Unremarkable. No mass. Kidneys and ureters: Unremarkable. No solid mass. No hydronephrosis. Stomach and bowel: Diverticulosis, without acute diverticulitis. No small bowel obstruction. No free intraperitoneal air. PELVIS: Appendix: No findings to suggest acute appendicitis. Bladder: Wall thickening of the urinary bladder, concerning for UTI. Urinalysis recommended. Reproductive: Unremarkable as visualized. ABDOMEN and PELVIS: Intraperitoneal space: Unremarkable. No free air. No significant fluid collection. Bones/joints: Degenerative changes of the spine. Multilevel lumbosacral fusion hardware. No acute fracture. No dislocation. Soft tissues: Unremarkable. Vasculature: Atherosclerotic changes of the aorta. No abdominal aortic aneurysm. Lymph nodes: Unremarkable. No enlarged lymph nodes. IMPRESSION: 1. Wall thickening of the urinary bladder, concerning for UTI. Urinalysis recommended. 2. Cholecystectomy. 3. Diverticulosis, without acute diverticulitis. No small bowel obstruction. No free intraperitoneal air. Electronically signed by: Reid Varela MD 01/03/24 23:[address] 01/03/24 23:06 Exam(s): CT C SPINE EXAM: CT Cervical Spine Without Intravenous Contrast CLINICAL HISTORY: Reason for exam: Trauma. TECHNIQUE: Axial computed tomography images of the cervical spine without intravenous contrast. CTDI is 26.96 mGy and DLP is 475.54 mGy-cm. Automated exposure control was utilized for the study. A dose lowering technique was utilized adhering to the principles of ALARA. COMPARISON: No relevant prior studies available. FINDINGS: The vertebral body heights are maintained. The craniocervical junction is intact. The atlanto-dens interval is maintained. The dens is intact. There is no spondylolisthesis. Multilevel cervical spondylosis and degenerative disc disease. Straightening of the cervical lordosis. IMPRESSION: No acute fracture or subluxation of the cervical spine. Electronically signed by: Reid Varela MD 01/03/24 23:59 PM Chest CTA 01/03/24 23:06 Exam(s): CTA CHEST IV Amt: 118 ml optiray 320 EXAM: CT Angiography Chest With Intravenous Contrast CLINICAL HISTORY: Reason for exam: PE. TECHNIQUE: Axial computed tomographic angiography images of the chest with intravenous contrast. CTDI is 28.07 mGy and DLP is 1313.51 mGy-cm. Automated exposure control was utilized for the study. A dose lowering technique was utilized adhering to the principles of ALARA. MIP reconstructed images were created and reviewed. COMPARISON: No relevant prior studies available. FINDINGS: Pulmonary arteries: Unremarkable. No pulmonary embolism. Aorta: No acute findings. No thoracic aortic aneurysm. Lungs: Unremarkable. No mass. No consolidation. Pleural space: Unremarkable. No significant effusion. No pneumothorax. Heart: Unremarkable. No cardiomegaly. No significant pericardial effusion. No evidence of RV dysfunction. Bones/joints: Multilevel thoracolumbar fusion hardware. Cement kyphoplasty at T11. No acute fracture. No dislocation. Soft tissues: Unremarkable. Lymph nodes: Unremarkable. No enlarged lymph nodes. Gallbladder and bile ducts: Cholecystectomy. IMPRESSION: No acute pulmonary embolism. Electronically signed by: Reid Varela MD 01/04/24 00:[address] 01/03/24 23:06 Exam(s): CT HEAD Without Contrast EXAM: CT Head Without Intravenous Contrast CLINICAL HISTORY: Reason for exam: Trauma. TECHNIQUE: Axial computed tomography images of the head/brain without intravenous contrast. CTDI is 37.32 mGy and DLP is 780.51 mGy-cm. Automated exposure control was utilized for the study. A dose lowering technique was utilized adhering to the principles of ALARA. COMPARISON: No relevant prior studies available. FINDINGS: Brain: Unremarkable. No hemorrhage. No significant white matter disease. No edema. Ventricles: Unremarkable. No ventriculomegaly. Bones/joints: Unremarkable. No acute fracture. Soft tissues: Unremarkable. Sinuses: Unremarkable as visualized. No acute sinusitis. Mastoid air cells: Unremarkable as visualized. No mastoid effusion. IMPRESSION: Normal head/brain CT. Electronically signed by: Reid Varela MD 01/03/24 23:59 PM Code Status & VTE Plan Code Status Full code VTE Prophylaxis Plan VTE Prophylaxis will be ordered: Yes PG Care Time/CCT Total # of Minutes Spent Total Time Spent with Patient: Total time spent is greater than 50% in coordination of care (as documented) at patient's floor/unit and/or counseling patient: Coding Level of Care Code 79764 INT INP/OBS CARE 3/75MIN Diagnoses Syncope and collapse R55 Nausea, vomiting and diarrhea R11.2; R19.7 Urinary tract infection N30.01 Hematuria presence: with hematuria Urinary tract infection type: acute cystitis Urinary incontinence R32 Acute dehydration E86.0 Trauma T14.90XA Bipolar disorder with depression F31.30 Hypercholesterolemia E78.00 Diabetes type 2, uncontrolled E11.65 Restless leg syndrome G25.81 GERD (gastroesophageal reflux disease) K21.9 Hypertension I10 COPD (chronic obstructive pulmonary disease) J44.9 COPD type: unspecified COPD (3) Urinary tract infection Hematuria presence: with hematuria Urinary tract infection type: acute cystitis Qualified Code(s): N30.01 - Acute cystitis with hematuria (13) COPD (chronic obstructive pulmonary disease) COPD type: unspecified COPD Qualified Code(s): J44.9 - Chronic obstructive pulmonary disease, unspecified
[2024-01-04 01:06] LABS: Magnesium 1.9 mg/dl (1.7-2.4)
[2024-01-04 01:13] LABS: Appearance Urine Clear (Clear); Bilirubin Urine Negative (Negative); Blood Urine Negative (Negative); Color Urine Yellow; Glucose Urine UA Negative (Negative); Ketones Urine Negative (Negative); Leukocyte Esterase Urine Negative (Negative); Nitrite Urine Negative (Negative); Protein Urine Negative (Negative); Urobilinogen Urine Negative (Negative)
[2024-01-04] MEDS: NSS + 20MEQ KCL 20 MEQ/1,000 ML BAG IV SCH (01:38)
[2024-01-04] MEDS: cefTRIAXone SODIUM 2,000 MG/50 ML BAG IV STA (01:38)
[2024-01-04] MEDS ORDERED: GLUCAGON FOR INJ 1 MG VIAL SQ PRN (02:27)
[2024-01-04] MEDS ORDERED: NYSTATIN POWDER 15GM BTL EXT PRN (02:27)
[2024-01-04] MEDS ORDERED: ALBUTEROL 0.083% NEBU SOLN 3 ML VIAL NEB PRN (02:27)
[2024-01-04] MEDS ORDERED: CARBOHYDRATES FOR HYPOGLYCEMIA PO PRN (02:27)
[2024-01-04] MEDS ORDERED: DEXTROSE 50% 50 ML SYRINGE IV PRN (02:27)
[2024-01-04] MEDS ORDERED: GLUCOSE 10 TAB/TUBE PO PRN (02:27)
[2024-01-04] MEDS ORDERED: GLUCOSE 40% GEL 15 GM TUBE PO PRN (02:27)
--- OUTSIDE RECORDS SUMMARY | 2024-01-04 04:49 | External Medical Summary | Summary of Care ---
Demographics Address [address] [place] [address] Home Phone Mobile Phone Email Address Preferred Language Albanian Marital Status Unknown Latter Day Affiliation Unknown Race White Ethnic Group Not or Lati no Author Name Unknown Organization [facility] Address [address] [place] [address] Phone [phone] Care Team Providers Care Stem Assembler Name Role Phone Swati Leija Primary Care Provider [phone] Encounter Details Date Type Department Care Team (Late st Contact Info) Description 11/27/2023 Orders Only Outcomes Research Department [address] [place], [place] [id number] Nguyen Strauss CHRA MyCode Research Other*[id number] Allergies Active Allergy Reactions Criticality Noted Date Comments Codeine 05/23/2002 nausea Erythromycin 05/23/2002 eyes swelling Ketorolac Tromethamine Tachycardia 08/21/2012 Mirtazapine 10/27/2010 Muscle spasm documented as of this encounter (statuses as of 11/27/2023) Medications Medication Sig Dispensed Refills Start Date End Date Status DUONEB 0.5-2.5 (3) MG/3ML IN SOLNIndications:Acut e bronchitis, antibiotics not indicated one unit dose nebulized four times a day 1 box 3 09/02/2009 Active ONETOUCH ULTRA BLUE STRPIndications:Othe r abnormal glucose,Metabolic syndrome USE UP TO 4 TIMES DAILY DIRECTED. 100 Strip 5 10/25/2011 Active TEMAZEPAM 15 MG PO CAPS two tablets once daily Active LOSARTAN POTASSIUM 50 MG PO TABS one tablet daily Activ e FUROSEMIDE 40 MG PO TABS one tablet daily Active SYNTHROID 100 MCG OR TABS 1 daily Active POTASSIUM CHLORIDE ER 10 MEQ PO CPCR 20 meq twice a day Active CYMBALTA 60 MG PO CPEP 1 daily Active PANTOPRAZOLE SODIUM 40 MG PO TBEC 1 daily Active SINGULAIR 10 MG PO TABS 1 daily Active MORPHINE SULFATE ER 60 MG PO CP24 1 tablet every 6 hours Active oxyCODONE-acetaminop hen 5-325 mg per tab (PERCOCET) 5-325 MG per tablet Take 1 Tab by mouth every 4 hours as needed. Active traZODone (DESYREL) 150 MG Tablet Take 150 mg by mouth at bedtime. 2 tablets at bedtime Active traZODone (DESYREL) 50 MG Tablet Take 50 mg by mouth at bedtime. Active aspirin 325 MG Tablet Take 325 mg by mouth daily. Active ranitidine (ZANTAC) 150 MG Tablet Take 150 mg by mouth 2 times a day. Active Gabapentin, PHN, extended release (GRALISE) 600 MG TABS Take by mouth at bedtime. Twice daily Active naloxegol oxalate (MOVANTIK) 25 MG TABS Take 25 mg by mouth daily. Active DULoxetine (CYMBALTA) 30 MG CPEP Take 30 mg by mouth daily. Active documented as of this encounter (statuses as of 11/27/2023) Active Problems Problem Noted Date Diagnosed Date DDD (degenerative disc disease), lumbar 02/06/20 13 Smoker 11/14/2012 Overview: States "Today is the last day." 13 Nov 2012 PONV (postoperative nausea and vomiting) 013 Motion sickness 11/14/2012 DDD (degenerative disc disease), lumbar 11/10/19 13 Fibromyalgia 05/02/2012 Chronic pain 04/06/2012 Disc disorder of lumbar region 02/28/2011 Bipolar I disorder, most recent episode mixed, m oderate 10/27/2010 Asthma, moderate persistent 05/18/2010 Temporomandibular joint disorders, unspecified 0 12/29/2009 Chronic laryngitis 12/29/2009 Dysphagia, pharyngoesophageal phase 12/25/2009 Cough 12/25/2009 Tobacco use disorder 12/25/2009 NASAL SEPTAL MUCOSITIS (PERFORATION) 12/25/2009 Chronic rhinitis 12/25/2009 ENDOCRINE ANOMALY (THYROID GOITRE) 12/25/2009 Adjustment disorder with depressed mood 05/10/20 10 Severe obesity with body mas s index (BMI) of 35.0 to 39.9 with serious comorbidity 07/20/2009 Overview: Per Obesity Taxonomy ICD-10 update of inactive diagnosis HTN, goal below 140/90 02/27/2009 Overview: Modified per HTN Taxonomy. Ankylosing vertebral hyperostosis 05/14/2007 BENIGN NEOPLASM LG BOWEL 05/01/2006 Overview: Colonoscopy 04/20/06--adenomatous polyp--repeat 5 years ADVANCE DIRECTIVE INFORMATION 07/15/2005 Overview: Yes, Patient instructed to provide copy of advance directive for provider to review and to be scanned into Electronic Medical Record SACROILIITIS 02/19/2005 Sciatica 07/29/2004 Villonodular synovitis of lower leg 05/04/2004 OSTEOARTHROS NOS-L-LEG 04/01/2004 Hypothyroidism 09/25/2003 Sleep apnea 01/08/2003 DIVERTICULOSIS OF COLON 01/08/2003 CHRONIC OBSTRUCTIVE ASTHMA ( WITH OBSTRUCTIVE PULMONARY DISEASE); WITH STATUS A 01/08/2003 Anxiety state 01/08/2003 Esophageal reflux 08/20/2002 BURSITIS NEC 08/14/2002 GENERAL OSTEOARTHROSIS 05/23/2002 Headache 05/23/2002 Overview: ICD-10 update of inactive term Reflux esophagitis 05/23/2002 Arteritis Metabolic syndrome Benign neoplasm of colon Spinal stenosis Overview: lumbar - s/p surgery Dr Jang documented as of this encounter (statuses as of 11/27/2023) Resolved Problems Problem Noted Date Diagnosed Date Resolved Date Asthma with severity to be determined 10/15/2009 05/18/2010 Overview: Per Asthma Taxonomy ICD-10 update of inactive term Dyslipidemia, goal to be determined 03/31/2009 03/15/2010 Overview: Per Lipid Taxonomy. Tobacco use disorder 05/02/2008 009 Mixed dyslipidemia 10/14/2003 9 Overview: Per Lipid Taxonomy. Morbid obesity, BMI not known 09/25/2003 07/20/2009 Overview: Per Obesity Taxonomy ANGINA PECTORIS NEC-NOS 01/09/2003 0510/2008 BENIGN HYPERTENSION 05/23/2002 02/28/20 09 Overview: Modified per HTN Taxonomy. Asthma, allergic 05/23/2002 10/15/2009 documented as of this encounter (statuses as of 11/27/2023) Immunizations Name Administration Dates Next Due Pneumococcal Polysaccharide PPV23 (Pneumovax) 04/03/2006 Seasonal Influenza, Split, I IV3, With Preserve, Inj 03/15/2010,01/14/2009,02/29/2008 TD - Tetanus/Diptheria (ADULT) 05/14/1998 TDAP, Age 7 and older, IM (Adacel) 06/27/2007 documented as of this encounter Social History Tobacco Use Types Packs/Day Years Used Date Smoking Tobacco: Every Day Cigarettes 1 20 Smokeless Tobacco: Never Alcohol Use Standard Drinks/Week Comments No 0 (1 standard drink = 0.6 oz pur e alcohol) Sex and Gender Information Value Date Recorded Sex Assigned at Not on file Gender Identity Not on file Sexual Orientation Not on file documented as of this encounter Plan of Treatment Scheduled Orders Name Type Priority Associated Diagnoses Orde r Schedule MYCODE SUBSEQUENT ADULT Lab Routine MyCode Research Other*[id number] Every 6 Months for 2 Occurrences starting 11/27/2023 until 12/16/2024 Health Maintenance Due Date Last Done Comments DISCUSS TOBACCO CESSATION (REFER TO SMARTSET #[id number]) 1961 HIV Screening 1976 Hepatitis C Screening 1979 O2 ASSESSMENT COMPLETED IN PAST YEAR FOR COPD 1979 Cologuard 2006 Sigmoidoscopy 2006 Pneumococcal Vaccine: Pediatrics (0 to 5 Years) and At-Risk Patients (6 to 64 Years) (2 of 2 - PCV) 04/03/2007 04/03/2006 Fecal Occult Blood Test 11/14/2008 11/15/2007 Albumin/Creatinine Ratio 02/26/2010 02/26/2007 Lung Cancer Screening 2011 Zoster Vaccines (1 of 2) 2011 Mammogram 12/20/2012 12/21/2011, 11/23, 12/16/2010, Additional history exists TSH 01/22/2013 01/23/2012, 09/22, 03/02/2009, Additional history exists GFR 11/16/2013 11/16/2012, 10/23, 11/02/2012, Additional history exists Diabetes Screening 11/17/2015 11/16/2012, 0 11/15/2012, 11/14/2012, Additional history exists Lipid Panel 01/22/2017 01/23/2012, 06/22, 08/28/2008, Additional history exists DTaP,Tdap,and Td Vaccines (2 - Td or Tdap) 06/26/2017 06/27/2007, 05/14/1998 Colonoscopy 07/11/2018 07/11/2013, 10/24, 04/20/2006 Colorectal Cancer Screening 07/11/2018 COVID-19 Vaccine ( season) 2022 Influenza Vaccine (FLU shot) (#1) 2023 03/15/2010, 01/14/2009, 02/29/2008, Additional history exists RETIRED - COLONOSCOPY-EVERY 5 YRS AGES 18-100 Discontinued 07/11/2013, 11/03/2008 (Done elsewhere), 11/22/2007, Additional history exists HPV (Gardasil) Vaccine Aged Out No lo nger eligible based on patient's age to complete this topic Hepatitis B Vaccine Aged Out No longe r eligible based on patient's age to complete this topic MENINGOCOCCAL (MENACTRA/MENVEO) Aged Out No longer eligible based on patient's age to complete this topic documented as of this encounter Medical Devices Implanted Type Area Sap Bw Architect Device Identifier Shelf Expiration Date Model / Serial / Lot Dbx 10cc [id number] - [id number] Implanted:Qty : 1 on 11/14/2012 at OR [facility] [place] Tissue - Human N/A: Spine Lumbar MUSCULOSKELETAL TRANSPLANT FND 07/06/2014 [id number] / [id number] / Chip Cancellous 30cc [id number] - [id number] Implanted:Qty : 1 on 11/14/2012 at OR [facility] [place] Tissue - Human N/A: Spine Lumbar MUSCULOSKELETAL TRANSPLANT FND 06/26/2015 [id number] / [id number] / Graft Bone Infuse Kit Xxsmall - [id number] Implanted:Qty : 1 on 11/14/2012 at OR [facility] [place] N/A: Spine Lumbar [employer] : NEUROLOGIC PAIN 07/25/2013 [id number] / / [id number] Wedge Cage Implanted:Qty : 1 on 11/14/2012 at OR [facility] [place] N/A: Spine Lumbar RUIZ : ORTHOPAEDICS [id number] / / Screw Ped 6.5x45mm 124.465 - [id number] Implanted:Qty : 1 on 11/14/2012 at OR [facility] [place] N/A: Spine Lumbar 124.465 / / Screw Ped 6.5x50mm 124.466 - [id number] Implanted:Qty : 1 on 11/14/2012 at OR [facility] [place] N/A: Spine Lumbar [employer] 124.466 / / Globus Locking Caps Implanted:Qty : 8 on 11/14/2012 at OR [facility] [place] N/A: Spine Lumbar [employer] 124.000 / / 95mm Stephan Implanted:Qty : 1 on 11/14/2012 at OR [facility] [place] N/A: Spine Lumbar [employer] 124.690 / / 90mm Stephan Implanted:Qty : 1 on 11/14/2012 at OR [facility] [place] N/A: Spine Lumbar [employer] 124.695 / / documented as of this encounter Visit Diagnoses Diagnosis MyCode Research Other*[id number] documented in this encounter Advance Directives * Full Code (Latest Code Status on File) Date Activated Date Inactivated Comments 11/14/2012 6:15 AM 11/16/2012 5:36 PM This order r eflects the patients wishes and were consensually agreed upon. Care Teams Stem Assembler Relationship Specialty Start Date End Date Swati Leija CRNP [address] [place] [facility] [place] [address] PCP - General Nurse Practitioner 05/19/16 documented as of this encounter
[2024-01-04] MEDS: LEVOTHYROXINE SODIUM 137 MCG TABLET PO SCH (06:11)
--- NOTE | 2024-01-04 07:13 | XRay Report ---
PORTABLE SUPINE AP CHEST RADIOGRAPH CLINICAL HISTORY: Trauma. COMPARISON STUDY: Chest radiograph and chest CT September 24, 2022. FINDINGS: Lung volumes are normal. Lungs are clear. There is no pneumothorax or pleural effusion on s upine exam. Cardiac size is normal. Mediastinal contours are normal. There is no evidence for pulmona ry edema. Thoracolumbar spine fusion hardware is partially imaged. IMPRESSION: No acute cardiopulmonary findings. ACT 112: Negative or not required by law. Electronically signed by: Jerry Francis M.D. 01/04/2024 7:12 AM
[2024-01-04 07:21] LABS: Estimated Average Glucose 126 mg/dl
[2024-01-04] MEDS: PANTOprazole 40 MG TAB PO SCH (08:45)
[2024-01-04] MEDS: GABAPENTIN 600 MG TAB PO SCH (08:45)
[2024-01-04] MEDS ORDERED: RIVAROXABAN 20 MG TAB PO SCH (09:00)
[2024-01-04] MEDS: INSULIN ASPART PER UNIT CHARGE SC SCH (12:34)
[2024-01-04] MEDS: ACETAMINOPHEN 325 MG TAB PO PRN (14:32)
--- NOTE | 2024-01-04 14:33 | Electrocardiogram Report ---
Test Reason : Blood Pressure : */* mmHG Vent. Rate : 76 BPM Atrial Rate : 76 BPM P-R Int : 168 ms QRS Dur : 86 ms QT Int : 398 ms P-R-T Axes : 61 -30 49 degrees QTcB Int : 447 ms Normal sinus rhythm Left axis deviation Poor R wave progression, consider anterior MN vs. lead placement vs. LVH Abnormal ECG When compared with ECG of 24-Sep-2022 15:38, QRS duration has increased Criteria for Anterolateral infarct are no longer Present Criteria for Inferior infarct are no longer Present Confirmed by Gerry Mendoza ([id number]) on 01/04/2024 2:33:32 PM Referred By: REFERRED SELF Confirmed By: Gerry Mendoza
--- NOTE | 2024-01-04 15:04 | Hospitalist Progress Note ---
Date of Service January 04, 2024 Assessment & Plan (1) Syncope and collapse: Plan: Patient had a syncopal episode while on the commode, and primarily complained of a right-sided headache where she hit her head as she fell. CT scan head without contrast negative CT cervical spine without contrast negative CTA chest PE protocol negative CT abdomen and pelvis showed bladder wall thickness, concerning for urinary tract infection - UA without signs of infection, pt denies UTI symptoms, abx stopped Resp biofire negative Suspect related to dehydration/hypotension - spironolactone, losartan, and amlodipine held on admission - Place on normal saline with KCl 20 mEq at 125 mL/h x 2 L - BP elevated, plan to resume amlodipine for AM Echo ordered, pending PT/OT (2) Diabetes type 2, uncontrolled: Plan: Hold Trulicity Place on Accu-Cheks with NovoLog SSI (3) Diarrhea: Plan: multiple days of worsening diarrhea, however no BM since arrival to ED - can check stool studies if loose BM (4) Trauma: Plan: trauma alert due to fall on anticoagulation Plan Chronic stable medical conditions: * GERD - continue PPi * History of PE/COPD- Hold Xarelto for now, due to recent head trauma. Continue Spirivia - pt takes prn * Bipolar disorder with depression-Continue duloxetine, gabapentin, and trazodone Dispo: continued inpatient stay DVT proh: held with recent head trauma ex updated at bedside 01/03 Admission and Anticipated Discharge Date Admission Date: January 04, 2024 Subjective Patient seen sitting up on the edge of the bed, ex at bedside. 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 has not had a bowel movement while she has been here Review of Systems Review of Systems: All systems reviewed & are unremarkable except as noted in Subjective Physical Exam Physical Exam: General: NAD, VS as above Resp: normal respiratory effort, lungs clear to auscultation CV: RRR, no murmur, Abd: normal bowel sounds, non tender, no hepatosplenomegaly Extremities: Moves all extremities, no edema Neuro: A&O x3, Skin: intact, no lesions noted Results & Data Results & Data Vital Signs (Past 12 Hours) Vital Signs Temp Pulse Pulse Resp BP BP Pulse Ox 01/04/24 13:16 83 01/04/24 11:37 36.6 C 77 20 166/81 H 99 01/04/24 08:00 69 18 97/63 L 96 01/04/24 07:23 69 01/04/24 03:54 69 17 98/63 L 96 01/04/24 03:30 72 15 99/62 L 94 O2 Del Method 01/04/24 13:16 01/04/24 11:37 Room Air 01/04/24 08:00 Room Air 01/04/24 07:23 01/04/24 03:54 Room Air 01/04/24 03:30 PG Care Time/CCT Total # of Minutes Spent Total Time Spent with Patient: Total time spent is greater than 50% in coordination of care (as documented) at patient's floor/unit and/or counseling patient: Coding Level of Care Code None Diagnoses Syncope and collapse R55 Diabetes type 2, uncontrolled E11.65 Diarrhea R19.7 Trauma T14.90XA
--- NOTE | 2024-01-04 16:19 | XCELERA ---
[id number] \\[email or web address]\[id number]
[2024-01-04] MEDS: GABAPENTIN 300 MG CAP PO SCH (20:13)
[2024-01-04] MEDS: DULoxetine HCL 60 MG CAP PO SCH (20:13)
[2024-01-04] MEDS: traZODone HCL 100 MG TAB PO SCH (20:13)
[2024-01-04] MEDS ORDERED: cefTRIAXone SODIUM 2,000 MG/50 ML BAG IV SCH (22:00)
[2024-01-05 06:10] LABS: Basophils # (auto) 0.05 K/uL (0.00-0.20); Basophils % (auto) 0.7 %; Eosinophils # (auto) 0.19 K/uL (0.00-0.50); Eosinophils % (auto) 2.7 %; Hematocrit (blood only) 36.3 % (37.0-47.0); Immature Granulocytes # (auto) 0.02 K/uL (0.01-0.20); Immature Granulocytes % (auto) 0.3 %; Lymphocytes # (auto) 2.49 K/uL (1.20-3.40); Lymphocytes % (auto) 35.1 %; Mean Corpuscular Hemoglobin 27.9 pg (25.0-34.0); Mean Corpuscular Hgb Conc 33.1 g/dL (32.0-36.0); Mean Corpuscular Volume 84.4 fL (80.0-100.0); Mean Platelet Volume 9.7 fL (9.4-12.4); Monocytes # (auto) 0.82 K/uL (0.11-0.59); Monocytes % (auto) 11.5 %; Neutrophils # (auto) 3.53 K/uL (1.40-6.50); Neutrophils % (auto) 49.7 %; Platelet Count 296 K/uL (130-400); RDW Coefficient of Variation 17.3 % (11.5-14.5); RDW Standard Deviation 53.6 fL (36.4-46.3)
[2024-01-05 06:30] LABS: Albumin Globulin Ratio 1.8 (0.9-2); Albumin Level 3.9 gm/dl (3.4-5.0); BUN Creatinine Ratio 20.7 (10-20); Bilirubin,Total 0.3 mg/dl (0.2-1.0); Calcium 9.4 mg/dl (8.6-10.3); Est GFR (African American) 88.9 ml/min; Est GFR (Non-African American) 76.7 ml/min; Globulin 2.2 gm/dl (2.5-4.0); Potassium 4.4 mmol/L (3.5-5.1); Total Protein 6.1 gm/dl (6.0-8.3)
[2024-01-05] MEDS: amLODIPine BESYLATE 5 MG TAB PO SCH (07:58)
[2024-01-05] MEDS: LIDOCAINE 5% 1 PATCH TD SCH (08:54)
[2024-01-05 11:09] VITALS: BP 132/82; PULSE 76; RESP 15; TEMP 97.9; O2SAT 97
--- NOTE | 2024-01-05 11:24 | Discharge Summary ---
Discharge Summary Date of Service January 05, 2024 Principal Dx & Hospital Course #1 = Principal Diagnosis (1) Syncope and collapse: Patient had a syncopal episode while on the commode, and primarily complained of a right-sided headache where she hit her head as she fell. CT scan head without contrast negative CT cervical spine without contrast negative CTA chest PE protocol negative CT abdomen and pelvis showed bladder wall thickness, concerning for urinary tract infection - UA without signs of infection, pt denies UTI symptoms, abx stopped Resp biofire negative Suspect related to dehydration/hypotension - spironolactone, losartan, and amlodipine held on admission - Place on normal saline with KCl 20 mEq at 125 mL/h x 2 L - BP stable on amlodipine. Can resume losartan on discharge. Stop Spironolactone. Echo: EF 65-70%, no or wall motion abnormalities PT/OT - recommend return home (2) Diabetes type 2, uncontrolled: Resume home trulicity on discharge (3) Diarrhea: Resolved (4) Trauma: trauma alert due to fall on anticoagulation Plan Chronic stable medical conditions: * GERD - continue PPi * History of PE/COPD- Resume Xarelto. Continue Spirivia - pt takes prn * Bipolar disorder with depression-Continue duloxetine, gabapentin, and trazodone Dispo: discharge to home today ex updated at bedside 01/03 Notes For Next Care Provider ADmitted after syncope while on toilet with diarrhea, suspect due to dehydration. Not orthostatic. ECHO WNL. Stopped spironolactone. Medication Changes From Visit Stop spironolactone Admission HPI Per Admitting Provider The patient is a 63-year-old female with a past medical history including bipolar disorder with depression, obesity, diarrhea, lumbar radiculopathy, hypercholesterolemia, tobacco use disorder, restless leg syndrome, GERD, history of PE, asthma, hypothyroidism, ankylosing spondylitis, COPD and urinary incontinence. She presents to the emergency department after syncopal episode while on the commode, having hit her head, and complaining of right-sided headache pain. She reports having loose stools today, but this has been an intermittent issue for her for a while. She denies any associated fevers or chills. She has chronic urinary incontinence, and does not notice any difference in her current urine function. Discharge Exam General: NAD, VS as above HEENT: bruise forming over right eye/forehead from fall Resp: normal respiratory effort, lungs clear to auscultation CV: RRR, no murmur, Abd: normal bowel sounds, non tender, no hepatosplenomegaly Extremities: Moves all extremities, no edema Neuro: A&O x3, Discharge Plan Discharge Items Patient Disposition: Home - Self-Care Reason For Visit: SYNCOPE AND COLLAPSE, UTI, HYPOKALEMIA Discharge Diagnosis: Syncope Activity: Resume your previous activity Non-emergency contact: Primary Care Provider Call non-emergency contact if: you have any medication questions, your symptoms worsen, your pain is worsening and your temperature is above 101 Follow-up/Referrals: Romario Yang DO [Physician] - 01/24/24 2:00 pm (Hospital follow up scheduled January 23 at 2:[address] Yang in [place]) PCP,NO [Primary Care Provider] - Diet: Carb Consistent or DM2 and Heart Healthy Addtl Attending Provider Instructions: Ms. Oneil, You were hospitalized after an event of syncope, that was likely caused by dehydration. All of the scan we did did not show any trauma or other acute problems. You had some electrolyte changes, that were corrected while you were here. We did a respiratory panel that did not show any illness. Because of the dehydration, we are going to stop the spironolactone blood pressure pill as this also works as a diuretic. Continue tylenol, heat or ice for the bruise on your head. Continue your trulicty. You urine testing did now show a UTI, so you do not need antibiotics. Medications: Your medication list has been reviewed and reconciled upon discharge to ensure accuracy and continuity of care. An updated list of all your medications is included with your hospital discharge paperwork. Please review this list closely, and make note of any changes. - stop the spironolactone Take your medications as instructed; do not skip a dose of your medicines. Make sure all of your doctors know every medicine you are taking (including lqij-jir-xxrxqgi medicines, vitamins, and supplements). Call your primary care provider before taking any new medicines (including over- the-counter medicines, vitamins, and supplements), because some of these may interact with your current medications, or may make your symptoms worse. Tell your primary care provider if you cannot afford your medications. Activity: You can do normal everyday activities as your body allows. Take rest breaks if you feel tired. Do not overexert. Stop activity if you have pain, shortness of breath or feel dizzy. Follow-up appointments: Make an appointment with your primary care physician within one week of discharge. A copy of this summary will be sent to them. Every time you see your primary care physician, or any other doctor, bring your medication list, and a list of questions. I have attached the contact information for Romario Yang, he is in the [place] office and accepting new patients. CONTACT YOUR PRIMARY CARE PROVIDER if you experience any of the following: Shortness of breath or difficulty breathing Fevers or chills Feeling tired with normal activity or experiencing dizziness or fainting Difficulty following your treatment plan, or difficulty taking medications CALL 911 OR GO TO THE EMERGENCY DEPARTMENT if you experience any of the following: Severe abdominal pain or nausea/vomiting Severe chest pain, or chest pain that radiates (moves) to your jaw or arm Sudden, severe shortness of breath or difficulty breathing Thank you for allowing us to participate in your care.n Pending Studies at Discharge: No Stand-Alone Forms: My [facility], Smoking Cessation Medications and DC Order Prescriptions: Continued Xarelto 20 mg tablet 20 mg PO QAM Qty: 90 1RF losartan 50 mg tablet 50 mg PO QAM Qty: 90 1RF nystatin 100,000 unit/gram powder 1 appln TOP TID PRN (Reason: skin irritation) Qty: 30 1RF amlodipine 5 mg tablet 5 mg PO QAM trazodone 100 mg tablet 100 mg PO HS gabapentin 600 mg tablet 900 mg PO HS Rx Instructions: TAKE ONE AND ONE HALF TABLET DAILY AT HS levothyroxine 137 mcg tablet 137 mcg PO DAILYBB pantoprazole 40 mg tablet,delayed release (DR/EC) 40 mg PO AMHS duloxetine 60 mg capsule,delayed release(DR/EC) 60 mg PO HS gabapentin 600 mg tablet 600 mg PO .AM & AFTERNOON albuterol sulfate 2.5 mg /3 mL (0.083 %) solution for nebulization 2.5 mg continuous nebulization QID PRN (Reason: Shortness Of Breath Or Wheezing) Spiriva Respimat 2.5 mcg/actuation mist 2 puff inhalation DAILY PRN (Reason: Shortness Of Breath) Trulicity 1.5 mg/0.5 mL pen injector 1.5 mg SUBCUT WK Discontinued spironolactone 25 mg tablet 25 mg PO QAM Qty: 90 1RF Discharge Orders: Discharge Order (Routine); Ordered 01/05/24 Ordered By: Carolina Webb/Other Patient Handouts: High Blood Sugar (Hyperglycemia), Hypoglycemia (Low Blood Sugar), Managing Type 2 Diabetes Admission Data Admit Date/Time: 01/04/24 00:58 Attending Provider: Gabino Sheets Admit Provider: Ander Wilde Primary Care Provider: PCP,NO Other Providers: Ander Wilde Other Interventions: Discharge Summary Assessment (RN) Last Done: 01/05/24 13:23 Hospital Stay Data Consultations 01/04/24 00:09 ED Decision to Admit Stat Diagnostic Imagining Performed Abdomen/Pelvis CT 01/03/24 23:06 Exam(s): CT ABDOMEN + PELVIS With Contrast IV Amt: 118 ml optiray 320 EXAM: CT Abdomen and Pelvis With Intravenous Contrast CLINICAL HISTORY: Reason for exam: Trauma. TECHNIQUE: Axial computed tomography images of the abdomen and pelvis with intravenous contrast. CTDI is 27.95 mGy and DLP is 846.55 mGy-cm. Automated exposure control was utilized for the study. A dose lowering technique was utilized adhering to the principles of ALARA. CONTRAST: Patient received 118 ml optiray 320 of IV contrast COMPARISON: No relevant prior studies available. FINDINGS: Lung bases: Unremarkable. No mass. No consolidation. ABDOMEN: Liver: Unremarkable. No mass. Gallbladder and bile ducts: Cholecystectomy. No ductal dilation. Pancreas: Unremarkable. No mass. No ductal dilation. Spleen: Unremarkable. No splenomegaly. Adrenals: Unremarkable. No mass. Kidneys and ureters: Unremarkable. No solid mass. No hydronephrosis. Stomach and bowel: Diverticulosis, without acute diverticulitis. No small bowel obstruction. No free intraperitoneal air. PELVIS: Appendix: No findings to suggest acute appendicitis. Bladder: Wall thickening of the urinary bladder, concerning for UTI. Urinalysis recommended. Reproductive: Unremarkable as visualized. ABDOMEN and PELVIS: Intraperitoneal space: Unremarkable. No free air. No significant fluid collection. Bones/joints: Degenerative changes of the spine. Multilevel lumbosacral fusion hardware. No acute fracture. No dislocation. Soft tissues: Unremarkable. Vasculature: Atherosclerotic changes of the aorta. No abdominal aortic aneurysm. Lymph nodes: Unremarkable. No enlarged lymph nodes. IMPRESSION: 1. Wall thickening of the urinary bladder, concerning for UTI. Urinalysis recommended. 2. Cholecystectomy. 3. Diverticulosis, without acute diverticulitis. No small bowel obstruction. No free intraperitoneal air. Electronically signed by: Reid Varela MD 01/03/24 23:[address] 01/03/24 23:06 Exam(s): CT C SPINE EXAM: CT Cervical Spine Without Intravenous Contrast CLINICAL HISTORY: Reason for exam: Trauma. TECHNIQUE: Axial computed tomography images of the cervical spine without intravenous contrast. CTDI is 26.96 mGy and DLP is 475.54 mGy-cm. Automated exposure control was utilized for the study. A dose lowering technique was utilized adhering to the principles of ALARA. COMPARISON: No relevant prior studies available. FINDINGS: The vertebral body heights are maintained. The craniocervical junction is intact. The atlanto-dens interval is maintained. The dens is intact. There is no spondylolisthesis. Multilevel cervical spondylosis and degenerative disc disease. Straightening of the cervical lordosis. IMPRESSION: No acute fracture or subluxation of the cervical spine. Electronically signed by: Reid Varela MD 01/03/24 23:59 PM Chest CTA 01/03/24 23:06 Exam(s): CTA CHEST IV Amt: 118 ml optiray 320 EXAM: CT Angiography Chest With Intravenous Contrast CLINICAL HISTORY: Reason for exam: PE. TECHNIQUE: Axial computed tomographic angiography images of the chest with intravenous contrast. CTDI is 28.07 mGy and DLP is 1313.51 mGy-cm. Automated exposure control was utilized for the study. A dose lowering technique was utilized adhering to the principles of ALARA. MIP reconstructed images were created and reviewed. COMPARISON: No relevant prior studies available. FINDINGS: Pulmonary arteries: Unremarkable. No pulmonary embolism. Aorta: No acute findings. No thoracic aortic aneurysm. Lungs: Unremarkable. No mass. No consolidation. Pleural space: Unremarkable. No significant effusion. No pneumothorax. Heart: Unremarkable. No cardiomegaly. No significant pericardial effusion. No evidence of RV dysfunction. Bones/joints: Multilevel thoracolumbar fusion hardware. Cement kyphoplasty at T11. No acute fracture. No dislocation. Soft tissues: Unremarkable. Lymph nodes: Unremarkable. No enlarged lymph nodes. Gallbladder and bile ducts: Cholecystectomy. IMPRESSION: No acute pulmonary embolism. Electronically signed by: Reid Varela MD 01/04/24 00:01 AM Chest X-Ray 01/03/24 23:06 PORTABLE SUPINE AP CHEST RADIOGRAPH CLINICAL HISTORY: Trauma. COMPARISON STUDY: Chest radiograph and chest CT September 24, 2022. FINDINGS: Lung volumes are normal. Lungs are clear. There is no pneumothorax or pleural effusion on supine exam. Cardiac size is normal. Mediastinal contours are normal. There is no evidence for pulmonary edema. Thoracolumbar spine fusion hardware is partially imaged. IMPRESSION: No acute cardiopulmonary findings. ACT 112: Negative or not required by law. Electronically signed by: Jerry Francis M.D. 01/04/2024 7:[address] 01/03/24 23:06 Exam(s): CT HEAD Without Contrast EXAM: CT Head Without Intravenous Contrast CLINICAL HISTORY: Reason for exam: Trauma. TECHNIQUE: Axial computed tomography images of the head/brain without intravenous contrast. CTDI is 37.32 mGy and DLP is 780.51 mGy-cm. Automated exposure control was utilized for the study. A dose lowering technique was utilized adhering to the principles of ALARA. COMPARISON: No relevant prior studies available. FINDINGS: Brain: Unremarkable. No hemorrhage. No significant white matter disease. No edema. Ventricles: Unremarkable. No ventriculomegaly. Bones/joints: Unremarkable. No acute fracture. Soft tissues: Unremarkable. Sinuses: Unremarkable as visualized. No acute sinusitis. Mastoid air cells: Unremarkable as visualized. No mastoid effusion. IMPRESSION: Normal head/brain CT. Electronically signed by: Reid aVrela MD 01/03/24 23:59 PM Discharge Instructions Given to Patient (Per Discharging Provider) Ms. Oneil, [place] were hospitalized after an event of syncope, that was likely caused by dehydration. All of the scan we did did not show any trauma or other acute problems. You had some electrolyte changes, that were corrected while you were here. We did a respiratory panel that did not show any illness. Because of the dehydration, we are going to stop the spironolactone blood pressure pill as this also works as a diuretic. Continue tylenol, heat or ice for the bruise on your head. Continue your trulicty. You urine testing did now show a UTI, so you do not need antibiotics. Medications: Your medication list has been reviewed and reconciled upon discharge to ensure accuracy and continuity of care. An updated list of all your medications is included with your hospital discharge paperwork. Please review this list closely, and make note of any changes. - stop the spironolactone Take your medications as instructed; do not skip a dose of your medicines. Make sure all of your doctors know every medicine you are taking (including bcpj-oyl-hyfyfxu medicines, vitamins, and supplements). Call your primary care provider before taking any new medicines (including over- the-counter medicines, vitamins, and supplements), because some of these may interact with your current medications, or may make your symptoms worse. Tell your primary care provider if you cannot afford your medications. Activity: You can do normal everyday activities as your body allows. Take rest breaks if you feel tired. Do not overexert. Stop activity if you have pain, shortness of breath or feel dizzy. Follow-up appointments: Make an appointment with your primary care physician within one week of discharge. A copy of this summary will be sent to them. Every time you see your primary care physician, or any other doctor, bring your medication list, and a list of questions. I have attached the contact information for Romario Yang, he is in the [place] office and accepting new patients. CONTACT YOUR PRIMARY CARE PROVIDER if you experience any of the following: Shortness of breath or difficulty breathing Fevers or chills Feeling tired with normal activity or experiencing dizziness or fainting Difficulty following your treatment plan, or difficulty taking medications CALL 911 OR GO TO THE EMERGENCY DEPARTMENT if you experience any of the following: Severe abdominal pain or nausea/vomiting Severe chest pain, or chest pain that radiates (moves) to your jaw or arm Sudden, severe shortness of breath or difficulty breathing Thank you for allowing us to participate in your care.n Total Time Total Time Spent Total Time Spent (In Minutes): Time spent day of discharge 40 minutes including direct patient care, medication reconciliation, documentation, review of labs and images, and coordination of care. Coding Level of Care Code 13762 INP/OBS DISCH >30 MIN Diagnoses Syncope and collapse R55 Diabetes type 2, uncontrolled E11.65 Diarrhea R19.7 Trauma T14.90XA
[2024-01-05] MEDS ORDERED: UMECLIDINIUM BROMIDE 62.5MCG/BLISTER 7 PUFFS/INHALER INH PRN (15:32)
== END 2024-01-05 13:24 | disposition home or self-care (01) ==
LOC: EDINP 23:01 → ED 23:01 → SUATTDRO 01-04 00:58 → 4W 01-04 09:58
DX: I95.9 Hypotension, unspecified; E03.9 Hypothyroidism, unspecified; R19.7 Diarrhea, unspecified; K21.9 Gastro-esophageal reflux disease without esophagitis; Z79.01 Long term (current) use of anticoagulants; G25.81 Restless legs syndrome; E86.0 Dehydration; E11.65 Type 2 diabetes mellitus with hyperglycemia; Z88.1 Allergy status to other antibiotic agents; F17.210 Nicotine dependence, cigarettes, uncomplicated; Z11.52 Encounter for screening for COVID-19; I10 Essential (primary) hypertension; Z91.09 Other allergy status, other than to drugs and biological substances; Z79.85 Long-term (current) use of injectable non-insulin antidiabetic drugs; Z88.6 Allergy status to analgesic agent; E87.6 Hypokalemia; E78.00 Pure hypercholesterolemia, unspecified; Z68.36 Body mass index [BMI] 36.0-36.9, adult; N30.01 Acute cystitis with hematuria; R32 Unspecified urinary incontinence; W18.39XA Other fall on same level, initial encounter; F31.81 Bipolar II disorder; Z88.8 Allergy status to other drugs, medicaments and biological substances; Z86.711 Personal history of pulmonary embolism; R55 Syncope and collapse; R11.2 Nausea with vomiting, unspecified; S09.90XA Unspecified injury of head, initial encounter; Z79.899 Other long term (current) drug therapy; J44.9 Chronic obstructive pulmonary disease, unspecified; E66.9 Obesity, unspecified

== ENCOUNTER 2025-02-07 18:53 | Observation (INO) ==
--- NOTE | 2025-02-07 19:54 | Emergency Department Note ---
Impression & Plan Hip pain, left, Ambulatory dysfunction ED Provider Note HISTORY OF PRESENT ILLNESS: Patient is a 64-year-old female presenting with left upper leg pain. Patient reports has been having issues with her left leg over the last 6 months. She reports has been following with her doctor and over the last week she has been having significant increasing pain in her left upper anterior thigh. Reports that the pain in the last week has been the worst its ever been and she has been having difficulties getting up and around and walking. Reports that she "wakes in the middle of the night screaming in pain." She locates the pain to the left upper anterior thigh. She reports that "my leg feels very heavy and feels like it is 3 times at size." She denies any trauma to the hip or leg. She called her primary care provider today and was referred to the emergency department for further evaluation. She states she is been taking tramadol without any relief in her symptoms. She reports numbness and tingling "throughout my entire leg." She denies any fevers. Denies any nausea or vomiting. Denies any chest pain or shortness of breath. ROS: as above PHYSICAL EXAM: Constitutional: Patient appears in no acute distress. HENT: Head: Normocephalic and atraumatic. Eyes: EOMI, PERRL Mouth/Throat: Mucous membranes moist. Neck: Trachea midline. Neck supple. Cardiovascular: RRR, No murmurs, rubs or gallops. Intact distal pulses. Pulmonary/Chest: No respiratory distress. Breath sounds clear and equal bilaterally. No wheezes or rales. Abdominal: Abdomen soft, no tenderness, rebound or guarding. Musculoskeletal: - LLE: No obvious deformity. No obvious ecchymosis or swelling. Patient has tenderness to palpation to the left inguinal region and the left anterior upper thigh. No overlying skin changes. No palpable mass. Able to internally and externally rotate the femur at the hip without reproducing pain. Patient able to straight leg raise without significant pain. No laxity of the pelvis with palpation. Intact DP pulses. Able to wiggle toes. Able to dorsiflex and plantarflex ankle. Skin: Warm and dry. No rash, erythema, pallor or cyanosis Psychiatric: Appropriate mood and affect for situation. Neurological: Alert and keenly responsive. CN II-XII grossly intact, moving all extremities equally and fully. MDM: - Vitals signs showed hypertension - History obtained via patient. History as above. - Chronic conditions affecting care: hx of PE (on Xarelto); DM-2; bipolar II disorder; HLD - Differential diagnoses include, but are not limited to: Fracture; sarcoma; muscle contusion; arthritis - Order placed for continuous cardiac monitoring. At this time, monitor showed rate of 73 bpm with normal sinus rhythm, per my interpretation. - External medical records reviewed. Primary care visit note dated 01/24/2025 was reviewed. Patient was being seen for what was presumed to be a left hip bursitis. CT scan was ordered for the left femur without contrast. Her tramadol prescription was refilled at that appointment. - Laboratory workup interpreted by myself showed normal WBC; elevated INR (1.2); normal lactate; stable electrolytes - UA negative for infection - Xray right hip with pelvis view interpreted by myself is negative for fracture or dislocation, per my interpretation. - CT pelvis with IV contrast negative for acute pathology. - CT femur with IV contrast negative for mass or lymphadenopathy. Noted to have total left knee replacement. - Patient given 1g IV tylenol and 50 mcg IV fentanyl in ER. - On reassessment, patient still complaining of pain in her hip. She reports she cannot get up and walk around secondary to her pain. - Unclear etiology for her symptoms at this time. Will discuss case with hospitalist service for PT/OT assessment. - Discussion was had with watch caser about patient's case and need for admission - Hospitalist consulted for admission - Patient admitted to [facility] hospitalist service for further evaluation and management. ASSESSMENT AND PLAN: Diagnosis: Acute left hip pain; ambulatory dysfunction Plan: admit Past Med/Surg History Problem List (Updated 02/07/25 @ 23:45 by Angela Villafana DO) Left leg pain Status post arthroscopy of shoulder Rotator cuff tear, left Injury of left shoulder Type 2 diabetes mellitus Candidal intertrigo Rotator cuff tear arthropathy of right shoulder Grief Loss of spouse 10/26/21 Tobacco use disorder Chronic sinusitis Abnormal finding on cardiovascular stress test Bipolar II disorder Intermittent claudication Radicular pain of thoracic region Back pain, thoracic (Acute) Degenerative disc disease Osteoarthritis Vitamin D deficiency Granulosa cell tumor of left ovary 2017, underwent bilateral salpingo-oophorectomy Morbid obesity History of pulmonary embolism > 5 years ago, reason for Xarelto, unknown etiology Scoliosis Chronic radicular low back pain Ankylosing spondylitis Dyslipidemia (Chronic) Hypothyroidism Sleep apnea No device, s/p pharyngoplasty Asthma Diverticular disease of colon Medical History PONV (postoperative nausea and vomiting) "I don't get sick right after the procedure but when I leave or get in the car I get sick" History of seizure 12/2023 - syncope - [facility] IP - "They thought it was because I was dehydrated and malnourished" never had a seizure before or since then - No neurologist History of blood transfusion Diabetes mellitus, type 2 Weekly Injectable Sleep apnea No device, s/p pharyngoplasty Rotator cuff tear, left Reason for procedure 09/05/24 Osteoarthritis Intermittent claudication pt unsure Insomnia Hypothyroidism History of pulmonary embolus (PE) Left - after x2 dvt - reason for xarelto History of ovarian cancer 2019 surgery only - no chemo/xrt Dyslipidemia Diverticular disease found at ER in past - No recent issues Bipolar II disorder History of fall multiple - most recent 08/03/24 - [facility] ER - reason for procedure 09/05/24 Syncope and collapse (~01/04/24) [facility] IP Hypercholesterolemia Restless leg syndrome Urinary incontinence COPD (chronic obstructive pulmonary disease) "One doctor claimed I had it, and when I got a new doctor they said I didn't" as per patient Hypertension GERD (gastroesophageal reflux disease) Asthma PRN Inhaler History of thyroid nodule [facility]" Constipation, chronic pt denies Umbilical hernia "They said I have a small one, nothing too concerned with." as per patient History of anemia 2019 > blood transfusion (r/t stomach polyps) Hx of deep venous thrombosis RLE x2 (2010 post-op, 2012 post-op) - reason for xarelto Surgical History History of pharyngoplasty for sleep apnea Status post right rotator cuff repair History of back surgery x5 - hardware present (Thoracic & Lumbar) History of salpingo-oophorectomy (~07/2018) bilateral due to ovarian cancer History of colonoscopy History of total left knee replacement History of total right knee replacement History of thyroidectomy History of 2 sections History of hysterectomy (~1981) [facility] History of cholecystectomy History of appendectomy History of cardiac catheterization Remote hx several years ago > no stents - no longer follows with [facility] History of endoscopy Family History Father Heart disease Diabetes Hypertension Myocardial infarction, Onset Age: 35 Sister Depression Hypertension Mother Diabetes Hypertension Kidney disease Denies family history of Ovarian cancer Prostate cancer Breast cancer Lung cancer Colorectal cancer Social History Smoking Status: Never smoker Tobacco Type: Cigarettes Age Started Using Tobacco: 32; packs per day: 0.5; Cigarettes Per Day: 8; Second Hand Exposure: No; Do You Dip or Chew Tobacco: No; Hx Alcohol Use: No Hx Substance Use: No Preferred Language: Persian Communication Ability: Effective Visual Impairment: No Limitations 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: Normal Jacquard Loom Fixer Required: No Beliefs That Will Affect Care: None marital status: / Current Living Situation: Other Current Living Situation Comment: Granddaughter current occupational status: disabled current occupation: on [employer] How many Children do You have: 2 Feels Safe at Home: Yes Childhood Exposure to Second-Hand Smoke: Yes Diet: regular Diet Comment: regular caffeine: Yes during the past year weight has: remained stable Dental Care, Regularly: No Physical Activity Frequency: Does not Exercise Seatbelt Use: always Sunscreen Use: Yes Assistive Devices: Denture - Upper and Other Allergies Allergies Allergy/AdvReac Type Severity Reaction Status Date / Time erythromycin base Allergy Severe Swelling, Verified 02/07/25 19:57 "all pink" adhesive Allergy Intermediate Redness, Verified 02/07/25 19:57 Sore, Skin tears clotrimazole Allergy Intermediate Hives, Verified 02/07/25 19:57 Itchiness carbamazepine AdvReac Severe Heart Verified 02/07/25 19:57 Arrhythmia semaglutide [From Ozempic] AdvReac Severe Gastrointestinal Verified 02/07/25 19:57 Upset butorphanol [From Stadol] AdvReac Intermediate Agitation Verified 02/07/25 19:57 Macrolide Antibiotics AdvReac Intermediate Gastrointestinal Verified 02/07/25 19:57 Upset, Vomiting mirtazapine [From Remeron] AdvReac Intermediate Muscle Verified 02/07/25 19:57 Spasms temazepam AdvReac Intermediate Gastrointestinal Verified 02/07/25 19:57 Upset Home Meds Home Medications Medication Instructions Recorded Confirmed amlodipine 5 mg tablet 5 mg PO QAM 09/12/22 02/07/25 nystatin 100,000 unit/gram topical 1 applic topical TID PRN Skin 07/20/24 02/07/25 cream Irritation levothyroxine 112 mcg tablet 112 mcg PO DAILYBB 02/07/25 02/07/25 Previous Rx's Medication Instructions Recorded losartan 50 mg tablet 50 mg PO QAM #90 tabs 07/07/22 betamethasone dipropionate 0.05 % 1 applic topical DAILY PRN skin 07/26/24 topical cream irritation 4 weeks #90 grams dulaglutide 1.5 mg/0.5 mL 1.5 mg (0.5 mL) subcut WK #2 mL 07/26/24 subcutaneous [facility] nystatin 100,000 unit/gram topical 1 applic topical TID PRN skin 08/06/24 powder irritation #60 grams tiotropium bromide 2.5 2 puff inhalation DAILY PRN 08/06/24 mcg/actuation mist for inhalation Shortness Of Breath #1 g (Spiriva Respimat) rivaroxaban 20 mg tablet (Xarelto) 20 mg PO QAM #90 tabs 09/02/24 gabapentin 600 mg tablet 600 mg PO TID #270 tabs 09/30/24 (Neurontin) albuterol sulfate 2.5 mg/3 mL 2.5 mg (3 mL) continuous 10/01/24 (0.083 %) solution for nebulization nebulization QID PRN Shortness Of Breath Or Wheezing #180 mL diclofenac sodium 1 % topical gel 2 g topical BID PRN Pain #100 grams 11/20/24 albuterol sulfate 90 mcg/actuation 2 puff inhalation Q4H PRN 11/26/24 aerosol inhaler Shortness Of Breath Or Wheezing #18 grams pantoprazole 40 mg tablet,delayed 40 mg PO AMHS #90 tabs 12/19/24 release (Protonix) trazodone 100 mg tablet 100 mg PO HS #90 tabs 12/19/24 tramadol 50 mg tablet 50 mg PO BID PRN pain #60 tabs 01/24/25 Results & Data (ED) Vital Signs Vital Signs - 24 hr 02/07/25 18:56 10/17/25 19:07 02/07/25 20:01 Temperature 36.7 C Temperature Source Oral Pulse Rate 97 H 87 83 Pulse Rhythm Regular Pulse Strength Normal Respiratory Rate 18 18 Respiratory Effort / Characteristics Non-Labored Spontaneous Respiratory Depth Normal Respiratory Pattern Regular Blood Pressure 165/104 H 123/89 Blood Pressure Mean 124 96 Pulse Oximetry 99 99 Oxygen Delivery Method Room Air Sepsis Recent Fever Within 48 Hours No Sepsis New/Unexplained Change in Mental Status N/A Sepsis Action Taken by Nursing No Action Required 02/07/25 20:19 02/07/25 20:30 02/07/25 21:22 Temperature Temperature Source Pulse Rate 79 85 Pulse Rhythm Pulse Strength Respiratory Rate 18 18 Respiratory Effort / Characteristics Respiratory Depth Respiratory Pattern Blood Pressure 131/82 137/81 Blood Pressure Mean 96 110 Pulse Oximetry 99 99 98 Oxygen Delivery Method Room Air Sepsis Recent Fever Within 48 Hours Sepsis New/Unexplained Change in Mental Status Sepsis Action Taken by Nursing 02/07/25 22:00 02/07/25 23:15 02/07/25 23:30 Temperature Temperature Source Pulse Rate 85 75 72 Pulse Rhythm Pulse Strength Respiratory Rate 18 16 Respiratory Effort / Characteristics Respiratory Depth Respiratory Pattern Blood Pressure 116/73 110/70 Blood Pressure Mean 85 83 Pulse Oximetry 97 97 Oxygen Delivery Method Sepsis Recent Fever Within 48 Hours Sepsis New/Unexplained Change in Mental Status Sepsis Action Taken by Nursing Laboratory Data 02/07/25 20:05 02/07/25 20:05 Lab Results 02/07/25 02/07/25 02/07/25 Range/Units 20:05 21:20 23:01 WBC 9.71 (4.8-10.8) K/ul RBC 4.67 (4.20-5.40) M/uL Hgb 12.9 (12.0-16.0) g/dl Hct 39.7 (37.0-47.0) % MCV 85.0 (80.0-100.0) fL MCH 27.6 (25.0-34.0) pg MCHC 32.5 (32.0-36.0) g/dL RDW Std Deviation 49.6 H (36.4-46.3) fL RDW Coeff of Wilber 16.1 H (11.5-14.5) % Plt Count 314 (130-400) K/uL MPV 9.4 (9.4-12.4) fL Immature Gran % (Auto) 0.3 % Neut % (Auto) 61.5 % Lymph % (Auto) 26.9 % Redwood % (Auto) 9.7 % Eos % (Auto) 1.1 % Baso % (Auto) 0.5 % Neut # (Auto) 5.97 (1.40-6.50) K/uL Lymph # (Auto) 2.61 (1.20-3.40) K/uL Redwood # (Auto) 0.94 H (0.11-0.59) K/uL Eos # (Auto) 0.11 (0.00-0.50) K/uL Baso # (Auto) 0.05 (0.00-0.20) K/uL Immature Gran # (Auto) 0.03 (0.01-0.20) K/uL PT 12.1 H (9.0-12.0) Seconds INR 1.2 H (0.9-1.1) Sodium 137 (136-145) mmol/L Potassium 4.0 (3.5-5.1) mmol/L Chloride 106 (98-107) mmol/L Carbon Dioxide 25 (21-32) mmol/L Anion Gap 6 (3-11) BUN 10 (6-23) mg/dl Creatinine 0.79 (0.6-1.2) mg/dl Est Cr Clr Drug Dosing 78.5 ml/min eGFR 84.00 BUN/Creatinine Ratio 12.7 (10-20) Glucose 94 (70-99(Fasting)) mg/dl Lactate 2.0 (0.4-2.0) mmol/L Calcium 9.4 (8.6-10.3) mg/dl Total Bilirubin 0.3 (0.2-1.0) mg/dl AST 18 (13-39) U/L ALT 11 (7-52) U/L Alkaline Phosphatase 89 (34-104) U/L Total Protein 6.4 (6.0-8.3) gm/dl Albumin 3.8 (3.4-5.0) gm/dl Globulin 2.6 (2.5-4.0) gm/dl Albumin/Globulin Ratio 1.5 (0.9-2) Urine Color Yellow Urine Appearance Clear (Clear) Urine pH 7.0 (4.5-7.5) Ur Specific Yale 1.015 (1.000-1.030) Urine Protein Negative (Negative) Urine Glucose (UA) Negative (Negative) Urine Ketones Negative (Negative) Urine Blood Trace-lysed H (Negative) Urine Nitrite Negative (Negative) Urine Bilirubin Negative (Negative) Urine Urobilinogen Negative (Negative) Ur Leukocyte Esterase Negative (Negative) Urine WBC (Auto) 0-5 (0-5) /hpf Urine RBC (Auto) 3-5 H (0-2) /hpf U Hyaline Cast (Auto) 0-2 (0-2) /lpf U Epithel Cells (Auto) 0-2 (0-2) /hpf Urine Bacteria (Auto) None Seen (None Seen) Urine Comment Administered Medications Discontinued Medications Fentanyl Citrate (Fentanyl Citrate Pf 100 Mcg/2 Ml Vial) 50 mcg IV NOW STA Stop: 02/07/25 22:00 Last Admin: 02/07/25 22:35 Dose: 50 mcg Documented By: SARWAT Acetaminophen (Ofirmev) 1,000 mg in 100 mls @ 400 mls/hr IV NOW STA Stop: 02/07/25 22:13 Last Infusion: 02/07/25 22:51 Dose: Infused Documented By: Admin: 02/07/25 22:36 Dose: 400 mls/hr Documented By: SARWAT Ioversol (Optiray 320 100ml) 93 ml IV ONCE ONE Stop: 02/07/25 20:43 Last Admin: 02/07/25 20:44 Dose: 93 ml Documented By: DUNG Imaging Data Radiologist's Impression: Femur CT 02/07/25 19:50 Exam(s): CT EXTREMITY LEFT LOWER With Contrast IV Amt: 93cc opti 320 EXAM: CT Left Lower Extremity With Intravenous Contrast CLINICAL HISTORY: Reason for exam: L anterior upper leg "mass". TECHNIQUE: Axial computed tomography images of the left lower extremity with intravenous contrast. CTDI is 20.81 mGy and DLP is 1338.18 mGy-cm. Automated exposure control was utilized for the study. A dose lowering technique was utilized adhering to the principles of ALARA. CONTRAST: Patient received 93cc Optiray 320 of IV contrast COMPARISON: No relevant prior studies available. FINDINGS: Bones/joints: Metal artifact from previous left total knee arthroplasty. No periprosthetic fracture or dislocation is seen. Small knee joint effusion measuring 7 mm AP by 10 mm transverse. Mild osteoarthritic changes in the left hip joint. Soft tissues: Unremarkable. No abnormal contrast enhancement. Vasculature: Mild diffuse arterial calcification without evidence of critical stenosis. Lymph nodes: Unremarkable. No soft tissue mass or lymphadenopathy is identified within the left thigh. IMPRESSION: 1. No soft tissue mass or lymphadenopathy is identified within the left thigh. 2. Metal artifact from previous left total knee arthroplasty. No periprosthetic fracture or dislocation is seen. 3. Small knee joint effusion measuring 7 mm AP by 10 mm transverse. Electronically signed by: Dusty Villafana MD 02/07/25 22:12 PM Hip/Pelvis X-Ray 02/07/25 19:50 Exam(s): XR HIP + PELVIS, 1 view EXAM: XR Left Hip With Pelvis When Performed, 2 or 3 Views CLINICAL HISTORY: Reason for exam: L hip pain. TECHNIQUE: Two or three views of the left hip with pelvis when performed. COMPARISON: No relevant prior studies available. FINDINGS: Bones/joints: Slight narrowing and osteophytosis of the left hip joint consistent with mild osteoarthritic changes. Extensive instrumentation and fusion throughout the lower lumbar spine including screws extending through the sacroiliac joints bilaterally. No acute fracture or dislocation is seen involving the hips or pelvis. Soft tissues: Unremarkable. IMPRESSION: 1. No acute fracture or dislocation is seen involving the hips or pelvis. 2. Slight narrowing and osteophytosis of the left hip joint consistent with mild osteoarthritic changes. Electronically signed by: Dusty Villafana MD 02/07/25 23:[address] 02/07/25 19:51 Exam(s): CT PELVIS With Contrast IV Amt: 93cc opti 320 EXAM: CT Pelvis With Intravenous Contrast CLINICAL HISTORY: Reason for exam: L leg pain. TECHNIQUE: Axial computed tomography images of the pelvis with intravenous contrast. CTDI is 20.81 mGy and DLP is 1348.82 mGy-cm. Automated exposure control was utilized for the study. A dose lowering technique was utilized adhering to the principles of ALARA. CONTRAST: Patient received 93cc Optiray 320 of IV contrast COMPARISON: 03/04/2024 FINDINGS: Bowel: Unremarkable. No obstruction. No mucosal thickening. Appendix: The appendix is normal. Bowel loops are nondilated. No acute inflammatory changes are seen involving the bowel. Intraperitoneal space: The uterus is absent. No free fluid in the pelvis. No free air. Bladder: Unremarkable. No mass. Reproductive: Unremarkable as visualized. Bones/joints: Previous multilevel fusion, instrumentation, and laminectomy involving the lower lumbar spine and lumbosacral junction, unchanged. Mild osteoarthritic changes in both hips. No hip or pelvic fracture is identified. No dislocation. Soft tissues: Unremarkable. Vasculature: The aorta and iliac vessels are moderately calcified but nondilated. Lymph nodes: Unremarkable. No enlarged lymph nodes. IMPRESSION: The appendix is normal. Bowel loops are nondilated. No acute inflammatory changes are seen involving the bowel. Previous instrumentation, fusion, and laminectomy of the lower lumbar spine and lumbosacral junction. No hip or pelvic fracture is seen. Electronically signed by: Dusty Villafana MD 02/07/25 22:10 PM Discharge Plan Visit Data Chief Complaint: Swelling/Edema to Extremity Stated Complaint: SWELLING ON HIP LEG PAIN/NUMBNESS ED Provider: Laxmi Bernardo Discharge Problem: Hip pain, left, Ambulatory dysfunction Condition: Fair Forms Stand Alone Forms: [facility] [place] Prescriptions Prescriptions: No Action losartan 50 mg tablet 50 mg PO QAM Qty: 90 1RF Spiriva Respimat 2.5 mcg/actuation mist 2 puff inhalation DAILY PRN (Reason: Shortness Of Breath) Qty: 1 3RF nystatin 100,000 unit/gram powder 1 applic TOP TID PRN (Reason: skin irritation) Qty: 60 3RF Xarelto 20 mg tablet 20 mg PO QAM Qty: 90 1RF gabapentin [Neurontin] 600 mg tablet 600 mg PO TID Qty: 270 1RF albuterol sulfate 2.5 mg /3 mL (0.083 %) solution for nebulization 2.5 mg continuous nebulization QID PRN (Reason: Shortness Of Breath Or Wheezing) Qty: 180 3RF diclofenac sodium 1 % gel 2 g topical BID PRN (Reason: Pain) Qty: 100 3RF Rx Instructions: topical apply sparingly to affected knee area twice daily as needed; albuterol sulfate 90 mcg/actuation HFA aerosol inhaler 2 puff Inhalation Q4H PRN (Reason: Shortness Of Breath Or Wheezing) Qty: 18 3RF pantoprazole [Protonix] 40 mg tablet,delayed release (DR/EC) 40 mg PO AMHS Qty: 90 3RF trazodone 100 mg tablet 100 mg PO HS Qty: 90 0RF tramadol 50 mg tablet 50 mg PO BID PRN (Reason: pain) Qty: 60 0RF Trulicity 1.5 mg/0.5 mL pen injector 1.5 mg SUBCUT WK Qty: 2 0RF Rx Instructions: TUESDAYS betamethasone dipropionate 0.05 % cream 1 applic topical DAILY PRN (Reason: skin irritation) 28 Days Qty: 90 1RF amlodipine 5 mg tablet 5 mg PO QAM levothyroxine 112 mcg tablet 112 mcg PO DAILYBB nystatin 100,000 unit/gram Cream 1 applic TOPICAL TID PRN (Reason: Skin Irritation) Referrals Referrals: Romario Yang DO [Primary Care Provider] -
[2025-02-07 20:17] LABS: Hematocrit (blood only) 39.7 % (37.0-47.0); Hemoglobin 12.9 g/dl (12.0-16.0); Immature Granulocytes # (auto) 0.03 K/uL (0.01-0.20); Immature Granulocytes % (auto) 0.3 %; Mean Corpuscular Hemoglobin 27.6 pg (25.0-34.0); Mean Corpuscular Volume 85.0 fL (80.0-100.0); Platelet Count 314 K/uL (130-400); RDW Standard Deviation 49.6 fL (36.4-46.3); Red Blood Count 4.67 M/uL (4.20-5.40); White Blood Count 9.71 K/ul (4.8-10.8)
[2025-02-07 20:34] LABS: Alanine Aminotransferase 11.0 U/L (7-52); Albumin Globulin Ratio 1.5 (0.9-2); Albumin Level 3.8 gm/dl (3.4-5.0); Alkaline Phosphatase 89.0 U/L (34-104); Anion Gap 6.0 (3-11); Bilirubin,Total 0.3 mg/dl (0.2-1.0); Blood Urea Nitrogen 10.0 mg/dl (6-23); Calcium 9.4 mg/dl (8.6-10.3); Carbon Dioxide 25.0 mmol/L (21-32); Chloride 106.0 mmol/L (98-107); Creatinine Clr Calc Pharmacy 78.5 ml/min; Globulin 2.6 gm/dl (2.5-4.0); Glucose 94.0 mg/dl (70-99(Fasting)); Potassium 4.0 mmol/L (3.5-5.1); Sodium 137.0 mmol/L (136-145); Total Protein 6.4 gm/dl (6.0-8.3)
[2025-02-07] MEDS: OPTIRAY 320 100ml IV ONE (20:44)
[2025-02-07 20:59] LABS: INR 1.2 (0.9-1.1); Prothrombin Time 12.1 Seconds (9.0-12.0)
[2025-02-07 21:29] LABS: Appearance Urine Clear (Clear); Glucose Urine UA Negative (Negative)
[2025-02-07 21:47] LABS: Bacteria Urine Automated None Seen (None Seen); Cast Urine Automated 0-2 /lpf (0-2); Epithelial Cell Urine Auto 0-2 /hpf (0-2); WBC Urine Automated 0-5 /hpf (0-5)
--- NOTE | 2025-02-07 22:11 | CT Scan Report ---
Exam(s): CT PELVIS With Contrast IV Amt: 93cc opti 320 EXAM: CT Pelvis With Intravenous Contrast CLINICAL HISTORY: Reason for exam: L leg pain. TECHNIQUE: Axial computed tomography images of the pelvis with intravenous contrast. CTDI is 20.81 mGy and DLP is 1348.82 mGy-cm. Automated exposure control was utilized for the study. A dose lowering technique was utilized adhering to the principles of ALARA. CONTRAST: Patient received 93cc Optiray 320 of IV contrast COMPARISON: 03/04/2024 FINDINGS: Bowel: Unremarkable. No obstruction. No mucosal thickening. Appendix: The appendix is normal. Bowel loops are nondilated. No acute inflammatory changes are seen involving the bowel. Intraperitoneal space: The uterus is absent. No free fluid in the pelvis. No free air. Bladder: Unremarkable. No mass. Reproductive: Unremarkable as visualized. Bones/joints: Previous multilevel fusion, instrumentation, and laminectomy involving the lower lumbar spine and lumbosacral junction, unchanged. Mild osteoarthritic changes in both hips. No hip or pelvic fracture is identified. No dislocation. Soft tissues: Unremarkable. Vasculature: The aorta and iliac vessels are moderately calcified but nondilated. Lymph nodes: Unremarkable. No enlarged lymph nodes. IMPRESSION: The appendix is normal. Bowel loops are nondilated. No acute inflammatory changes are seen involving the bowel. Previous instrumentation, fusion, and laminectomy of the lower lumbar spine and lumbosacral junction. No hip or pelvic fracture is seen. Electronically signed by: Dusty Villafana MD 02/07/25 22:10 PM
--- NOTE | 2025-02-07 22:13 | CT Scan Report ---
Exam(s): CT EXTREMITY LEFT LOWER With Contrast IV Amt: 93cc opti 320 EXAM: CT Left Lower Extremity With Intravenous Contrast CLINICAL HISTORY: Reason for exam: L anterior upper leg "mass". TECHNIQUE: Axial computed tomography images of the left lower extremity with intravenous contrast. CTDI is 20.81 mGy and DLP is 1338.18 mGy-cm. Automated exposure control was utilized for the study. A dose lowering technique was utilized adhering to the principles of ALARA. CONTRAST: Patient received 93cc Optiray 320 of IV contrast COMPARISON: No relevant prior studies available. FINDINGS: Bones/joints: Metal artifact from previous left total knee arthroplasty. No periprosthetic fracture or dislocation is seen. Small knee joint effusion measuring 7 mm AP by 10 mm transverse. Mild osteoarthritic changes in the left hip joint. Soft tissues: Unremarkable. No abnormal contrast enhancement. Vasculature: Mild diffuse arterial calcification without evidence of critical stenosis. Lymph nodes: Unremarkable. No soft tissue mass or lymphadenopathy is identified within the left thigh. IMPRESSION: 1. No soft tissue mass or lymphadenopathy is identified within the left thigh. 2. Metal artifact from previous left total knee arthroplasty. No periprosthetic fracture or dislocation is seen. 3. Small knee joint effusion measuring 7 mm AP by 10 mm transverse. Electronically signed by: Dusty Villafana MD 02/07/25 22:12 PM
[2025-02-07] MEDS: ACETAMINOPHEN 1,000 MG/100 ML VIAL IV STA (22:36)
--- NOTE | 2025-02-07 23:07 | XRay Report ---
Exam(s): XR HIP + PELVIS, 1 view EXAM: XR Left Hip With Pelvis When Performed, 2 or 3 Views CLINICAL HISTORY: Reason for exam: L hip pain. TECHNIQUE: Two or three views of the left hip with pelvis when performed. COMPARISON: No relevant prior studies available. FINDINGS: Bones/joints: Slight narrowing and osteophytosis of the left hip joint consistent with mild osteoarthritic changes. Extensive instrumentation and fusion throughout the lower lumbar spine including screws extending through the sacroiliac joints bilaterally. No acute fracture or dislocation is seen involving the hips or pelvis. Soft tissues: Unremarkable. IMPRESSION: 1. No acute fracture or dislocation is seen involving the hips or pelvis. 2. Slight narrowing and osteophytosis of the left hip joint consistent with mild osteoarthritic changes. Electronically signed by: Dusty Villafana MD 02/07/25 23:06 PM
--- NOTE | 2025-02-07 23:15 | History & Physical Report ---
Date of Service February 07, 2025 Assessment & Plan (1) Left leg pain: (2) Type 2 diabetes mellitus: (3) History of pulmonary embolism: (4) Dyslipidemia: (5) Hypothyroidism: (6) Sleep apnea: (7) Asthma: Plan 64yo female presenting with pain in the left hip, ambulatory dysfunction #Left leg pain - pain with palpation over left greater trochanteric bursa, palpation of left groin. Pain could be secondary to meralgia paresthetica - compression of lateral femoral cutaneous nerve. Commonly seen in patients with diabetes and obesity and leading to tingling/numbness/burning pain distributed across the anterolateral thigh. Could also be secondary to bursitis - no edema or inflammation noted in the soft tissues on imaging -Observation to medical -Tylenol 1gm po TID -Diclofenac topical BID PRN -Will increase Gabapentin for now in hopes to improve possible nerve pain- patient currently on 600mg po TID, will increase to 800mg po TID starting tomorrow 02/08 at 09:00 -PT/OT evaluations appreciated -Could consider bursa injection in AM -Continue home Tramadol 50mg po BID PRN #Diabetes - patient reports good control of blood sugars. -Lantus 8u BID and ISS -CC diet #History of DVT/PE -patient on chronic anticoagulation with Xarelto -Continue Xarelto 20mg po qAM #Hyperlipidemia -Continue #Hypothyroidism - Synthroid recently changed from 125mcg to 112mcg daily -Continue 112mcg daily -Follow TFTs as outpatient #Asthma -Continue Spiriva -Albuterol PRN #GERD -Protonix 40mg po BID #Hypertension -Continue Losartan 50mg po daily and Amlodipine 5mg po daily -Monitor #ABDELRAHMAN - patient not using CPAP #Tobacco use - encouraged cessation -Nicotine patch 7mcg daily - patient smokes 1/2 ppd but has been cutting back, may need 14mcg patch -Cessation counseling PPx - Continue Xarelto Code - Full History of Present Illness Chief Complaint: left hip/groin pain, ambulatory dysfunction. Primary Care Provider: DO Camila Stevensonlori Oneil is a 64yo female with multiple medical comorbidities including DM, HTN, HLP, GERD, COPD and ABDELRAHMAN presenting with left hip pain and ambulatory dysfunction. Patient reports pain in her left lateral hip ongoing for at least 6 months - progressively worsening over that timeframe with acute worsening over the last 4 days. She also reports swelling of the left lateral thigh. Patient reports she has been waking up at night over the last 4 nights in severe pain. Pain is in the left lateral hip and groin with radiation across the anterior thigh. Pain is described as burning numbness. Her leg generally feels heavy and occasionally "asleep". She called her PCP with these complaints and was instructed to come to the ER. Patient denies falling or trauma. No fever, chills, chest pain, cough or SOB. No abdominal pain, nausea, vomiting or diarrhea. No pain in the left knee or ankle. No new shoes. She ambulates with a cane occasionally at home but reports this has been more difficult lately due to pain and heaviness of the LLE. In the ER patient is afebrile, HD stable, NAD ER Course: Tylenol Fentanyl Allergies Allergy/AdvReac Type Severity Reaction Status Date / Time erythromycin base Allergy Severe Swelling, Verified 02/07/25 19:57 "all pink" adhesive Allergy Intermediate Redness, Verified 02/07/25 19:57 Sore, Skin tears clotrimazole Allergy Intermediate Hives, Verified 02/07/25 19:57 Itchiness carbamazepine AdvReac Severe Heart Verified 02/07/25 19:57 Arrhythmia semaglutide [From Ozempic] AdvReac Severe Gastrointestinal Verified 02/07/25 19:57 Upset butorphanol [From Stadol] AdvReac Intermediate Agitation Verified 02/07/25 19:57 Macrolide Antibiotics AdvReac Intermediate Gastrointestinal Verified 02/07/25 19:57 Upset, Vomiting mirtazapine [From Remeron] AdvReac Intermediate Muscle Verified 02/07/25 19:57 Spasms temazepam AdvReac Intermediate Gastrointestinal Verified 02/07/25 19:57 Upset Home Medications Medication Instructions Recorded Confirmed Type losartan 50 mg tablet 50 mg PO QAM #90 tabs 07/07/22 02/07/25 Rx amlodipine 5 mg tablet 5 mg PO QAM 09/12/22 02/07/25 History nystatin 100,000 unit/gram topical 1 applic topical TID PRN Skin 07/20/24 02/07/25 History cream Irritation betamethasone dipropionate 0.05 % 1 applic topical DAILY PRN skin 07/26/24 02/07/25 Rx topical cream irritation 4 weeks #90 grams dulaglutide 1.5 mg/0.5 mL 1.5 mg (0.5 mL) subcut WK #2 mL 07/26/24 02/07/25 Rx subcutaneous pen injector (Trulicity) nystatin 100,000 unit/gram topical 1 applic topical TID PRN skin 08/06/24 02/07/25 Rx powder irritation #60 grams tiotropium bromide 2.5 2 puff inhalation DAILY PRN 08/06/24 02/07/25 Rx mcg/actuation mist for inhalation Shortness Of Breath #1 g (Spiriva Respimat) rivaroxaban 20 mg tablet (Xarelto) 20 mg PO QAM #90 tabs 09/02/24 02/07/25 Rx gabapentin 600 mg tablet 600 mg PO TID #270 tabs 09/30/24 02/07/25 Rx (Neurontin) albuterol sulfate 2.5 mg/3 mL 2.5 mg (3 mL) continuous 10/01/24 02/07/25 Rx (0.083 %) solution for nebulization nebulization QID PRN Shortness Of Breath Or Wheezing #180 mL diclofenac sodium 1 % topical gel 2 g topical BID PRN Pain #100 grams 11/20/24 02/07/25 Rx albuterol sulfate 90 mcg/actuation 2 puff inhalation Q4H PRN 11/26/24 02/07/25 Rx aerosol inhaler Shortness Of Breath Or Wheezing #18 grams pantoprazole 40 mg tablet,delayed 40 mg PO AMHS #90 tabs 12/19/24 02/07/25 Rx release (Protonix) trazodone 100 mg tablet 100 mg PO HS #90 tabs 12/19/24 02/07/25 Rx tramadol 50 mg tablet 50 mg PO BID PRN pain #60 tabs 01/24/25 02/07/25 Rx levothyroxine 112 mcg tablet 112 mcg PO DAILYBB 02/07/25 02/07/25 History Past Med/Surg History Problem List (Updated 02/07/25 @ 23:45 by Angela Villafana DO) Left leg pain Status post arthroscopy of shoulder Rotator cuff tear, left Injury of left shoulder Type 2 diabetes mellitus Candidal intertrigo Rotator cuff tear arthropathy of right shoulder Grief Loss of spouse 7/5/22 Tobacco use disorder Chronic sinusitis Abnormal finding on cardiovascular stress test Bipolar II disorder Intermittent claudication Radicular pain of thoracic region Back pain, thoracic (Acute) Degenerative disc disease Osteoarthritis Vitamin D deficiency Granulosa cell tumor of left ovary 2018, underwent bilateral salpingo-oophorectomy Morbid obesity History of pulmonary embolism > 5 years ago, reason for Xarelto, unknown etiology Scoliosis Chronic radicular low back pain Ankylosing spondylitis Dyslipidemia (Chronic) Hypothyroidism Sleep apnea No device, s/p pharyngoplasty Asthma Diverticular disease of colon Medical History PONV (postoperative nausea and vomiting) "I don't get sick right after the procedure but when I leave or get in the car I get sick" History of seizure 12/2023 - syncope - [facility] - "They thought it was because I was dehydrated and malnourished" never had a seizure before or since then - No neurologist History of blood transfusion Diabetes mellitus, type 2 Weekly Injectable Sleep apnea No device, s/p pharyngoplasty Rotator cuff tear, left Reason for procedure 09/05/24 Osteoarthritis Intermittent claudication pt unsure Insomnia Hypothyroidism History of pulmonary embolus (PE) Left - after x2 dvt - reason for xarelto History of ovarian cancer 2019 surgery only - no chemo/xrt Dyslipidemia Diverticular disease found at ER in past - No recent issues Bipolar II disorder History of fall multiple - most recent 08/03/24 - [facility] - reason for procedure 09/05/24 Syncope and collapse (~01/04/24) [facility] Hypercholesterolemia Restless leg syndrome Urinary incontinence COPD (chronic obstructive pulmonary disease) "One doctor claimed I had it, and when I got a new doctor they said I didn't" as per patient Hypertension GERD (gastroesophageal reflux disease) Asthma PRN Inhaler History of thyroid nodule History of intracranial hemorrhage [facility] [place] "years ago, it was minor" Constipation, chronic pt denies Umbilical hernia "They said I have a small one, nothing too concerned with." as per patient History of anemia 2019 > blood transfusion (r/t stomach polyps) Hx of deep venous thrombosis RLE x2 (2010 post-op, 2012 post-op) - reason for xarelto Surgical History History of pharyngoplasty for sleep apnea Status post right rotator cuff repair History of back surgery x5 - hardware present (Thoracic & Lumbar) History of salpingo-oophorectomy (~07/2018) bilateral due to ovarian cancer History of colonoscopy History of total left knee replacement History of total right knee replacement History of thyroidectomy History of 2 sections History of hysterectomy (~1981) [facility] History of cholecystectomy History of appendectomy History of cardiac catheterization Remote hx several years ago > no stents - no longer follows with [facility] History of endoscopy Family History Father Heart disease Diabetes Hypertension Myocardial infarction, Onset Age: 35 Sister Depression Hypertension Mother Diabetes Hypertension Kidney disease Denies family history of Ovarian cancer Prostate cancer Breast cancer Lung cancer Colorectal cancer Social History Smoking Status: Never smoker Tobacco Type: Cigarettes Age Started Using Tobacco: 32; packs per day: 0.5; Cigarettes Per Day: 8; Second Hand Exposure: No; Do You Dip or Chew Tobacco: No; Hx Alcohol Use: No Hx Substance Use: No Preferred Language: Polish Communication Ability: Effective Visual Impairment: No Limitations 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: Normal Metal Annealer Required: No Beliefs That Will Affect Care: None marital status: / Current Living Situation: Other Current Living Situation Comment: Granddaughter current occupational status: disabled current occupation: on SSI How many Children do You have: 2 Feels Safe at Home: Yes Childhood Exposure to Second-Hand Smoke: Yes Diet: regular Diet Comment: regular caffeine: Yes during the past year weight has: remained stable Dental Care, Regularly: No Physical Activity Frequency: Does not Exercise Seatbelt Use: always Sunscreen Use: Yes Assistive Devices: Denture - Upper and Other Review of Systems Review of Systems: All systems reviewed & are unremarkable except as noted in HPI & below Physical Exam Physical Exam: General: patient resting comfortably, NAD, non-toxic in appearance, AA&O x 4 Skin: warm, dry, intact, no rashes or lesions HEENT: NC/AT, PERRL, EOMI, anicteric sclera, conjunctiva without injection, external ear normal to inspection and nontender, nares patent, moist mucus membranes, dentition intact, no oropharyngeal lesions, neck supple, trachea midline, no LAD, no thyromegaly, no JVD Heart: +S1/S2, regular, no m/r/g Lungs: equal air entry bilaterally, no rales/rhonchi/wheezes Abd: +BS, soft, NT/ND, no masses/organomegaly/ascites Ext: warm, 2+ pulses in UE/LE bilaterally, no clubbing/cyanosis or edema Pain with palpation of left lateral hip. Fullness and mild edema over left lateral thigh. Tenderness with palpation of left groin. Neuro: nonfocal, patient AA&O x 4, speech intact, no facial droop, moving all extremities on command with equal strength 5/5 Results & Data Results & Data Vital Signs (Past 12 Hours) Vital Signs Temp Pulse Resp BP Pulse Ox O2 Del Method 02/07/25 22:00 85 18 116/73 97 02/07/25 21:22 85 18 137/81 98 02/07/25 20:30 79 18 131/82 99 02/07/25 20:19 99 Room Air 02/07/25 20:01 83 18 123/89 99 02/07/25 19:07 87 02/07/25 18:56 36.7 C 97 H 18 165/104 H 99 Room Air Laboratory Results Laboratory Results WBC 9.71 K/ul (4.8-10.8) 02/07/25 20:05 RBC 4.67 M/uL (4.20-5.40) 02/07/25 20:05 Hgb 12.9 g/dl (12.0-16.0) 02/07/25 20:05 Hct 39.7 % (37.0-47.0) 02/07/25 20:05 MCV 85.0 fL (80.0-100.0) 02/07/25 20:05 MCH 27.6 pg (25.0-34.0) 02/07/25 20:05 MCHC 32.5 g/dL (32.0-36.0) 02/07/25 20:05 RDW Std Deviation 49.6 fL (36.4-46.3) H 02/07/25 20:05 RDW Coeff of Wilber 16.1 % (11.5-14.5) H 02/07/25 20:05 Plt Count 314 K/uL (130-400) 02/07/25 20:05 MPV 9.4 fL (9.4-12.4) 02/07/25 20:05 Immature Gran % (Auto) 0.3 % 02/07/25 20:05 Neut % (Auto) 61.5 % 02/07/25 20:05 Lymph % (Auto) 26.9 % 02/07/25 20:05 [place] % (Auto) 9.7 % 02/07/25 20:05 Eos % (Auto) 1.1 % 02/07/25 20:05 Baso % (Auto) 0.5 % 02/07/25 20:05 Neut # (Auto) 5.97 K/uL (1.40-6.50) 02/07/25 20:05 Lymph # (Auto) 2.61 K/uL (1.20-3.40) 02/07/25 20:05 [place] # (Auto) 0.94 K/uL (0.11-0.59) H 02/07/25 20:05 Eos # (Auto) 0.11 K/uL (0.00-0.50) 02/07/25 20:05 Baso # (Auto) 0.05 K/uL (0.00-0.20) 02/07/25 20:05 Immature Gran # (Auto) 0.03 K/uL (0.01-0.20) 02/07/25 20:05 PT 12.1 Seconds (9.0-12.0) H 02/07/25 20:05 INR 1.2 (0.9-1.1) H 02/07/25 20:05 Sodium 137 mmol/L (136-145) 02/07/25 20:05 Potassium 4.0 mmol/L (3.5-5.1) 02/07/25 20:05 Chloride 106 mmol/L (98-107) 02/07/25 20:05 Carbon Dioxide 25 mmol/L (21-32) 02/07/25 20:05 Anion Gap 6 (3-11) 02/07/25 20:05 BUN 10 mg/dl (6-23) 02/07/25 20:05 Creatinine 0.79 mg/dl (0.6-1.2) 02/07/25 20:05 Est Cr Clr Drug Dosing 78.5 ml/min 02/07/25 20:05 eGFR 84.00 02/07/25 20:05 BUN/Creatinine Ratio 12.7 (10-20) 02/07/25 20:05 Glucose 94 mg/dl (70-99(Fasting)) 02/07/25 20:05 Lactate 2.0 mmol/L (0.4-2.0) 02/07/25 23:01 Calcium 9.4 mg/dl (8.6-10.3) 02/07/25 20:05 Total Bilirubin 0.3 mg/dl (0.2-1.0) 02/07/25 20:05 AST 18 U/L (13-39) 02/07/25 20:05 ALT 11 U/L (7-52) 02/07/25 20:05 Alkaline Phosphatase 89 U/L (34-104) 02/07/25 20:05 Total Protein 6.4 gm/dl (6.0-8.3) 02/07/25 20:05 Albumin 3.8 gm/dl (3.4-5.0) 02/07/25 20:05 Globulin 2.6 gm/dl (2.5-4.0) 02/07/25 20:05 Albumin/Globulin Ratio 1.5 (0.9-2) 02/07/25 20:05 Urine Color Yellow 02/07/25 21:20 Urine Appearance Clear (Clear) 02/07/25 21:20 Urine pH 7.0 (4.5-7.5) 02/07/25 21:20 Ur Specific [place] 1.015 (1.000-1.030) 02/07/25 21:20 Urine Protein Negative (Negative) 02/07/25 21:20 Urine Glucose (UA) Negative (Negative) 02/07/25 21:20 Urine Ketones Negative (Negative) 02/07/25 21:20 Urine Blood Trace-lysed (Negative) H 02/07/25 21:20 Urine Nitrite Negative (Negative) 02/07/25 21:20 Urine Bilirubin Negative (Negative) 02/07/25 21:20 Urine Urobilinogen Negative (Negative) 02/07/25 21:20 Ur Leukocyte Esterase Negative (Negative) 02/07/25 21:20 Urine WBC (Auto) 0-5 /hpf (0-5) 02/07/25 21:20 Urine RBC (Auto) 3-5 /hpf (0-2) H 02/07/25 21:20 U Hyaline Cast (Auto) 0-2 /lpf (0-2) 02/07/25 21:20 U Epithel Cells (Auto) 0-2 /hpf (0-2) 02/07/25 21:20 Urine Bacteria (Auto) None Seen (None Seen) 02/07/25 21:20 Urine Comment 02/07/25 21:[address] 02/07/25 19:50 Exam(s): CT EXTREMITY LEFT LOWER With Contrast IV Amt: 93cc opti 320 EXAM: CT Left Lower Extremity With Intravenous Contrast CLINICAL HISTORY: Reason for exam: L anterior upper leg "mass". TECHNIQUE: Axial computed tomography images of the left lower extremity with intravenous contrast. CTDI is 20.81 mGy and DLP is 1338.18 mGy-cm. Automated exposure control was utilized for the study. A dose lowering technique was utilized adhering to the principles of ALARA. CONTRAST: Patient received 93cc Optiray 320 of IV contrast COMPARISON: No relevant prior studies available. FINDINGS: Bones/joints: Metal artifact from previous left total knee arthroplasty. No periprosthetic fracture or dislocation is seen. Small knee joint effusion measuring 7 mm AP by 10 mm transverse. Mild osteoarthritic changes in the left hip joint. Soft tissues: Unremarkable. No abnormal contrast enhancement. Vasculature: Mild diffuse arterial calcification without evidence of critical stenosis. Lymph nodes: Unremarkable. No soft tissue mass or lymphadenopathy is identified within the left thigh. IMPRESSION: 1. No soft tissue mass or lymphadenopathy is identified within the left thigh. 2. Metal artifact from previous left total knee arthroplasty. No periprosthetic fracture or dislocation is seen. 3. Small knee joint effusion measuring 7 mm AP by 10 mm transverse. Electronically signed by: Dusty Villafana MD 02/07/25 22:12 PM Hip/Pelvis X-Ray 02/07/25 19:50 Exam(s): XR HIP + PELVIS, 1 view EXAM: XR Left Hip With Pelvis When Performed, 2 or 3 Views CLINICAL HISTORY: Reason for exam: L hip pain. TECHNIQUE: Two or three views of the left hip with pelvis when performed. COMPARISON: No relevant prior studies available. FINDINGS: Bones/joints: Slight narrowing and osteophytosis of the left hip joint consistent with mild osteoarthritic changes. Extensive instrumentation and fusion throughout the lower lumbar spine including screws extending through the sacroiliac joints bilaterally. No acute fracture or dislocation is seen involving the hips or pelvis. Soft tissues: Unremarkable. IMPRESSION: 1. No acute fracture or dislocation is seen involving the hips or pelvis. 2. Slight narrowing and osteophytosis of the left hip joint consistent with mild osteoarthritic changes. Electronically signed by: Dusty Villafana MD 02/07/25 23:[address] 02/07/25 19:51 Exam(s): CT PELVIS With Contrast IV Amt: 93cc opti 320 EXAM: CT Pelvis With Intravenous Contrast CLINICAL HISTORY: Reason for exam: L leg pain. TECHNIQUE: Axial computed tomography images of the pelvis with intravenous contrast. CTDI is 20.81 mGy and DLP is 1348.82 mGy-cm. Automated exposure control was utilized for the study. A dose lowering technique was utilized adhering to the principles of ALARA. CONTRAST: Patient received 93cc Optiray 320 of IV contrast COMPARISON: 03/04/2024 FINDINGS: Bowel: Unremarkable. No obstruction. No mucosal thickening. Appendix: The appendix is normal. Bowel loops are nondilated. No acute inflammatory changes are seen involving the bowel. Intraperitoneal space: The uterus is absent. No free fluid in the pelvis. No free air. Bladder: Unremarkable. No mass. Reproductive: Unremarkable as visualized. Bones/joints: Previous multilevel fusion, instrumentation, and laminectomy involving the lower lumbar spine and lumbosacral junction, unchanged. Mild osteoarthritic changes in both hips. No hip or pelvic fracture is identified. No dislocation. Soft tissues: Unremarkable. Vasculature: The aorta and iliac vessels are moderately calcified but nondilated. Lymph nodes: Unremarkable. No enlarged lymph nodes. IMPRESSION: The appendix is normal. Bowel loops are nondilated. No acute inflammatory changes are seen involving the bowel. Previous instrumentation, fusion, and laminectomy of the lower lumbar spine and lumbosacral junction. No hip or pelvic fracture is seen. Electronically signed by: Dusty Villafana MD 02/07/25 22:10 PM PG Care Time/CCT Total # of Minutes Spent Total Time Spent with Patient: Total time spent is greater than 50% in coordination of care (as documented) at patient's floor/unit and/or counseling patient: Coding Level of Care Code 07574 INT INP/OBS CARE 3/75MIN Diagnoses Left leg pain M79.605 Type 2 diabetes mellitus E11.9 History of pulmonary embolism Z86.711 Dyslipidemia E78.5 Hypothyroidism E03.9 Sleep apnea G47.30 Asthma J45.909
[2025-02-08] MEDS ORDERED: ALBUTEROL 0.083% NEBU SOLN 3 ML VIAL NEB PRN (01:16)
[2025-02-08] MEDS ORDERED: GLUCOSE 40% GEL 15 GM TUBE PO PRN (01:16)
[2025-02-08] MEDS ORDERED: CARBOHYDRATES FOR HYPOGLYCEMIA PO PRN (01:16)
[2025-02-08] MEDS ORDERED: DEXTROSE 50% 50 ML SYRINGE IV PRN (01:16)
[2025-02-08] MEDS ORDERED: GLUCOSE 10 TAB/TUBE PO PRN (01:16)
[2025-02-08] MEDS ORDERED: DICLOFENAC SOD 1% GEL 100 GM TUBE EXT PRN (01:16)
[2025-02-08] MEDS ORDERED: GLUCAGON FOR INJ 1 MG VIAL SQ PRN (01:16)
[2025-02-08] MEDS ORDERED: UMECLIDINIUM BROMIDE 62.5MCG/BLISTER 7 PUFFS/INHALER INH PRN (01:28)
[2025-02-08] MEDS: LEVOTHYROXINE SODIUM 112 MCG TABLET PO SCH (06:05)
[2025-02-08 07:17] LABS: Hematocrit (blood only) 39.8 % (37.0-47.0); Hemoglobin 12.8 g/dl (12.0-16.0); Mean Corpuscular Hemoglobin 27.4 pg (25.0-34.0); Mean Corpuscular Volume 85.2 fL (80.0-100.0); Platelet Count 295 K/uL (130-400); RDW Standard Deviation 50.4 fL (36.4-46.3); Red Blood Count 4.67 M/uL (4.20-5.40); White Blood Count 8.47 K/ul (4.8-10.8)
[2025-02-08 07:35] LABS: Anion Gap 8.0 (3-11); Calcium 9.2 mg/dl (8.6-10.3); Carbon Dioxide 23.0 mmol/L (21-32); Chloride 106.0 mmol/L (98-107); Potassium 4.0 mmol/L (3.5-5.1); Sodium 137.0 mmol/L (136-145)
[2025-02-08 07:41] LABS: Blood Urea Nitrogen 9.0 mg/dl (6-23); Creatinine Clr Calc Pharmacy 95.0 ml/min; Glucose 90.0 mg/dl (70-99(Fasting))
[2025-02-08 08:30] VITALS: BP 138/90; PULSE 79; RESP 20; TEMP 97.3; O2SAT 97
[2025-02-08] MEDS: INSULIN ASPART PER UNIT CHARGE SC SCH (08:35)
[2025-02-08] MEDS: ONDANSETRON INJ 2 MG/ML 2 ML VIAL IV PRN (08:38)
[2025-02-08] MEDS: LANTUS PER UNIT CHARGE SQ SCH (08:40)
[2025-02-08] MEDS: DOCUSATE SODIUM 100 MG CAP PO PRN (08:42)
[2025-02-08] MEDS: LOSARTAN POTASSIUM 50 MG TAB PO SCH (08:42)
[2025-02-08] MEDS: RIVAROXABAN 20 MG TAB PO SCH (08:42)
[2025-02-08] MEDS: REMOVE NICODERM PATCH SCH (08:42)
[2025-02-08] MEDS: GABAPENTIN 800 MG TAB PO SCH (08:42)
[2025-02-08] MEDS: NICOTINE 7 MG/24 HR TDSY TD SCH (08:43)
[2025-02-08] MEDS: ACETAMINOPHEN 500 MG TAB PO SCH (08:43)
--- NOTE | 2025-02-08 10:30 | Discharge Summary ---
Discharge Summary Date of Service February 08, 2025 Principal Dx & Hospital Course #1 = Principal Diagnosis (1) Left leg pain: (2) Type 2 diabetes mellitus: (3) History of pulmonary embolism: (4) Dyslipidemia: (5) Hypothyroidism: (6) Sleep apnea: (7) Asthma: Plan 64yo female presenting with pain in the left hip, ambulatory dysfunction #Left leg pain - pain with palpation over left greater trochanteric bursa, palpation of left groin. Pain could be secondary to meralgia paresthetica - compression of lateral femoral cutaneous nerve. Commonly seen in patients with diabetes and obesity and leading to tingling/numbness/burning pain distributed across the anterolateral thigh. Could also be secondary to bursitis - no edema or inflammation noted in the soft tissues on imaging -Observation to medical -Tylenol 1gm po TID -Diclofenac topical BID PRN -Will increase Gabapentin for now in hopes to improve possible nerve pain- patient currently on 600mg po TID, will increase to 800mg po TID starting tomorrow 02/08 at 09:00 -PT/OT evaluations appreciated -Could consider bursa injection in AM -Continue home Tramadol 50mg po BID PRN -Pt's symptoms improved overnight night, d/c home with recommendations to not engage in constant physical activity and rest. #Diabetes - patient reports good control of blood sugars. -Lantus 8u BID and ISS -CC diet #History of DVT/PE -patient on chronic anticoagulation with Xarelto -Continue Xarelto 20mg po qAM #Hyperlipidemia -Continue #Hypothyroidism - Synthroid recently changed from 125mcg to 112mcg daily -Continue 112mcg daily -Follow TFTs as outpatient #Asthma -Continue Spiriva -Albuterol PRN #GERD -Protonix 40mg po BID #Hypertension -Continue Losartan 50mg po daily and Amlodipine 5mg po daily -Monitor #ABDELRAHMAN - patient not using CPAP #Tobacco use - encouraged cessation -Nicotine patch 7mcg daily - patient smokes 1/2 ppd but has been cutting back, may need 14mcg patch -Cessation counseling PPx - Continue Xarelto Code - Full Admission HPI Per Admitting Provider Oralia Oneil is a 64yo female with multiple medical comorbidities including DM, HTN, HLP, GERD, COPD and ABDELRAHMAN presenting with left hip pain and ambulatory dysfunction. Patient reports pain in her left lateral hip ongoing for at least 6 months - progressively worsening over that timeframe with acute worsening over the last 4 days. She also reports swelling of the left lateral thigh. Patient reports she has been waking up at night over the last 4 nights in severe pain. Pain is in the left lateral hip and groin with radiation across the anterior thigh. Pain is described as burning numbness. Her leg generally feels heavy and occasionally "asleep". She called her PCP with these complaints and was instructed to come to the ER. Patient denies falling or trauma. No fever, chills, chest pain, cough or SOB. No abdominal pain, nausea, vomiting or diarrhea. No pain in the left knee or ankle. No new shoes. She ambulates with a cane occasionally at home but reports this has been more difficult lately due to pain and heaviness of the LLE. In the ER patient is afebrile, HD stable, NAD ER Course: Tylenol Fentanyl Discharge Exam GENERAL APPEARANCE NAD, activity normal for age, well developed/ well nourished, no cyanosis, pallor, or diaphoresis. EYES lids/conjunctiva normal. EARS/NOSE/THROAT Mucous membranes moist, nares normal, lips/teeth normal uvula midline without oral pharyngeal erythema, exudate or swelling TMs normal bilaterally. No lymphangitis/lymphedema. HEAD/NECK normocephalic atraumatic, no facial trauma, neck is supple. RESPIRATORY respiratory effort normal, speaks in full sentences, no tripod position, no accessory muscle use. Lungs clear to auscultation without rhonchi, wheezes, rales CARDIAC Regular rate and rhythm, no edema. ABDOMINAL Soft, ND/NT. No evidence of fluid wave. No pulsatile masses on exam, rebound tenderness, Peres sign or pain over Mcburney's point. MUSCLES/EXTREMITIES No abnormal range of motion, no swelling. SKIN Warm, pink and dry. No rashes, dermatoses, petechiae or lesions. NEUROLOGICAL Speech is clear and appropriate. Normal level of consciousness. Gait and coordination are normal. 5/5 strength in all extremities. PSYCH Normal mood and affect. Judgement/competence is appropriate Discharge Plan Discharge Items Patient Disposition: Home - Self-Care Reason For Visit: LEFT HIP PAIN, AMBULATORY DYSFUNCTION Discharge Diagnosis: meralgia paresthetica Condition on Discharge: Fair Activity: Resume your previous activity Non-emergency contact: Primary Care Provider Call non-emergency contact if: you have any medication questions Follow-up/Referrals: Romario Yang DO [Primary Care Provider] - Diet: Carb Consistent or DM2 Addtl Attending Provider Instructions: Follow up with PMD in 2 weeks Pending Studies at Discharge: No Stand-Alone Forms: My [facility] AVIcode, Smoking Cessation Medications and DC Order Prescriptions: New acetaminophen [Tylenol Extra Strength] 500 mg Tablet 1,000 mg PO Q8H Qty: 60 0RF Continued losartan 50 mg tablet 50 mg PO QAM Qty: 90 1RF Spiriva Respimat 2.5 mcg/actuation mist 2 puff inhalation DAILY PRN (Reason: Shortness Of Breath) Qty: 1 3RF nystatin 100,000 unit/gram powder 1 applic TOP TID PRN (Reason: skin irritation) Qty: 60 3RF Xarelto 20 mg tablet 20 mg PO QAM Qty: 90 1RF gabapentin [Neurontin] 600 mg tablet 600 mg PO TID Qty: 270 1RF albuterol sulfate 2.5 mg /3 mL (0.083 %) solution for nebulization 2.5 mg continuous nebulization QID PRN (Reason: Shortness Of Breath Or Wheezing) Qty: 180 3RF diclofenac sodium 1 % gel 2 g topical BID PRN (Reason: Pain) Qty: 100 3RF Rx Instructions: topical apply sparingly to affected knee area twice daily as needed; albuterol sulfate 90 mcg/actuation HFA aerosol inhaler 2 puff Inhalation Q4H PRN (Reason: Shortness Of Breath Or Wheezing) Qty: 18 3RF pantoprazole [Protonix] 40 mg tablet,delayed release (DR/EC) 40 mg PO AMHS Qty: 90 3RF trazodone 100 mg tablet 100 mg PO HS Qty: 90 0RF tramadol 50 mg tablet 50 mg PO BID PRN (Reason: pain) Qty: 60 0RF Trulicity 1.5 mg/0.5 mL pen injector 1.5 mg SUBCUT WK Qty: 2 0RF Rx Instructions: TUESDAYS betamethasone dipropionate 0.05 % cream 1 applic topical DAILY PRN (Reason: skin irritation) 28 Days Qty: 90 1RF amlodipine 5 mg tablet 5 mg PO QAM levothyroxine 112 mcg tablet 112 mcg PO DAILYBB nystatin 100,000 unit/gram Cream 1 applic TOPICAL TID PRN (Reason: Skin Irritation) Discharge Orders: Discharge Order (Routine); Ordered 02/08/25 Ordered By: Everton Daigle Admission Data Admit Date/Time: 02/07/25 23:25 Attending Provider: Everton Daigle Admit Provider: Angela Villafana Primary Care Provider: Romario Yang Other Providers: Angela Villafana Hospital Stay Data Consultations 02/07/25 22:53 ED Decision to Admit Stat Diagnostic Imagining Performed 02/07/25 19:50 CT femur LT w con Stat 02/07/25 19:51 CT pelvis w/IV con only Urgent Pending Results Patient Have Any Pending Studies at Discharge: No Discharge Instructions Given to Patient (Per Discharging Provider) Follow up with PMD in 2 weeks Total Time Total Time Spent Total Time Spent (In Minutes): 50 Coding Level of Care Code 20978 INP/OBS DISCH >30 MIN Diagnoses Left leg pain M79.605 Type 2 diabetes mellitus E11.9 History of pulmonary embolism Z86.711 Dyslipidemia E78.5 Hypothyroidism E03.9 Sleep apnea G47.30 Asthma J45.909
== END 2025-02-08 12:41 | disposition home or self-care (01) ==
LOC: ED 18:53 → 2N 18:53 → SUATTDRO 23:25 → 2N 02-08 00:59